=== PATIENT | female | born 1945 | race Caucasian/White ===

== ENCOUNTER → 2017-07-17 14:38 | Outpatient (CLI) | payer MEDICARE, OTHER, SELFPAY ==
[2017-07-17 17:08] LABS: Blood Urea Nitrogen 15 mg/dL (7-18); Estimated Glomerular Filt Rate 70 ml/min (>60); GFR (African American) 85 ML/MIN (>60)
== END ==
PROVIDERS: Family Provider Nurse Practitioner; PCP Family Medicine; Visit Provider Nurse Practitioner
DX: R06.02 Shortness of breath (principal)
CPT/HCPCS: 36415; 82565; 84520

== ENCOUNTER → 2017-07-19 12:45 | Outpatient (CLI) | payer MEDICARE, OTHER, SELFPAY ==
--- NOTE | 2017-07-19 12:54 | CT_ITS ---
CT chest wo/w con HISTORY: Increased shortness of air, emphysema/COPD, right middle lobe collapse, follow-up abnormal chest CT ITS.REASON: SHORTNESS OF BREATH ORDERING PHYSICIAN: Bernadette Paige PATIENT AGE: 72 years Technique: Axial images obtained without and with contrast. Sagittal and coronal reformatted images are also generated and reviewed. All CT scans at the facility use one or more dose reduction, viz: automated exposure control; ma/kV adjustment per patient size (including targeted exams where dose is matched to indication; i.e. head); or iterative reconstruction technique. CONTRAST: 75ml Isovue 370 I.V. COMPARISON: 03/28/2016 FINDINGS: No mediastinal or hilar mass. There are small nodes in the right hilum and subcarinal region. Subcarinal nodes are slightly more apparent at 1.5 x 1.2 cm previously 1.3 x 0.7 cm. Right hilar lymph node also slightly more prominent at 1.4 x 0.8 cm previously 1.3 x 0.7 cm. This is of questionable clinical significance. Unenhanced images show diffuse coronary artery calcifications. Normal heart size. No evidence of pericardial effusion. No evidence of aortic aneurysm or dissection with atheromatous changes noted involving the aorta. No central pulmonary embolus. There are centrilobular emphysematous changes with scattered areas of fibrosis. There are several new parenchymal opacities noted. These are mainly subpleural in the right upper lobe laterally and superiorly, right upper lobe posterior laterally, right upper lobe laterally and inferiorly, right lower lobe posteriorly. These areas measure 1 to 2 cm. There is a more prominent area of new consolidation in the right lung base posteriorly and laterally with an associated small loculated effusion. There are new atelectatic or fibrotic changes in the left lung base anteriorly. Subpleural parenchymal opacity is present in the left lower lobe posteriorly. A stable partially calcified 10 mm nodules present in the left upper lobe medially. A parenchymal opacity is present in the superior segment of the left lower lobe measuring 5 x 6 mm slightly more prominent on today's exam previously measuring approximately 4 mm. Continued follow-up recommended. Upper abdominal images are unremarkable. No acute bony anomalies. There is 50% stenosis of the ostium of the celiac artery. Severe atheromatous changes are also present at the ostium of the left subclavian and carotid artery with high-grade stenosis. IMPRESSION: 1. Centrilobular emphysema with scattered areas of fibrosis. 2. Scattered new parenchymal opacities most extensive in the right lung base posterolaterally with loculated effusion at this region. The multiplicity in subpleural location suggest inflammatory/infectious process such as cryptogenic organizing pneumonia/BOOP. 3. 6 x 4 mm left lower lobe nodule superior segment slightly more prominent. Consider continued follow-up in 6 months. 4. Coronary artery disease. 5. 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
--- NOTE | 2017-07-19 13:35 | HMH.ITSHM ---
BABY ASPIRIN, MUSINEX, LYPITOR, BLOOD PRESSURE MEDICINE, 2 INHALERS
== END ==
PROVIDERS: Family Provider Nurse Practitioner; PCP Family Medicine; Visit Provider Nurse Practitioner
DX: R06.02 Shortness of breath (principal)
CPT/HCPCS: 71270; Q9967

== ENCOUNTER → 2018-01-15 14:48 | Outpatient (CLI) | payer MEDICARE, OTHER, SELFPAY ==
[2018-01-15 18:04] LABS: Blood Urea Nitrogen 18 mg/dL (7-18); Creatinine,Serum 0.68 mg/dL (0.55-1.02); Estimated Glomerular Filt Rate 85 ml/min (>60); GFR (African American) 102 ML/MIN (>60)
== END ==
PROVIDERS: PCP Family Medicine; Visit Provider Nurse Practitioner
DX: R10.9 Unspecified abdominal pain (principal)
CPT/HCPCS: 36415; 82565; 84520

== ENCOUNTER → 2018-01-17 09:13 | Outpatient (CLI) | payer MEDICARE, OTHER, SELFPAY ==
--- NOTE | 2018-01-17 09:18 | CT_ITS ---
CT abdomen pelvis w con CLINICAL INDICATION: Left-sided abdominal pain, left lower quadrant pain ITS.REASON: ABD PAIN, LLQ ORDERING PHYSICIAN: Bernadette Paige PATIENT AGE: 72 years COMPARISON: 07/01/2017 TECHNIQUE: Axial images obtained with sagittal and coronal reformats. All CT scans at the facility use one or more dose reduction, viz: automated exposure control, ma/kV adjustment per patient size (including targeted exams where dose is matched to indication, i.e. head), or iterative reconstruction technique. PROCEDURE: Oral Contrast: Redicat IV Contrast: 75 mL's of Isovue-370. FINDINGS: There are emphysematous changes in the lung bases with bullous change in the right lung base anteriorly with scattered atelectatic or fibrotic change. Small hiatal hernia. Subtle decreased attenuation is present involving the left hepatic lobe adjacent to the falciform ligament and may represent focal fatty liver infiltration. Liver has an otherwise unremarkable appearance. The gallbladder, spleen, and pancreas have an unremarkable appearance. There is mild enlargement of both adrenal glands unchanged and may be adenomatous in nature. Duodenal diverticula noted. Bilateral renal calcifications are present which are felt to be vascular. No obstructing renal or ureteral calculi. There is an isodense lesion involving the left kidney posteriorly at 1.6 cm and may represent complex cyst with a small hyperdensity along the anterior aspect of this lesion. This is not significantly changed. There is a moderate amount retained colonic feces in the right colon. There are multiple colonic diverticula in the sigmoid region. No evidence of diverticulitis. No evidence of appendicitis. No intestinal obstruction or free air. No pelvic mass evident. No abnormal fluid collection or focal inflammatory change evident within the pelvis. No acute bony anomalies. IMPRESSION: 1. No acute abdominal or pelvic findings with overall no significant change. 2. Moderate amount retained colonic feces in the right colon. 3. Colonic diverticulosis. No evidence of diverticulitis.
--- NOTE | 2018-01-17 09:45 | HMH.ITSHM ---
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 []LOTRIL,ASPIRIN,ALLERA MUSCINEX CHOLESTEROL
== END ==
PROVIDERS: PCP Nurse Practitioner; Visit Provider Nurse Practitioner
DX: R10.32 Left lower quadrant pain (principal)
CPT/HCPCS: 74177; Q9967

== ENCOUNTER → 2018-01-29 14:22 | Outpatient (CLI) | payer MEDICARE, OTHER, SELFPAY ==
--- NOTE | 2018-01-29 14:33 | XR_ITS ---
XR elbow RT min 3V HISTORY: Right elbow pain and swelling ITS.REASON: OLECRANON BURSITIS ORDERING PHYSICIAN: Bernadette Paige PATIENT AGE: 72 years COMPARISON: None FINDINGS: No bony or joint abnormalities are evident. There are soft tissue swelling along the proximal and dorsal aspect of the ulna. There is some faint soft tissue calcification in this region versus artifact. IMPRESSION: Olecranon bursitis
== END ==
PROVIDERS: PCP Nurse Practitioner; Visit Provider Nurse Practitioner
DX: M70.21 Olecranon bursitis, right elbow (principal)
CPT/HCPCS: 73080

== ENCOUNTER 2018-03-02 10:36 | Inpatient (IN) ==
[2018-03-02 11:34] LABS: Basophils % 0.2 % (0.1-2.0); Eosinophils % 0.1 % (0.1-12.0); Hematocrit 38.8 % (37.0-47.0); Hemoglobin 11.9 g/dL (12.2-16.2); Lymphocytes # 1.6 K/mm3 (0.7-4.5); Lymphocytes % 11.1 % (10-50); Mean Corpuscular HGB Conc 30.6 g/dL (31.8-35.4); Mean Corpuscular Hemoglobin 29.8 pg (27.0-31.2); Mean Corpuscular Volume 97.2 fl (81-99); Monocytes # 0.5 K/mm3 (0.1-1.0); Monocytes % 3.4 % (1.7-9.3); Neutrophils # 12.5 K/mm3 (1.8-7.8); Neutrophils % 85.2 % (37.0-80.0); Platelet Count 570 K/mm3 (142-424); Red Blood Count 3.99 M/mm3 (4.20-5.40); Red Cell Distribution Width 13.1 % (11.5-17.5); White Blood Count 14.7 K/mm3 (4.8-10.8)
[2018-03-02 11:35] LABS: Anion Gap 7.5 mEq/L (5-15); Calcium 9.6 mg/dL (8.5-10.1); Potassium 3.5 mmoL/L (3.5-5.1)
--- NOTE | 2018-03-02 11:58 | History & Physical Report ---
*Admission Date: 03/02/18 *Chief complaint: Chills and shortness of breath *History of present illness: 72-year-old female presented to the office today as an outpatient with complaint of 1 week of episodes of chills that left her so weak she would sleep for 12-24 hours. She does not know if she had fevers. She has underlying COPD and is O2 dependent. During onset of illness she also noticed slight increase in her shortness of breath and more frequent cough that was productive of darker than usual yellow sputum. She monitors her O2 sats at home while wearing oxygen and while she usually runs at 97% her home O2 sats were dropping down to the low 90s. In the office today her O2 sat was 84-88% on pulse dose oxygen at 2 L/min. On her exam she had rales in the right lung base. Decision was made to admit for treatment of community-acquired pneumonia on top of severe COPD [facility] History Medical History: Denies:: Cancer, Diabetes Mellitus Type 1, Diabetes Mellitus Type 2, Internal Pacemaker, MRSA Comment: Severe COPD Other Surgeries: Yes: Coronary Stent. No: Pacemaker Amputation: No - *Social History Educational Level: Completed High School Smoking Status: Current every day smoker Alcohol Intake: never Occupational Status: disabled Housing: house - Psychiatric History Expresses thoughts of harming self/others: None Suicide Plan Description: No Plan Review of Systems - Review of Systems Review of systems:: pertinent systems reviewed and negative unless documented below - Constitutional Reports body ache(s), Reports chills, Reports fever(s) - *Cardiovascular Reports shortness of breath, Denies chest pain at rest, Denies chest pain with activity - *Respiratory Reports change in phlegm color, Reports chest congestion, Reports cough, Reports shortness of breath - *Gastrointestinal Denies abdominal pain, Denies belching Meds Home Medications Medication Instructions Recorded Confirmed Type Amlodipine Besylate/Benazepril 1 cap PO DAILY 07/01/17 07/01/17 History [Amlodipine-Benazepril 5-10 mg] Atorvastatin Calcium [Atorvastatin 10 mg PO HS 07/01/17 07/01/17 History 10mg Tab] Fluticasone Propionate [Flovent 120 puffs IH DAILY 07/01/17 07/01/17 History Hfa 110mcg Inhaler] Ipratropium/Albuterol Sulfate 3 ml IH DAILY 07/01/17 07/01/17 History [Albut-Ipratropium 2.5mg-0.5mg/3 ml] Ipratropium/Albuterol Sulfate 3 ml IH Q6H PRN 07/01/17 07/01/17 History [Combivent Respimat Inh] Allergies Allergy/AdvReac Type Severity Reaction Status Date / Time codeine [CODEINE] Allergy Unknown NAUSEA AND Verified 07/01/17 16:15 VOMITING ibuprofen [IBUPROFEN] Allergy Unknown I-HIVES Verified 07/01/17 16:15 meperidine [MEPERIDINE] Allergy Unknown INCREASED Verified 07/01/17 16:15 BLOOD PRESSURE Sulfa (Sulfonamide Allergy Unknown SKIN CRAWS Verified 07/01/17 16:15 Antibiotics) [SULFA (SULFONAMIDE ANTIBIOTICS)] adhesive tape AdvReac Intermediate I-RASH Verified 07/01/17 16:15 Exam Vital signs and Labs for Last 24 Hours: Temp Pulse Resp BP Pulse Ox 97.5 F L 95 H 16 180/90 H 98 03/02/18 10:55 03/02/18 11:42 03/02/18 10:55 03/02/18 10:55 03/02/18 11:42 Laboratory Results - last 24 hr 03/02/18 11:15: WBC 14.7 H, RBC 3.99 L, Hgb 11.9 L, Hct 38.8, MCV 97.2, MCH 29.8, MCHC 30.6 L, RDW 13.1, Plt Count 570 H, MPV 7.0 L, Neut % (Auto) 85.2 H, Lymph % (Auto) 11.1, [place] % (Auto) 3.4, Eos % (Auto) 0.1, Baso % (Auto) 0.2, Neut # (Auto) 12.5 H, Lymph # (Auto) 1.6, [place] # (Auto) 0.5, Eos # (Auto) 0.0, Baso # (Auto) 0.0 03/02/18 11:15: Sodium 132 L, Potassium 3.5, Chloride 92 L, Carbon Dioxide 36 H, Anion Gap 7.5, BUN 15, Creatinine 0.86, Estimated Creat Clear 33, Estimated GFR 65, Est GFR ( Amer) 78, Glucose 107 H, Calcium 9.6 I & O for Last 24 hours: Intake & Output 02/27/18 02/28/18 03/01/18 03/02/18 11:59 11:59 11:59 11:59 Weight 93 lb 1 oz Radiology Reports for the Last 24 Hours: I have reviewed the x-ray and believe it is consistent with her right lower lobe pneumonia with infiltrate in the right base Narrative: Patient is alert and in no respiratory distress. ENT exam reveals normal- appearing tympanic membranes, moist oropharynx. Neck is without lymphadenopathy or carotid bruits. Lungs are clear anteriorly but audible rales at the right lung base. Overall breath sounds are distant. Heart has a rapid rate and rhythm. Abdomen is thin and soft. Extremities are warm to the touch with active range of motion intact in all extremities. There are no neurologic deficits. Assessment and Plan (1) Community acquired pneumonia Current visit: Yes Status: Acute Category: Medical Code(s): J18.9 - Pneumonia, unspecified organism (2) Underweight Current visit: Yes Status: Acute Category: Medical Code(s): R63.6 - Underweight (3) CAD (coronary artery disease) Current visit: No Status: Acute Category: Medical Code(s): I25.10 - Atherosclerotic heart disease of [place] coronary artery without angina pectoris (4) COPD (chronic obstructive pulmonary disease) Current visit: No Status: Acute Category: Medical Code(s): J44.9 - Chronic obstructive pulmonary disease, unspecified - Assessment and plan all Dx Assessment and Plan for all problems:: Patient has been admitted for treatment of community-acquired pneumonia with Rocephin and azithromycin. Blood cultures and sputum cultures have been collected. Patient will be started on a probiotic as in the past with treatment of respiratory infection she developed C. difficile. Should she develop diarrhea there will be a low threshold for testing. Home medications will be given.
[2018-03-02 12:08] LABS: Lymphocytes % 9 % (10-50); Monocytes % 1 % (2-9); Neutrophils % 85 % (42-76); Total Cells Counted 100
[2018-03-02 12:09] LABS: RBC Morphology Normal
[2018-03-02 13:15] LABS: Coronavirus 229E Not Detected (NotDetected); Coronavirus NL63 Not Detected (NotDetected); Coronavirus OC43 Not Detected (NotDetected); Coronovirus HKU1,PCR Not Detected (NotDetected)
--- NOTE | 2018-03-03 07:36 | Progress Note ---
Internal Medicine - PN: Subj *Date: 03/03/18 *Time: 07:35 Interval history: Patient is feeling better this morning. While she did have an episode of chills overnight they did not seem to be as intense as they had been prior to admission. She denies fevers. She is ambulating well. Exam Vital signs and Labs for Last 24 Hours: Temp Pulse Resp BP Pulse Ox 97.9 F 82 19 133/63 99 03/03/18 04:00 03/03/18 06:12 03/03/18 04:00 03/03/18 04:00 03/03/18 06:12 Laboratory Results - last 24 hr 03/02/18 11:15: Mycoplasma pneumon IgM Non-reactive 03/02/18 11:15: WBC 14.7 H, RBC 3.99 L, Hgb 11.9 L, Hct 38.8, MCV 97.2, MCH 29.8, MCHC 30.6 L, RDW 13.1, Plt Count 570 H, MPV 7.0 L, Neut % (Auto) 85.2 H, Lymph % (Auto) 11.1, [place] % (Auto) 3.4, Eos % (Auto) 0.1, Baso % (Auto) 0.2, Neut # (Auto) 12.5 H, Lymph # (Auto) 1.6, [place] # (Auto) 0.5, Eos # (Auto) 0.0, Baso # (Auto) 0.0, Total Counted 100, Neutrophils % (Manual) 85 H, Lymphocytes % (Manual) 9 L, Atypical Lymphs % 5.0, Monocytes % (Manual) 1 L, Platelet Estimate Slight increase, RBC Morphology Normal 03/02/18 11:15: Sodium 132 L, Potassium 3.5, Chloride 92 L, Carbon Dioxide 36 H, Anion Gap 7.5, BUN 15, Creatinine 0.86, Estimated Creat Clear 33, Estimated GFR 65, Est GFR ( Amer) 78, Glucose 107 H, Calcium 9.6 03/02/18 13:10: Chlamy pneumoniae PCR Not detected, Adenovirus (PCR) Not detected, B. pertussis DNA (PCR) Not detected, Coronavirus OC43 (PCR) Not detected, Coronavirus HKU1 (PCR) Not detected, Coronavirus 229E (PCR) Not detected, Coronavirus NL63 (PCR) Not detected, Human Metapneumovir PCR Not detected, Influenza A (H1) PCR Not detected, Influ A (H1N1/09) PCR Not detected, Influenza A (H3) PCR Not detected, Influenza Type A (PCR) Not detected, Influenza Type B (PCR) Not detected, M. pneumoniae (PCR) Not detected, Parainfluenza 1 (PCR) Not detected, Parainfluenza 2 (PCR) Not detected, Parainfluenza 3 (PCR) Not detected, Parainfluenza 4 (PCR) Not detected, RSV (PCR) Not detected, Entero/Rhino (PCR) Not detected I & O for Last 24 hours: Intake & Output 02/28/18 03/01/18 03/02/18 03/03/18 11:59 11:59 11:59 11:59 Intake Total 480 / 480 Balance 480 / 480 Weight 93 lb 1 oz Narrative: She looks well. Patient still has faint rales in the right lung base with diminished breath sounds. Left lung is clear. Heart has a regular rate and rhythm. Chest x-ray report has been reviewed Assessment and Plan (1) Community acquired pneumonia Current visit: Yes Status: Acute Category: Medical Code(s): J18.9 - Pneumonia, unspecified organism (2) Underweight Current visit: Yes Status: Acute Category: Medical Code(s): R63.6 - Underweight (3) CAD (coronary artery disease) Current visit: No Status: Acute Category: Medical Code(s): I25.10 - Athe rosclerotic heart disease of [place] coronary artery without angina pectoris (4) COPD (chronic obstructive pulmonary disease) Current visit: No Status: Acute Category: Medical Code(s): J44.9 - Chronic obstructive pulmonary disease, unspecified - Assessment and plan all Dx Assessment and Plan for all problems:: Continue current antibiotics. Await cultures.
[2018-03-03 08:00] LABS: Basophils % 0.2 % (0.1-2.0); Lymphocytes # 1.9 K/mm3 (0.7-4.5); Monocytes # 0.4 K/mm3 (0.1-1.0); Red Blood Count 3.62 M/mm3 (4.20-5.40); White Blood Count 9.5 K/mm3 (4.8-10.8)
[2018-03-03 08:07] LABS: Eosinophils % 0.4 % (0.1-12.0); Hematocrit 35.5 % (37.0-47.0); Lymphocytes % 20.5 % (10-50); Mean Corpuscular HGB Conc 30.9 g/dL (31.8-35.4); Mean Corpuscular Hemoglobin 30.2 pg (27.0-31.2); Mean Platelet Volume 6.7 fl (7.4-10.4); Monocytes % 4.5 % (1.7-9.3); Neutrophils % 74.4 % (37.0-80.0); Platelet Count 519 K/mm3 (142-424); Red Cell Distribution Width 13.1 % (11.5-17.5)
--- NOTE | 2018-03-03 15:54 | Pharmacy Consult Notes ---
[facility] Pharmacy VTE Monitoring - Patient Demographics Admission date: 03/02/18 Report Date: 03/03/18 Time: 15:54 Allergies/Adverse Reactions: Patient Allergies codeine [CODEINE] Allergy (Unknown, Verified 07/01/17 16:15) NAUSEA AND VOMITING ibuprofen [IBUPROFEN] Allergy (Unknown, Verified 07/01/17 16:15) I-HIVES meperidine [MEPERIDINE] Allergy (Unknown, Verified 07/01/17 16:15) INCREASED BLOOD PRESSURE Sulfa (Sulfonamide Antibiotics) [SULFA (SULFONAMIDE ANTIBIOTICS)] Allergy (Unknown, Verified 07/01/17 16:15) SKIN CRAWS adhesive tape Adverse Reaction (Intermediate, Verified 07/01/17 16:15) I-RASH Height: 1.65 m Weight: 42.212 kg Patient Problems: Current Active Problems Community acquired pneumonia (Acute) Underweight (Acute) - VTE Risk Labs: VTE Related Lab Results Hgb 11.0 g/dL (12.2-16.2) L 03/03/18 07:54 Hct 35.5 % (37.0-47.0) L 03/03/18 07:54 Plt Count 519 K/mm3 (142-424) H 03/03/18 07:54 BUN 15 mg/dL (7-18) 03/02/18 11:15 Creatinine 0.86 mg/dL (0.55-1.02) 03/02/18 11:15 Estimated Creat Clear 33 mL/min (50-200) 03/02/18 11:15 Was VTE Risk Assessment Performed: Yes VTE Score: 2 VTE Risk Level: Very Low Risk - Prophylaxis VTE Prophylaxis Ordered?: Yes Types of VTE Prophylaxis: TEDS Knee High Location of Applied Device: Bilateral Lower Extremeties
--- NOTE | 2018-03-04 07:20 | Discharge Summary ---
General - General Admission date:: 03/02/18 Discharge date: 03/04/18 HPI HPI: 72-year-old female presented to the office today as an outpatient with complaint of 1 week of episodes of chills that left her so weak she would sleep for 12-24 hours. She does not know if she had fevers. She has underlying COPD and is O2 dependent. During onset of illness she also noticed slight increase in her shortness of breath and more frequent cough that was productive of darker than usual yellow sputum. She monitors her O2 sats at home while wearing oxygen and while she usually runs at 97% her home O2 sats were dropping down to the low 90s. In the office today her O2 sat was 84-88% on pulse dose oxygen at 2 L/min. On her exam she had rales in the right lung base. Decision was made to admit for treatment of community-acquired pneumonia on top of severe COPD Hospital Course Hospital Course: She was admitted to the hospital and placed on Rocephin and azithromycin. Chest x-ray performed on admission showed mostly chronic changes with a new lesion in the left midlung that was ill-defined. Therefore CT scan was ordered. Patient improved each day while hospitalized. O2 sats remained in the mid to high 90s on her 2 L/min of oxygen via nasal cannula. Cough became less productive of dark yellow sputum. Patient did admit some chest discomfort from coughing so frequently. She was given duo nebs while hospitalized. She did not have any wheezing. Chills decreased in intensity over her 48 hours of hospitalization. Patient was discharged home on the after her chest CT. She was discharged with azithromycin and Ceftin ear. Patient will follow-up in the office in 3 days. Objective Vital signs: Temp Pulse Resp BP Pulse Ox 98.4 F 78 19 122/65 99 03/04/18 04:00 03/04/18 05:57 03/04/18 04:00 03/04/18 04:00 03/04/18 04:00 Results Labs on day of discharge: Labs from last 24 hours 03/03/18 07:54 WBC 9.5 D RBC 3.62 L Hgb 11.0 L Hct 35.5 L MCV 98.0 MCH 30.2 MCHC 30.9 L RDW 13.1 Plt Count 519 H MPV 6.7 L Neut % (Auto) 74.4 Lymph % (Auto) 20.5 [place] % (Auto) 4.5 Eos % (Auto) 0.4 Baso % (Auto) 0.2 Neut # (Auto) 7.0 Lymph # (Auto) 1.9 [place] # (Auto) 0.4 Eos # (Auto) 0.0 Baso # (Auto) 0.0 DS: Diagnosis - Discharge Diagnosis (1) Community acquired pneumonia Status: Acute (2) Underweight Status: Acute (3) CAD (coronary artery disease) Status: Acute (4) COPD (chronic obstructive pulmonary disease) Status: Acute Discharge Plan - Patient Discharge Instructions ACTIVITY: Continue current activity DIET: continue same diet Patient Instructions: Chronic Obstructive Pulmonary Disease - Follow up Plan Follow up with: Celestino Adams MD [Primary Care Provider] - 03/07/18 1:30 pm Disposition: Home, Self-Detention Medications: Home Medications Medication Instructions Recorded Confirmed Type Amlodipine Besylate/Benazepril 1 cap PO DAILY 07/01/17 03/03/18 History [Amlodipine-Benazepril 5-10 mg] Atorvastatin Calcium [Atorvastatin 10 mg PO HS 07/01/17 03/03/18 History 10mg Tab] Fluticasone Propionate [Flovent 120 puffs IH DAILY 07/01/17 03/03/18 History Hfa 110mcg Inhaler] Ipratropium/Albuterol Sulfate 3 ml IH DAILY 07/01/17 03/03/18 History [Albut-Ipratropium 2.5mg-0.5mg/3 ml] Ipratropium/Albuterol Sulfate 3 ml IH Q6H PRN 07/01/17 03/03/18 History [Combivent Respimat Inh] Prescriptions/Medication Reconciliation: New Cefdinir [Omnicef 300mg Capsule] 300 mg PO BID #14 cap Azithromycin [Zithromax 250mg tab] 250 mg PO DAILY #5 tablet Continue Ipratropium/Albuterol Sulfate [Combivent Respimat Inh] 3 ml IH Q6H PRN PRN Reason: breathing Ipratropium/Albuterol Sulfate [Albut-Ipratropium 2.5mg-0.5mg/3 ml] 3 ml IH DAILY Fluticasone Propionate [Flovent Hfa 110mcg Inhaler] 120 puffs IH DAILY Atorvastatin Calcium [Atorvastatin 10mg Tab] 10 mg PO HS Amlodipine Besylate/Benazepril [Amlodipine-Benazepril 5-10 mg] 1 cap PO DAILY Ondansetron [Zofran 4mg ODT] 4 mg PO Q8HP PRN #6 tab.rapdis PRN Reason: Nausea Discontinued Nitrofurantoin Monohyd/M-Cryst [Macrobid 100 mg Capsule] 100 mg PO DAILY
== END 2018-03-04 13:00 | disposition home or self-care (01) ==
LOC: 2ND 10:36
PROVIDERS: ADMIT Family Medicine; ATTEND Family Medicine
CPT/HCPCS: 36415; 71020; 71046; 71260; 80048; 85007; 85025; 86738; 87040; 87070; 87205; 87486; 87581; 87633; 87798; 94640; 94761; J0456; Q9967

== ENCOUNTER → 2018-05-21 13:25 | Outpatient (CLI) | payer MEDICARE, OTHER, SELFPAY ==
--- NOTE | 2018-05-21 13:31 | AS_ITS ---
Renal Arterial Duplex Indications: 405.91 Unspecified renovascular hypertension. IMPRESSIONS 1. Greater than 60% stenosis involving the right renal artery 2. The left renal artery appears normal. History: Risk factors: Smoker-50 yrs Hypertension. Complete renal arterial duplex. Duplex scan and Doppler flow study including spectral analysis, color and varner scale imaging. Height: Height: 165.1cm. Height: 65in. Weight: Weight: 44.9kg. Weight: 98.8lb. Body mass index: BMI: 16.5kg/m^2. Body surface area: BSA: 1.42m^2. Location: Vascular laboratory. Patient status: Outpatient. Tables: Arterial flow: + +--------+--------+ Location V sys V ed + +--------+--------+ Right renal - proximal 175cm/s 30.7cm/s + +--------+--------+ Right renal - mid 133cm/s 24.5cm/s + +--------+--------+ Right renal - distal 126cm/s 26.8cm/s + +--------+--------+ Left renal - proximal 53.6cm/s 11.3cm/s + +--------+--------+ Left renal - mid 83.5cm/s 20.1cm/s + +--------+--------+ Left renal - distal 160cm/s 38.6cm/s + +--------+--------+ Right renal-origin 187cm/s 34.9cm/s + +--------+--------+ Aorta-Prox 59.9cm/s -------- + +--------+--------+ Renal anatomy: + +-----+------+ Left Right + +-----+------+ Long axis 6.2cm 12.3cm + +-----+------+ Short axis 4.3cm 5.9cm + +-----+------+ Cortical thickness 0.9cm 1.2cm + +-----+------+ Velocity ratios: + +-----+ V sys + +-----+ Right renal/aortic 3.1 + +-----+ Left renal/aortic 2.7 + +-----+ (Report amended ) Electronically signed by: Melvin Roach [id number]
--- NOTE | 2018-05-21 14:11 | US_ITS ---
US abd. aorta screening HISTORY: ITS.REASON: abdominal bruit ORDERING PHYSICIAN: Parveen Long MD PATIENT AGE: 73 years Comparison: 01/17/2018 FINDINGS: There is a moderate amount of atherosclerotic calcific plaque involving the abdominal aorta. This somewhat precludes fine detail of the posterior wall of the abdominal aorta. No convincing evidence of abdominal aortic aneurysm with maximum transverse dimension of the upper abdominal aorta at 1.8 cm in the mid abdominal aorta at 1.8 cm. Proximal common iliacs are unremarkable post less than 1 cm. IMPRESSION: 1. No evidence of abdominal aortic aneurysm. 2. Atherosclerotic vascular disease of the aorta
== END ==
PROVIDERS: Visit Provider Internal Medicine
DX: G45.9 Transient cerebral ischemic attack, unspecified (principal); I73.9 Peripheral vascular disease, unspecified; J44.9 Chronic obstructive pulmonary disease, unspecified; Z99.81 Dependence on supplemental oxygen; I10 Essential (primary) hypertension; R09.89 Other specified symptoms and signs involving the circulatory and respiratory systems; Z87.891 Personal history of nicotine dependence
CPT/HCPCS: 76705; 93976

== ENCOUNTER 2018-08-04 19:10 | Observation (INO) | payer MEDICARE, OTHER, SELFPAY ==
[2018-08-04] VITALS (9 sets, daily range): BP systolic 104–147; BP diastolic 51–86; PULSE 75–109; RESP 14–20; TEMP 36.6–37.9; O2SAT 90–96; BMI 16.5; BMI 15.6
--- NOTE | 2018-08-04 19:17 | XR_ITS ---
XR chest 2V HISTORY: Shortness of air, COPD, ITS.REASON: SOA ORDERING PHYSICIAN: Timo Chavez MD PATIENT AGE: 73 years COMPARISON: 05/18/2018 FINDINGS: The cardiomediastinal silhouette and pulmonary vascularity are within normal limits. COPD. Nodular density in the left midlung has increased in size measuring 2.4 cm previously 1.6 cm.. There is blunting of the right CP angle with patchy density in the right lung base suggesting an area of infiltrate. There is thickening along the minor fissure as seen on the lateral view. No acute bony findings. IMPRESSION: 1. Enlarging nodule within the superior segment the left lower lobe suspicious for neoplasm. 2. Small right effusion with infiltrate in the right lung base with COPD
[2018-08-04 19:40] LABS: Basophils % 0.1 % (0.1-2.0); Eosinophils % 0.1 % (0.1-12.0); Hematocrit 35.9 % (37.0-47.0); Hemoglobin 11.7 g/dL (12.2-16.2); Lymphocytes # 1.1 K/mm3 (0.7-4.5); Lymphocytes % 9.2 % (10-50); Mean Corpuscular HGB Conc 32.7 g/dL (31.8-35.4); Mean Corpuscular Volume 91.7 fl (81-99); Mean Platelet Volume 7.1 fl (7.4-10.4); Monocytes # 0.5 K/mm3 (0.1-1.0); Neutrophils # 10.4 K/mm3 (1.8-7.8); Neutrophils % 86.6 % (37.0-80.0); Platelet Count 259 K/mm3 (142-424); Red Blood Count 3.91 M/mm3 (4.20-5.40); Red Cell Distribution Width 13.4 % (11.5-17.5)
[2018-08-04 19:43] LABS: MANUAL DIFFERENTIAL MANUAL DIFFERENTIAL (MANUAL DIFF)
[2018-08-04 19:54] LABS: Alanine Aminotransferase 27 U/L (12-78); Albumin Level 3.7 gm/dL (3.4-5.0); Albumin/Globulin Ratio 0.8 (1.1-1.8); Alkaline Phosphatase 71 U/L (46-116); Anion Gap 11.1 mEq/L (5-15); Aspartate Amino Transferase 24 U/L (15-37); Bilirubin,Total 0.4 mg/dL (0.2-1.0); Blood Urea Nitrogen 21 mg/dL (7-18); Calcium 8.6 mg/dL (8.5-10.1); Carbon Dioxide 33 mmol/L (21.0-32.0); Chloride 90 mmol/L (98-107); Creatinine Clearance Estimated 31 mL/min (50-200); Creatinine,Serum 1.11 mg/dL (0.55-1.02); Estimated Glomerular Filt Rate 48 ml/min (>60); GFR (African American) 58 ML/MIN (>60); Globulin 4.9 gm/dl (1.3-3.2); Glucose 115 mg/dL (74-106); Potassium 4.1 mmoL/L (3.5-5.1); Sodium 130 mmol/L (136-145); Total Protein,Serum 8.6 gm/dL (6.4-8.2); Troponin I < 0.02 ng/ml (0.00-0.06)
[2018-08-04 19:55] LABS: Lactic Acid 1.8 mmol/L (0.4-2.0)
[2018-08-04 19:57] LABS: Lymphocytes % 6 % (10-50); Neutrophils % 78 % (42-76); Total Cells Counted 100
[2018-08-04 19:58] LABS: Platelet Estimate Normal; RBC Morphology Normal
--- NOTE | 2018-08-04 20:28 | HMH.EDSOB ---
ED Disposition Clinical Impression: Acute exacerbation of chronic obstructive airways disease, Low body mass index (BMI), Bronchitis, Hyponatremia, Lung nodule seen on imaging study, Renal insufficiency Disposition: Admitted as Observation Condition on Discharge: Good Referrals: Celestino Adams MD [Primary Care Provider] - - Critical Care Critical Care Time: No Attestation: On 08/04/18, the high probability of a clinically significant, sudden or life threatening deterioration of the following system(s) required my full and direct attention, intervention and personal management. The time I documented below is in addition to time spent performing reported procedures but includes the following listed in this critical care notation. Medical Decision Making - Medical Records Medical records reviewed: Yes: I reviewed the patient's medical records. - Koko Inquiry Pt receiving controlled substance: No Vital Signs: 08/04/18 19:11 08/04/18 19:32 08/04/18 19:40 Temperature 100.2 F H Temperature Source Oral Pulse Rate 77 79 Pulse Rate [Right Brachial] 109 H Respiratory Rate 20 Blood Pressure [Right Arm] 147/67 H Blood Pressure Mean [Right Arm] 93 Blood Pressure Source [Right Arm] Blood Pressure Position [Right Arm] 02 Sat by Pulse Oximetry 90 L Oxygen Delivery Method Oxygen Flow Rate (LPM) 08/04/18 20:46 Temperature 100.0 F H Temperature Source Oral Pulse Rate Pulse Rate [Right Brachial] 89 Respiratory Rate 14 Blood Pressure [Right Arm] 130/60 Blood Pressure Mean [Right Arm] 83 Blood Pressure Source [Right Arm] Automatic Cuff Blood Pressure Position [Right Arm] Supine 02 Sat by Pulse Oximetry 95 Oxygen Delivery Method Nasal Cannula Oxygen Flow Rate (LPM) 2 - Lab Data Lab results reviewed: Yes: I reviewed the patient's lab results. Lab Results 08/04/18 19:20: WBC 12.0 H, RBC 3.91 L, Hgb 11.7 L, Hct 35.9 L, MCV 91.7, MCH 30.0, MCHC 32.7, RDW 13.4, Plt Count 259, MPV 7.1 L, Neut % (Auto) 86.6 H, Lymph % (Auto) 9.2 L, [place] % (Auto) 4.0, Eos % (Auto) 0.1, Baso % (Auto) 0.1, Neut # (Auto) 10.4 H, Lymph # (Auto) 1.1, [place] # (Auto) 0.5, Eos # (Auto) 0.0, Baso # (Auto) 0.0, Total Counted 100, Neutrophils % (Manual) 78 H, Band Neutrophils % 16.0 H, Lymphocytes % (Manual) 6 L, Platelet Estimate Normal, RBC Morphology Normal 08/04/18 19:20: Sodium 130 L, Potassium 4.1, Chloride 90 L, Carbon Dioxide 33 H, Anion Gap 11.1, BUN 21 H, Creatinine 1.11 H, Estimated Creat Clear 31, Estimated GFR 48 L, Est GFR ( Amer) 58 L, Glucose 115 H, Calcium 8.6, Total Bilirubin 0.4, AST 24, ALT 27, Alkaline Phosphatase 71, Troponin I < 0.02, Total Protein 8.6 H, Albumin 3.7, Globulin 4.9 H, Albumin/Globulin Ratio 0.8 L 08/04/18 19:20: Lactate 1.8 08/04/18 21:00: Urine Color Yellow, Urine Appearance Clear, Urine pH 6.0, Ur Specific [place] 1.025, Urine Protein 2+, Urine Glucose (UA) Negative, Urine Ketones Negative, Urine Blood 2+, Urine Nitrate Negative, Urine Bilirubin Negative, Urine Urobilinogen 0.2, Ur Leukocyte Esterase Negative, Urine RBC 3-5, Urine WBC Occasional, Ur Squamous Epith Cells 3-5, Hyaline Casts Occasional 08/04/18 21:53: Troponin I < 0.02 Result diagrams: 08/04/18 19:20 08/04/18 19:20 Orders (Tests/Meds): ED MEDICATIONS Generic Name Dose Route Start Last Admin Trade Name Freq PRN Reason Stop Dose Admin Sodium Chloride 1,000 mls @ 999 mls/hr 08/04/18 19:30 08/04/18 19:29 Sod Chlor 0.9% 1000ml Bag IV 08/04/18 20:30 999 mls/hr .[id number] LAURA Administration Discontinued Medications Generic Name Dose Route Start Last Admin Trade Name Freq PRN Reason Stop Dose Admin Acetaminophen 650 mg 08/04/18 20:48 08/04/18 20:50 Acetaminophen 325mg Tab PO 08/04/18 20:49 650 mg ONCE ONE Administration Albuterol/Ipratropium 3 ml 08/04/18 19:18 08/04/18 19:30 Duoneb 3ml Neb IH 08/04/18 19:19 3 ml ONCE ONE Administration Famotidine 20 mg 08/04/18 22:24 08/04/18
--- NOTE | 2018-08-04 20:39 | ED_ITS ---
ED Disposition Clinical Impression: Acute exacerbation of chronic obstructive airways disease, Low body mass index (BMI), Bronchitis, Hyponatremia, Lung nodule seen on imaging study, Renal insufficiency Disposition: Admitted as Observation Condition on Discharge: Good Referrals: Celestino Adams MD [Primary Care Provider] - - Critical Care Critical Care Time: No Attestation: On 08/04/18, the high probability of a clinically significant, sudden or life threatening deterioration of the following system(s) required my full and direct attention, intervention and personal management. The time I documented below is in addition to time spent performing reported procedures but includes the following listed in this critical care notation. Medical Decision Making - Medical Records Medical records reviewed: Yes: I reviewed the patient's medical records. - Koko Inquiry Pt receiving controlled substance: No Vital Signs: 08/04/18 19:11 08/04/18 19:32 08/04/18 19:40 Temperature 100.2 F H Temperature Source Oral Pulse Rate 77 79 Pulse Rate [Right Brachial] 109 H Respiratory Rate 20 Blood Pressure [Right Arm] 147/67 H Blood Pressure Mean [Right Arm] 93 Blood Pressure Source [Right Arm] Blood Pressure Position [Right Arm] 02 Sat by Pulse Oximetry 90 L Oxygen Delivery Method Oxygen Flow Rate (LPM) 08/04/18 20:46 Temperature 100.0 F H Temperature Source Oral Pulse Rate Pulse Rate [Right Brachial] 89 Respiratory Rate 14 Blood Pressure [Right Arm] 130/60 Blood Pressure Mean [Right Arm] 83 Blood Pressure Source [Right Arm] Automatic Cuff Blood Pressure Position [Right Arm] Supine 02 Sat by Pulse Oximetry 95 Oxygen Delivery Method Nasal Cannula Oxygen Flow Rate (LPM) 2 - Lab Data Lab results reviewed: Yes: I reviewed the patient's lab results. Lab Results 08/04/18 19:20: WBC 12.0 H, RBC 3.91 L, Hgb 11.7 L, Hct 35.9 L, MCV 91.7, MCH 30.0, MCHC 32.7, RDW 13.4, Plt Count 259, MPV 7.1 L, Neut % (Auto) 86.6 H, Lymph % (Auto) 9.2 L, [place] % (Auto) 4.0, Eos % (Auto) 0.1, Baso % (Auto) 0.1, Neut # (Auto) 10.4 H, Lymph # (Auto) 1.1, [place] # (Auto) 0.5, Eos # (Auto) 0.0, Baso # (Auto) 0.0, Total Counted 100, Neutrophils % (Manual) 78 H, Band Neutrophils % 16.0 H, Lymphocytes % (Manual) 6 L, Platelet Estimate Normal, RBC Morphology Normal 08/04/18 19:20: Sodium 130 L, Potassium 4.1, Chloride 90 L, Carbon Dioxide 33 H, Anion Gap 11.1, BUN 21 H, Creatinine 1.11 H, Estimated Creat Clear 31, Estimated GFR 48 L, Est GFR ( Amer) 58 L, Glucose 115 H, Calcium 8.6, Total Bilirubin 0.4, AST 24, ALT 27, Alkaline Phosphatase 71, Troponin I < 0.02, Total Protein 8.6 H, Albumin 3.7, Globulin 4.9 H, Albumin/Globulin Ratio 0.8 L 08/04/18 19:20: Lactate 1.8 08/04/18 21:00: Urine Color Yellow, Urine Appearance Clear, Urine pH 6.0, Ur Specific [place] 1.025, Urine Protein 2+, Urine Glucose (UA) Negative, Urine Ketones Negative, Urine Blood 2+, Urine Nitrate Negative, Urine Bilirubin Negative, Urine Urobilinogen 0.2, Ur Leukocyte Esterase Negative, Urine RBC 3-5, Urine WBC Occasional, Ur Squamous Epith Cells 3-5, Hyaline Casts Occasional 08/04/18 21:53: Troponin I < 0.02 Result diagrams: 08/04/18 19:20 08/04/18 19:20 Orders (
--- NOTE | 2018-08-04 21:00 | PC.NURSE ---
urine output of 200cc
[2018-08-04 21:11] LABS: Microscopic, Urine URINE MICROSCOPIC (MICROSCOPIC)
[2018-08-04 21:16] LABS: Appearance,Urine CLEAR (Clear); Bilirubin,Urine Negative (Negative); Blood, Urine 2+ (Negative); Color,Urine YELLOW (Yellow); Glucose,Urine (UA) Negative (Negative); Ketones,Urine Negative (Negative); Leukocyte Esterase,Urine Negative (Negative); Nitrate,Urine Negative (Negative); Protein,Urine 2+ (Negative); Specific Gravity, Urine 1.025 (1.005-1.030); Urobilinogen,Urine 0.2 EU/dl (0.2)
[2018-08-04 21:18] LABS: Hyaline Casts,Urine Occasional #/lpf (0); WBC,Urine Occasional #/hpf (0-3)
--- NOTE | 2018-08-04 21:54 | XR_ITS ---
XR pelvis 1-2V HISTORY: Pain ITS.REASON: pain ORDERING PHYSICIAN: Celestino Adams MD PATIENT AGE: 73 years Comparison: None FINDINGS: No fracture or dislocation is evident. No significant degenerative change. No lytic or blastic change. The SI joints have an unremarkable appearance. There is a mild amount of retained colonic feces. Right iliac artery stent is present. IMPRESSION: No acute finding
--- NOTE | 2018-08-04 21:55 | XR_ITS ---
XR knee RT 3V HISTORY: ITS.REASON: pain ORDERING PHYSICIAN: Celestino Adams MD PATIENT AGE: 73 years COMPARISON: None FINDINGS: No fracture or dislocation. No lytic or blastic change. Normal mineralization. No significant arthritic changes evident.. Lucencies are present in the distal aspect of the femur nonspecific possibly related to osteopenia/osteoporosis. Follow-up may confirm. IMPRESSION: 1. No acute finding. 2. Nonspecific faint lucencies of the distal femur
[2018-08-04 22:15] LABS: Troponin I < 0.02 ng/ml (0.00-0.06)
--- NOTE | 2018-08-04 23:56 | PC.NURSE ---
PT ARRIVED TO FLOOR VIA @ [id number]
[2018-08-05] VITALS (12 sets, daily range): BP systolic 92–146; BP diastolic 47–63; PULSE 70–100; RESP 18–20; TEMP 36.6–37.1; O2SAT 93–99; BMI 15.7
[2018-08-05 01:39] LABS: Troponin I < 0.02 ng/ml (0.00-0.06)
--- NOTE | 2018-08-05 04:26 | PC.NURSE ---
Pt A&O x3. Resting in bed. Denies any chest pain at this time. VSS. Medications administered per may. Call light within reach. Will continue to monitor.
[2018-08-05 04:27] LABS: Basophils % 0.1 % (0.1-2.0); Eosinophils % 0.1 % (0.1-12.0); Hematocrit 32.1 % (37.0-47.0); Hemoglobin 10.3 g/dL (12.2-16.2); Lymphocytes # 0.8 K/mm3 (0.7-4.5); Mean Corpuscular HGB Conc 32.2 g/dL (31.8-35.4); Mean Corpuscular Hemoglobin 30.1 pg (27.0-31.2); Mean Corpuscular Volume 93.4 fl (81-99); Mean Platelet Volume 7.4 fl (7.4-10.4); Monocytes # 0.2 K/mm3 (0.1-1.0); Monocytes % 1.3 % (1.7-9.3); Neutrophils # 12.2 K/mm3 (1.8-7.8); Neutrophils % 92.5 % (37.0-80.0); Platelet Count 230 K/mm3 (142-424); Red Blood Count 3.44 M/mm3 (4.20-5.40); Red Cell Distribution Width 13.5 % (11.5-17.5); White Blood Count 13.1 K/mm3 (4.8-10.8)
[2018-08-05 04:29] LABS: MANUAL DIFFERENTIAL MANUAL DIFFERENTIAL (MANUAL DIFF)
--- NOTE | 2018-08-05 04:35 | PC.NURSE ---
Pt A&O x3. Resting in bed. She denies any discomfort at this time. She is currently on 2L O2 NC. VSS. Pt ambulated to BR with assist x1. Tolerated well. Education given on medicare obs. Home meds in locked drawer. Call light within reach. No other concerns at this time. Will continue to monitor.
[2018-08-05 04:46] LABS: Anion Gap 11.8 mEq/L (5-15); Blood Urea Nitrogen 20 mg/dL (7-18); Carbon Dioxide 29 mmol/L (21.0-32.0); Chloride 97 mmol/L (98-107); Creatinine Clearance Estimated 31 mL/min (50-200); Creatinine,Serum 1.05 mg/dL (0.55-1.02); Estimated Glomerular Filt Rate 51 ml/min (>60); GFR (African American) 62 ML/MIN (>60); Magnesium 1.7 mg/dL (1.4-2.2); Potassium 3.8 mmoL/L (3.5-5.1); Sodium 134 mmol/L (136-145); Troponin I < 0.02 ng/ml (0.00-0.06)
[2018-08-05 04:47] LABS: Glucose 183 mg/dL (74-106)
[2018-08-05 04:49] LABS: Lymphocytes % 6 % (10-50); Neutrophils % 81 % (42-76); Platelet Estimate Normal; RBC Morphology Normal; Total Cells Counted 100
[2018-08-05 04:50] LABS: Rouleaux 1+
--- NOTE | 2018-08-05 07:11 | P.CONPHA_ITS ---
[facility] Pharmacy VTE Monitoring - Patient Demographics Admission date: 08/04/18 Report Date: 08/05/18 Time: 07:11 Allergies/Adverse Reactions: Patient Allergies codeine [CODEINE] Allergy (Unknown, Verified 05/21/18 11:15) NAUSEA AND VOMITING ibuprofen [IBUPROFEN] Allergy (Unknown, Verified 05/21/18 11:15) I-HIVES meperidine [MEPERIDINE] Allergy (Unknown, Verified 05/21/18 11:15) INCREASED BLOOD PRESSURE Sulfa (Sulfonamide Antibiotics) [SULFA (SULFONAMIDE ANTIBIOTICS)] Allergy (Unknown, Verified 05/21/18 11:15) SKIN CRAWS adhesive tape Adverse Reaction (Intermediate, Verified 05/21/18 11:15) I-RASH Height: 1.65 m Weight: 42.864 kg Patient Problems: Current Active Problems (Updated 08/04/18 @ 22:43 by Mateus Lemus MD) Lung nodule seen on imaging study (Acute) Acute exacerbation of chronic obstructive airways disease (Acute) Low body mass index (BMI) (Acute) Bronchitis (Acute) Hyponatremia (Acute) Renal insufficiency (Acute) - VTE Risk Labs: VTE Related Lab Results Hgb 10.3 g/dL (12.2-16.2) L D 08/05/18 04:10 Hct 32.1 % (37.0-47.0) L 08/05/18 04:10 Plt Count 230 K/mm3 (142-424) 08/05/18 04:10 BUN 20 mg/dL (7-18) H 08/05/18 04:10 Creatinine 1.05 mg/dL (0.55-1.02) H 08/05/18 04:10 Estimated Creat Clear 31 mL/min (50-200) 08/05/18 04:10 VTE Score: 9 VTE Risk Level: Moderate Risk - Prophylaxis VTE Prophylaxis Ordered?: Yes Types of VTE Prophylaxis: TEDS Knee High Location of Applied Device: Bilateral Lower Extremeties - VTE Diagnosis Confirmed Treatment or plan recommended: Continue Current Treatment
--- NOTE | 2018-08-05 07:22 | HMH.HP ---
*Admission Date: 08/04/18 *Chief complaint: Nausea *History of present illness: 73-year-old female with COPD who is undergoing work-up for left lung mass highly suspicious for malignancy, as well as history of carotid disease with anticipated right carotid endarterectomy scheduled for August 14 presented to the emergency department with 2 weeks of weakness and intermittent episodes of severe nausea limiting her ability to eat. Nausea became quite severe on the day of admission and had associated dizziness and patient even reports feeling confused. Patient admits that she feels like her COPD is worsening. She is having increased symptoms of shortness of breath but cough is primarily nonproductive. She denies fevers or chills. She has felt increasingly weak with nausea and has had poor appetite. She denies vomiting. 1 of the medication she was given in the emergency department for her nausea resolved her nausea and this morning she states she feels quite good compared to how she is felt the previous 2 weeks. [facility] History I have reviewed the patient's past medical history: Yes Medical History: Reports:: Chronic Obstructive Pulmonary Disease (COPD), Hyperlipidemia, Hypertension, Internal Pacemaker Denies:: Cancer (Possible Lung), Diabetes Mellitus Type 1, Diabetes Mellitus Type 2, MRSA *Have you ever received a pneumonia vaccine?: Yes *Have you received a flu vaccine this season?: Yes Other Medical History: Reports: Cataracts Comment:: Left lung mass Other Surgeries: Yes: Appendectomy, Coronary Stent, , Dilation and Curettage, Pacemaker, Other (Cleaning of carotid artery) Amputation: No Fractures: No Comment: Left carotid endarterectomy - *Social History Educational Level: Attended College Smoking Status: Former smoker # Packs/Day (cigarettes): 2 #Yrs smoked (if former smoker): 50 Alcohol Intake: current Alcohol Intake Frequency:: holidays/special occasions only Substance Use Type: denies use *Occupational Status:: disabled Housing: house Household Members: spouse *Travel in the last 8 weeks: None - Psychiatric History Expresses thoughts of harming self/others: None Suicide Plan Description: No Plan Family Hx:: Heart Attack, Diabetes, Cancer, Stroke Review of Systems - Review of Systems Review of systems:: pertinent systems reviewed and negative unless documented below - Constitutional Reports anorexia, Reports fatigue, Reports weakness, Denies body ache(s), Denies chills, Denies fever(s) - *Cardiovascular Denies chest pain, Denies chest pain at rest, Denies chest pain with activity - *Respiratory Reports cough, Reports shortness of breath, Reports shortness of breath with activity, Reports wheezing, Denies excessive phlegm production, Denies coughing up blood - *Gastrointestinal Denies abdominal pain, Denies belching - *Neurologic Reports weakness, Denies seizure-like activity Meds Home Medications Medication Instructions Recorded Confirmed Type Amlodipine Besylate/Benazepril 1 cap PO BID 07/01/17 08/05/18 History [Amlodipine-Benazepril 5-10 mg] albuterol sulfate 90 mcg/actuation 1 inh INHALATION Q4-6H PRN 05/21/18 08/04/18 History breath activated powder inhaler aspirin 81 mg tablet,delayed 81 mg PO DAILY 05/21/18 08/04/18 History release atorvastatin 10 mg tablet 20 mg PO HS tab 05/21/18 08/04/18 History clopidogrel 75 mg tablet 75 mg PO DAILY 05/21/18 08/04/18 History fexofenadine 60 mg tablet 60 mg PO DAILY tab 05/21/18 08/04/18 History fluticasone propionate 250 1 inh INHALATION BID 05/21/18 08/04/18 History mcg/actuation blister powder for inhalation tiotropium 2.5 mcg-olodaterol 2.5 2 puff INHALATION DAILY 05/21/18 08/04/18 History mcg/actuation mist for inhalation Atorvastatin Calcium [Atorvastatin 80 mg PO HS 08/05/18 08/05/18 History 40mg Tab] Lisinopril [Lisinopril 10mg Tab] 10 mg PO BID 08/05/18 08/05/18 History guaiFENesin [Guaifenesin] 400 mg PO BID 08/05/18 08/05/18 Hi
--- NOTE | 2018-08-05 07:26 | P.HP_ITS ---
*Admission Date: 08/04/18 *Chief complaint: Nausea *History of present illness: 73-year-old female with COPD who is undergoing work-up for left lung mass highly suspicious for malignancy, as well as history of carotid disease with anticipated right carotid endarterectomy scheduled for August 14 presented to the emergency department with 2 weeks of weakness and intermittent episodes of severe nausea limiting her ability to eat. Nausea became quite severe on the day of admission and had associated dizziness and patient even reports feeling confused. Patient admits that she feels like her COPD is worsening. She is having increased symptoms of shortness of breath but cough is primarily nonproductive. She denies fevers or chills. She has felt increasingly weak with nausea and has had poor appetite. She denies vomiting. 1 of the medication she was given in the emergency department for her nausea resolved her nausea and this morning she states she feels quite good compared to how she is felt the previous 2 weeks. [facility] History I have reviewed the patient's past medical history: Yes Medical History: Reports:: Chronic Obstructive Pulmonary Disease (COPD), Hyperlipidemia, Hypertension, Internal Pacemaker Denies:: Cancer (Possible Lung), Diabetes Mellitus Type 1, Diabetes Mellitus Type 2, MRSA *Have you ever received a pneumonia vaccine?: Yes *Have you received a flu vaccine this season?: Yes Other Medical History: Reports: Cataracts Comment:: Left lung mass Other Surgeries: Yes: Appendectomy, Coronary Stent, , Dilation and Curettage, Pacemaker, Other (Cleaning of carotid artery) Amputation: No Fractures: No Comment: Left carotid endarterectomy - *Social History Educational Level: Attended College Smoking Status: Former smoker # Packs/Day (cigarettes): 2 #Yrs smoked (if former smoker): 50 Alcohol Intake: current Alcohol Intake Frequency:: holidays/special occasions only Substance Use Type: denies use *Occupational Status:: disabled Housing: house Household Members: spouse *Travel in the last 8 weeks: None - Psychiatric History Expresses thoughts of harming self/others: None Suicide Plan Description: No Plan Family Hx:: Heart Attack, Diabetes, Cancer, Stroke Review of Systems - Review of Systems Review of systems:: pertinent systems reviewed and negative unless documented below - Constitutional Reports anorexia, Reports fatigue, Reports weakness, Denies body ache(s), Denies chills, Denies fever(s) - *Cardiovascular Denies chest pain, Denies chest pain at rest, Denies chest pain with activity - *Respiratory Reports cough, Reports shortness of breath, Reports shortness of breath with activity, Reports wheezing, Denies excessive phlegm production, Denies coughing up blood - *Gastrointestinal Denies abdominal pain, Denies belching - *Neurologic Reports weakness, Denies seizure-like activity Meds Home Medications Medication Instructions Recorded Confirmed Type Amlodipine Besylate/Benazepril 1 cap PO BID 07/01/17 08/05/18 History [Amlodipine-Benazepril 5-10 mg] albuterol sulfate 90 mcg/actuation 1 inh INHALATION Q4-6H PRN 05/21/18 08/04/18 History breath activated powder inhaler aspirin 81 mg tablet,delayed 81 mg PO DAILY 05/21/18 08/04/18 History release atorvastatin 10 mg tablet 20 mg PO HS tab 05/21/18 08/04/18 History clopidogrel 75 mg tablet 75 mg PO DAILY 05/21/18 08/04/18 History fexofenadine 60 mg tablet 60 mg PO DAILY tab 05/21/18 08/04/18 History flutica
--- NOTE | 2018-08-05 07:29 | XR_ITS ---
EXAM: XR lumbar spine 2-3V HISTORY: Low back pain ITS.REASON: right leg pain,r/o veterbral mets ORDERING PHYSICIAN: Celestino Adams MD PATIENT AGE: 73 years COMPARISON: None FINDINGS: Normal alignment. No fracture or dislocation. No lytic or blastic change. There is mild generalized osteopenia. There is no acute compression fracture seen. The SI joints appear grossly normal. There is prominent arteriosclerotic calcification of the abdominal aorta. There is a right-sided common iliac artery stent. There is contrast in both kidneys from the CT scan the brain performed earlier. Right kidney is normal in size and shows normal appearing collecting system. The left kidney is atrophic and somewhat poorly functioning with only small amount of contrast seen in somewhat distorted collecting system. No significant degenerative change. The disc spaces are preserved. IMPRESSION: No acute compression fracture seen and there is no findings to suggest osseous metastatic disease in the visualized portion of the bony pelvis and in the lumbar spine.
--- NOTE | 2018-08-05 07:30 | CT_ITS ---
CT head/brain w con HISTORY: Mental status change, altered level of consciousness, confusion, disorientation of ITS.REASON: mental status change, r/o brain mets ORDERING PHYSICIAN: Celestino Adams MD PATIENT AGE: 73 years COMPARISON: None TECHNIQUE: Axial images obtained without and with 100 mL's Optiray 320. Brain and bone windows reviewed. All CT scans at the facility use one or more dose reduction, viz: automated exposure control, ma/kV adjustment per patient size (including targeted exams where dose is matched to indication, i.e. head), or iterative reconstruction technique. FINDINGS: No midline shift, mass effect, intracranial hemorrhage, hydrocephalus, or extra-axial fluid collection is evident. No enhancing lesions. Low-density changes are present in the periventricular region consistent with ischemic gliotic change from microvascular disease. No evidence of metastatic disease. The calvarium has an unremarkable appearance. No mastoid effusion. No sinus air-fluid levels.. IMPRESSION: No acute finding. No enhancing lesions evident that would indicate metastatic
--- NOTE | 2018-08-05 09:12 | HMH.PHAINT ---
MEDICATION RECONCILIATION COMPLETED ON PATIENT USING EXTERNAL FILL HISTORY FROM PHARMACY, PATIENT INTERVIEW, AND LIST FROM PHYSICIAN'S OFFICE. -BYRON RODRIGUEZD
--- NOTE | 2018-08-05 15:40 | DIET.NUTRFU ---
Nutritional assessment completed by student refugio under my supervision. Recommendation for liberalized diet from 2 gram sodum to regular due to poor po intakes 25% and bmi 15.7. Diet will be supplemented with Chocolate Ensure between meals.
--- NOTE | 2018-08-05 18:22 | PC.NURSE ---
NO ACUTE CHANGES THIS SHIFT. CALL LIGHT IN PLACE. VSS. WILL CONTINUE TO MONITOR.
--- NOTE | 2018-08-05 19:18 | PC.NURSE ---
report given to lacho
--- NOTE | 2018-08-05 21:21 | PC.NURSE ---
CODE STATUS CHANGE: Pt was listed as DNI on cardex, and on outside of chart. When I looked at code status on chart, pt had checked and initialed and signed paper, but she only checked and initialed no ventilator. I wanted to clarify with pt if she wanted to be intubated or not and explained that when pt's are intubated, it is usually to place on ventilator, that in code situation, if pt requires a tube to help breath, it is usually hooked up to a ventilator. She stated, she just wants to think about it at a later date. So she is full code as of this time. DNI removed from chart.
--- NOTE | 2018-08-05 22:36 | PC.NURSE ---
Pt requested for IV fluids to be temporarily turned off.
[2018-08-06 03:54] VITALS: BP 133/65; PULSE 86; RESP 18; TEMP 36.6; O2SAT 97; BMI 17.2
--- NOTE | 2018-08-06 05:08 | PC.NURSE ---
PT ALERT AND ORIENTED. SLEPT VERY SHORT INTERVALS. PT STATED SHE WOULD LIKE TO HAVE MD GO ON AND GET HER BP MEDS REFILLED BEFORE SHE IS DISCHARGED. ALSO, PATIENT'S HOME MEDS ARE LOCKED IN DRAWER, BUT NOT ALL OF THEM HAVE BEEN ORDERED TO BE GIVEN WHILE HERE. SHE STATES SHE TAKES 80MG ATORVASTATIN QHS, BUT ONLY 20MG QHS IS CURRENTLY ORDERED. ALSO, HER FLOVENT DISKUS AND SPIRIVA ARE NOT ORDERED, ALTHOUGH THEY ARE LOCKED IN MED DRAWER WELL. IV SECURE AND PATENT, HOWEVER, LAST NIGHT BEFORE BED, PT REQUESTED HER FLUIDS BE UNHOOKED AND STOPPED FOR THE NIGHT. SHE STATED THAT SHE IS FEELING LIKE SHE'S HAD ENOUGH FLUID FOR NOW AND WANTS A BREAK. PT HAS OCCASIONAL, NON-PRODUCTIVE COUGH. SPUTUM CULTURE ORDERED PER PROTOCOL, SPECIMEN CUP ON BEDSIDE TABLE. PT INSTRUCTED WE NEED A SPECIMEN IF SHE IS ABLE TO PRODUCE ONE. RESPIRATIONS EVEN AND UNLABORED ON 2L/NC. PT IS ON O2 AT HOME WELL. BREATH SOUNDS FINE WHEEZES. RR 18, SAT 97% 2L. NO CURRENT COMPLAINTS OF PAIN OR DISCOMFORT REPORTED. PT STABLE. WILL CONTINUE TO MONITOR. REPORT TO BE GIVEN TO ONCOMING NURSE.
--- NOTE | 2018-08-06 05:55 | PC.NURSE ---
0600 courtesy check, pt on left side sleeping
--- NOTE | 2018-08-06 07:17 | HMH.DCSUM ---
General - General Admission date:: 08/04/18 Discharge date: 08/06/18 HPI HPI: 73-year-old female with COPD who is undergoing work-up for left lung mass highly suspicious for malignancy, as well as history of carotid disease with anticipated right carotid endarterectomy scheduled for August 14 presented to the emergency department with 2 weeks of weakness and intermittent episodes of severe nausea limiting her ability to eat. Nausea became quite severe on the day of admission and had associated dizziness and patient even reports feeling confused. Patient admits that she feels like her COPD is worsening. She is having increased symptoms of shortness of breath but cough is primarily nonproductive. She denies fevers or chills. She has felt increasingly weak with nausea and has had poor appetite. She denies vomiting. 1 of the medication she was given in the emergency department for her nausea resolved her nausea and this morning she states she feels quite good compared to how she is felt the previous 2 weeks. Hospital Course Hospital Course: Patient was admitted after receiving antiemetics in the emergency department with which improved her nausea. She was admitted and placed on antibiotics due to bronchitis. By the following morning (August 05) patient's nausea and dizziness had improved. She was observed for an additional 24 hours. She tolerated a liquid diet without recurrence of nausea. She received Zofran regularly to prevent nausea. On the morning of August 06 patient was discharged home. Symptoms of dizziness never recurred while hospitalized. Patient is scheduled for right carotid endarterectomy in 1 week. She has a left upper lobe lung mass that is awaiting further work-up once her carotid disease is addressed. Patient admits she feels weak and tired most days and can just sleep all the time. She did question whether there would be enough time left to address all of her medical issues prior to the end of life. Had a long discussion with patient about her current condition as well as the potential role of hospice. Patient tells me that she is going to continue to pursue treatment primarily to not disappoint her family. She has been made aware that hospice can be available at any time as I do believe her prognosis overall is very poor. Objective Vital signs: Temp Pulse Resp BP Pulse Ox 97.8 F 86 18 133/65 97 08/06/18 03:54 08/06/18 03:54 08/06/18 03:54 08/06/18 03:54 08/06/18 03:54 DS: Diagnosis - Discharge Diagnosis (1) Acute exacerbation of chronic obstructive airways disease Status: Acute (2) Hyponatremia Status: Acute (3) Low body mass index (BMI) Status: Acute (4) Carotid artery stenosis Status: Acute (5) Nausea Status: Acute (6) Right leg pain Status: Acute (7) Mental status change resolved Status: Acute Discharge Plan - Patient Discharge Instructions ACTIVITY: Continue current activity DIET: continue same diet Patient Instructions: DI for Chronic Obstructive Pulmonary Disease, DI for Acute Bronchitis - Follow up Plan Follow up with: Celestino Adams MD [Primary Care Provider] - 2 weeks Disposition: Home, Self-Shelter Medications: Home Medications Medication Instructions Recorded Confirmed Type Amlodipine Besylate/Benazepril 1 cap PO DAILY 07/01/17 08/05/18 History [Amlodipine-Benazepril 5-10 mg] albuterol sulfate 90 mcg/actuation 1 inh INHALATION Q4-6H PRN 05/21/18 08/04/18 History breath activated powder inhaler aspirin 81 mg tablet,delayed 81 mg PO DAILY 05/21/18 08/04/18 History release clopidogrel 75 mg tablet 75 mg PO DAILY 05/21/18 08/04/18 History fexofenadine 60 mg tablet 60 mg PO DAILY tab 05/21/18 08/04/18 History fluticasone propionate 250 1 inh INHALATION BID 05/21/18 08/04/18 History mcg/actuation blister powder for inhalation tiotropium 2.5 mcg-olodaterol 2.5 1 puff INHALATION BID 05/21/18 08/06/18 Histor
--- NOTE | 2018-08-06 07:20 | P.DS_ITS ---
General - General Admission date:: 08/04/18 Discharge date: 08/06/18 HPI HPI: 73-year-old female with COPD who is undergoing work-up for left lung mass highly suspicious for malignancy, as well as history of carotid disease with anticipated right carotid endarterectomy scheduled for August 14 presented to the emergency department with 2 weeks of weakness and intermittent episodes of severe nausea limiting her ability to eat. Nausea became quite severe on the day of admission and had associated dizziness and patient even reports feeling confused. Patient admits that she feels like her COPD is worsening. She is having increased symptoms of shortness of breath but cough is primarily nonproductive. She denies fevers or chills. She has felt increasingly weak with nausea and has had poor appetite. She denies vomiting. 1 of the medication she was given in the emergency department for her nausea resolved her nausea and this morning she states she feels quite good compared to how she is felt the previous 2 weeks. Hospital Course Hospital Course: Patient was admitted after receiving antiemetics in the emergency department with which improved her nausea. She was admitted and placed on antibiotics due to bronchitis. By the following morning (August 05) patient's nausea and dizziness had improved. She was observed for an additional 24 hours. She tolerated a liquid diet without recurrence of nausea. She received Zofran regularly to prevent nausea. On the morning of August 06 patient was discharged home. Symptoms of dizziness never recurred while hospitalized. Patient is scheduled for right carotid endarterectomy in 1 week. She has a left upper lobe lung mass that is awaiting further work-up once her carotid disease is addressed. Patient admits she feels weak and tired most days and can just sleep all the time. She did question whether there would be enough time left to address all of her medical issues prior to the end of life. Had a long discussion with patient about her current condition as well as the potential role of hospice. Patient tells me that she is going to continue to pursue treatment primarily to not disappoint her family. She has been made aware that hospice can be available at any time as I do believe her prognosis overall is very poor. Objective Vital signs: Temp Pulse Resp BP Pulse Ox 97.8 F 86 18 133/65 97 08/06/18 03:54 08/06/18 03:54 08/06/18 03:54 08/06/18 03:54 08/06/18 03:54 DS: Diagnosis - Discharge Diagnosis (1) Acute exacerbation of chronic obstructive airways disease Status: Acute (2) Hyponatremia Status: Acute (3) Low body mass index (BMI) Status: Acute (4) Carotid artery stenosis Status: Acute (5) Nausea Status: Acute (6) Right leg pain Status: Acute (7) Mental status change resolved Status: Acute Discharge Plan - Patient Discharge Instructions ACTIVITY: Continue current activity DIET: continue same diet Patient Instructions: DI for Chronic Obstructive Pulmonary Disease, DI for Acute Bronchitis - Follow up Plan Follow up with: Celestino Adams MD [Primary Care Provider] - 2 weeks Disposition: Home, Self-Jail Medications: Home Medications Medication Instructions Recorded Confirmed Type Amlodipine Besylate/Benazepril 1 cap PO DAILY 07/01/17 08/05/18 History [Amlodipine-Benazepril 5-10 mg] albuterol sulfate 90 mcg/actuation 1 inh
[2018-08-06 08:00] VITALS: BP 133/60; PULSE 83; RESP 18; TEMP 36.7; O2SAT 98
--- NOTE | 2018-08-06 08:04 | SW/DCPLANNER ---
PATIENT IS DISCHARGING HOME TODAY PER DR BLUM: SHE AT THIS TIME DOES NOT NEED ANYTHING....
--- NOTE | 2018-08-06 08:58 | HMH.PHAINT ---
DISCHARGE COUNSELING-PATIENT'S MEDICATIONS WERE ADDRESSED WITH MD. CONTACTED MD ABOUT AMLODIPINE/BENAZEPRIL, AMLODIPINE, AND LISINOPRIL ALL BEING CONTINUED OR ORDERED NEW. PATIENT IS NOT TO TAKE AMLODIPINE/BENAZEPRIL, JUST AMLODIPINE AND LISINOPRIL.
--- NOTE | 2018-08-06 09:08 | PC.NURSE ---
CALLED DR. BLUM ABOUT PTS REQUEST FOR NAUSEA MEDICATION AND LESLIE D 12HR. DR BLUM CONFIRMED HE CALLED IN THE NAUSEA MEDICATION AND INSTRUCTED THIS NURSE TO CALL IN LESLIE D 12HR TO PHARMACY.
--- NOTE | 2018-08-06 09:10 | PC.NURSE ---
PT REFUSED MEDICATION THIS MORNING. PT STATED SHE WILL TAKE THEM AT HOME.
[2018-08-07 07:01] LABS: ABG Base Excess 7.8 mmol/L (-2.4-2.3); ABG HCO3 31.4 mmhg (22.0-26.0); ABG PCO2 43.8 mmhg (35.0-45.0); ABG PH 7.47 mmol/L (7.35-7.45); ABG PO2 61.2 mmhg (80-100); ABG TCO2 32.7 mmhg (23-27)
[2018-08-07 07:02] LABS: ABG Oxygen Saturation 92 % (90-100); Allen's Test ACCEPTABLE; Oxygen 3 LPM %; Source R RADIAL
== END 2018-08-06 10:02 | disposition home or self-care (01) ==
LOC: ER 19:27 → 2ND 22:43
PROVIDERS: Admitting Provider Emergency Medicine; Emergency Provider Emergency Medicine; PCP Family Medicine; Visit Provider Family Medicine
DX: J44.1 Chronic obstructive pulmonary disease with (acute) exacerbation (principal); E87.1 Hypo-osmolality and hyponatremia; R91.1 Solitary pulmonary nodule; R11.0 Nausea; I65.23 Occlusion and stenosis of bilateral carotid arteries; M79.604 Pain in right leg; R41.82 Altered mental status, unspecified; R42 Dizziness and giddiness; N28.9 Disorder of kidney and ureter, unspecified; R91.8 Other nonspecific abnormal finding of lung field; E78.5 Hyperlipidemia, unspecified; Z79.02 Long term (current) use of antithrombotics/antiplatelets; Z79.82 Long term (current) use of aspirin; Z79.899 Other long term (current) drug therapy; Z88.6 Allergy status to analgesic agent; Z88.5 Allergy status to narcotic agent; Z88.2 Allergy status to sulfonamides; Z91.048 Other nonmedicinal substance allergy status; Z88.8 Allergy status to other drugs, medicaments and biological substances; Z95.5 Presence of coronary angioplasty implant and graft; Z87.891 Personal history of nicotine dependence; Z87.442 Personal history of urinary calculi; Z82.49 Family history of ischemic heart disease and other diseases of the circulatory system; Z83.3 Family history of diabetes mellitus; Z80.9 Family history of malignant neoplasm, unspecified; Z82.3 Family history of stroke
CPT/HCPCS: 36415; 70460; 71046; 72100; 72170; 73562; 80048; 80053; 81001; 82803; 83605; 83735; 84484; 85007; 85025; 87040; 93005; 94640; 94760; 94761; 96365; 96366; 96375; 96376; 99285; G0378; J0456; J2405

== ENCOUNTER 2018-08-07 20:28 | Inpatient (IN) | payer MEDICARE, OTHER, SELFPAY ==
[2018-08-07] VITALS (8 sets, daily range): BP systolic 150–174; BP diastolic 68–80; PULSE 80–95; RESP 17–24; TEMP 36.7–37; O2SAT 95–97; BMI 15.6; BMI 16.2
--- NOTE | 2018-08-07 20:42 | XR_ITS ---
XR chest portable HISTORY: Severe shortness of air, former smoker ITS.REASON: SOA ORDERING PHYSICIAN: Mateus Lemus MD PATIENT AGE: 73 years COMPARISON: 08/04/2018 FINDINGS: Unremarkable heart size. There is COPD changes with a suspicious nodule within the superior segment of left lower lobe at 2.5 cm which is not significant change. Chronic changes are present in the right lung base. There are surgical clips in the neck. IMPRESSION: COPD with chronic changes with no change in the suspicious left perihilar nodule
--- NOTE | 2018-08-07 20:47 | HMH.EDSOB ---
ED Disposition Clinical Impression: COPD (chronic obstructive pulmonary disease) with acute bronchitis, Low body mass index (BMI), Tobacco use disorder, Lung nodule seen on imaging study Disposition: Admitted as Observation Condition on Discharge: Good Instructions: DI for Chronic Obstructive Pulmonary Disease Referrals: Celestino Adams MD [Primary Care Provider] - - Critical Care Critical Care Time: No Attestation: On 08/07/18, the high probability of a clinically significant, sudden or life threatening deterioration of the following system(s) required my full and direct attention, intervention and personal management. The time I documented below is in addition to time spent performing reported procedures but includes the following listed in this critical care notation. Medical Decision Making - Medical Records Medical records reviewed: Yes: I reviewed the patient's medical records. - Koko Inquiry Pt receiving controlled substance: No Vital Signs: 08/07/18 20:36 08/07/18 21:11 Temperature 98.1 F Temperature Source Oral Pulse Rate 91 H Pulse Rate [Right] 95 H Respiratory Rate 24 Blood Pressure [Right Arm] 166/78 H Blood Pressure Mean [Right Arm] 107 02 Sat by Pulse Oximetry 97 - Lab Data Lab results reviewed: Yes: I reviewed the patient's lab results. Lab Results 08/07/18 20:45: WBC 10.8, RBC 3.75 L, Hgb 11.1 L, Hct 35.7 L, MCV 95.1, MCH 29.7, MCHC 31.2 L, RDW 13.5, Plt Count 321 D, MPV 7.4, Neut % (Auto) 88.6 H, Lymph % (Auto) 7.0 L, [place] % (Auto) 4.2, Eos % (Auto) 0.2, Baso % (Auto) 0.1, Neut # (Auto) 9.5 H, Lymph # (Auto) 0.8, [place] # (Auto) 0.5, Eos # (Auto) 0.0, Baso # (Auto) 0.0, Total Counted 100, Neutrophils % (Manual) 94 H, Lymphocytes % (Manual) 5 L, Monocytes % (Manual) 1 L, Platelet Estimate Normal, Anisocytosis 1+, ESR 56 H 08/07/18 20:45: Sodium 137, Potassium 4.3, Chloride 98, Carbon Dioxide 37 H D, Anion Gap 6.3, BUN 22 H, Creatinine 0.72 D, Estimated Creat Clear 33, Estimated GFR 79, Est GFR ( Amer) 96 D, Glucose 126 H, Calcium 8.6, Total Bilirubin 0.3, AST 47 H, ALT 62, Alkaline Phosphatase 68, Troponin I < 0.02, C-Reactive Protein 3.7 H, Total Protein 7.4, Albumin 3.3 L, Globulin 4.1 H, Albumin/Globulin Ratio 0.8 L 08/07/18 20:45: Lactate 1.0 08/07/18 21:01: ABG pH 7.31 L, ABG pCO2 71.6 H, ABG pO2 123.4 H, ABG HCO3 35.5 H, ABG Total CO2 37.7 H, ABG O2 Saturation 98, ABG Base Excess 9.3 H Result diagrams: 08/07/18 20:45 08/07/18 20:45 Orders (Tests/Meds): ED MEDICATIONS Generic Name Dose Route Start Last Admin Trade Name Freq PRN Reason Stop Dose Admin Sodium Chloride 1,000 mls @ 999 mls/hr 08/07/18 20:45 08/07/18 20:57 Sod Chlor 0.9% 1000ml Bag IV 08/07/18 21:45 999 mls/hr .Q1H1M LAURA Administration Sodium Chloride 3 ml 08/07/18 21:56 Sodium Chloride 3% 15ml Neb IH 09/06/18 21:55 ONCE PRN INDUCE SPUTUM COLLECTION Discontinued Medications Generic Name Dose Route Start Last Admin Trade Name Freq PRN Reason Stop Dose Admin Albuterol/Ipratropium 3 ml 08/07/18 20:45 08/07/18 20:57 Duoneb 3ml Neb IH 08/07/18 20:46 3 ml ONCE ONE Administration Methylprednisolone Sodium Succinate 125 mg 08/07/18 20:45 08/07/18 20:57 Solu-Medrol 125mg/2ml Vial IV 08/07/18 20:46 125 mg ONCE ONE Administration ORDERS Category Date Time Status Blood Culture Stat Micro 08/07/18 20:46 Received Sputum Culture & Gram Stain Stat Micro 08/07/18 21:56 Ordered ABG [Arterial Blood Gas] Stat RT 08/07/18 20:46 Ordered ECG Request by /Olesya Stat Y 08/07/18 20:42 Ordered - Radiology Data #1 Image(s): Chest Image Reviewed: Yes I reviewed the patient's radiology image Preliminary Findings: Abnormal (see report ) - ECG Data Tracing #1 Normal Sinus Rhythm: Yes Ischemic changes: non-specific ST-T wave changes Resp/SOB HPI - General Chief Complaint: Shortness of Breath/Dyspnea Stated Complaint: SOB Time Seen by
--- NOTE | 2018-08-07 20:50 | ED_ITS ---
ED Disposition Clinical Impression: COPD (chronic obstructive pulmonary disease) with acute bronchitis, Low body mass index (BMI), Tobacco use disorder, Lung nodule seen on imaging study Disposition: Admitted as Observation Condition on Discharge: Good Instructions: DI for Chronic Obstructive Pulmonary Disease Referrals: Celestino Adams MD [Primary Care Provider] - - Critical Care Critical Care Time: No Attestation: On 08/07/18, the high probability of a clinically significant, sudden or life threatening deterioration of the following system(s) required my full and direct attention, intervention and personal management. The time I documented below is in addition to time spent performing reported procedures but includes the following listed in this critical care notation. Medical Decision Making - Medical Records Medical records reviewed: Yes: I reviewed the patient's medical records. - Koko Inquiry Pt receiving controlled substance: No Vital Signs: 08/07/18 20:36 08/07/18 21:11 Temperature 98.1 F Temperature Source Oral Pulse Rate 91 H Pulse Rate [Right] 95 H Respiratory Rate 24 Blood Pressure [Right Arm] 166/78 H Blood Pressure Mean [Right Arm] 107 02 Sat by Pulse Oximetry 97 - Lab Data Lab results reviewed: Yes: I reviewed the patient's lab results. Lab Results 08/07/18 20:45: WBC 10.8, RBC 3.75 L, Hgb 11.1 L, Hct 35.7 L, MCV 95.1, MCH 29.7, MCHC 31.2 L, RDW 13.5, Plt Count 321 D, MPV 7.4, Neut % (Auto) 88.6 H, Lymph % (Auto) 7.0 L, [place] % (Auto) 4.2, Eos % (Auto) 0.2, Baso % (Auto) 0.1, Neut # (Auto) 9.5 H, Lymph # (Auto) 0.8, [place] # (Auto) 0.5, Eos # (Auto) 0.0, Baso # (Auto) 0.0, Total Counted 100, Neutrophils % (Manual) 94 H, Lymphocytes % (Manual) 5 L, Monocytes % (Manual) 1 L, Platelet Estimate Normal, Anisocytosis 1+, ESR 56 H 08/07/18 20:45: Sodium 137, Potassium 4.3, Chloride 98, Carbon Dioxide 37 H D, Anion Gap 6.3, BUN 22 H, Creatinine 0.72 D, Estimated Creat Clear 33, Estimated GFR 79, Est GFR ( Amer) 96 D, Glucose 126 H, Calcium 8.6, Total Bilirubin 0.3, AST 47 H, ALT 62, Alkaline Phosphatase 68, Troponin I < 0.02, C-R eactive Protein 3.7 H, Total Protein 7.4, Albumin 3.3 L, Globulin 4.1 H, Albumin/Globulin Ratio 0.8 L 08/07/18 20:45: Lactate 1.0 08/07/18 21:01: ABG pH 7.31 L, ABG pCO2 71.6 H, ABG pO2 123.4 H, ABG HCO3 35.5 H , ABG Total CO2 37.7 H, ABG O2 Saturation 98, ABG Base Excess 9.3 H Result diagrams: 08/07/18 20:45 08/07/18 20:45 Orders (Tests/Meds): ED MEDICATIONS Generic Name Dose Route Start Last Admin Trade Name Freq PRN Reason Stop Dose Admin Sodium Chloride 1,000 mls @ 999 mls/hr 08/07/18 20:45 08/07/18 20:57 Sod Chlor 0.9% 1000ml Bag IV 08/07/18 21:45 999 mls/hr .Q1H1M LAURA Administration Sodium Chloride 3 ml 08/07/18 21:56 Sodium Chloride 3% 15ml Neb 09/06/18 21:55 ONCE PRN INDUCE SPUTUM COLLECTION Discontinued Medications Generic Name Dose Route Start Last Admin Trade Name Freq PRN Reason Stop Dose Admin Albuterol/Ipratropium 3 ml 08/07/18 20:45 08/07/18 20:57 Duoneb 3ml Neb 08/07/18 20:46 3 ml ONCE ONE Administration Methylprednisolone Sodium Succinate 125 mg 08/07/18 20:45
[2018-08-07 20:56] LABS: Basophils % 0.1 % (0.1-2.0); Eosinophils % 0.2 % (0.1-12.0); Hematocrit 35.7 % (37.0-47.0); Hemoglobin 11.1 g/dL (12.2-16.2); Lymphocytes # 0.8 K/mm3 (0.7-4.5); Mean Corpuscular HGB Conc 31.2 g/dL (31.8-35.4); Mean Corpuscular Hemoglobin 29.7 pg (27.0-31.2); Mean Corpuscular Volume 95.1 fl (81-99); Mean Platelet Volume 7.4 fl (7.4-10.4); Monocytes # 0.5 K/mm3 (0.1-1.0); Monocytes % 4.2 % (1.7-9.3); Neutrophils # 9.5 K/mm3 (1.8-7.8); Neutrophils % 88.6 % (37.0-80.0); Platelet Count 321 K/mm3 (142-424); Red Blood Count 3.75 M/mm3 (4.20-5.40); Red Cell Distribution Width 13.5 % (11.5-17.5); White Blood Count 10.8 K/mm3 (4.8-10.8)
[2018-08-07 20:59] LABS: MANUAL DIFFERENTIAL MANUAL DIFFERENTIAL (MANUAL DIFF)
[2018-08-07 21:04] LABS: ABG Base Excess 9.3 mmol/L (-2.4-2.3); ABG HCO3 35.5 mmhg (22.0-26.0); ABG Oxygen Saturation 98 % (90-100); ABG PH 7.31 mmol/L (7.35-7.45); ABG PO2 123.4 mmhg (80-100); ABG TCO2 37.7 mmhg (23-27)
[2018-08-07 21:06] LABS: ABG PCO2 71.6 mmhg (35.0-45.0)
[2018-08-07 21:09] LABS: Alanine Aminotransferase 62 U/L (12-78); Albumin Level 3.3 gm/dL (3.4-5.0); Albumin/Globulin Ratio 0.8 (1.1-1.8); Alkaline Phosphatase 68 U/L (46-116); Anion Gap 6.3 mEq/L (5-15); Aspartate Amino Transferase 47 U/L (15-37); Bilirubin,Total 0.3 mg/dL (0.2-1.0); Blood Urea Nitrogen 22 mg/dL (7-18); C-Reactive Protein 3.7 mg/L (0.0-0.9); Calcium 8.6 mg/dL (8.5-10.1); Carbon Dioxide 37 mmol/L (21.0-32.0); Chloride 98 mmol/L (98-107); Creatinine Clearance Estimated 33 mL/min (50-200); Creatinine,Serum 0.72 mg/dL (0.55-1.02); Estimated Glomerular Filt Rate 79 ml/min (>60); GFR (African American) 96 ML/MIN (>60); Globulin 4.1 gm/dl (1.3-3.2); Glucose 126 mg/dL (74-106); Potassium 4.3 mmoL/L (3.5-5.1); Sodium 137 mmol/L (136-145); Total Protein,Serum 7.4 gm/dL (6.4-8.2); Troponin I < 0.02 ng/ml (0.00-0.06)
[2018-08-07 21:35] LABS: Lymphocytes % 5 % (10-50); Monocytes % 1 % (2-9); Neutrophils % 94 % (42-76); Platelet Estimate Normal; Total Cells Counted 100
[2018-08-07 21:36] LABS: Anisocytosis 1+
[2018-08-07 21:39] LABS: Erythrocyte Sedimentation Rate 56 mm/hr (0-30)
--- NOTE | 2018-08-07 21:56 | PC.NURSE ---
RT at the bedside starting patient on Vapotherm at this time
--- NOTE | 2018-08-07 22:54 | PC.NURSE ---
Pt arrived to floor @ [id number]
[2018-08-08] VITALS (13 sets, daily range): BP systolic 141–186; BP diastolic 61–83; PULSE 80–100; RESP 17–24; TEMP 36.7–36.8; O2SAT 91–100; BMI 16.2
[2018-08-08 01:52] LABS: Troponin I < 0.02 ng/ml (0.00-0.06)
--- NOTE | 2018-08-08 03:25 | PC.NURSE ---
PT IS A&OX 3. BILATERAL LABORED BREATH SOUNDS WITH THE USE OF ACCESSORY MUSCLES AND EXPIRATORY WHEEZING PER AUSCULTATION. PT IS ON A VAPOTHERM. TOLERATED WELL. PT HAS AN INTERMITTED PRODUCTIVE COUGH. SPUTUM COLLECTED AND SENT TO LAB. ABDOMEN IS FLAT SOFT AND NON TENDER PER PALPATION. PT COMPLAINS OF INTERMITTED NAUSEA. PT IS ABLE TO AMBULATE AND VOID WITH ONE ASSIST. CALL LIGHT REMAINS IN REACH. VSS. WILL CONTINUE TO MONITOR.
[2018-08-08 05:02] LABS: Eosinophils % 0.1 % (0.1-12.0); Hematocrit 32.7 % (37.0-47.0); Hemoglobin 10.3 g/dL (12.2-16.2); Lymphocytes # 0.4 K/mm3 (0.7-4.5); Mean Corpuscular HGB Conc 31.3 g/dL (31.8-35.4); Mean Corpuscular Hemoglobin 29.7 pg (27.0-31.2); Mean Corpuscular Volume 94.9 fl (81-99); Mean Platelet Volume 7.2 fl (7.4-10.4); Monocytes # 0.1 K/mm3 (0.1-1.0); Neutrophils # 5.4 K/mm3 (1.8-7.8); Neutrophils % 92.8 % (37.0-80.0); Platelet Count 285 K/mm3 (142-424); Red Blood Count 3.45 M/mm3 (4.20-5.40); Red Cell Distribution Width 13.5 % (11.5-17.5); White Blood Count 5.9 K/mm3 (4.8-10.8)
[2018-08-08 05:06] LABS: Anion Gap 10.7 mEq/L (5-15); Blood Urea Nitrogen 18 mg/dL (7-18); Calcium 8.7 mg/dL (8.5-10.1); Carbon Dioxide 35 mmol/L (21.0-32.0); Chloride 98 mmol/L (98-107); Creatinine Clearance Estimated 34 mL/min (50-200); Creatinine,Serum 0.61 mg/dL (0.55-1.02); Estimated Glomerular Filt Rate 96 ml/min (>60); GFR (African American) 116 ML/MIN (>60); Glucose 131 mg/dL (74-106); Magnesium 1.6 mg/dL (1.4-2.2); Potassium 4.7 mmoL/L (3.5-5.1); Sodium 139 mmol/L (136-145)
[2018-08-08 05:14] LABS: Troponin I < 0.02 ng/ml (0.00-0.06)
--- NOTE | 2018-08-08 07:26 | P.CONPHA_ITS ---
[facility] VTE Monitoring - Patient Demographics Admission date: 08/07/18 Report Date: 08/08/18 Time: 07:26 Allergies/Adverse Reactions: Patient Allergies codeine [CODEINE] Allergy (Unknown, Verified 05/21/18 11:15) NAUSEA AND VOMITING ibuprofen [IBUPROFEN] Allergy (Unknown, Verified 05/21/18 11:15) I-HIVES meperidine [MEPERIDINE] Allergy (Unknown, Verified 05/21/18 11:15) INCREASED BLOOD PRESSURE Sulfa (Sulfonamide Antibiotics) [SULFA (SULFONAMIDE ANTIBIOTICS)] Allergy (Unknown, Verified 05/21/18 11:15) SKIN CRAWS adhesive tape Adverse Reaction (Intermediate, Verified 05/21/18 11:15) I-RASH Height: 1.65 m Weight: 44.169 kg Patient Problems: Current Active Problems (Updated 08/07/18 @ 22:26 by Mateus Lemus MD) Lung nodule seen on imaging study (Acute) Tobacco use disorder (Acute) Low body mass index (BMI) (Acute) COPD (chronic obstructive pulmonary disease) with acute bronchitis (Acute) - VTE Risk Labs: VTE Related Lab Results Hgb 10.3 g/dL (12.2-16.2) L 08/08/18 04:35 Hct 32.7 % (37.0-47.0) L 08/08/18 04:35 Plt Count 285 K/mm3 (142-424) 08/08/18 04:35 BUN 18 mg/dL (7-18) 08/08/18 04:35 Creatinine 0.61 mg/dL (0.55-1.02) 08/08/18 04:35 Estimated Creat Clear 34 mL/min (50-200) 08/08/18 04:35 - Prophylaxis VTE Prophylaxis Ordered?: Yes Types of VTE Prophylaxis: TEDS Knee High Location of Applied Device: Bilateral Lower Extremeties - VTE Diagnosis Confirmed Treatment or plan recommended: Continue Current Treatment
--- NOTE | 2018-08-08 07:30 | HMH.HP ---
*Admission Date: 08/07/18 *Chief complaint: Shortness of breath *History of present illness: 73-year-old female recently admitted to the hospital for dizziness and nausea with history of severe COPD and a left lung mass highly suspicious for malignancy presented to the emergency department yesterday evening after acute onset of shortness of breath. Patient states she had been out shopping when she began to feel short of breath. She became frightened because of inability to breathe and came to the emergency department. In the emergency department she was in respiratory distress and work-up revealed acute hypercapnic respiratory failure. Patient was placed on Vapotherm to raise her O2 sats. She has been admitted and placed on IV steroids as well as antibiotics. Chest x-ray shows left upper lobe nodule as well as chronic changes from her COPD but no acute infiltrates. This morning patient complains of continued sensation of dyspnea. [facility] History I have reviewed the patient's past medical history: Yes Medical History: Reports:: Cancer (Possible Lung), Chronic Obstructive Pulmonary Disease (COPD), Hyperlipidemia, Hypertension, Internal Pacemaker Denies:: Diabetes Mellitus Type 1, Diabetes Mellitus Type 2, MRSA *Have you ever received a pneumonia vaccine?: Yes *Have you received a flu vaccine this season?: Yes Other Medical History: Reports: Cataracts Other Surgeries: Yes: Appendectomy, Coronary Stent, , Dilation and Curettage, Pacemaker, Other (Cleaning of carotid artery) Amputation: No Fractures: No - *Social History Educational Level: Attended College Smoking Status: Former smoker Tobacco Type: cigarettes # Packs/Day (cigarettes): 1 #Yrs smoked (if former smoker): 50 Alcohol Intake: never Alcohol Intake Frequency:: holidays/special occasions only Substance Use Type: denies use *Occupational Status:: disabled Housing: house Household Members: spouse *Travel in the last 8 weeks: None - Psychiatric History Expresses thoughts of harming self/others: None Suicide Plan Description: No Plan Family Hx:: Heart Attack, Diabetes, Cancer, Stroke Review of Systems - Review of Systems Review of systems:: pertinent systems reviewed and negative unless documented below - Constitutional Reports anorexia, Reports fatigue, Denies body ache(s), Denies chills, Denies daytime sleepiness, Denies excessive sweating, Denies fever(s) - *Cardiovascular Reports shortness of breath, Reports shortness of breath with activity, Denies chest pain, Denies chest pain at rest, Denies chest pain with activity - *Respiratory Reports shortness of breath, Reports shortness of breath with activity, Denies change in phlegm color, Denies chest congestion, Denies cough - *Gastrointestinal Denies abdominal pain - *Neurologic Denies seizure-like activity Meds Home Medications Medication Instructions Recorded Confirmed Type aspirin 81 mg tablet,delayed 81 mg PO DAILY 05/21/18 08/07/18 History release fluticasone propionate 250 1 inh INHALATION BID 05/21/18 08/07/18 History mcg/actuation blister powder for inhalation tiotropium 2.5 mcg-olodaterol 2.5 1 puff INHALATION BID 05/21/18 08/07/18 History mcg/actuation mist for inhalation guaiFENesin [Guaifenesin] 400 mg PO BID 08/05/18 08/07/18 History Amlodipine Besylate/Benazepril 1 tab PO DAILY 08/06/18 08/07/18 History [Amlodipine-Benazepril 5-10 mg] Atorvastatin Calcium [Atorvastatin 80 mg PO HS #60 tab 08/06/18 08/07/18 Rx 40mg Tab] Lisinopril [Lisinopril 10mg Tab] 10 mg PO BID #60 tab 08/06/18 08/07/18 Rx Azithromycin [Zithromax 250mg 250 mg PO DAILY 08/07/18 08/07/18 History tab] Allergies Allergy/AdvReac Type Severity Reaction Status Date / Time codeine [CODEINE] Allergy Unknown NAUSEA AND Verified 05/21/18 11:15 VOMITING ibuprofen [IBUPROFEN] Allergy Unknown I-HIVES Verified 05/21/18 11:15 meperidine [MEPERIDINE] Allergy Unknown INCREASED Verified 05/21/18 11
--- NOTE | 2018-08-08 07:33 | P.HP_ITS ---
*Admission Date: 08/07/18 *Chief complaint: Shortness of breath *History of present illness: 73-year-old female recently admitted to the hospital for dizziness and nausea with history of severe COPD and a left lung mass highly suspicious for malignancy presented to the emergency department yesterday evening after acute onset of shortness of breath. Patient states she had been out shopping when she began to feel short of breath. She became frightened because of inability to breathe and came to the emergency department. In the emergency department she was in respiratory distress and work-up revealed acute hypercapnic respiratory failure. Patient was placed on Vapotherm to raise her O2 sats. She has been admitted and placed on IV steroids as well as antibiotics. Chest x-ray shows left upper lobe nodule as well as chronic changes from her COPD but no acute infiltrates. This morning patient complains of continued sensation of dyspnea. [facility] History I have reviewed the patient's past medical history: Yes Medical History: Reports:: Cancer (Possible Lung), Chronic Obstructive Pulmonary Disease (COPD), Hyperlipidemia, Hypertension, Internal Pacemaker Denies:: Diabetes Mellitus Type 1, Diabetes Mellitus Type 2, MRSA *Have you ever received a pneumonia vaccine?: Yes *Have you received a flu vaccine this season?: Yes Other Medical History: Reports: Cataracts Other Surgeries: Yes: Appendectomy, Coronary Stent, , Dilation and Curettage, Pacemaker, Other (Cleaning of carotid artery) Amputation: No Fractures: No - *Social History Educational Level: Attended College Smoking Status: Former smoker Tobacco Type: cigarettes # Packs/Day (cigarettes): 1 #Yrs smoked (if former smoker): 50 Alcohol Intake: never Alcohol Intake Frequency:: holidays/special occasions only Substance Use Type: denies use *Occupational Status:: disabled Housing: house Household Members: spouse *Travel in the last 8 weeks: None - Psychiatric History Expresses thoughts of harming self/others: None Suicide Plan Description: No Plan Family Hx:: Heart Attack, Diabetes, Cancer, Stroke Review of Systems - Review of Systems Review of systems:: pertinent systems reviewed and negative unless documented below - Constitutional Reports anorexia, Reports fatigue, Denies body ache(s), Denies chills, Denies daytime sleepiness, Denies excessive sweating, Denies fever(s) - *Cardiovascular Reports shortness of breath, Reports shortness of breath with activity, Denies chest pain, Denies chest pain at rest, Denies chest pain with activity - *Respiratory Reports shortness of breath, Reports shortness of breath with activity, Denies change in phlegm color, Denies chest congestion, Denies cough - *Gastrointestinal Denies abdominal pain - *Neurologic Denies seizure-like activity Meds Home Medications Medication Instructions Recorded Confirmed Type aspirin 81 mg tablet,delayed 81 mg PO DAILY 05/21/18 08/07/18 History release fluticasone propionate 250 1 inh INHALATION BID 05/21/18 08/07/18 History mcg/actuation blister powder for inhalation tiotropium 2.5 mcg-olodaterol 2.5 1 puff INHALATION BID 05/21/18 08/07/18 History mcg/actuation mist for inhalation guaiFENesin [Guaifenesin] 400 mg PO BID 08/05/18 08/07/18 History Amlodipine Besylate/Benazepril 1 tab PO DAILY 08/06/18 08/07/18 History [Amlodipine-Benazepril 5-10 mg] Atorvastatin Calcium [Atorvastatin 80 mg PO HS #60 tab 08/06/18 08/07/18 Rx 40mg Tab]
--- NOTE | 2018-08-08 07:35 | NVE_ITS ---
Venous Exam Indications: 786.05 Shortness of breath. IMPRESSIONS 1. No evidence of deep or superficial vein thrombosis involving the right lower extremity 2. No evidence of deep or superficial vein thrombosis involving the left lower extremity Complete lower extremity venous duplex evaluation. Doppler flow study including spectral analysis, color and varner scale imaging. Location: Bedside. Patient status: Inpatient. Tables: Venous flow and imaging: + +-------+ + Location Overall Flow properties + +-------+ + Right common femoral Patent Normal phasicity; spontaneous; normal augmentation; compressible + +-------+ + Right saphenofemoral junction Patent Compressible + +-------+ + Right profunda femoral Patent Compressible + +-------+ + Right femoral Patent Normal phasicity; spontaneous; normal augmentation; compressible; no reflux + +-------+ + Right greater saphenous Patent Normal phasicity; spontaneous; normal augmentation; compressible + +-------+ + Right popliteal Patent Normal phasicity; spontaneous; normal augmentation; compressible + +-------+ + Right posterior tibial Patent Compressible + +-------+ + Right peroneal Patent Compressible + +-------+ + Right gastrocnemius Patent Compressible + +-------+ + Right soleal Patent Compressible + +-------+ + Left common femoral Patent Normal phasicity; spontaneous; normal augmentation; compressible + +-------+ + Left saphenofemoral junction Patent Compressible + +-------+ + Left profunda femoral Patent Compressible + +-------+ + Left femoral Patent Normal phasicity; spontaneous; normal augmentation; compressible + +-------+ + Left greater saphenous Patent Normal phasicity; spontaneous; normal augmentation; compressible + +-------+ + Left popliteal Patent Normal phasicity; spontaneous; normal augmentation; compressible +
--- NOTE | 2018-08-08 07:40 | HMH.PHAINT ---
MEDICATION RECONCILIATION COMPLETED ON PATIENT USING EXTERNAL FILL HISTORY FROM PHARMACY AND RECORDS FROM PREVIOUS ADMISSION. -BYRON RODRIGUEZD
--- NOTE | 2018-08-08 17:58 | PC.NURSE ---
1520:RT called and asked to decrease vapotherm more- pt still 95-97%. brett turns vapotherm down to 25L and 30% at 1525
[2018-08-09] VITALS (15 sets, daily range): BP systolic 150–161; BP diastolic 63–79; PULSE 79–98; RESP 18–22; TEMP 36.7–36.9; O2SAT 91–100; BMI 16.0
--- NOTE | 2018-08-09 03:14 | PC.NURSE ---
A&OX4. VAPOTHERM WEANED FROM 25L TO 20L; PT. HAS VARIABLE O2 SAT; WHILE AWAKE O2 SAT 91-94%; WHILE ASLEEP O2 SAT 87-90%; PT. AT TIMES WOULD REMOVE VAPOTHERM, O2 SAT NOTED TO BE 76%. WHEEZES NOTED T/O BILAT. LUNGS; INTERMITTENT PRODUCTIVE COUGH NOTED. SOB NOTED WHEN PT. IS TALKING, MOVING OR HAVING A COUGHING EPISODE. PT. REQUESTED XANAX WITH HS MEDS; EFFECTIVENESS NOTED. PT. EDUCATED ON HS MEDS. PT. HAS NOT C/O PAIN, N/V/D OR DIZZINESS. IV PATENT WHEN FLUSHED SHOWING NO S/S OF INFILTRATION. VSS. WILL CONTINUE TO MONITOR.
--- NOTE | 2018-08-09 07:14 | P.PN_ITS ---
Internal Medicine - PN: Subj *Date: 08/09/18 *Time: 07:12 Interval history: Patient reports very little if any improvement in dyspnea over the last 24 hours. She remains on oxygen via Vapotherm. She admits even light activity such as trying to get out of bed and use the bathroom leaves her quite winded and fatigued. Cough remains nonproductive. Exam Vital signs and Labs for Last 24 Hours: Temp Pulse Resp BP Pulse Ox 98.1 F 85 20 159/78 H 93 L 08/09/18 04:00 08/09/18 06:31 08/09/18 04:00 08/09/18 04:00 08/09/18 06:31 I & O for Last 24 hours: Intake & Output 08/06/18 08/07/18 08/08/18 08/09/18 11:59 11:59 11:59 11:59 Intake Total 742 / 742 1210 / 1210 Output Total 800 / 800 Balance 742 / 742 410 / 410 Weight 97 lb 6 oz 96 lb 6 oz Narrative: Patient does not appear to be in any distress. Lung exam reveals poor aeration with increased wheezing in the right anterior lung crow. Heart has a regular rate and rhythm. Abdomen is thin and soft. Venous Doppler from yesterday showed no DVTs of the lower extremities Assessment and Plan (1) Acute hypercapnic respiratory failure Current visit: Yes Status: Acute Category: Medical Code(s): J96.02 - Acute respiratory failure with hypercapnia (2) COPD (chronic obstructive pulmonary disease) with acute bronchitis Current visit: Yes Status: Acute Category: Medical Code(s): J44.0 - Chronic obstructive pulmonary disease with acute lower respiratory infection; J20.9 - Acute bronchitis, unspecified (3) Low body mass index (BMI) Current visit: Yes Status: Acute Category: Medical (4) Lung nodule seen on imaging study Current visit: Yes Status: Acute Category: Medical Code(s): R91.1 - Mary itary pulmonary nodule (5) Carotid artery stenosis Current visit: No Status: Acute Qualifiers: Laterality: bilateral Qualified Code(s): I65.23 - Occlusion and stenosis of bilateral carotid arteries Category: Medical Code(s): I65.29 - Occlusion and stenosis of unspecified carotid artery - Assessment and plan all Dx Assessment and Plan for all problems:: 1. Patient will be given intravenous magnesium sulfate to attempt to improve bronchodilation. She will also be restarted on Flovent 220 mcg twice daily. I will increase her intravenous steroids for the next 24 hours. 2. Patient was scheduled for carotid endarterectomy next Sunday and this will need to be postponed. I will attempt to contact her surgeon
--- NOTE | 2018-08-09 12:16 | DIET.NUTRFU ---
Nutritional assessment completed by student refugio under my supervision. Patient states she does not like our food. Will offer cafeteria menus in addition to patient menus. diet is regular. Will supplement diet with Ensure due to bmi 16.
[2018-08-10] VITALS (14 sets, daily range): BP systolic 130–160; BP diastolic 54–72; PULSE 77–100; RESP 20–22; TEMP 36.6–36.8; O2SAT 90–97; BMI 16.2
--- NOTE | 2018-08-10 05:35 | PC.NURSE ---
PATIENT HAS SLEPT ON AND OFF THIS SHIFT. SHE REMAINS ON VAPOTHERM AT 15 LPM AND 30% FIO2 WITH OXYGEN SATURATION MAINTAINING ~90-91%. SHE DOES BECOME SOA AND HER O2 SAT DROPS TO LOW 80S/ UPPER 70S WITH MINIMAL EXERTION (SUCH GOING FROM BED TO BSC); IT TAKES HER APPROX 1-2 MINUTES TO RECOVER AND FOR HER OXYGEN SAT TO INCREASE TO BASELINE AFTER THESE EPISODES. SHE HAS DENIED ANY PAIN THIS SHIFT. NO ACUTE CHANGES NOTED SINCE PREVIOUS ASSESSMENT. SHE IS CURRENTLY IN BED SLEEPING WITH NO OTHER PROBLEMS NOTED AT THIS TIME. VSS. WILL CONTINUE TO MONITOR.
--- NOTE | 2018-08-10 07:24 | HMH.ACPN2 ---
Internal Medicine - PN: Subj *Date: 08/10/18 *Time: 07:24 Interval history: Patient feels like she might be moving air a little bit better otherwise she notes very little improvement. She is discouraged by this. She gets very little improvement with breathing treatments and with even light activity such as going from bed to bedside commode patient's O2 sats dropped and she becomes breathless Exam Vital signs and Labs for Last 24 Hours: Temp Pulse Resp BP Pulse Ox 98.3 F 96 H 20 151/69 H 93 L 08/10/18 04:00 08/10/18 06:53 08/10/18 04:00 08/10/18 04:00 08/10/18 06:53 I & O for Last 24 hours: Intake & Output 08/07/18 08/08/18 08/09/18 08/10/18 11:59 11:59 11:59 11:59 Intake Total 742 / 742 1450 / 1450 600 / 600 Output Total 800 / 800 551 / 551 Balance 742 / 742 650 / 650 49 / 49 Weight 97 lb 6 oz 96 lb 6 oz 97 lb 5 oz Microbiology Reports for the Last 24 Hours: Microbiology 08/07/18 20:46 Blood Blood Culture - Preliminary NO GROWTH AFTER 48 HOURS 08/07/18 20:46 Blood Blood Culture - Preliminary NO GROWTH AFTER 48 HOURS Narrative: Patient appears comfortable. Lung examination reveals anterior expiratory wheezing and posterior expiratory rhonchi with mixed wheezing. Heart has a regular rate and rhythm. Extremities are warm to the touch without edema. Assessment and Plan (1) Acute exacerbation of chronic obstructive airways disease Current visit: No Status: Acute Category: Medical Code(s): J44.1 - Chronic obstructive pulmonary disease with (acute) exacerbation (2) Acute hypercapnic respiratory failure Current visit: Yes Status: Acute Category: Medical Code(s): J96.02 - Acute respiratory failure with hypercapnia (3) COPD (chronic obstructive pulmonary disease) with acute bronchitis Current visit: Yes Status: Acute Category: Medical Code(s): J44.0 - Chronic obstructive pulmonary disease with acute lower respiratory infection; J20.9 - Acute bronchitis, unspecified (4) Low body mass index (BMI) Current visit: Yes Status: Acute Category: Medical (5) Lung nodule seen on imaging study Current visit: Yes Status: Acute Category: Medical Code(s): R91.1 - Solitary pulmonary nodule (6) Carotid artery stenosis Current visit: No Status: Acute Qualifiers: Laterality: bilateral Qualified Code(s): I65.23 - Occlusion and stenosis of bilateral carotid arteries Category: Medical Code(s): I65.29 - Occlusion and stenosis of unspecified carotid artery - Assessment and plan all Dx Assessment and Plan for all problems:: Continue current plan of care. Discussed CODE STATUS with patient and while she does not want to be intubated she wants to discuss other measures with her family. Hospice has been discussed with patient in the event that she does not improve
--- NOTE | 2018-08-10 07:24 | PC.NURSE ---
REPORTED TO Ximena PEREZ
--- NOTE | 2018-08-10 16:49 | PC.NURSE ---
Addendum entered by Marlena Cook RN 08/10/18 19:11: unable to obtain sputum this shift pt has nonproductive cough Original Note: pt has been diminished with scattered wheezes. pt reports some anxiety and prn given. iv patent. v/s/s. pt has been weaned to 2LNC and o2 remains in the mid 90's. pt able to ambulate in room to window and sat up in chair. pt still reports soa with excretion but o2 sat remain above 90 while ambulating. nonskids on. pt uses bsc. call light in reach. will continue to monitor pt condition.
[2018-08-11] VITALS (12 sets, daily range): BP systolic 118–150; BP diastolic 60–69; PULSE 77–95; RESP 18–20; TEMP 36.6–36.7; O2SAT 91–99; BMI 16.9
--- NOTE | 2018-08-11 04:37 | PC.NURSE ---
TOOK OVER CARE OF PATIENT APPROX 2300. PATIENT HAS RESTED WELL SINCE THAT TIME. SHE HAS AMBULATED TO BATHROOM INDEPENDENTLY X1. DURING AMBULATION, PATIENT DID BECOME SLIGHTLY SOA WITH A COUGH, HOWEVER OXYGEN SATURATION REMAINED >90%. SHE IS CURRENTLY ON 1 LPM NC WITH OXYGEN SATURATION AT 91%. PATIENT IS RESTING IN BED WITH EYES CLOSED AT THIS TIME WITH NO OTHER PROBLEMS NOTED. VSS. WILL CONTINUE TO MONITOR.
--- NOTE | 2018-08-11 07:11 | HMH.ACPN2 ---
Internal Medicine - PN: Subj *Date: 08/11/18 *Time: 07:11 Interval history: Patient feels like over the last 24 hours she is finally seeing some improvement. She feels less short of breath both at rest and with exertion and has been able to ambulate to the bathroom while maintaining her O2 sats in the 90s. She was weaned from the Vapotherm to nasal cannula and is currently on 1 L/min. She feels less tightness in the chest with deep breathing Exam Vital signs and Labs for Last 24 Hours: Temp Pulse Resp BP Pulse Ox 98.1 F 88 20 133/69 98 08/11/18 04:00 08/11/18 07:08 08/11/18 04:00 08/11/18 04:00 08/11/18 07:08 I & O for Last 24 hours: Intake & Output 08/08/18 08/09/18 08/10/18 08/11/18 11:59 11:59 11:59 11:59 Intake Total 742 / 742 1450 / 1450 960 / 960 1090 / 1090 Output Total 800 / 800 551 / 551 Balance 742 / 742 650 / 650 409 / 409 1090 / 1090 Weight 97 lb 6 oz 96 lb 6 oz 97 lb 5 oz 102 lb Narrative: She awakens easily this morning. No signs of respiratory distress either asleep or awake. Lungs have expiratory wheezes anteriorly right greater than left but posteriorly breath sounds are only diminished. Heart has a regular rate and rhythm. Assessment and Plan (1) Acute exacerbation of chronic obstructive airways disease Current visit: No Status: Acute Category: Medical Code(s): J44.1 - Chronic obstructive pulmonary disease with (acute) exacerbation (2) Acute hypercapnic respiratory failure Current visit: Yes Status: Acute Category: Medical Code(s): J96.02 - Acute respiratory failure with hypercapnia (3) COPD (chronic obstructive pulmonary disease) with acute bronchitis Current visit: Yes Status: Acute Category: Medical Code(s): J44.0 - Chronic obstructive pulmonary disease with acute lower respiratory infection; J20.9 - Acute bronchitis, unspecified (4) Low body mass index (BMI) Current visit: Yes Status: Acute Category: Medical (5) Lung nodule seen on imaging study Current visit: Yes Status: Acute Category: Medical Code(s): R91.1 - Solitary pulmonary nodule (6) Carotid artery stenosis Current visit: No Status: Acute Qualifiers: Laterality: bilateral Qualified Code(s): I65.23 - Occlusion and stenosis of bilateral carotid arteries Category: Medical Code(s): I65.29 - Occlusion and stenosis of unspecified carotid artery - Assessment and plan all Dx Assessment and Plan for all problems:: Patient is seemingly responded to the high-dose IV steroids. I will continue this for another 24 hours and anticipate decreasing her Solu-Medrol from 125 mg every 8 hours to 80 mg every 8 hours tomorrow.
--- NOTE | 2018-08-11 07:17 | PC.NURSE ---
Patient has a nonproductive cough, and even after nebulizer treatment, she is unable to produce a sputum sample.
--- NOTE | 2018-08-11 07:22 | PC.NURSE ---
REPORTED TO Ximena PEREZ
--- NOTE | 2018-08-11 15:15 | PC.NURSE ---
pt has had no acute changes from previous assessment. iv patent. pt remains on 2LNC and o2 sat remains above 90. pt has had several visitors today. reported anxiety x1 and prn given. no pain reported. v/s/s. call light in reach. will continue to monitor pt condition
--- NOTE | 2018-08-11 15:18 | PC.NURSE ---
COURTESY ROUND: PATIENT REQUESTED ONLY ICE IN PITCHER & TRASH WAS TAKEN OUT. NO OTHER NEEDS AT THIS TIME
[2018-08-12] VITALS (12 sets, daily range): BP systolic 124–159; BP diastolic 63–68; PULSE 75–100; RESP 16–20; TEMP 36.5–36.8; O2SAT 91–98; BMI 17.0
--- NOTE | 2018-08-12 04:34 | PC.NURSE ---
NO ACUTE CHANGES THIS SHIFT. PT SLEPT T/O MOST OF THE SHIFT. PT WAS A&O X 3. INSPIRATORY AND EXPIRATORY WHEEZING HEARD PER AUSCULTATION. PT WAS ON 2L NC. TOLERATED WELL. PT WAS ABLE TO AMBULATE AND VOID WITH ASSISTANCE. TOLERATED WELL. PT DENIED ANY PAIN T/O THE SHIFT. CALL BRINK LIGHT KEPT IN REACH. VSS. WILL CONTINUE TO MONITOR.
--- NOTE | 2018-08-12 07:19 | PC.NURSE ---
REPORT GIVEN TO Genevieve ABRAMS
--- NOTE | 2018-08-12 07:49 | HMH.ACPN2 ---
Internal Medicine - PN: Subj *Date: 08/12/18 *Time: 10:31 Interval history: Patient states this morning she does not feel any better from yesterday. Is concerned with her slow progress. Feels significant shortness of breath but stable from yesterday. Has been able to ambulate to the bathroom while maintaining her O2 sats in the 90s. She continues to tolerate nasal cannula oxygen with goal saturations. Does not feel nebulizers are providing significant benefit. Denies chest pain, nausea, vomiting, confusion. Exam Vital signs and Labs for Last 24 Hours: Temp Pulse Resp BP Pulse Ox 97.7 F 96 H 18 130/63 98 08/12/18 04:00 08/12/18 04:00 08/12/18 04:00 08/12/18 04:00 08/12/18 04:00 I & O for Last 24 hours: Intake & Output 08/09/18 08/10/18 08/11/18 08/12/18 23:59 23:59 23:59 23:59 Intake Total 1090 / 1090 1450 / 1450 1200 / 1200 Output Total 1051 / 1051 300 / 300 Balance 39 / 39 1150 / 1150 1200 / 1200 Weight 43.715 kg 44.14 kg 46.266 kg 46.493 kg Narrative: Frail cachectic 73-year-old individual Labored breathing at baseline, inspiratory and expiratory wheeze bilaterally with poor air movement. Bitemporal wasting, mucous membranes moist. Heart rate regular, systolic murmur Thin extremities, pulses 2+ bilaterally Abdomen soft, nontender, bowel sounds active Assessment and Plan (1) Acute exacerbation of chronic obstructive airways disease Current visit: No Status: Acute Category: Medical Code(s): J44.1 - Chronic obstructive pulmonary disease with (acute) exacerbation (2) Acute hypercapnic respiratory failure Current visit: Yes Status: Acute Category: Medical Code(s): J96.02 - Acute respiratory failure with hypercapnia (3) COPD (chronic obstructive pulmonary disease) with acute bronchitis Current visit: Yes Status: Acute Category: Medical Code(s): J44.0 - Chronic obstructive pulmonary disease with acute lower respiratory infection; J20.9 - Acute bronchitis, unspecified (4) Low body mass index (BMI) Current visit: Yes Status: Acute Category: Medical (5) Lung nodule seen on imaging study Current visit: Yes Status: Acute Category: Medical Code(s): R91.1 - Solitary pulmonary nodule (6) Carotid artery stenosis Current visit: No Status: Acute Qualifiers: Laterality: bilateral Qualified Code(s): I65.23 - Occlusion and stenosis of bilateral carotid arteries Category: Medical Code(s): I65.29 - Occlusion and stenosis of unspecified carotid artery (7) 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ry disease Current visit: Yes Status: Chronic Category: Medical Code(s): J44.9 - Chronic obstructive pulmonary disease, unspecified; R64 - Cachexia - Assessment and plan all Dx Assessment and Plan for all problems:: Cachectic 73-year-old female with end-stage COPD. No significant improvement from yesterday however remains stable. Condition remains guarded. Shirley wean steroids to 80 mg every 8 hours of Solu-Medrol. Continue other treatment regimens. Increase nebulizer to every 4 hours. Continues to require inpatient management
--- NOTE | 2018-08-12 12:51 | DIET.NUTRFU ---
po intakes avg 50%. Patient is tiring of ensue tid with meals. Patietn will request between meal ensure supplements prn. weight is up 5 lbs to current 102 lbs. Patient remain short of air.
--- NOTE | 2018-08-12 18:41 | PC.NURSE ---
PATIENT RESTING IN BED, AT BEDSIDE. PATIENT IS STILL SOA, LUNG SOUNDS ARE WHEEZES INSPIRATION AND EXPIRATION AND DIMINISHED THROUGHOUT. PATIENT IS ON 2L N/C AND ALSO USES 2L AT HOME. VVS, DENIES ANY NEEDS, CALL BRINK IN REACH, BED IN LOWEST POSITION, WILL CONTINUE TO MONITOR.
--- NOTE | 2018-08-12 19:13 | PC.NURSE ---
report given to narciso
[2018-08-13] VITALS (14 sets, daily range): BP systolic 113–140; BP diastolic 53–68; PULSE 73–96; RESP 17–22; TEMP 36.6–37.3; O2SAT 91–98; BMI 17.0
--- NOTE | 2018-08-13 03:56 | PC.NURSE ---
PATIENT SEEMS TO HAVE SLEPT WELL THIS SHIFT. SHE HAS REMAINED ON 2 LPM NC AND HAS MAINTAINED OXYGEN SATURATION >90%. SHE HAS AMBULATED INDEPENDENTLY IN ROOM WITHOUT O2 SAT DROPPING. NO ACUTE CHANGES NOTED SINCE PREVIOUS ASSESSMENT. PATIENT CURRENTLY IN BED SLEEPING WITH NO OTHER PROBLEMS NOTED AT THIS TIME. VSS. WILL CONTINUE TO MONITOR.
--- NOTE | 2018-08-13 07:17 | HMH.ACPN2 ---
Internal Medicine - PN: Subj *Date: 08/13/18 *Time: 07:17 Interval history: Patient is gradually trying to increase her activity level. Sometimes she will be short of breath after walk to the bathroom sometimes she does okay. Distance that she has to travel at home is much farther than here in the hospital in regards from bedroom to bathroom. Her cough remains nonproductive. Exam Vital signs and Labs for Last 24 Hours: Temp Pulse Resp BP Pulse Ox 97.9 F 93 H 20 139/65 95 08/13/18 04:00 08/13/18 04:00 08/13/18 04:00 08/13/18 04:00 08/13/18 04:00 I & O for Last 24 hours: Intake & Output 08/10/18 08/11/18 08/12/18 08/13/18 11:59 11:59 11:59 11:59 Intake Total 960 / 960 1570 / 1570 720 / 720 960 / 960 Output Total 551 / 551 Balance 409 / 409 1570 / 1570 720 / 720 960 / 960 Weight 97 lb 5 oz 102 lb 102 lb 8 oz 102 lb 7 oz Microbiology Reports for the Last 24 Hours: Microbiology 08/07/18 20:46 Blood Blood Culture - Final NO GROWTH AFTER 5 DAYS 08/07/18 20:46 Blood Blood Culture - Final NO GROWTH AFTER 5 DAYS Narrative: She awakens easily this morning and shows no signs of any respiratory distress. Lung exam has poor aeration posteriorly with slightly improved aeration anteriorly. Expiratory wheezes are heard throughout. Heart has a regular rate and rhythm. Extremities are without edema Assessment and Plan (1) Acute exacerbation of chronic obstructive airways disease Current visit: No Status: Acute Category: Medical Code(s): J44.1 - Chronic obstructive pulmonary disease with (acute) exacerbation (2) Acute hypercapnic respiratory failure Current visit: Yes Status: Acute Category: Medical Code(s): J96.02 - Acute respiratory failure with hypercapnia (3) COPD (chronic obstructive pulmonary disease) with acute bronchitis Current visit: Yes Status: Acute Category: Medical Code(s): J44.0 - Chronic obstructive pulmonary disease with acute lower respiratory infection; J20.9 - Acute bronchitis, unspecified (4) Low body mass index (BMI) Current visit: Yes Status: Acute Category: Medical (5) Lung nodule seen on imaging study Current visit: Yes Status: Acute Category: Medical Code(s): R91.1 - Solitary pulmonary nodule (6) Carotid artery stenosis Current visit: No Status: Acute Qualifiers: Laterality: bilateral Qualified Code(s): I65.23 - Occlusion and stenosis of bilateral carotid arteries Category: Medical Code(s): I65.29 - Occlusion and stenosis of unspecified carotid artery (7) 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 She is struggling with the decision of whether or not to pursue medical care for her left lung mass and known carotid stenoses versus palliative approach to her COPD. Continue IV steroids. Continue PT.
--- NOTE | 2018-08-13 07:57 | HMH.OTEV ---
OT Inpatient Evaluation Rehab OT IP Evaluation Start: 08/12/18 10:08 Freq: ONCE Status: Complete Protocol: Document 08/13/18 07:52 SHAMEKA (Rec: 08/13/18 07:57 [id number] Rehab OT IP Assessment Subjective History This is a 73 year old female admitted to the hospital with shortness of breath. Patient reports living at home with her and son. She reports being independent with ADL's prior to admisssion. She does report she does receive assistance with cleaning of home. Objective Upper Extremity Gross ROM WNL Bed Mobility bed mobility - supine/sit Assist Level Independent Transfer Training Sit/Stand/Step Transfer Assist Level Independent Chair Transfer Ability Independent Chair Transfer Technique Sit to/from Ambulatory Feeding Ability Independent Lower Body Dressing Ability Independent Upper Body Dressing Ability Independent Performing Toilet Hygiene Ability Independent Overall Commode/Toilet Transfer Ability Independent Commode/Toilet Transfer Technique Sit to/from Ambulatory decrease in endurance No Rehab OT IP prob,goals,plan Problems Date of Evaluation: 08/13/18 Rehab Potential Rehab Potential Innapropriate for Skilled Therapy Discharge Plan OT Discharge Plan Home with family Eval Complexity Eval Charge Codes 13128 - Low Complexity G Codes G -code Required Yes OT Current Status Self Care OT Current Status Modifier CI-At least 1% but less than 20% impaired, limited or restricted PHYSICIAN CERTIFICATION: I certify the specified therapy services for Lluvia Woods are required, authorized, and reviewed every 30 days.
--- NOTE | 2018-08-13 09:46 | HMH.ACPN ---
Internal Medicine - PN: Subj *Date: 08/13/18 *Time: 09:46 Exam Vital signs and Labs for Last 24 Hours: Temp Pulse Resp BP Pulse Ox 98.8 F 93 H 22 113/68 96 08/13/18 08:00 08/13/18 08:00 08/13/18 08:00 08/13/18 08:00 08/13/18 08:00 I & O for Last 24 hours: Intake & Output 08/10/18 08/11/18 08/12/18 08/13/18 23:59 23:59 23:59 23:59 Intake Total 1450 / 1450 1200 / 1200 960 / 960 360 / 360 Output Total 300 / 300 Balance 1150 / 1150 1200 / 1200 960 / 960 360 / 360 Weight 44.14 kg 46.266 kg 46.493 kg 46.465 kg Microbiology Reports for the Last 24 Hours: Microbiology 08/07/18 20:46 Blood Blood Culture - Final NO GROWTH AFTER 5 DAYS 08/07/18 20:46 Blood Blood Culture - Final NO GROWTH AFTER 5 DAYS Assessment and Plan (1) Acute exacerbation of chronic obstructive airways disease Current visit: No Status: Acute Category: Medical Code(s): J44.1 - Chronic obstructive pulmonary disease with (acute) exacerbation (2) Acute hypercapnic respiratory failure Current visit: Yes Status: Acute Category: Medical Code(s): J96.02 - Acute respiratory failure with hypercapnia (3) COPD (chronic obstructive pulmonary disease) with acute bronchitis Current visit: Yes Status: Acute Category: Medical Code(s): J44.0 - Chronic obstructive pulmonary disease with acute lower respiratory infection; J20.9 - Acute bronchitis, unspecified (4) Low body mass index (BMI) Current visit: Yes Status: Acute Category: Medical (5) Lung nodule seen on imaging study Current visit: Yes Status: Acute Category: Medical Code(s): R91.1 - Solitary pulmonary nodule (6) Carotid artery stenosis Current visit: No Status: Acute Qualifiers: Laterality: bilateral Qualified Code(s): I65.23 - Occlusion and stenosis of bilateral carotid arteries Category: Medical Code(s): I65.29 - Occlusion and stenosis of unspecified carotid artery (7) 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ry disease Current visit: Yes Status: Chronic Category: Medical Code(s): J44.9 - Chronic obstructive pulmonary disease, unspecified; R64 - Cachexia The patient's infection will respond to the chosen ABx?: Yes Is the patient receiving the right drug, dose, and route?: Yes Could a more targeted ABx be ordered?: No (BLOOD CULTURES NEGATIVE. WBC WNL NOW. AFEBRILE.)
--- NOTE | 2018-08-13 11:28 | SW/DCPLANNER ---
WENT IN TO SPEAK WITH PATIENT ABOUT HOSPICE, PATIENT STATED SHE WANTED HER TO BE PRESENT WHEN THEY COME AND REQUESTED [facility] ([facility])...SHE HOWEVER THOUGHT SHE MIGHT WANT TO SEEK AGGR[facility] TX THROUGH [facility]... I TOLD HER WE COULD GET HOSPICE TO EXPLAIN THEIR SERVICES AND IF SHE CHOOSES TO NOT GO WITH THEM IT IS OK... SHE CAN MAKE THAT CHOICE AFTER SHE HEARS WHAT THEY HAVE TO SAY... DISPOSITION IS PLANNED FOR THURS, PENDING NO SETBACKS..
--- NOTE | 2018-08-13 18:43 | PC.NURSE ---
PATIENT HAS BEEN SITTING UP ON THE SIDE OF THE BED TODAY. CONTINUES TO BE SHORT OF AIR. PATIENT SEEMS TO BE GETTING MORE DEPRESSED ABOUT HER DIAGNOSIS. WE HAD A LONG CONSERVATION ABOUT NOT GIVING UP AND TRYING TO KEEP HER STRENGTH UP. WILL CONTINUE TO MONITOR.
[2018-08-14] VITALS (8 sets, daily range): BP systolic 118–140; BP diastolic 58–69; PULSE 74–101; RESP 17–20; TEMP 36.8–37.2; O2SAT 93–97; BMI 17.3
--- NOTE | 2018-08-14 04:17 | PC.NURSE ---
PATIENT SEEMS TO HAVE SLEPT WELL THIS SHIFT. SHE REMAINS ON OXYGEN AT 2 LPM NC AND HAS MAINTAINED SATS >90%. AMBULATES INDEPENDENTLY IN ROOM, HOWEVER DOES HAVE DYSPNEA ON EXERTION. SHE HAS DENIED ANY PAIN. NO ACUTE CHANGES NOTED SINCE PREVIOUS ASSESSMENT. PATIENT CURRENTLY IN BED SLEEPING. NO OTHER PROBLEMS NOTED AT THIS TIME. VSS. WILL CONTINUE TO MONITOR.
--- NOTE | 2018-08-14 07:08 | P.PN_ITS ---
Internal Medicine - PN: Subj *Date: 08/14/18 *Time: 07:06 Interval history: Patient has no complaints today admits she feels about the same. Yesterday she did request a visit from hospice for information gathering purposes. Exam Vital signs and Labs for Last 24 Hours: Temp Pulse Resp BP Pulse Ox 98.5 F 77 17 118/62 97 08/14/18 04:00 08/14/18 05:47 08/14/18 04:00 08/14/18 04:00 08/14/18 05:47 I & O for Last 24 hours: Intake & Output 08/11/18 08/12/18 08/13/18 08/14/18 11:59 11:59 11:59 11:59 Intake Total 1570 / 1570 720 / 720 1320 / 1320 610 / 610 Output Total 301 / 301 Balance 1570 / 1570 720 / 720 1320 / 1320 309 / 309 Weight 102 lb 102 lb 8 oz 102 lb 7 oz 104 lb 1 oz Narrative: Patient does not have any sign of respiratory distress. She appears comfortable sleeping when I enter the room. Upon awakening there is no significant increase in her respiratory rate. She does have some conversational dyspnea lung exam has fair aeration with faint end expiratory wheezes at this time. Heart has a regular rate and rhythm. Assessment and Plan (1) Acute exacerbation of chronic obstructive airways disease Current visit: No Status: Acute Category: Medical Code(s): J44.1 - Chronic obstructive pulmonary disease with (acute) exacerbation (2) Acute hypercapnic respiratory failure Current visit: Yes Status: Acute Category: Medical Code(s): J96.02 - Acute respiratory failure with hypercapnia (3) COPD (chronic obstructive pulmonary disease) with acute bronchitis Current visit: Yes Status: Acute Category: Medical Code(s): J44.0 - Chroni c obstructive pulmonary disease with acute lower respiratory infection; J20.9 - Acute bronchitis, unspecified (4) Low body mass index (BMI) Current visit: Yes Status: Acute Category: Medical (5) Lung nodule seen on imaging study Current visit: Yes Status: Acute Category: Medical Code(s): R91.1 - Solitary pulmonary nodule (6) Carotid artery stenosis Current visit: No Status: Acute Qualifiers: Laterality: bilateral Qualified Code(s): I65.23 - Occlusion and stenosis of bilateral carotid arteries Category: Medical Code(s): I65.29 - Occlusion and stenosis of unspecified carotid artery (7) 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ry disease Current visit: Yes Status: Chronic Category: Medical Code(s): J44.9 - Chronic obstructive pulmonary disease, unspecified; R64 - Cachexia - Assessment and plan all Dx Assessment and Plan for all problems:: Wean steroids to 60 mg of Solu-Medrol every 8 hours beginning today. Hospice evaluation will occur at some point today.
--- NOTE | 2018-08-14 11:18 | PC.NURSE ---
hospice in to speak with pt and pt family at this time
--- NOTE | 2018-08-14 12:16 | DIET.NUTRFU ---
Pt has increased intakes since alst visit. Verbal education given about increased calorie and protein needs. She asked for ensure with meals diet modification to be removed because she felt she was wasting the majority of them. Pt reminded that she can request ensure from floor at any time and encouraged to do so.
--- NOTE | 2018-08-14 15:42 | SW/DCPLANNER ---
THE HOSPICE NURSE CAME TODAY TO SPEAK WITH PATIENT AND FAMILY AND PATIENT HAS ELECTED TO GO HOME WITH THEIR SERVICES... I HAVE NOTIFIED DR BLUM AND HE SAID PATIENT WILL DISCHARGE IN THE AM ()...
--- NOTE | 2018-08-14 16:30 | PC.NURSE ---
pt has had no acute changes. sputum still unobtainable do to nonproductive cough. iv patent and pt refuses for site to be changed. call light in reach. pt was agreeable to have hospice upon discharge. pt has been short at times with staff. no pain voiced. pt still reports dypnea but o2 has remained above 90% on 2LNC. call light in reach. will continue to monitor pt conditon.
--- NOTE | 2018-08-14 16:47 | PC.NURSE ---
Pt was asked if she wanted to take a bath or shower and a bed change. Pt refused all 3 with nurse at bedside. Pt was told if she changed her mind to let us know. Nurse aware.
--- NOTE | 2018-08-14 17:32 | PC.NURSE ---
courtesy round done, trash removed and ice filled.
--- NOTE | 2018-08-14 17:45 | PC.NURSE ---
pt was offered linen change and bath pt refused both stated she had one yesterday and is supposed to go home tomorrow.
--- NOTE | 2018-08-14 19:16 | PC.NURSE ---
report given to lacho
[2018-08-15 04:00] VITALS: BP 151/66; PULSE 87; RESP 20; TEMP 36.7; O2SAT 96; BMI 17.9
--- NOTE | 2018-08-15 05:20 | PC.NURSE ---
PT HAS SLEPT. REQUESTED NERVE PILL EARLY IN EVENING. CONTINUES ON 2L PER NC. NO COMPLAINTS.
[2018-08-15 06:09] VITALS: PULSE 84; PULSE 85; O2SAT 98
--- NOTE | 2018-08-15 07:08 | HMH.DCSUM ---
General - General Admission date:: 08/08/18 Discharge date: 08/15/18 HPI HPI: 73-year-old female recently admitted to the hospital for dizziness and nausea with history of severe COPD and a left lung mass highly suspicious for malignancy presented to the emergency department yesterday evening after acute onset of shortness of breath. Patient states she had been out shopping when she began to feel short of breath. She became frightened because of inability to breathe and came to the emergency department. In the emergency department she was in respiratory distress and work-up revealed acute hypercapnic respiratory failure. Patient was placed on Vapotherm to raise her O2 sats. She has been admitted and placed on IV steroids as well as antibiotics. Chest x-ray shows left upper lobe nodule as well as chronic changes from her COPD but no acute infiltrates. This morning patient complains of continued sensation of dyspnea. Hospital Course Hospital Course: Patient was admitted and placed on common therapy for COPD exacerbation of DuoNeb's, Solu-Medrol, IV azithromycin. Blood gas revealed hypercapnia. Over the first 4 days of hospitalization patient also required high flow oxygen via Vapotherm. There is very little improvement in patient's level of dyspnea over these first 4 days of hospitalization. At that point steroids were increased to a high dose of Solu-Medrol 125 mg every 8 hours. Patient seemed to respond to the high-dose steroids better with reduction in wheezing and improvement in air movement with subsequent improvement in ability to ambulate and dyspnea on exertion. Patient felt like she got very little benefit from nebs but these were continued. Patient had intermittent episodes of wheezing throughout hospitalization. After 48 hours of high-dose steroids patient was weaned to 80 mg of Solu-Medrol intravenously. She continued to slowly improve from a physical standpoint. However due to ongoing medical issues including known carotid stenosis which is going to require carotid endarterectomy, highly suspicious malignancy in the left lung, and the fact that on a PET scan because of uptake in the rectosigmoid colon patient is going to require colonoscopy on top of her COPD patient was felt to be a hospice candidate. A long discussion was had throughout hospitalization on multiple occasions regarding patient's ability to proceed with any surgery, chemotherapy, radiation therapy versus taking a palliative approach. Hospice was consulted on August 14 met with the patient and her family. At that time patient agreed to accept hospice care. On the morning of the (day of discharge) patient complained of sore throat and was found to have significant thrush of the posterior oropharynx and was started on nystatin. On August 15 patient was discharged home. New medications will include alprazolam, prednisone taper, nystatin suspension. Patient will follow-up in my office in 2 weeks. Patient will be under the care of hospice. Objective Vital signs: Temp Pulse Resp BP Pulse Ox 98.1 F 85 20 151/66 H 98 08/15/18 04:00 08/15/18 06:09 08/15/18 04:00 08/15/18 04:00 08/15/18 06:09 DS: Diagnosis - Discharge Diagnosis (1) Acute exacerbation of chronic obstructive airways disease Status: Acute (2) Acute hypercapnic respiratory failure Status: Acute (3) COPD (chronic obstructive pulmonary disease) with acute bronchitis Status: Acute (4) Low body mass index (BMI) Status: Acute (5) Lung nodule seen on imaging study Status: Acute (6) Carotid artery stenosis Status: Acute (7) 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ry disease Status: Chronic Discharge Plan - Patient Discharge Instructions ACTIVITY: Continue current activity DIET: continue same diet Patient Instructions: Cigarette Addiction (Alternative Therapy), Chronic Obstructive Pulmonary Disease, DI for Chronic Obstructive
--- NOTE | 2018-08-15 07:12 | P.DS_ITS ---
General - General Admission date:: 08/08/18 Discharge date: 08/15/18 HPI HPI: 73-year-old female recently admitted to the hospital for dizziness and nausea with history of severe COPD and a left lung mass highly suspicious for malignancy presented to the emergency department yesterday evening after acute onset of shortness of breath. Patient states she had been out shopping when she began to feel short of breath. She became frightened because of inability to breathe and came to the emergency department. In the emergency department she was in respiratory distress and work-up revealed acute hypercapnic respiratory failure. Patient was placed on Vapotherm to raise her O2 sats. She has been admitted and placed on IV steroids as well as antibiotics. Chest x-ray shows left upper lobe nodule as well as chronic changes from her COPD but no acute infiltrates. This morning patient complains of continued sensation of dyspnea. Hospital Course Hospital Course: Patient was admitted and placed on common therapy for COPD exacerbation of DuoNeb's, Solu-Medrol, IV azithromycin. Blood gas revealed hypercapnia. Over the first 4 days of hospitalization patient also required high flow oxygen via Vapotherm. There is very little improvement in patient's level of dyspnea over these first 4 days of hospitalization. At that point steroids were increased to a high dose of Solu-Medrol 125 mg every 8 hours. Patient seemed to respond to the high-dose steroids better with reduction in wheezing and improvement in air movement with subsequent improvement in ability to ambulate and dyspnea on exertion. Patient felt like she got very little benefit from nebs but these were continued. Patient had intermittent episodes of wheezing throughout hospitalization. After 48 hours of high-dose steroids patient was weaned to 80 mg of Solu-Medrol intravenously. She continued to slowly improve from a physical standpoint. However due to ongoing medical issues including known carotid stenosis which is going to require carotid endarterectomy, highly suspicious malignancy in the left lung, and the fact that on a PET scan because of uptake in the rectosigmoid colon patient is going to require colonoscopy on top of her COPD patient was felt to be a hospice candidate. A long discussion was had throughout hospitalization on multiple occasions regarding patient's ability to proceed with any surgery, chemotherapy, radiation therapy versus taking a palliative approach. Hospice was consulted on August 14 met with the patient and her family. At that time patient agreed to accept hospice care. On the morning of the (day of discharge) patient complained of sore throat and was found to have significant thrush of the posterior oropharynx and was started on nystatin. On August 15 patient was discharged home. New medications will include alprazolam, prednisone taper, nystatin suspension. Patient will follow- up in my office in 2 weeks. Patient will be under the care of hospice. Objective Vital signs: Temp Pulse Resp BP Pulse Ox 98.1 F 85 20 151/66 H 98 08/15/18 04:00 08/15/18 06:09 08/15/18 04:00 08/15/18 04:00 08/15/18 06:09 DS: Diagnosis - Discharge Diagnosis (1) Acute exacerbation of chronic obstructive airways disease Status: Acute (2) Acute hypercapnic respiratory failure Status: Acute (3) COPD (chronic obstructive pulmonary disease) with acute bronchitis Status: Acute (4) Low body mass index (BMI) Status: Acute (5) Lung nodule seen on imaging study Status: Acute (6) C
--- NOTE | 2018-08-15 07:22 | PC.NURSE ---
REPORT GIVEN TO Ximena PEREZ
[2018-08-15 08:00] VITALS: BP 135/69; PULSE 93; RESP 18; TEMP 36.4; O2SAT 97
== END 2018-08-15 10:18 | disposition hospice, home (50) | DRG 189 ==
LOC: ER 20:43 → 2ND 22:23
PROVIDERS: Admitting Provider Emergency Medicine; Emergency Provider Emergency Medicine; PCP Family Medicine; Visit Provider Family Medicine
DX: J44.0 Chronic obstructive pulmonary disease with (acute) lower respiratory infection (principal); J96.02 Acute respiratory failure with hypercapnia; B37.0 Candidal stomatitis; R64 Cachexia; Z68.1 Body mass index [BMI] 19.9 or less, adult; J44.1 Chronic obstructive pulmonary disease with (acute) exacerbation; J20.9 Acute bronchitis, unspecified; I65.23 Occlusion and stenosis of bilateral carotid arteries; Z95.5 Presence of coronary angioplasty implant and graft; I10 Essential (primary) hypertension; E78.5 Hyperlipidemia, unspecified; Z95.0 Presence of cardiac pacemaker; Z88.2 Allergy status to sulfonamides; Z88.5 Allergy status to narcotic agent; Z88.8 Allergy status to other drugs, medicaments and biological substances; Z79.899 Other long term (current) drug therapy
CPT/HCPCS: 36415; 70460; 71045; 72100; 80048; 80053; 82803; 83605; 83735; 84484; 85007; 85025; 85651; 86140; 87040; 93005; 93970; 94640; 94760; 94761; 96365; 96367; 96375; 97161; 97165; 99285; G0378; J0456; J2405

== ENCOUNTER → 2019-02-08 11:15 | Outpatient (CLI) | payer MEDICARE, OTHER, SELFPAY ==
--- NOTE | 2019-02-08 11:26 | XR_ITS ---
PROCEDURE: XR CHEST 2V CLINICAL HISTORY: COUGH, RIB PAIN ON LEFT SIDE, MALIGNANT NEOPLASM L LOBE COMPARISON: CXR2V XR chest 2V from 03/02/[address] chest w con from 03/04/2018 CXR1VP XR chest portable from 05/18/2018 CXR2V XR chest 2V from 08/04/2018 FINDINGS: The cardiomediastinal silhouette and pulmonary vascularity are within normal limits. There is a 4.5 cm mass within the posterior aspect and mid aspect of the left lower lobe. This has increased in size previously measuring 2.5 cm. There is COPD with emphysematous changes. There is blunting of the posterior costophrenic sulci. No acute bony anomaly evident. No acute bony abnormalities. IMPRESSION: Enlarging left lower lobe mass with COPD/emphysema Dictated by: Melvin Roach MD 02/08/2019 12:57 Electronically signed by Melvin Roach MD in [place] 02/08/2019 12:57
== END ==
PROVIDERS: PCP Family Medicine; Visit Provider Family Medicine
DX: R07.81 Pleurodynia (principal); R05 Cough; C34.12 Malignant neoplasm of upper lobe, left bronchus or lung
CPT/HCPCS: 71046

== ENCOUNTER 2019-02-16 11:47 | Inpatient (IN) ==
--- NOTE | 2019-02-16 12:43 | Emergency Department Note ---
ED Disposition Clinical Impression: COPD exacerbation, Elevated troponin Lung cancer Qualifiers: Laterality: left Lung location: lower lobe of lung Qualified Code(s): C34.32 - Malignant neoplasm of lower lobe, left bronchus or lung Respiratory failure with hypoxia Qualifiers: Chronicity: acute on chronic Qualified Code(s): J96.21 - Acute and chronic respiratory failure with hypoxia Disposition: Admitted As Inpatient Condition on Discharge: Serious Referrals: Celestino Adams MD [Primary Care Provider] - - Critical Care Critical Care Time: Yes Attestation: On 02/16/19, the high probability of a clinically significant, sudden or life threatening deterioration of the following system(s) required my full and direct attention, intervention and personal management. The time I documented below is in addition to time spent performing reported procedures but includes the following listed in this critical care notation. Total Critical Care Time: 50 Vital system(s) involved:: Respiratory Failure My critical care processes included: Assessment & monitoring of V/S, Initial and Re-exams, Data Review/Interpretation, Coordinating Care, Medication Orders and management, Documentation Medical Decision Making - Koko Inquiry Pt receiving controlled substance: No Vital Signs: 02/16/19 11:48 02/16/19 12:18 02/16/19 12:34 Temperature 98.0 F Temperature Source Oral Pulse Rate [Right Radial] 111 H 112 H 111 H Respiratory Rate 16 24 Blood Pressure [Right Arm] 139/75 151/70 H 151/71 H Blood Pressure Mean [Right Arm] 96 97 97 Blood Pressure Source [Right Arm] Automatic Cuff Automatic Cuff Blood Pressure Position [Right Arm] Supine Sitting 02 Sat by Pulse Oximetry 89 L 87 L 87 L Oxygen Delivery Method Nasal Cannula Venturi Mask Oxygen Flow Rate (LPM) 4 50 02/16/19 13:00 02/16/19 13:30 02/16/19 14:30 Temperature Temperature Source Pulse Rate [Right Radial] 112 H 110 H 101 H Respiratory Rate Blood Pressure [Right Arm] 145/72 H 146/76 H 121/65 Blood Pressure Mean [Right Arm] 96 99 83 Blood Pressure Source [Right Arm] Blood Pressure Position [Right Arm] 02 Sat by Pulse Oximetry 89 L 89 L 93 L Oxygen Delivery Method Oxygen Flow Rate (LPM) - Lab Data Lab Results 02/16/19 12:08: WBC 5.6, RBC 4.16 L, Hgb 12.2, Hct 38.2, MCV 91.9, MCH 29.3, MCHC 31.9, RDW 13.9, Plt Count 220, MPV 8.4, Neut % (Auto) 95.1 H, Lymph % (Auto) 2.7 L, [place] % (Auto) 1.5 L, Eos % (Auto) 0.5, Baso % (Auto) 0.2, Neut # (Auto) 5.3, Lymph # (Auto) 0.2 L, [place] # (Auto) 0.1, Eos # (Auto) 0.0, Baso # (Auto) 0.0, Total Counted 100, Neutrophils % (Manual) 95 H, Lymphocytes % (Manual) 2 L, Monocytes % (Manual) 2, Eosinophils % (Manual) 1, Platelet Estimate Normal, Hypochromasia 1+, Anisocytosis 1+ 02/16/19 12:08: Lactate 1.9 02/16/19 12:34: Specimen Source Right brachial, O2 % 36, ABG pH 7.46 H, ABG pCO2 49.1 H, ABG pO2 46.5 L, ABG HCO3 34.1 H, ABG Total CO2 35.6 H, ABG O2 Saturation 83 L*, ABG Base Excess 10.3 H, Melvin Test acceptable 02/16/19 13:25: Sodium 125 L, Potassium 4.9, Chloride 86 L, Carbon Dioxide 34 H, Anion Gap 9.9, BUN 24 H, Creatinine 1.08 H, Estimated Creat Clear 31, Estimated GFR 49 L, Est GFR ( Amer) 60, Glucose 114 H, Calcium 8.7, Total Bilirubin 0.5, AST 33, ALT 29, Alkaline Phosphatase 70, Troponin I < 0.02, Total Protein 6.8, Albumin 2.4 L, Globulin 4.4 H, Albumin/Globulin Ratio 0.5 L 02/16/19 13:48: Urine Color Yellow, Urine Appearance Clear, Urine pH 6.0, Ur Specific [place] 1.025, Urine Protein 2+, Urine Glucose (UA) Negative, Urine Ketones Negative, Urine Blood 2+, Urine Nitrate Negative, Urine Bilirubin Negative, Urine Urobilinogen 0.2, Ur Leukocyte Esterase Negative, Urine RBC 10- 20, Urine WBC 3-5, Ur Squamous Epith Cells 3-5, Urine Bacteria 2+, Hyaline Casts Occasional, Fine Granular Casts 5- 0 02/16/19 15:48: Troponin I 0.30 H Result diagrams: 02/16/19 12:08 02/16/19 13:25 Orders (Tests/Meds): ED MEDICATIONS Generic Name Dose Route Start Last Admin Trade Name Freq PRN Reason Stop Dose Admin Albuterol/Ipratropium 3 ml 02/16/19 20:00 Duoneb 3ml Neb IH 03/18/19 19:59 QIDRT LAURA Discontinued Medications Generic Name Dose Route Start Last Admin Trade Name Freq PRN Reason Stop Dose Admin Sodium Chloride 250 mls @ 999 mls/hr 02/16/19 14:30 02/16/19 14:20 Sod Chlor 0.9% 1000ml Bag IV 02/16/19 14:45 999 mls/hr .Q16M LAURA Administration Ioversol 60 ml 02/16/19 15:50 02/16/19 15:51 Rad-Optiray 350 100ml Vial IV 02/16/19 15:51 60 ml ONCE ONE Administration Protocol Methylprednisolone Sodium Succinate 125 mg 02/16/19 16:54 Solu-Medrol 125mg/2ml Vial IV 02/16/19 16:55 ONCE ONE Sodium Chloride 10 ml 02/16/19 15:50 02/16/19 15:51 Rad-Saline Flush 10ml Syringe IV 02/16/19 15:51 10 ml ONCE ONE Administration Sodium Chloride 50 ml 02/16/19 15:50 02/16/19 15:51 Rad-Ns 50ml Vial IV 02/16/19 15:51 50 ml ONCE ONE Administration ORDERS Category Date Time Status Troponin I Q3H Lab 02/16/19 18:45 Ordered Blood Culture Stat Micro 02/16/19 12:08 Received Urine Culture Stat Micro 02/16/19 13:48 Received - Radiology Data #1 Image(s): Chest Image Reviewed: Yes I reviewed the patient's radiology image, Yes I have revi ewed radiologist's interpretation FINDINGS: Hyperexpansion lung crow. There is a dominant suspicious mass left midlung field with irregular borders noted to abut the posterior chest wall on the chest film 02/08/2019 and likely the patient's primary bronchogenic carcinoma. There are patchy ill-defined opacities in the right lower lobe which were not seen on the previous chest film and acute ill-defined pneumonic infiltrate likely superimposed upon underlying chronic scarring as the most likely possibility. IMPRESSION: Left midlung mass which has shown definite interval progression and enlargement in size when compared to the previous chest films from July and May of this year now with possible acute ill-defined Mateus trait right lower lobe Dictated by: Dr. Luis Felipe Travis MD 02/16/2019 16:[address] Luis Felipe Travis MD in [place] 02/16/2019 16:36 - CT Data CT Scan: Chest (CTA) Time Received: 16:[address] Reviewed: Yes: I have viewed the radiologist's interpretation Findings Narrative: FINDINGS: PULMONARY ARTERIES: No pulmonary embolus evident. AORTA: No acute finding. No thoracic aortic aneurysm or dissection evident LUNGS: There is hyperexpansion lung crow with depression of the hemidiaphragms. There is a suspicious mass superior segment left lower lobe measuring 3.5 x 3.9 by 4.0 cm abutting and possibly growing into the chest wall with partial erosion of the inner aspect of the left 7th rib. This is consistent with patient's known bronchogenic carcinoma. There is atelectasis and/or post inflammatory scarring in the posterior basal segment right lower lobe. PLEURAL SPACES: No significant effusion. No evidence of pneumothorax. HEART: Unremarkable. Normal heart size. No significant pericardial effusion. MEDIASTINAL AND HILAR STRUCTURES: No mediastinal or hilar mass evident. No dominant adenopathy BONY STRUCTURES: No acute bony abnormalities apparent. LYMPH NODES: No enlarged lymph nodes evident. UPPER ABDOMEN: The visualized portion of the liver and spleen appear grossly normal. IMPRESSION: No CT evidence of pulmonary emboli. Suspicious mass with somewhat irregular borders abutting and possibly in invading the chest wall posteriorly superior segment left lower lobe consistent with bronchogenic carcinoma. Moderate underlying emphysema noted as well Dictated by: Dr. Luis Felipe Travis MD 02/16/2019 16:[address] Luis Felipe Travis MD in [place] 02/16/2019 16:31 - ECG Data Tracing #1 EKG interpreted by Timo Chavez MD: Rhythm: sinus tachycardia Rate: 108 [place]: normal Ectopy: none Conduction: normal ST Segment Changes: none T Wave Changes: none Q Waves: none Poor R wave progression - Physician Consults Physician Consulted: Jeffrey Time: 16:56 Reason -: Admission Comment/Response: Agrees to admit the patient to the hospital. We discussed the patient's clinical information, including history, exam, laboratory and radiology results and ED course. Per hospital procedure, I will write temporary bridge inpatient orders on the patient. Specific orders requested by the admitting physician: Oxygen support, Rocephin and Zithromax, steroids, nebulizer treatments, IV fluids. General Adult HPI - General Chief complaint: Shortness of Breath/Dyspnea Stated complaint: lung cancer soa Time Seen by Provider: 02/16/19 12:40 Mode of Arrival: Wheelchair Limitations: No Limitations Description of Symptoms (Recalled from ER Triage Doc. by RN): PT REPORTS HX OF LUNG CANCER AND BEGAN CHEMO THIS PASSED SUNDAY. PT C/O INCREASED SOA - History of Present Illness HPI narrative: History obtained from patient and . 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 She has gotten radiation therapy and just started chemotherapy on Sunday 6 days ago. Since receiving her first dose of chemotherapy she says she has just been terribly sick since Sunday, 2 days after the treatment. Severe nausea and anorexia without vomiting. Hurts all over including her chest. Denies diarrhea or fever. Has increased shortness of breath. She also has COPD, former smoker. She is on 2 L nasal cannula oxygen at home and states her oxygen saturation was down to 82% this morning with a heart rate in the 130s. Currently she says her pain has resolved or greatly subsided. She is getting her cancer treatment at [facility]. She says she is not going to go back for any more chemotherapy. - Related Data Home Medications Medication Instructions Recorded Confirmed aspirin 81 mg tablet,delayed 81 mg PO DAILY 05/21/18 02/16/19 release fluticasone propionate 250 1 inh INHALATION BID 05/21/18 02/16/19 mcg/actuation blister powder for inhalation tiotropium 2.5 mcg-olodaterol 2.5 1 puff INHALATION BID 05/21/18 02/16/19 mcg/actuation mist for inhalation guaiFENesin [Guaifenesin] 400 mg PO BID 08/05/18 02/16/19 Amlodipine Besylate [Amlodipine 5 mg PO BID 08/08/18 02/16/19 5mg tab] Nystatin [Nystatin Susp 500,000 500,000 unit PO QID 02/16/19 02/16/19 Units/5mL Udc] predniSONE [Prednisone 20mg 20 mg PO DIRECTED 02/16/19 02/16/19 Tab] Previous Rx's Medication Instructions Recorded Atorvastatin Calcium [Atorvastatin 80 mg PO HS #60 tab 08/06/18 40mg Tab] Lisinopril [Lisinopril 10mg Tab] 10 mg PO BID #60 tab 08/06/18 ALPRAZolam [Xanax 0.25mg tab] 0.25 mg PO TIDP PRN #90 tab 08/15/18 Allergies Allergy/AdvReac Type Severity Reaction Status Date / Time codeine [CODEINE] Allergy Unknown NAUSEA AND Verified 05/21/18 11:15 VOMITING ibuprofen [IBUPROFEN] Allergy Unknown I-HIVES Verified 05/21/18 11:15 meperidine [MEPERIDINE] Allergy Unknown INCREASED Verified 05/21/18 11:15 BLOOD PRESSURE Sulfa (Sulfonamide Allergy Unknown SKIN CRAWS Verified 05/21/18 11:15 Antibiotics) [SULFA (SULFONAMIDE ANTIBIOTICS)] adhesive tape AdvReac Intermediate I-RASH Verified 05/21/18 11:15 [facility] History - Hepatitis A Screen Drug use history?: No High risk sexual behaviors?: No History of sexually transmitted infection?: No Currently employed?: No Childcare worker?: No Do you have indoor plumbing?: Yes Do you have electricity?: Yes Attestation statement:: This patient has been screened for Hepatitis A risk factors. I have reviewed the patient's past medical history: Yes Medical History: Reports:: Cancer (Possible Lung), Chronic Obstructive Pulmonary Disease (COPD), Hyperlipidemia, Hypertension, Internal Pacemaker Denies:: Diabetes Mellitus Type 1, Diabetes Mellitus Type 2, MRSA Other Medical History: Reports: Cataracts Comment: Left lung mass Other Surgeries: Yes: Appendectomy, Coronary Stent, , Dilation and Curettage, Pacemaker, Other (Cleaning of carotid artery) Amputation: No Fractures: No Comment: Left carotid endarterectomy - Social History Smoking Status: Former smoker Tobacco Type: cigarettes # Packs/Day (cigarettes): 1 #Yrs smoked (if former smoker): 50 Alcohol Intake: never Alcohol Intake Frequency:: holidays/special occasions only Substance Use Type: denies use Occupational Status: disabled Housing: house Household Members: spouse Family Hx:: Heart Attack, Diabetes, Cancer, Stroke ROS Obtained: Yes All systems reviewed & no additional complaints - Constitutional Constitutional: Denies fever(s), Reports poor appetite, Reports weakness - Respiratory Respiratory: Yes cough (Chronic, not much change recently), Yes dyspnea, No coughing up blood - Gastrointestinal Gastrointestingal: Reports: nausea. Denies: diarrhea, vomiting Physical Exam - General General appearance: alert Comment: Mildly labored respirations. Speaks in short sentences. Pulse ox 82% on 4 L nasal cannula. - Head Head exam: atraumatic, normocephalic - Eye Eye exam: Present: normal appearance, EOMI - ENT ENT exam: Present: mucous membranes dry - Neck Neck exam: Present: normal inspection, trachea midline - Chest Chest inspection: Present: symmetric chest wall rise - Respiratory Respiratory exam: Present: respiratory distress - Cardiovascular Cardiovascular exam: Present: normal rhythm, tachycardia - Abdominal Exam Abdominal exam: Present: soft. Absent: distention, tenderness - Extremities Exam Extremities exam: Present: normal inspection - Neurological Exam Neurological exam: Present: alert, oriented X3 - Psychiatric Psychiatric exam: Present: anxious - Skin Skin exam: Present: warm, dry
[2019-02-16 12:45] LABS: Basophils % 0.2 % (0.1-2.0); Eosinophils % 0.5 % (0.1-12.0); Hematocrit 38.2 % (37.0-47.0); Hemoglobin 12.2 g/dL (12.2-16.2); Lymphocytes # 0.2 K/mm3 (0.7-4.5); Lymphocytes % 2.7 % (10-50); Mean Corpuscular HGB Conc 31.9 g/dL (31.8-35.4); Mean Corpuscular Volume 91.9 fl (81-99); Mean Platelet Volume 8.4 fl (7.4-10.4); Monocytes # 0.1 K/mm3 (0.1-1.0); Monocytes % 1.5 % (1.7-9.3); Neutrophils # 5.3 K/mm3 (1.8-7.8); Neutrophils % 95.1 % (37.0-80.0); Platelet Count 220 K/mm3 (142-424); Red Blood Count 4.16 M/mm3 (4.20-5.40); Red Cell Distribution Width 13.9 % (11.5-17.5); White Blood Count 5.6 K/mm3 (4.8-10.8)
[2019-02-16 12:50] LABS: ABG Base Excess 10.3 mmol/L (-2.4-2.3); ABG HCO3 34.1 mmhg (22.0-26.0); ABG Oxygen Saturation 83 % (90-100); ABG PCO2 49.1 mmhg (35.0-45.0); ABG PH 7.46 mmol/L (7.35-7.45); ABG TCO2 35.6 mmhg (23-27)
[2019-02-16 12:53] LABS: Allen's Test acceptable; Oxygen 36 %
[2019-02-16 12:55] LABS: ABG PO2 46.5 mmhg (80-100)
[2019-02-16 13:35] LABS: Eosinophils % 1 % (0-3); Lymphocytes % 2 % (10-50); Monocytes % 2 % (2-9); Neutrophils % 95 % (42-76); Total Cells Counted 100
[2019-02-16 13:36] LABS: Hypochromasia 1+
[2019-02-16 13:37] LABS: Anisocytosis 1+
[2019-02-16 13:53] LABS: Alanine Aminotransferase 29 U/L (12-78); Albumin Level 2.4 gm/dL (3.4-5.0); Albumin/Globulin Ratio 0.5 (1.1-1.8); Alkaline Phosphatase 70 U/L (46-116); Anion Gap 9.9 mEq/L (5-15); Aspartate Amino Transferase 33 U/L (15-37); Bilirubin,Total 0.5 mg/dL (0.2-1.0); Blood Urea Nitrogen 24 mg/dL (7-18); Calcium 8.7 mg/dL (8.5-10.1); Carbon Dioxide 34 mmol/L (21.0-32.0); Chloride 86 mmol/L (98-107); Globulin 4.4 gm/dl (1.3-3.2); Glucose 114 mg/dL (74-106); Sodium 125 mmol/L (136-145); Total Protein,Serum 6.8 gm/dL (6.4-8.2)
[2019-02-16 13:59] LABS: Microscopic, Urine URINE MICROSCOPIC (MICROSCOPIC)
[2019-02-16 14:00] LABS: Appearance,Urine CLEAR (Clear); Bilirubin,Urine Negative (Negative); Blood, Urine 2+ (Negative); Color,Urine YELLOW (Yellow); Glucose,Urine (UA) Negative (Negative); Ketones,Urine Negative (Negative); Leukocyte Esterase,Urine Negative (Negative); Protein,Urine 2+ (Negative); Specific Gravity, Urine 1.025 (1.005-1.030); Urobilinogen,Urine 0.2 EU/dl (0.2)
[2019-02-16 14:13] LABS: Bacteria,Urine 2+ /lpf
[2019-02-16 14:14] LABS: Hyaline Casts,Urine Occasional #/lpf (0)
--- NOTE | 2019-02-16 20:11 | Electrocardiograph Report ---
APPROVED REPORT Exam: Resting ECG HR:108 bpm ECG Measurements Heart Rate 108 AXES WV 122 P 92 QRSd 62 QRS 82 QT 296 T87 QTc 396 <Conclusion> Sinus tachycardia Right atrial enlargement Septal infarct, age undetermined Abnormal ECG Electronically signed by : Celestino Murphy, 02/16/2019 20:11:13
--- NOTE | 2019-02-17 07:11 | History & Physical Report ---
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 Patient received her first treatment of chemotherapy 1 week ago. Initially the patient had no side effects but within 48 hours the patient developed diffuse pain in the body and extreme loss of appetite. The symptoms continued with patient becoming weaker each day. By the weekend it was noticed that her O2 sats were dropping intermittently including to low of 82% on the morning of admission. She was brought in by her . Patient states "I was out of it". On initial assessment in the emergency department the patient was hypoxic. CT scan of the chest was performed which showed the previously mentioned lung cancer. Patient has no pneumonia. Labs were also significant for an indeterminate troponin. Patient's initial troponin was normal within 2 hours it petty to 2.3 and then within 4 more hours back down to 0.02. Patient did not have any chest pain or c hest tightness suggestive of angina but was significantly hypoxemic on her blood gas. [facility] History I have reviewed the patient's past medical history: Yes Medical History: Reports:: Cancer (Possible Lung), Chronic Obstructive Pulmonary Disease (COPD), Hyperlipidemia, Hypertension, Internal Pacemaker Denies:: Diabetes Mellitus Type 1, Diabetes Mellitus Type 2, MRSA *Have you ever received a pneumonia vaccine?: Yes *Have you received a flu vaccine this season?: Yes Other Medical History: Reports: Anemia, Cataracts Other Surgeries: Yes: Appendectomy, Colonoscopy, Coronary Stent, , Dilation and Curettage, EGD, Pacemaker, Other (Cleaning of carotid artery) Amputation: No Fractures: No - *Social History Educational Level: Completed High School Smoking Status: Former smoker Tobacco Type: cigarettes # Packs/Day (cigarettes): 1 #Yrs smoked (if former smoker): 50 Alcohol Intake: never Alcohol Intake Frequency:: holidays/special occasions only Substance Use Type: denies use *Occupational Status:: disabled Housing: house Household Members: spouse *Travel in the last 8 weeks: None Family Hx:: Anemia, Cancer, Heart Attack, Hyperlipidemia, Hypertension, Kidney Disease, Stroke Review of Systems - Review of Systems Review of systems:: pertinent systems reviewed and negative unless documented below - Constitutional Reports anorexia, Reports body ache(s), Reports fatigue, Reports lack of energy, Denies chills, Denies fever(s), Denies headache(s) - *Cardiovascular Denies chest pain, Denies chest pain at rest, Denies chest pain with activity - *Respiratory Reports shortness of breath, Denies change in phlegm color, Denies chest congestion, Denies cough, Denies coughing up blood, Denies pain with cough, Denies wheezing - *Gastrointestinal Reports abdominal pain (Left side of abdomen), Reports change in bowel habits - *Neurologic Reports weakness Meds Home Medications Medication Instructions Recorded Confirmed Type fluticasone propionate 250 1 inh INHALATION BID 05/21/18 02/16/19 History mcg/actuation blister powder for inhalation tiotropium 2.5 mcg-olodaterol 2.5 1 puff INHALATION BID 05/21/18 02/16/19 History mcg/actuation mist for inhalation guaiFENesin [Guaifenesin] 400 mg PO BID 08/05/18 02/16/19 History Atorvastatin Calcium [Atorvastatin 80 mg PO HS #60 tab 08/06/18 02/16/19 Rx 40mg Tab] Lisinopril [Lisinopril 10mg Tab] 10 mg PO BID #60 tab 08/06/18 02/16/19 Rx Amlodipine Besylate [Amlodipine 5 mg PO BID 08/08/18 02/16/19 History 5mg tab] ALPRAZolam [Xanax 0.25mg tab] 0.25 mg PO TIDP PRN #90 tab 08/15/18 02/16/19 Rx Nystatin [Nystatin Susp 500,000 500,000 unit PO QID 02/16/19 02/16/19 History Units/5mL Udc] predniSONE [Prednisone 20mg 5 mg PO DIRECTED 02/16/19 02/16/19 History Tab] Allergies Allergy/AdvReac Type Severity Reaction Status Date / Time codeine [CODEINE] Allergy Unknown NAUSEA AND Verified 05/21/18 11:15 VOMITING ibuprofen [IBUPROFEN] Allergy Unknown I-HIVES Verified 05/21/18 11:15 meperidine [MEPERIDINE] Allergy Unknown INCREASED Verified 05/21/18 11:15 BLOOD PRESSURE Sulfa (Sulfonamide Allergy Unknown SKIN CRAWS Verified 05/21/18 11:15 Antibiotics) [SULFA (SULFONAMIDE ANTIBIOTICS)] adhesive tape AdvReac Intermediate I-RASH Verified 05/21/18 11:15 Exam Vital signs and Labs for Last 24 Hours: Temp Pulse Resp BP Pulse Ox 97.5 F L 77 18 113/54 L 93 L 02/17/19 04:00 02/17/19 06:13 02/17/19 04:00 02/17/19 04:00 02/17/19 06:13 Laboratory Results - last 24 hr 02/16/19 12:08: WBC 5.6, RBC 4.16 L, Hgb 12.2, Hct 38.2, MCV 91.9, MCH 29.3, MCHC 31.9, RDW 13.9, Plt Count 220, MPV 8.4, Neut % (Auto) 95.1 H, Lymph % (Auto) 2.7 L, [place] % (Auto) 1.5 L, Eos % (Auto) 0.5, Baso % (Auto) 0.2, Neut # (Auto) 5.3, Lymph # (Auto) 0.2 L, [place] # (Auto) 0.1, Eos # (Auto) 0.0, Baso # (Auto) 0.0, Total Counted 100, Neutrophils % (Manual) 95 H, Lymphocytes % (Manual) 2 L, Monocytes % (Manual) 2, Eosinophils % (Manual) 1, Platelet Estimate Normal, Hypochromasia 1+, Anisocytosis 1+ 02/16/19 12:08: Lactate 1.9 02/16/19 12:34: Specimen Source Right brachial, O2 % 36, ABG pH 7.46 H, ABG pCO2 49.1 H, ABG pO2 46.5 L, ABG HCO3 34.1 H, ABG Total CO2 35.6 H, ABG O2 Saturation 83 L*, ABG Base Excess 10.3 H, Melvin Test acceptable 02/16/19 13:25: Sodium 125 L, Potassium 4.9, Chloride 86 L, Carbon Dioxide 34 H, Anion Gap 9.9, BUN 24 H, Creatinine 1.08 H, Estimated Creat Clear 31, Estimated GFR 49 L, Est GFR ( Amer) 60, Glucose 114 H, Calcium 8.7, Total Bilirubin 0.5, AST 33, ALT 29, Alkaline Phosphatase 70, Troponin I < 0.02, Total Protein 6.8, Albumin 2.4 L, Globulin 4.4 H, Albumin/Globulin Ratio 0.5 L 02/16/19 13:48: Urine Color Yellow, Urine Appearance Clear, Urine pH 6.0, Ur Specific [place] 1.025, Urine Protein 2+, Urine Glucose (UA) Negative, Urine Ketones Negative, Urine Blood 2+, Urine Nitrate Negative, Urine Bilirubin Negative, Urine Urobilinogen 0.2, Ur Leukocyte Esterase Negative, Urine RBC 10- 20, Urine WBC 3-5, Ur Squamous Epith Cells 3-5, Urine Bacteria 2+, Hyaline Casts Occasional, Fine Granular Casts 5- 0 02/16/19 15:48: Troponin I 0.30 H 02/16/19 19:15: Troponin I < 0.02 I & O for Last 24 hours: Intake & Output 02/14/19 02/15/19 02/16/19 02/17/19 11:59 11:59 11:59 11:59 Intake Total 1215 / 1215 Output Total 320 / 320 Balance 895 / 895 Weight 95 lb 106 lb 6 oz Narrative: Patient is resting comfortably in bed. Vapotherm is in place. Patient is awake and alert. She is oriented to person, place, time. Oropharynx is moist and clear. Neck has no palpable lymph nodes or masses. Lungs have expiratory wheezes heard both anteriorly and posteriorly with fair aeration. Heart has a regular rate and rhythm. Abdomen is thin and soft with left-sided tenderness and a palpable mass versus colonic fullness. Bowel sounds are present. Patient has active range of motion in all extremities. Skin is without rashes. Assessment and Plan (1) Acute exacerbation of chronic obstructive airways disease Current visit: No Status: Acute Category: Medical Code(s): J44.1 - Chronic obstructive pulmonary disease with (acute) exacerbation Continue IV steroids and IV azithromycin. I do believe this was triggered by the chemotherapy as patient has not really had any infectious symptoms. Goal O2 sats will be 90% or greater. Wean Vapotherm as tolerated. (2) Abdominal pain Current visit: Yes Status: Acute Category: Medical Code(s): R10.9 - Unspecified abdominal pain CT abdomen and pelvis with oral contrast today to rule out metastatic lesion in the GI tract (3) Stage III chronic kidney disease Current visit: Yes Status: Acute Category: Medical Code(s): N18.3 - Chronic kidney disease, stage 3 (moderate) (4) Elevated troponin Current visit: Yes Status: Acute Category: Medical Code(s): R79.89 - Other specified abnormal findings of blood chemistry Cardiology has been consulted. (5) Lung cancer Current visit: Yes Status: Acute Qualifiers: Laterality: left Lung location: lower lobe of lung Qualified Code(s): C34.32 - Malignant neoplasm of lower lobe, left bronchus or lung Category: Medical Code(s): C34.90 - Malignant neoplasm of unspecified part of unspecified bronchus or lung (6) Respiratory failure with hypoxia Current visit: Yes Status: Acute Qualifiers: Chronicity: acute on chronic Qualified Code(s): J96.21 - Acute and chronic respiratory failure with hypoxia Category: Medical Code(s): J96.91 - Respiratory failure, unspecified with hypoxia (7) Hyponatremia Current visit: No Status: Acute Category: Medical Code(s): E87.1 - Hypo- osmolality and hyponatremia (8) Mental status change resolved Current visit: No Status: Acute Category: Medical Code(s): Z86.59 - Personal history of other mental and behavioral disorders (9) Nausea Current visit: No Status: Acute Category: Medical Code(s): R11.0 - Nausea
--- NOTE | 2019-02-17 07:13 | Pharmacy Consult Notes ---
[facility] Pharmacy VTE Monitoring - Patient Demographics Admission date: 02/16/19 Report Date: 02/17/19 Time: 07:13 Allergies/Adverse Reactions: Patient Allergies codeine [CODEINE] Allergy (Unknown, Verified 05/21/18 11:15) NAUSEA AND VOMITING ibuprofen [IBUPROFEN] Allergy (Unknown, Verified 05/21/18 11:15) I-HIVES meperidine [MEPERIDINE] Allergy (Unknown, Verified 05/21/18 11:15) INCREASED BLOOD PRESSURE Sulfa (Sulfonamide Antibiotics) [SULFA (SULFONAMIDE ANTIBIOTICS)] Allergy (Unknown, Verified 05/21/18 11:15) SKIN CRAWS adhesive tape Adverse Reaction (Intermediate, Verified 05/21/18 11:15) I-RASH Height: 1.57 m Weight: 48.251 kg Patient Problems: Current Active Problems COPD exacerbation (Acute) Elevated troponin (Acute) Lung cancer (Acute) Respiratory failure with hypoxia (Acute) - VTE Risk Labs: VTE Related Lab Results Hgb 12.2 g/dL (12.2-16.2) 02/16/19 12:08 Hct 38.2 % (37.0-47.0) 02/16/19 12:08 Plt Count 220 K/mm3 (142-424) 02/16/19 12:08 BUN 24 mg/dL (7-18) H 02/16/19 13:25 Creatinine 1.08 mg/dL (0.55-1.02) H 02/16/19 13:25 Estimated Creat Clear 31 mL/min (50-200) 02/16/19 13:25 VTE Score: 6 VTE Risk Level: Moderate Risk - Prophylaxis VTE Prophylaxis Ordered?: Yes Types of VTE Prophylaxis: TEDS Knee High Location of Applied Device: Bilateral Lower Extremeties - VTE Diagnosis Confirmed Treatment or plan recommended: Continue Current Treatment
--- NOTE | 2019-02-17 11:17 | Consult Report ---
History of Present Illness Consult date: 02/17/19 Requesting physician: Celestino Adams Consult reason: shortness of breath Chief complaint: Shortness of breath History of present illness: This is a 73-year-old white female who was admitted to the hospital with worsening shortness of breath. She does have small cell lung cancer of the left lower lobe and received her first chemotherapy treatment about a week ago. The patient states that initially she had no side effects from the medication but then about 48 hours after having the first dose she did get sick. The patient states that she has not been able to eat and she has had diffuse body pain. The patient states that every day she has gotten more and more weak. She also got progressively more short of breath as well. She states that over the weekend she noticed that her oxygen saturations were dropping and got down as low as 82%. The patient states that she was completely out of it and she does not even remember coming to the hospital. She was brought in by her . In the emergency department the patient was found to be hypoxic. She did have a CT of the chest which showed no pulmonary embolus but did show her previously mentioned lung cancer. Her initial troponin was elevated at 0.30 which was most likely from demand ischemia. Her repeat troponin was negative at 0.02. The patient denies any chest pain or pressure. She denies any edema, fever, chills, vomiting, diarrhea, PND or orthopnea. 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 after my evaluation of her. She does state that she has had abdominal pain in the left lower quadrant since they put in a Granados catheter on admission. The Granados catheter has since been removed and the patient states that the left lower quadrant pain persists. She had a previous renal duplex which showed greater than 60% stenosis of the right renal artery. She also had an abdominal ultrasound which showed no AAA but she does have some atherosclerosis of her aorta. She is now seeing Dr. Goodman for her cardiac care. She did report that she is status post bilateral carotid endarterectomy per Dr. Goodman. [facility] History I have reviewed the patient's past medical history: Yes Medical History: Reports:: Cancer (Possible Lung), Carotid Stenosis, Chronic Ob structive Pulmonary Disease (COPD), Hyperlipidemia, Hypertension, Internal Pacemaker, Peripheral Vascular Disease Denies:: Diabetes Mellitus Type 1, Diabetes Mellitus Type 2, MRSA *Have you ever received a pneumonia vaccine?: Yes *Have you received a flu vaccine this season?: Yes Other Medical History: Reports: Anemia, Cataracts Other Surgeries: Yes: Appendectomy, Colonoscopy, Coronary Stent, , Dilation and Curettage, EGD, Pacemaker, Other (Cleaning of carotid artery) Amputation: No Fractures: No - *Social History Educational Level: Completed High School Smoking Status: Former smoker Tobacco Type: cigarettes # Packs/Day (cigarettes): 1 #Yrs smoked (if former smoker): 50 Alcohol Intake: never Alcohol Intake Frequency:: holidays/special occasions only Substance Use Type: denies use *Occupational Status:: disabled Housing: house Household Members: spouse *Travel in the last 8 weeks: None Family Hx:: Anemia, Cancer, Heart Attack, Hyperlipidemia, Hypertension, Kidney Disease, Stroke Meds Home Medications Medication Instructions Recorded Confirmed Type fluticasone propionate 250 1 inh INHALATION BID 05/21/18 02/16/19 History mcg/actuation blister powder for inhalation tiotropium 2.5 mcg-olodaterol 2.5 1 puff INHALATION BID 05/21/18 02/16/19 History mcg/actuation mist for inhalation Atorvastatin Calcium [Atorvastatin 80 mg PO HS #60 tab 08/06/18 02/16/19 Rx 40mg Tab] Lisinopril [Lisinopril 10mg Tab] 10 mg PO BID #60 tab 08/06/18 02/16/19 Rx Amlodipine Besylate [Amlodipine 5 mg PO BID 08/08/18 02/16/19 History 5mg tab] Nystatin [Nystatin Susp 500,000 500,000 unit PO QID 02/16/19 02/16/19 History Units/5mL Udc] ALPRAZolam [Alprazolam 0.25mg 0.25 mg PO BIDP PRN 02/17/19 02/17/19 History Tab] Albuterol Sulfate [Proair Hfa 1 - 2 puff IH Q4HP PRN 02/17/19 02/17/19 History 90mcg/puff Inh] Fexofenadine/Pseudoephedrine 1 tab PO BIDP PRN 02/17/19 02/17/19 History [Faiza-D 12 Hour Tablet] Ondansetron HCl [Ondansetron 8mg 8 mg PO TIDP PRN 02/17/19 02/17/19 History Tablet] Allergies Allergy/AdvReac Type Severity Reaction Status Date / Time codeine [CODEINE] Allergy Unknown NAUSEA AND Verified 05/21/18 11:15 VOMITING ibuprofen [IBUPROFEN] Allergy Unknown I-HIVES Verified 05/21/18 11:15 meperidine [MEPERIDINE] Allergy Unknown INCREASED Verified 05/21/18 11:15 BLOOD PRESSURE Sulfa (Sulfonamide Allergy Unknown SKIN CRAWS Verified 05/21/18 11:15 Antibiotics) [SULFA (SULFONAMIDE ANTIBIOTICS)] adhesive tape AdvReac Intermediate I-RASH Verified 05/21/18 11:15 Review of Systems - Review of Systems Review of systems:: pertinent systems reviewed and negative unless documented below - Constitutional Reports fatigue, Reports lack of energy, Reports malaise, Reports weakness - *Respiratory Reports shortness of breath, Reports shortness of breath with activity - *Gastrointestinal Reports abdominal pain (Left lower quadrant) - *Neurologic Reports weakness, Denies headache(s) Exam Vital signs and Labs for Last 24 Hours: Temp Pulse Resp BP Pulse Ox 98.6 F 59 L 18 101/56 L 96 02/17/19 08:00 02/17/19 08:00 02/17/19 08:00 02/17/19 08:00 02/17/19 08:00 Laboratory Results - last 24 hr 02/16/19 12:08: WBC 5.6, RBC 4.16 L, Hgb 12.2, Hct 38.2, MCV 91.9, MCH 29.3, MCHC 31.9, RDW 13.9, Plt Count 220, MPV 8.4, Neut % (Auto) 95.1 H, Lymph % (Auto) 2.7 L, [place] % (Auto) 1.5 L, Eos % (Auto) 0.5, Baso % (Auto) 0.2, Neut # (Auto) 5.3, Lymph # (Auto) 0.2 L, [place] # (Auto) 0.1, Eos # (Auto) 0.0, Baso # (Auto) 0.0, Total Counted 100, Neutrophils % (Manual) 95 H, Lymphocytes % (Manual) 2 L, Monocytes % (Manual) 2, Eosinophils % (Manual) 1, Platelet Estimate Normal, Hypochromasia 1+, Anisocytosis 1+ 02/16/19 12:08: Lactate 1.9 02/16/19 12:34: Specimen Source Right brachial, O2 % 36, ABG pH 7.46 H, ABG pCO2 49.1 H, ABG pO2 46.5 L, ABG HCO3 34.1 H, ABG Total CO2 35.6 H, ABG O2 Saturation 83 L*, ABG Base Excess 10.3 H, Melvin Test acceptable 02/16/19 13:25: Sodium 125 L, Potassium 4.9, Chloride 86 L, Carbon Dioxide 34 H, Anion Gap 9.9, BUN 24 H, Creatinine 1.08 H, Estimated Creat Clear 31, Estimated GFR 49 L, Est GFR ( Amer) 60, Glucose 114 H, Calcium 8.7, Total Bilirubin 0.5, AST 33, ALT 29, Alkaline Phosphatase 70, Troponin I < 0.02, Total Protein 6.8, Albumin 2.4 L, Globulin 4.4 H, Albumin/Globulin Ratio 0.5 L 02/16/19 13:48: Urine Color Yellow, Urine Appearance Clear, Urine pH 6.0, Ur Specific [place] 1.025, Urine Protein 2+, Urine Glucose (UA) Negative, Urine Ketones Negative, Urine Blood 2+, Urine Nitrate Negative, Urine Bilirubin Negative, Urine Urobilinogen 0.2, Ur Leukocyte Esterase Negative, Urine RBC 10- 20, Urine WBC 3-5, Ur Squamous Epith Cells 3-5, Urine Bacteria 2+, Hyaline Casts Occasional, Fine Granular Casts 5- 0 02/16/19 15:48: Troponin I 0.30 H 02/16/19 19:15: Troponin I < 0.02 I & O for Last 24 hours: Intake & Output 02/14/19 02/15/19 02/16/19 02/17/19 23:59 23:59 23:59 23:59 Intake Total 1215 / 1215 Output Total 320 / 320 Balance -320 / -200 1215 / 1215 Weight 103 lb 7 oz 106 lb 6 oz Narrative: Her EKG is sinus tachycardia with a rate of 108. There is right atrial enlargement and old septal RI pattern. - Constitutional no acute distress, average body habitus - *Routine HEENT Exam Head: Present: normocephalic, atraumatic Eye: Present: EOMI, PERRL ENT: Present: mucous membranes moist - *Routine Neck Exam Present: supple, full ROM, normal carotid upstroke. Absent: JVD, carotid bruit, lymphadenopathy - *Routine Respiratory Exam Present: decreased breath sounds, wheezes (Expiratory wheezing) - *Routine Cardiovascular Exam Present: RRR, Normal S1, Normal S2. Absent: murmur - *Routine Abdominal Exam Present: soft, normoactive bowel sounds. Absent: tenderness, distended - *Routine Extremities Exam Present: full ROM, pulses intact, normal capillary refill. Absent: cyanosis, clubbing, edema - *Routine Skin Exam Present: intact, warm. Absent: erythema, rash - *Routine Neurological Exam Present: alert, oriented X3, CN II-XII intact. Absent: sensory deficit, motor deficit - Routine Psychiatric Exam Present: normal affect, normal thought process - Detailed Eye Exam Eyelids: Left normal inspection Assessment and Plan (1) Acute exacerbation of chronic obstructive airways disease Current visit: No Status: Acute Category: Medical Code(s): J44.1 - Chronic obstructive pulmonary disease with (acute) exacerbation (2) Abdominal pain Current visit: Yes Status: Acute Category: Medical Code(s): R10.9 - Unspecified abdominal pain (3) Stage III chronic kidney disease Current visit: Yes Status: Acute Category: Medical Code(s): N18.3 - Chronic kidney disease, stage 3 (moderate) (4) Elevated troponin Current visit: Yes Status: Acute Category: Medical Code(s): R79.89 - Other specified abnormal findings of blood chemistry (5) Lung cancer Current visit: Yes Status: Acute Qualifiers: Laterality: left Lung location: lower lobe of lung Qualified Code(s): C34.32 - Malignant neoplasm of lower lobe, left bronchus or lung Category: Medical Code(s): C34.90 - Malignant neoplasm of unspecified part of unspecified bronchus or lung (6) Respiratory failure with hypoxia Current visit: Yes Status: Acute Qualifiers: Chronicity: acute on chronic Qualified Code(s): J96.21 - Acute and chronic respiratory failure with hypoxia Category: Medical Code(s): J96.91 - Respiratory failure, unspecified with hypoxia (7) Hyponatremia Current visit: No Status: Acute Category: Medical Code(s): E87.1 - Hypo- osmolality and hyponatremia (8) Mental status change resolved Current visit: No Status: Acute Category: Medical Code(s): Z86.59 - Personal history of other mental and behavioral disorders (9) Nausea Current visit: No Status: Acute Category: Medical Code(s): R11.0 - Nausea (10) Carotid artery stenosis Current visit: Yes Status: Chronic Category: Medical Code(s): I65.29 - Occlusion and stenosis of unspecified carotid artery (11) Demand ischemia Current visit: Yes Status: Acute Category: Medical Code(s): I24.8 - Other forms of acute ischemic heart disease (12) CAD (coronary artery disease) Current visit: No Status: Chronic Category: Medical Code(s): I25.10 - Atherosclerotic heart disease of [place] coronary artery without angina pectoris - Assessment and plan all Dx Assessment and Plan for all problems:: Plan: 1. The patient was admitted to the hospital with shortness of breath. The patient is being treated for a COPD exacerbation by her primary care provider. Will defer. 2. The patient does have small cell lung cancer and is getting chemotherapy for this. 3. Her initial troponin was elevated at 0.30. However, this was likely secondary to demand ischemia because her repeat troponin a few hours later was down to 0.02 and normal. Upon admission the patient was hypoxic and had oxygen saturations of 82%. She denies any chest pain or pressure. No plans for invasive cardiac testing at this time as her initially elevated troponin is likely secondary to demand ischemia. 4. She does have a history of coronary artery disease. This is likely stable. 5. Her blood pressure is well controlled. 6. Her LDL goal is less than 55. 7. The patient reports that she is status post bilateral carotid endarterectomy. She is seeing Dr. Goodman for this. Will defer. 8. No further recommendations at this time from a cardiac standpoint. The patient states that she prefers to have all of her cardiology care by Dr. Goodman and does not want to be seen by Dr. Long here at [facility]. If any cardiac issues arise throughout the rest of her hospital stay, cardiology will be available by phone if necessary. Thank you for the opportunity to help participate in the care of this patient.
--- NOTE | 2019-02-18 07:16 | Progress Note ---
Internal Medicine - PN: Subj *Date: 02/18/19 *Time: 07:12 Interval history: Patient complains this morning of recurrence of diffuse pain within the body that she attributed to her chemotherapy beginning a week ago. She had actually been feeling better yesterday but symptoms returned by the evening. They are exacerbated by abdominal pain which CT scan revealed a significant stool burden in the descending colon. Patient remains nauseous and unable to ingest significant quantities of food or drink because of her abdominal pain. She did receive MiraLAX as well as Senokot yesterday evening. She is also eating prunes. She admits her frustration over the side effects she is experiencing from her chemotherapy. She has stated she will not do any further chemotherapy. Exam Vital signs and Labs for Last 24 Hours: Temp Pulse Resp BP Pulse Ox 98.6 F 111 H 18 133/66 87 L 02/18/19 04:00 02/18/19 06:18 02/18/19 04:00 02/18/19 04:00 02/18/19 06:18 I & O for Last 24 hours: Intake & Output 02/15/19 02/16/19 02/17/19 02/18/19 11:59 11:59 11:59 11:59 Intake Total 1215 / 1215 2225 / 2225 Output Total 320 / 320 650 / 650 Balance 895 / 895 1575 / 1575 Weight 95 lb 106 lb 6.004 oz 106 lb 6.004 oz Microbiology Reports for the Last 24 Hours: Microbiology 02/16/19 13:48 Urine,Catheterized Urine Culture - Preliminary NO GROWTH AFTER 24 HOURS Narrative: Patient looks tired and weak. Lung exam today reveals expiratory wheezes throughout both lungs both anteriorly and posteriorly. Heart has a rapid rate and rhythm. Abdomen is soft with left mid abdominal tenderness to palpation and palpable mass from her colonic fullness. Assessment and Plan (1) Acute exacerbation of chronic obstructive airways disease Current visit: No Status: Acute Category: Medical Code(s): J44.1 - Chronic obstructive pulmonary disease with (acute) exacerbation (2) Constipation by delayed colonic transit Current visit: Yes Status: Acute Category: Medical Code(s): K59.01 - Slow transit constipation (3) Abdominal pain Current visit: Yes Status: Acute Category: Medical Code(s): R10.9 - Unspecified abdominal pain (4) Stage III chronic kidney disease Current visit: Yes Status: Acute Category: Medical Code(s): N18.3 - Chronic kidney disease, stage 3 (moderate) (5) Elevated troponin Current visit: Yes Status: Acute Category: Medical Code(s): R79.89 - Other specified abnormal findings of blood chemistry (6) Lung cancer Current visit: Yes Status: Acute Qualifiers: Laterality: left Lung location: lower lobe of lung Qualified Code(s): C34.32 - Malignant neoplasm of lower lobe, left bronchus or lung Category: Medical Code(s): C34.90 - Malignant neoplasm of unspecified part of unspecified bronchus or lung (7) Respiratory failure with hypoxia Current visit: Yes Status: Acute Qualifiers: Chronicity: acute on chronic Qualified Code(s): J96.21 - Acute and chronic respiratory failure with hypoxia Category: Medical Code(s): J96.91 - Respiratory failure, unspecified with hypoxia (8) Hyponatremia Current visit: No Status: Acute Category: Medical Code(s): E87.1 - Hypo- osmolality and hyponatremia (9) Mental status change resolved Current visit: No Status: Acute Category: Medical Code(s): Z86.59 - Personal history of other mental and behavioral disorders (10) Nausea Current visit: No Status: Acute Category: Medical Code(s): R11.0 - Nausea (11) Carotid artery stenosis Current visit: Yes Status: Chronic Category: Medical Code(s): I65.29 - Occlusion and stenosis of unspecified carotid artery (12) Demand ischemia Current visit: Yes Status: Acute Category: Medical Code(s): I24.8 - Other forms of acute ischemic heart disease (13) CAD (coronary artery disease) Current visit: No Status: Chronic Category: Medical Code(s): I25.10 - Atherosclerotic heart disease of [place] coronary artery without angina pectoris - Assessment and plan all Dx Assessment and Plan for all problems:: 1. Attempted use of fleets enema today. Stool is a little higher than I believe the enema will reach but patient would like to try as she is very uncomfortable. Continue MiraLAX, Senokot at night and I have encouraged patient to use the milk of magnesia that has been ordered. 2. Add as needed albuterol nebs and I am going to increase the patient's steroid dose due to her worsening wheezing 3. I spoke with nursing staff about ways to arrange the Vapotherm and IV fluids so that patient can get out of bed and into the chair
[2019-02-18 16:44] LABS: ABG Base Excess 2.6 mmol/L (-2.4-2.3); ABG HCO3 27.8 mmhg (22.0-26.0); ABG Oxygen Saturation 89 % (90-100); ABG PH 7.38 mmol/L (7.35-7.45); ABG PO2 58.3 mmhg (80-100); ABG TCO2 29.2 mmhg (23-27); Allen's Test Y; Oxygen 60 %
[2019-02-19 06:30] LABS: Eosinophils % 0.3 % (0.1-12.0); Hematocrit 31.3 % (37.0-47.0); Hemoglobin 9.6 g/dL (12.2-16.2); Lymphocytes # 0.1 K/mm3 (0.7-4.5); Lymphocytes % 9.9 % (10-50); Mean Corpuscular HGB Conc 30.6 g/dL (31.8-35.4); Mean Corpuscular Volume 94.4 fl (81-99); Mean Platelet Volume 7.9 fl (7.4-10.4); Monocytes % 2.7 % (1.7-9.3); Neutrophils % 87.1 % (37.0-80.0); Platelet Count 143 K/mm3 (142-424); Red Blood Count 3.31 M/mm3 (4.20-5.40); Red Cell Distribution Width 14.3 % (11.5-17.5)
[2019-02-19 06:37] LABS: Anion Gap 9.8 mEq/L (5-15); Calcium 8.3 mg/dL (8.5-10.1)
[2019-02-19 06:55] LABS: White Blood Count 1.1 K/mm3 (4.8-10.8)
--- NOTE | 2019-02-19 07:29 | Progress Note ---
Internal Medicine - PN: Subj *Date: 02/19/19 *Time: 07:26 Interval history: Patient had a rough day yesterday. She is still yet to have a quality bowel movement making it now 1 week since her last bowel movement. Enema was unsuccessful yesterday and a single dose of milk of magnesia was attempted as well. She continues on MiraLAX and Senokot daily. While her bowel movement was small and watery it apparently did relieve some of the discomfort in the left abdomen. Regarding her breathing she reports that yesterday was very difficult and so far this morning she feels slightly better. She required an increase in FiO2 provided through the Vapotherm device. I repeat blood gas yesterday was essentially the same as it on admission Exam Vital signs and Labs for Last 24 Hours: Temp Pulse Resp BP Pulse Ox 98.0 F 92 H 20 163/71 H 93 L 02/19/19 04:00 02/19/19 05:59 02/19/19 04:00 02/19/19 04:00 02/19/19 05:59 Laboratory Results - last 24 hr 02/18/19 16:42: Specimen Source L/r, O2 % 60, ABG pH 7.38, ABG pCO2 48.0 H, ABG pO2 58.3 L, ABG HCO3 27.8 H, ABG Total CO2 29.2 H, ABG O2 Saturation 89 L, ABG Base Excess 2.6 H, Melvin Test Y 02/19/19 05:10: WBC 1.1 L* D, RBC 3.31 L, Hgb 9.6 L, Hct 31.3 L, MCV 94.4, MCH 28.8, MCHC 30.6 L, RDW 14.3, Plt Count 143 D, MPV 7.9, Neut % (Auto) 87.1 H, Lymph % (Auto) 9.9 L, [place] % (Auto) 2.7, Eos % (Auto) 0.3, Baso % (Auto) 0.0 L, Neut # (Auto) 1.0 L, Lymph # (Auto) 0.1 L, [place] # (Auto) 0.0 L, Eos # (Auto) 0.0, Baso # (Auto) 0.0 02/19/19 05:10: Sodium 134 L, Potassium 4.8, Chloride 98, Carbon Dioxide 31, Anion Gap 9.8, BUN 27 H, Creatinine 0.71 D, Estimated Creat Clear 38, Estimated GFR 80, Est GFR ( Amer) 97 D, Glucose 118 H, Calcium 8.3 L I & O for Last 24 hours: Intake & Output 02/16/19 02/17/19 02/18/19 02/19/19 11:59 11:59 11:59 11:59 Intake Total 1215 / 1215 2585 / 2585 809 / 809 Output Total 320 / 320 650 / 650 400 / 400 Balance 895 / 895 1935 / 1935 409 / 409 Weight 95 lb 106 lb 6.004 oz 106 lb 6.004 oz 110 lb Microbiology Reports for the Last 24 Hours: Microbiology 02/16/19 13:48 Urine,Catheterized Urine Culture - Final NO GROWTH AFTER 48 HOURS 02/16/19 12:08 Blood Blood Culture - Preliminary NO GROWTH AFTER 48 HOURS 02/16/19 12:08 Blood Blood Culture - Preliminary NO GROWTH AFTER 48 HOURS Narrative: She does not appear to be in any respiratory distress. Vapotherm is in place. Lung exam reveals improvement in wheezing today with rhonchi in the anterior left chest and posterior right base. Heart has a regular rate and rhythm. Abdomen is soft and nontender. Extremities are not edematous Assessment and Plan (1) Acute exacerbation of chronic obstructive airways disease Current visit: No Status: Acute Category: Medical Code(s): J44.1 - Chronic obstructive pulmonary disease with (acute) exacerbation Continue high-dose steroids and duo nebs. Compared to yesterday at this point patient is slightly improved but remains quite weak with significant dyspnea simply getting out of bed or moving to the side of the bed (2) Constipation by delayed colonic transit Current visit: Yes Status: Acute Category: Medical Code(s): K59.01 - Slow transit constipation Add lactulose to patient's bowel regimen (3) Abdominal pain Current visit: Yes Status: Acute Category: Medical Code(s): R10.9 - Unspecified abdominal pain (4) Stage III chronic kidney disease Current visit: Yes Status: Acute Category: Medical Code(s): N18.3 - Chronic kidney disease, stage 3 (moderate) (5) Elevated troponin Current visit: Yes Status: Acute Category: Medical Code(s): R79.89 - Other specified abnormal findings of blood chemistry (6) Lung cancer Current visit: Yes Status: Acute Qualifiers: Laterality: left Lung location: lower lobe of lung Qualified Code(s): C34.32 - Malignant neoplasm of lower lobe, left bronchus or lung Category: Medical Code(s): C34.90 - Malignant neoplasm of unspecified part of unspecified bronchus or lung (7) Respiratory failure with hypoxia Current visit: Yes Status: Acute Qualifiers: Chronicity: acute on chronic Qualified Code(s): J96.21 - Acute and chronic respiratory failure with hypoxia Category: Medical Code(s): J96.91 - Respiratory failure, unspecified with hypoxia (8) Hyponatremia Current visit: No Status: Acute Category: Medical Code(s): E87.1 - Hypo- osmolality and hyponatremia (9) Mental status change resolved Current visit: No Status: Acute Category: Medical Code(s): Z86.59 - Personal history of other mental and behavioral disorders (10) Nausea Current visit: No Status: Acute Category: Medical Code(s): R11.0 - Nausea (11) Carotid artery stenosis Current visit: Yes Status: Chronic Category: Medical Code(s): I65.29 - Occlusion and stenosis of unspecified carotid artery (12) Demand ischemia Current visit: Yes Status: Acute Category: Medical Code(s): I24.8 - Other forms of acute ischemic heart disease (13) CAD (coronary artery disease) Current visit: No Status: Chronic Category: Medical Code(s): I25.10 - Atherosclerotic heart disease of [place] coronary artery without angina pectoris (14) Chemotherapy induced neutropenia Current visit: Yes Status: Acute Category: Medical Code(s): D70.1 - Agranulocytosis secondary to cancer chemotherapy; T45.1X5A - Adverse effect of antineoplastic and immunosuppressive drugs, initial encounter Add cefepime to antibiotic regimen. And place patient in neutropenic precautions
[2019-02-19 07:46] LABS: Lymphocytes % 6 % (10-50); Monocytes % 8 % (2-9); Myelocytes % 2 (0-1); Neutrophils % 74 % (42-76); Total Cells Counted 100
[2019-02-19 07:47] LABS: Anisocytosis 1+; Hypochromasia 1+
[2019-02-20 08:21] LABS: Basophils % 0.2 % (0.1-2.0); Eosinophils % 0.5 % (0.1-12.0); Hematocrit 32.5 % (37.0-47.0); Hemoglobin 9.8 g/dL (12.2-16.2); Lymphocytes # 0.1 K/mm3 (0.7-4.5); Lymphocytes % 6.9 % (10-50); Mean Corpuscular HGB Conc 30.3 g/dL (31.8-35.4); Mean Corpuscular Volume 94.6 fl (81-99); Mean Platelet Volume 8.2 fl (7.4-10.4); Monocytes % 1.5 % (1.7-9.3); Neutrophils # 1.5 K/mm3 (1.8-7.8); Platelet Count 139 K/mm3 (142-424); Red Blood Count 3.44 M/mm3 (4.20-5.40); Red Cell Distribution Width 14.3 % (11.5-17.5); White Blood Count 1.6 K/mm3 (4.8-10.8)
--- NOTE | 2019-02-20 08:35 | Progress Note ---
Internal Medicine - PN: Subj *Date: 02/20/19 *Time: 08:32 Interval history: Patient had a rough afternoon and evening secondary to her bowels finally moving and she developed diarrhea. This continued through the night and patient states she had difficulty sleeping due to crampy abdominal pain associated with the use of laxatives. Regarding her breathing she feels like things are about the same. Her cough remains nonproductive despite sounding rather moist Exam Vital signs and Labs for Last 24 Hours: Temp Pulse Resp BP Pulse Ox 98.2 F 92 H 17 128/71 95 02/20/19 04:00 02/20/19 06:07 02/20/19 04:00 02/20/19 04:00 02/20/19 04:00 Laboratory Results - last 24 hr 02/20/19 07:50: WBC 1.6 L* D, RBC 3.44 L, Hgb 9.8 L, Hct 32.5 L, MCV 94.6, MCH 28.6, MCHC 30.3 L, RDW 14.3, Plt Count 139 L, MPV 8.2, Neut % (Auto) 91.0 H, Lymph % (Auto) 6.9 L, [place] % (Auto) 1.5 L, Eos % (Auto) 0.5, Baso % (Auto) 0.2, Neut # (Auto) 1.5 L, Lymph # (Auto) 0.1 L, [place] # (Auto) 0.0 L, Eos # (Auto) 0.0, Baso # (Auto) 0.0 I & O for Last 24 hours: Intake & Output 02/17/19 02/18/19 02/19/19 02/20/19 11:59 11:59 11:59 11:59 Intake Total 1215 / 1215 2585 / 2585 929 / 929 120 / 120 Output Total 320 / 320 650 / 650 640 / 640 600 / 600 Balance 895 / 895 1935 / 1935 289 / 289 -480 / -480 Weight 106 lb 6.004 oz 106 lb 6.004 oz 110 lb 109 lb 2 oz Narrative: Patient appears comfortable. Lungs have diminished breath sounds posteriorly with rhonchi in the right midlung anteriorly. Heart has a regular rate and rhythm. Abdomen is mildly distended with active bowel sounds Assessment and Plan (1) Acute exacerbation of chronic obstructive airways disease Current visit: No Status: Acute Category: Medical Code(s): J44.1 - Chronic obstructive pulmonary disease with (acute) exacerbation (2) Constipation by delayed colonic transit Current visit: Yes Status: Acute Category: Medical Code(s): K59.01 - Slow transit constipation (3) Abdominal pain Current visit: Yes Status: Acute Category: Medical Code(s): R10.9 - Unspecified abdominal pain (4) Stage III chronic kidney disease Current visit: Yes Status: Acute Category: Medical Code(s): N18.3 - C hronic kidney disease, stage 3 (moderate) (5) Elevated troponin Current visit: Yes Status: Acute Category: Medical Code(s): R79.89 - Other specified abnormal findings of blood chemistry (6) Lung cancer Current visit: Yes Status: Acute Qualifiers: Laterality: left Lung location: lower lobe of lung Qualified Code(s): C34.32 - Malignant neoplasm of lower lobe, left bronchus or lung Category: Medical Code(s): C34.90 - Malignant neoplasm of unspecified part of unspecified bronchus or lung (7) Respiratory failure with hypoxia Current visit: Yes Status: Acute Qualifiers: Chronicity: acute on chronic Qualified Code(s): J96.21 - Acute and chronic respiratory failure with hypoxia Category: Medical Code(s): J96.91 - Respiratory failure, unspecified with hypoxia (8) Hyponatremia Current visit: No Status: Acute Category: Medical Code(s): E87.1 - Hypo- osmolality and hyponatremia (9) Mental status change resolved Current visit: No Status: Acute Category: Medical Code(s): Z86.59 - Personal history of other mental and behavioral disorders (10) Nausea Current visit: No Status: Acute Category: Medical Code(s): R11.0 - Nausea (11) Carotid artery stenosis Current visit: Yes Status: Chronic Category: Medical Code(s): I65.29 - Occlusion and stenosis of unspecified carotid artery (12) Demand ischemia Current visit: Yes Status: Acute Category: Medical Code(s): I24.8 - Other forms of acute ischemic heart disease (13) CAD (coronary artery disease) Current visit: No Status: Chronic Category: Medical Code(s): I25.10 - Atherosclerotic heart disease of [place] coronary artery without angina pectoris (14) Chemotherapy induced neutropenia Current visit: Yes Status: Acute Category: Medical Code(s): D70.1 - Agranulocytosis secondary to cancer chemotherapy; T45.1X5A - Adverse effect of antineoplastic and immunosuppressive drugs, initial encounter (15) Pneumonia Current visit: Yes Status: Acute Category: Medical Code(s): J18.9 - Pneumonia, unspecified organism (16) Antineoplastic chemotherapy induced anemia Current visit: Yes Status: Acute Category: Medical Code(s): D64.81 - Anemia due to antineoplastic chemotherapy; T45.1X5A - Adverse effect of antineoplastic and immunosuppressive drugs, initial encounter - Assessment and plan all Dx Assessment and Plan for all problems:: 1. Continue IV antibiotics I suspect the patient has had an underlying pneumonia during this COPD exacerbation. Her prior chest CT showed areas of scarring that on the CT of the abdomen were called areas of consolidation. With patient being neutropenic she will remain on IV antibiotics. 2. We will attempt to slowly wean the Vapotherm 3. Discontinue lactulose, milk of magnesia, Senokot
[2019-02-20 12:14] LABS: Lymphocytes % 7 % (10-50); Monocytes % 4 % (2-9); Neutrophils % 87 % (42-76); RBC Morphology Normal; Total Cells Counted 100
--- NOTE | 2019-02-21 07:00 | Progress Note ---
Internal Medicine - PN: Subj *Date: 02/21/19 *Time: 06:58 Interval history: Patient complains of abdominal distention and crampy abdominal pain. She had one small hard stool yesterday. Regarding her breathing we have been able to wean her supplemental oxygen being provided via Vapotherm. Exam Vital signs and Labs for Last 24 Hours: Temp Pulse Resp BP Pulse Ox 98.2 F 101 H 16 145/70 H 93 L 02/21/19 04:00 02/21/19 04:00 02/21/19 04:00 02/21/19 04:00 02/21/19 06:43 Laboratory Results - last 24 hr 02/20/19 07:50: WBC 1.6 L* D, RBC 3.44 L, Hgb 9.8 L, Hct 32.5 L, MCV 94.6, MCH 28.6, MCHC 30.3 L, RDW 14.3, Plt Count 139 L, MPV 8.2, Neut % (Auto) 91.0 H, Lymph % (Auto) 6.9 L, [place] % (Auto) 1.5 L, Eos % (Auto) 0.5, Baso % (Auto) 0.2, Neut # (Auto) 1.5 L, Lymph # (Auto) 0.1 L, [place] # (Auto) 0.0 L, Eos # (Auto) 0.0, Baso # (Auto) 0.0, Total Counted 100, Neutrophils % (Manual) 87 H, Band Neutrophils % 2.0, Lymphocytes % (Manual) 7 L, Monocytes % (Manual) 4, Platelet Estimate Normal, RBC Morphology Normal I & O for Last 24 hours: Intake & Output 02/18/19 02/19/19 02/20/19 02/21/19 11:59 11:59 11:59 11:59 Intake Total 2585 / 2585 929 / 929 360 / 360 370 / 370 Output Total 650 / 650 640 / 640 700 / 700 250 / 250 Balance 1935 / 1935 289 / 289 -340 / -340 120 / 120 Weight 106 lb 6.004 oz 110 lb 109 lb 2 oz 111 lb 5 oz Narrative: Patient is in no distress. Lungs have rhonchi there audible anteriorly this morning. Heart has a regular rate and rhythm. Abdomen is soft but distended with hypoactive bowel sounds. Assessment and Plan (1) Acute exacerbation of chronic obstructive airways disease Current visit: No Status: Acute Category: Medical Code(s): J44.1 - Chronic obstructive pulmonary disease with (acute) exacerbation (2) Constipation by delayed colonic transit Current visit: Yes Status: Acute Category: Medical Code(s): K59.01 - Slow transit constipation (3) Abdominal pain Current visit: Yes Status: Acute Category: Medical Code(s): R10.9 - Unspecified abdominal pain (4) Stage III chronic kidney disease Current visit: Yes Status: Acute Category: Medical Code(s): N18.3 - Chronic kidney disease, stage 3 (moderate) (5) Elevated troponin Current visit: Yes Status: Acute Category: Medical Code(s): R79.89 - Other specified abnormal findings of blood chemistry (6) Lung cancer Current visit: Yes Status: Acute Qualifiers: Laterality: left Lung location: lower lobe of lung Qualified Code(s): C34.32 - Malignant neoplasm of lower lobe, left bronchus or lung Category: Medical Code(s): C34.90 - Malignant neoplasm of unspecified part of unspecified bronchus or lung (7) Respiratory failure with hypoxia Current visit: Yes Status: Acute Qualifiers: Chronicity: acute on chronic Qualified Code(s): J96.21 - Acute and chronic respiratory failure with hypoxia Category: Medical Code(s): J96.91 - Respiratory failure, unspecified with hypoxia (8) Hyponatremia Current visit: No Status: Acute Category: Medical Code(s): E87.1 - Hypo- osmolality and hyponatremia (9) Mental status change resolved Current visit: No Status: Acute Category: Medical Code(s): Z86.59 - Personal history of other mental and behavioral disorders (10) Nausea Current visit: No Status: Acute Category: Medical Code(s): R11.0 - Nausea (11) Carotid artery stenosis Current visit: Yes Status: Chronic Category: Medical Code(s): I65.29 - Occlusion and stenosis of unspecified carotid artery (12) Demand ischemia Current visit: Yes Status: Acute Category: Medical Code(s): I24.8 - Other forms of acute ischemic heart disease (13) CAD (coronary artery disease) Current visit: No Status: Chronic Category: Medical Code(s): I25.10 - Atherosclerotic heart disease of [place] coronary artery without angina pectoris (14) Chemotherapy induced neutropenia Current visit: Yes Status: Acute Category: Medical Code(s): D70.1 - Agranulocytosis secondary to cancer chemotherapy; T45.1X5A - Adverse effect of antineoplastic and immunosuppressive drugs, initial encounter (15) Pneumonia Current visit: Yes Status: Acute Category: Medical Code(s): J18.9 - Pneumonia, unspecified organism (16) Antineoplastic chemotherapy induced anemia Current visit: Yes Status: Acute Category: Medical Code(s): D64.81 - Anemia due to antineoplastic chemotherapy; T45.1X5A - Adverse effect of antineoplastic and immunosuppressive drugs, initial encounter - Assessment and plan all Dx Assessment and Plan for all problems:: 1. Abdominal series to rule out small bowel obstruction although I suspect patient may have an ileus 2. Start [facility] or hospital equivalent per patient request 3. Hospice consult
[2019-02-21 07:23] LABS: Basophils % 0.1 % (0.1-2.0); Hematocrit 31.1 % (37.0-47.0); Hemoglobin 9.5 g/dL (12.2-16.2); Lymphocytes # 0.2 K/mm3 (0.7-4.5); Mean Corpuscular HGB Conc 30.6 g/dL (31.8-35.4); Mean Platelet Volume 8.6 fl (7.4-10.4); Monocytes # 0.1 K/mm3 (0.1-1.0); Monocytes % 1.3 % (1.7-9.3); Neutrophils # 3.6 K/mm3 (1.8-7.8); Neutrophils % 94.5 % (37.0-80.0); Platelet Count 130 K/mm3 (142-424); Red Blood Count 3.34 M/mm3 (4.20-5.40); Red Cell Distribution Width 14.3 % (11.5-17.5); White Blood Count 3.8 K/mm3 (4.8-10.8)
[2019-02-21 07:42] LABS: Anion Gap 9.4 mEq/L (5-15); Calcium 8.5 mg/dL (8.5-10.1)
[2019-02-21 09:26] LABS: Lymphocytes % 3 % (10-50); Monocytes % 2 % (2-9); Myelocytes % 1 (0-1); Neutrophils % 94 % (42-76); Total Cells Counted 100
[2019-02-21 09:27] LABS: Anisocytosis 1+; Hypochromasia 1+; Stomatocytes 2+
[2019-02-22 07:32] LABS: Basophils % 0.1 % (0.1-2.0); Hemoglobin 9.1 g/dL (12.2-16.2); Lymphocytes # 0.2 K/mm3 (0.7-4.5); Lymphocytes % 3.8 % (10-50); Mean Corpuscular HGB Conc 30.4 g/dL (31.8-35.4); Mean Corpuscular Volume 91.9 fl (81-99); Mean Platelet Volume 8.7 fl (7.4-10.4); Monocytes # 0.1 K/mm3 (0.1-1.0); Monocytes % 1.6 % (1.7-9.3); Neutrophils # 4.1 K/mm3 (1.8-7.8); Neutrophils % 94.5 % (37.0-80.0); Platelet Count 134 K/mm3 (142-424); Red Blood Count 3.26 M/mm3 (4.20-5.40); Red Cell Distribution Width 14.3 % (11.5-17.5); White Blood Count 4.3 K/mm3 (4.8-10.8)
[2019-02-22 07:51] LABS: Anion Gap 9.5 mEq/L (5-15); Calcium 8.2 mg/dL (8.5-10.1)
--- NOTE | 2019-02-22 08:06 | Progress Note ---
Internal Medicine - PN: Subj *Date: 02/22/19 *Time: 08:04 Interval history: Patient has no new complaints this morning. She has been passing small amounts of gas and reports some improvement in the crampy abdominal pain. She remains short of breath but has responded well to slow weaning from Vapotherm. Exam Vital signs and Labs for Last 24 Hours: Temp Pulse Resp BP Pulse Ox 98.5 F 89 18 131/65 91 L 02/22/19 07:55 02/22/19 07:55 02/22/19 07:55 02/22/19 07:55 02/22/19 07:55 Laboratory Results - last 24 hr 02/21/19 07:08: Total Counted 100, Neutrophils % (Manual) 94 H, Lymphocytes % (Manual) 3 L, Monocytes % (Manual) 2, Myelocytes % 1, Platelet Estimate Normal, Hypochromasia 1+, Poikilocytosis 1+, Anisocytosis 1+, Stomatocytes 2+, Acanthocytes ([place]) 1+ 02/22/19 07:05: WBC 4.3 L, RBC 3.26 L, Hgb 9.1 L, Hct 30.0 L, MCV 91.9, MCH 27.9, MCHC 30.4 L, RDW 14.3, Plt Count 134 L, MPV 8.7, Neut % (Auto) 94.5 H, Lymph % (Auto) 3.8 L, [place] % (Auto) 1.6 L, Eos % (Auto) 0.0 L, Baso % (Auto) 0.1, Neut # (Auto) 4.1, Lymph # (Auto) 0.2 L, [place] # (Auto) 0.1, Eos # (Auto) 0.0, Baso # (Auto) 0.0 02/22/19 07:05: Sodium 133 L, Potassium 5.5 H, Chloride 98, Carbon Dioxide 31, Anion Gap 9.5, BUN 36 H, Creatinine 0.65, Estimated Creat Clear 39, Estimated GFR 89, Est GFR ( Amer) 108, Glucose 136 H, Calcium 8.2 L I & O for Last 24 hours: Intake & Output 02/19/19 02/20/19 02/21/19 02/22/19 11:59 11:59 11:59 11:59 Intake Total 929 / 929 360 / 360 730 / 730 970 / 970 Output Total 640 / 640 700 / 700 250 / 250 600 / 600 Balance 289 / 289 -340 / -340 480 / 480 370 / 370 Weight 110 lb 109 lb 2 oz 111 lb 5 oz 113 lb 4 oz Microbiology Reports for the Last 24 Hours: Microbiology 02/16/19 12:08 Blood Blood Culture - Final NO GROWTH AFTER 5 DAYS 02/16/19 12:08 Blood Blood Culture - Final NO GROWTH AFTER 5 DAYS Narrative: Patient appears comfortable laying in bed. Lung exam has right basilar rales. Heart has a regular rate and rhythm. Abdomen is mildly distended but improved compared to yesterday. Bowel sounds are hypoactive. Extremities have no edema - Additional findings Additional findings: 1. Continue cefepime and azithromycin 2. Patient will attempt get out of bed to chair today as long as her abdominal distention does not become too uncomfortable. 3. Continue to wean from Vapotherm with goal to get patient back on nasal cannula and keep O2 sats above 90% Assessment and Plan (1) Acute exacerbation of chronic obstructive airways disease Current visit: No Status: Acute Category: Medical Code(s): J44.1 - Chronic obstructive pulmonary disease with (acute) exacerbation (2) Constipation by delayed colonic transit Current visit: Yes Status: Acute Category: Medical Code(s): K59.01 - Slow transit constipation (3) Abdominal pain Current visit: Yes Status: Acute Category: Medical Code(s): R10.9 - Unspecified abdominal pain (4) Stage III chronic kidney disease Current visit: Yes Status: Acute Category: Medical Code(s): N18.3 - Chronic kidney disease, stage 3 (moderate) (5) Elevated troponin Current visit: Yes Status: Acute Category: Medical Code(s): R79.89 - Other specified abnormal findings of blood chemistry (6) Lung cancer Current visit: Yes Status: Acute Qualifiers: Laterality: left Lung location: lower lobe of lung Qualified Code(s): C34.32 - Malignant neoplasm of lower lobe, left bronchus or lung Category: Medical Code(s): C34.90 - Malignant neoplasm of unspecified part of unspecified bronchus or lung (7) Respiratory failure with hypoxia Current visit: Yes Status: Acute Qualifiers: Chronicity: acute on chronic Qualified Code(s): J96.21 - Acute and chronic respiratory failure with hypoxia Category: Medical Code(s): J96.91 - Respiratory failure, unspecified with hypoxia (8) Hyponatremia Current visit: No Status: Acute Category: Medical Code(s): E87.1 - Hypo- osmolality and hyponatremia (9) Mental status change resolved Current visit: No Status: Acute Category: Medical Code(s): Z86.59 - Personal history of other mental and behavioral disorders (10) Nausea Current visit: No Status: Acute Category: Medical Code(s): R11.0 - Nausea (11) Carotid artery stenosis Current visit: Yes Status: Chronic Category: Medical Code(s): I65.29 - Occlusion and stenosis of unspecified carotid artery (12) Demand ischemia Current visit: Yes Status: Acute Category: Medical Code(s): I24.8 - Other forms of acute ischemic heart disease (13) CAD (coronary artery disease) Current visit: No Status: Chronic Category: Medical Code(s): I25.10 - Atherosclerotic heart disease of [place] coronary artery without angina pectoris (14) Chemotherapy induced neutropenia Current visit: Yes Status: Acute Category: Medical Code(s): D70.1 - Agranulocytosis secondary to cancer chemotherapy; T45.1X5A - Adverse effect of antineoplastic and immunosuppressive drugs, initial encounter (15) Pneumonia Current visit: Yes Status: Acute Category: Medical Code(s): J18.9 - Pneumonia, unspecified organism (16) Antineoplastic chemotherapy induced anemia Current visit: Yes Status: Acute Category: Medical Code(s): D64.81 - Anemia due to antineoplastic chemotherapy; T45.1X5A - Adverse effect of antineoplastic and immunosuppressive drugs, initial encounter
[2019-02-22 11:02] LABS: Lymphocytes % 4 % (10-50); Monocytes % 2 % (2-9); Neutrophils % 94 % (42-76); Total Cells Counted 100
[2019-02-22 11:03] LABS: RBC Morphology Normal
--- NOTE | 2019-02-22 14:05 | Progress Note ---
Internal Medicine - PN: Subj *Date: 02/22/19 *Time: 14:05 Exam Vital signs and Labs for Last 24 Hours: Temp Pulse Resp BP Pulse Ox 97.5 F L 87 20 129/58 L 91 L 02/22/19 10:50 02/22/19 10:50 02/22/19 10:50 02/22/19 10:50 02/22/19 10:50 Laboratory Results - last 24 hr 02/22/19 07:05: WBC 4.3 L, RBC 3.26 L, Hgb 9.1 L, Hct 30.0 L, MCV 91.9, MCH 27.9, MCHC 30.4 L, RDW 14.3, Plt Count 134 L, MPV 8.7, Neut % (Auto) 94.5 H, Lymph % (Auto) 3.8 L, [place] % (Auto) 1.6 L, Eos % (Auto) 0.0 L, Baso % (Auto) 0.1, Neut # (Auto) 4.1, Lymph # (Auto) 0.2 L, [place] # (Auto) 0.1, Eos # (Auto) 0.0, Baso # (Auto) 0.0, Total Counted 100, Neutrophils % (Manual) 94 H, Lymphocytes % (Manual) 4 L, Monocytes % (Manual) 2, Platelet Estimate Normal, RBC Morphology Normal 02/22/19 07:05: Sodium 133 L, Potassium 5.5 H, Chloride 98, Carbon Dioxide 31, Anion Gap 9.5, BUN 36 H, Creatinine 0.65, Estimated Creat Clear 39, Estimated GFR 89, Est GFR ( Amer) 108, Glucose 136 H, Calcium 8.2 L I & O for Last 24 hours: Intake & Output 02/19/19 02/20/19 02/21/19 02/22/19 23:59 23:59 23:59 23:59 Intake Total 809 / 809 480 / 600 1220 / 1220 360 / 360 Output Total 940 / 940 550 / 550 200 / 200 500 / 500 Balance -131 / -131 -70 / 50 1020 / 1020 -140 / -140 Weight 49.895 kg 49.498 kg 50.491 kg 51.369 kg Microbiology Reports for the Last 24 Hours: Microbiology 02/16/19 12:08 Blood Blood Culture - Final NO GROWTH AFTER 5 DAYS 02/16/19 12:08 Blood Blood Culture - Final NO GROWTH AFTER 5 DAYS Assessment and Plan (1) Acute exacerbation of chronic obstructive airways disease Current visit: No Status: Acute Category: Medical Code(s): J44.1 - Chronic obstructive pulmonary disease with (acute) exacerbation (2) Constipation by delayed colonic transit Current visit: Yes Status: Acute Category: Medical Code(s): K59.01 - Slow transit constipation (3) Abdominal pain Current visit: Yes Status: Acute Category: Medical Code(s): R10.9 - Unspecified abdominal pain (4) Stage III chronic kidney disease Current visit: Yes Status: Acute Category: Medical Code(s): N18.3 - Chronic kidney disease, stage 3 (moderate) (5) Elevated troponin Current visit: Yes Status: Acute Category: Medical Code(s): R79.89 - Other specified abnormal findings of blood chemistry (6) Lung cancer Current visit: Yes Status: Acute Qualifiers: Laterality: left Lung location: lower lobe of lung Qualified Code(s): C34.32 - Malignant neoplasm of lower lobe, left bronchus or lung Category: Medical Code(s): C34.90 - Malignant neoplasm of unspecified part of unspecified bronchus or lung (7) Respiratory failure with hypoxia Current visit: Yes Status: Acute Qualifiers: Chronicity: acute on chronic Qualified Code(s): J96.21 - Acute and chronic respiratory failure with hypoxia Category: Medical Code(s): J96.91 - Respiratory failure, unspecified with hyp oxia (8) Hyponatremia Current visit: No Status: Acute Category: Medical Code(s): E87.1 - Hypo- osmolality and hyponatremia (9) Mental status change resolved Current visit: No Status: Acute Category: Medical Code(s): Z86.59 - Personal history of other mental and behavioral disorders (10) Nausea Current visit: No Status: Acute Category: Medical Code(s): R11.0 - Nausea (11) Carotid artery stenosis Current visit: Yes Status: Chronic Category: Medical Code(s): I65.29 - Occlusion and stenosis of unspecified carotid artery (12) Demand ischemia Current visit: Yes Status: Acute Category: Medical Code(s): I24.8 - Other forms of acute ischemic heart disease (13) CAD (coronary artery disease) Current visit: No Status: Chronic Category: Medical Code(s): I25.10 - Atherosclerotic heart disease of [place] coronary artery without angina pectoris (14) Chemotherapy induced neutropenia Current visit: Yes Status: Acute Category: Medical Code(s): D70.1 - Agranulocytosis secondary to cancer chemotherapy; T45.1X5A - Adverse effect of antineoplastic and immunosuppressive drugs, initial encounter (15) Pneumonia Current visit: Yes Status: Acute Category: Medical Code(s): J18.9 - Pneumonia, unspecified organism (16) Antineoplastic chemotherapy induced anemia Current visit: Yes Status: Acute Category: Medical Code(s): D64.81 - Anemia due to antineoplastic chemotherapy; T45.1X5A - Adverse effect of antineoplastic and immunosuppressive drugs, initial encounter The patient's infection will respond to the chosen ABx?: Yes Is the patient receiving the right drug, dose, and route?: Yes Could a more targeted ABx be ordered?: No
[2019-02-23 07:22] LABS: Eosinophils % 0.1 % (0.1-12.0); Hematocrit 28.9 % (37.0-47.0); Hemoglobin 8.9 g/dL (12.2-16.2); Lymphocytes # 0.2 K/mm3 (0.7-4.5); Lymphocytes % 3.6 % (10-50); Mean Corpuscular HGB Conc 30.8 g/dL (31.8-35.4); Mean Corpuscular Volume 92.2 fl (81-99); Mean Platelet Volume 8.7 fl (7.4-10.4); Monocytes # 0.2 K/mm3 (0.1-1.0); Monocytes % 3.6 % (1.7-9.3); Neutrophils # 5.2 K/mm3 (1.8-7.8); Neutrophils % 92.7 % (37.0-80.0); Platelet Count 128 K/mm3 (142-424); Red Blood Count 3.13 M/mm3 (4.20-5.40); Red Cell Distribution Width 14.1 % (11.5-17.5); White Blood Count 5.6 K/mm3 (4.8-10.8)
[2019-02-23 07:26] LABS: Anion Gap 8.4 mEq/L (5-15); Calcium 8.3 mg/dL (8.5-10.1)
[2019-02-23 07:36] LABS: Lymphocytes % 8 % (10-50); Neutrophils % 86 % (42-76); Total Cells Counted 100
[2019-02-23 07:37] LABS: Hypochromasia 1+
--- NOTE | 2019-02-23 07:50 | Progress Note ---
Internal Medicine - PN: Subj *Date: 02/23/19 *Time: 07:47 Interval history: Patient has a new complaint of heartburn that began yesterday evening.. She reports abdominal cramping has improved and she continues to pass gas. She has not had any further bowel movement which kind of worries her. In regards to her dyspnea she feels like it has not worsened over the last 24 hours. She remains on the Vapotherm with an FiO2 of 45%. Exam Vital signs and Labs for Last 24 Hours: Temp Pulse Resp BP Pulse Ox 97.6 F 97 H 19 135/68 95 02/23/19 04:00 02/23/19 06:44 02/23/19 04:00 02/23/19 04:00 02/23/19 06:44 Laboratory Results - last 24 hr 02/22/19 07:05: Total Counted 100, Neutrophils % (Manual) 94 H, Lymphocytes % (Manual) 4 L, Monocytes % (Manual) 2, Platelet Estimate Normal, RBC Morphology Normal 02/22/19 07:05: Sodium 133 L, Potassium 5.5 H, Chloride 98, Carbon Dioxide 31, Anion Gap 9.5, BUN 36 H, Creatinine 0.65, Estimated Creat Clear 39, Estimated GFR 89, Est GFR ( Amer) 108, Glucose 136 H, Calcium 8.2 L 02/23/19 06:56: WBC 5.6 D, RBC 3.13 L, Hgb 8.9 L, Hct 28.9 L, MCV 92.2, MCH 28.4, MCHC 30.8 L, RDW 14.1, Plt Count 128 L, MPV 8.7, Neut % (Auto) 92.7 H, Lymph % (Auto) 3.6 L, [place] % (Auto) 3.6, Eos % (Auto) 0.1, Baso % (Auto) 0.0 L, Neut # (Auto) 5.2, Lymph # (Auto) 0.2 L, [place] # (Auto) 0.2, Eos # (Auto) 0.0, Baso # (Auto) 0.0, Total Counted 100, Neutrophils % (Manual) 86 H, Band Neutrophils % 6.0, Lymphocytes % (Manual) 8 L, Platelet Estimate Slight decrease, Hypochromasia 1+ 02/23/19 06:56: Sodium 134 L, Potassium 5.4 H, Chloride 99, Carbon Dioxide 32, Anion Gap 8.4, BUN 32 H, Creatinine 0.64, Estimated Creat Clear 41, Estimated GFR 90, Est GFR ( Amer) 109, Glucose 102 D, Calcium 8.3 L I & O for Last 24 hours: Intake & Output 02/20/19 02/21/19 02/22/19 02/23/19 11:59 11:59 11:59 11:59 Intake Total 360 / 360 730 / 730 970 / 970 162 / 162 Output Total 700 / 700 250 / 250 600 / 600 700 / 700 Balance -340 / -340 480 / 480 370 / 370 -538 / -538 Weight 109 lb 2 oz 111 lb 5 oz 113 lb 4 oz 117 lb 2 oz Narrative: Patient is in no distress and is sitting up on the side of the bed eating breakfast. Lungs have crackles in the right base although less audible than yesterday. Heart has a regular rate and rhythm. Abdomen is soft with minimal distention. Bowel sounds are present Assessment and Plan (1) Acute exacerbation of chronic obstructive airways disease Current visit: No Status: Acute Category: Medical Code(s): J44.1 - Chronic obstructive pulmonary disease with (acute) exacerbation (2) Constipation by delayed colonic transit Current visit: Yes Status: Acute Category: Medical Code(s): K59.01 - Slow transit constipation (3) Abdominal pain Current visit: Yes Status: Acute Category: Medical Code(s): R10.9 - Unspecified abdominal pain (4) Stage III chronic kidney disease Current visit: Yes Status: Acute Category: Medical Code(s): N18.3 - Chronic kidney disease, stage 3 (moderate) (5) Elevated troponin Current visit: Yes Status: Acute Category: Medical Code(s): R79.89 - Other specified abnormal findings of blood chemistry (6) Lung cancer Current visit: Yes Status: Acute Qualifiers: Laterality: left Lung location: lower lobe of lung Qualified Code(s): C34.32 - Malignant neoplasm of lower lobe, left bronchus or lung Category: Medical Code(s): C34.90 - Malignant neoplasm of unspecified part of unspecified bronchus or lung (7) Respiratory failure with hypoxia Current visit: Yes Status: Acute Qualifiers: Chronicity: acute on chronic Qualified Code(s): J96.21 - Acute and chronic respiratory failure with hypoxia Category: Medical Code(s): J96.91 - Respiratory failure, unspecified with hypoxia (8) Hyponatremia Current visit: No Status: Acute Category: Medical Code(s): E87.1 - Hypo- osmolality and hyponatremia (9) Mental status change resolved Current visit: No Status: Acute Category: Medical Code(s): Z86.59 - Personal history of other mental and behavioral disorders (10) Nausea Current visit: No Status: Acute Category: Medical Code(s): R11.0 - Nausea (11) Carotid artery stenosis Current visit: Yes Status: Chronic Category: Medical Code(s): I65.29 - Occlusion and stenosis of unspecified carotid artery (12) Demand ischemia Current visit: Yes Status: Acute Category: Medical Code(s): I24.8 - Other forms of acute ischemic heart disease (13) CAD (coronary artery disease) Current visit: No Status: Chronic Category: Medical Code(s): I25.10 - Atherosclerotic heart disease of [place] coronary artery without angina pectoris (14) Chemotherapy induced neutropenia Current visit: Yes Status: Acute Category: Medical Code(s): D70.1 - Agranulocytosis secondary to cancer chemotherapy; T45.1X5A - Adverse effect of antineoplastic and immunosuppressive drugs, initial encounter (15) Pneumonia Current visit: Yes Status: Acute Category: Medical Code(s): J18.9 - Pneumonia, unspecified organism (16) Antineoplastic chemotherapy induced anemia Current visit: Yes Status: Acute Category: Medical Code(s): D64.81 - Anemia due to antineoplastic chemotherapy; T45.1X5A - Adverse effect of antineoplastic and immunosuppressive drugs, initial encounter - Assessment and plan all Dx Assessment and Plan for all problems:: Patient continues to slowly improve. Continue to wean the Vapotherm. Add a PPI and simethicone for her GERD and excessive gas
[2019-02-24 06:39] LABS: Hematocrit 29.3 % (37.0-47.0); Hemoglobin 8.9 g/dL (12.2-16.2); Lymphocytes # 0.1 K/mm3 (0.7-4.5); Lymphocytes % 1.5 % (10-50); Mean Corpuscular HGB Conc 30.4 g/dL (31.8-35.4); Mean Corpuscular Volume 92.5 fl (81-99); Mean Platelet Volume 8.3 fl (7.4-10.4); Monocytes # 0.1 K/mm3 (0.1-1.0); Monocytes % 1.2 % (1.7-9.3); Neutrophils % 97.2 % (37.0-80.0); Platelet Count 148 K/mm3 (142-424); Red Blood Count 3.17 M/mm3 (4.20-5.40); Red Cell Distribution Width 14.2 % (11.5-17.5); White Blood Count 9.3 K/mm3 (4.8-10.8)
--- NOTE | 2019-02-24 07:30 | Progress Note ---
Internal Medicine - PN: Subj *Date: 02/24/19 *Time: 07:29 Interval history: Patient complains this morning of back pain and stiffness from the decrease in activity she is experienced while hospitalized. She remains on Vapotherm which she describes as being quite heavy Exam Vital signs and Labs for Last 24 Hours: Temp Pulse Resp BP Pulse Ox 98.2 F 88 17 131/63 91 L 02/24/19 04:00 02/24/19 06:08 02/24/19 04:00 02/24/19 04:00 02/24/19 06:08 Laboratory Results - last 24 hr 02/23/19 06:56: Total Counted 100, Neutrophils % (Manual) 86 H, Band Neutrophils % 6.0, Lymphocytes % (Manual) 8 L, Platelet Estimate Slight decrease, Hypochromasia 1+ 02/24/19 06:08: WBC 9.3 D, RBC 3.17 L, Hgb 8.9 L, Hct 29.3 L, MCV 92.5, MCH 28.1, MCHC 30.4 L, RDW 14.2, Plt Count 148, MPV 8.3, Neut % (Auto) 97.2 H, Lymph % (Auto) 1.5 L, [place] % (Auto) 1.2 L, Eos % (Auto) 0.0 L, Baso % (Auto) 0.0 L, Neut # (Auto) 9.0 H, Lymph # (Auto) 0.1 L, [place] # (Auto) 0.1, Eos # (Auto) 0.0, Baso # (Auto) 0.0 I & O for Last 24 hours: Intake & Output 02/21/19 02/22/19 02/23/19 02/24/19 11:59 11:59 11:59 11:59 Intake Total 730 / 730 970 / 970 402 / 402 830 / 830 Output Total 250 / 250 600 / 600 700 / 700 1000 / 1000 Balance 480 / 480 370 / 370 -298 / -298 -170 / -170 Weight 111 lb 5 oz 113 lb 4 oz 117 lb 2 oz 116 lb 2 oz Narrative: Patient is sitting up in chair eating breakfast. Lungs are clear with diminished breath sounds at the left base. Heart has a regular rate and rhythm. Abdomen is soft with mild distention and active bowel sounds Assessment and Plan (1) Acute exacerbation of chronic obstructive airways disease Current visit: No Status: Acute Category: Medical Code(s): J44.1 - Chronic obstructive pulmonary disease with (acute) exacerbation (2) Constipation by delayed colonic transit Current visit: Yes Status: Acute Category: Medical Code(s): K59.01 - Slow transit constipation (3) Abdominal pain Current visit: Yes Status: Acute Category: Medical Code(s): R10.9 - Unspecified abdominal pain (4) Stage III chronic kidney disease Current visit: Yes Status: Acute Category: Medical Code(s): N18.3 - Chronic kidney disease, stage 3 (moderate) (5) Elevated troponin Current visit: Yes Status: Acute Category: Medical Code(s): R79.89 - Other specified abnormal findings of blood chemistry (6) Lung cancer Current visit: Yes Status: Acute Qualifiers: Laterality: left Lung location: lower lobe of lung Qualified Code(s): C34.32 - Malignant neoplasm of lower lobe, left bronchus or lung Category: Medical Code(s): C34.90 - Malignant neoplasm of unspecified part of unspecified bronchus or lung (7) Respiratory failure with hypoxia Current visit: Yes Status: Acute Qualifiers: Chronicity: acute on chronic Qualified Code(s): J96.21 - Acute and chronic respiratory failure with hypoxia Category: Medical Code(s): J96.91 - Respiratory failure, unspecified with hypoxia (8) Hyponatremia Current visit: No Status: Acute Category: Medical Code(s): E87.1 - Hypo- osmolality and hyponatremia (9) Mental status change resolved Current visit: No Status: Acute Category: Medical Code(s): Z86.59 - Personal history of other mental and behavioral disorders (10) Nausea Current visit: No Status: Acute Category: Medical Code(s): R11.0 - Nausea (11) Carotid artery stenosis Current visit: Yes Status: Chronic Category: Medical Code(s): I65.29 - Occlusion and stenosis of unspecified carotid artery (12) Demand ischemia Current visit: Yes Status: Acute Category: Medical Code(s): I24.8 - Other forms of acute ischemic heart disease (13) CAD (coronary artery disease) Current visit: No Status: Chronic Category: Medical Code(s): I25.10 - Atherosclerotic heart disease of [place] coronary artery without angina pectoris (14) Chemotherapy induced neutropenia Current visit: Yes Status: Acute Category: Medical Code(s): D70.1 - Agranulocytosis secondary to cancer chemotherapy; T45.1X5A - Adverse effect of antineoplastic and immunosuppressive drugs, initial encounter (15) Pneumonia Current visit: Yes Status: Acute Category: Medical Code(s): J18.9 - Pneumonia, unspecified organism (16) Antineoplastic chemotherapy induced anemia Current visit: Yes Status: Acute Category: Medical Code(s): D64.81 - Anemia due to antineoplastic chemotherapy; T45.1X5A - Adverse effect of antineoplastic and immunosuppressive drugs, initial encounter - Assessment and plan all Dx Assessment and Plan for all problems:: 1. Focus on weaning Vapotherm to nasal cannula today 2. Restart stool softeners
[2019-02-24 08:11] LABS: Lymphocytes % 2 % (10-50); Neutrophils % 98 % (42-76); Total Cells Counted 100
[2019-02-24 08:13] LABS: Hypochromasia 1+
--- NOTE | 2019-02-25 07:17 | Progress Note ---
Internal Medicine - PN: Subj *Date: 02/25/19 *Time: 07:15 Interval history: Patient was weaned from Vapotherm to nasal cannula at 6 L/min yesterday evening and has maintained her O2 sats in the 90s. Attempt to wean below 6 L resulted in a drop in O2 sats to the mid 80s. Patient does admit that there is a mild sensation of dyspnea with change in supplemental oxygen. Exam Vital signs and Labs for Last 24 Hours: Temp Pulse Resp BP Pulse Ox 97.7 F 86 18 148/71 H 94 L 02/25/19 04:00 02/25/19 05:58 02/25/19 04:00 02/25/19 04:00 02/25/19 05:58 Laboratory Results - last 24 hr 02/24/19 06:08: Total Counted 100, Neutrophils % (Manual) 98 H, Lymphocytes % (Manual) 2 L, Platelet Estimate Normal, Hypochromasia 1+ I & O for Last 24 hours: Intake & Output 02/22/19 02/23/19 02/24/19 02/25/19 11:59 11:59 11:59 11:59 Intake Total 970 / 970 402 / 402 1190 / 1190 1060 / 1060 Output Total 600 / 600 700 / 700 1000 / 1000 500 / 500 Balance 370 / 370 -298 / -298 190 / 190 560 / 560 Weight 113 lb 4 oz 117 lb 2 oz 116 lb 2 oz Narrative: Patient appears comfortable and shows no signs of respiratory distress. Lung exam reveals fair aeration with some expiratory wheezes this morning. Heart has a rapid rate and rhythm. Abdomen is soft Assessment and Plan (1) Acute exacerbation of chronic obstructive airways disease Current visit: No Status: Acute Category: Medical Code(s): J44.1 - Chronic obstructive pulmonary disease with (acute) exacerbation (2) Constipation by delayed colonic transit Current visit: Yes Status: Acute Category: Medical Code(s): K59.01 - Slow transit constipation (3) Abdominal pain Current visit: Yes Status: Acute Category: Medical Code(s): R10.9 - Uns pecified abdominal pain (4) Stage III chronic kidney disease Current visit: Yes Status: Acute Category: Medical Code(s): N18.3 - Chronic kidney disease, stage 3 (moderate) (5) Elevated troponin Current visit: Yes Status: Acute Category: Medical Code(s): R79.89 - Other specified abnormal findings of blood chemistry (6) Lung cancer Current visit: Yes Status: Acute Qualifiers: Laterality: left Lung location: lower lobe of lung Qualified Code(s): C34.32 - Malignant neoplasm of lower lobe, left bronchus or lung Category: Medical Code(s): C34.90 - Malignant neoplasm of unspecified part of unspecified bronchus or lung (7) Respiratory failure with hypoxia Current visit: Yes Status: Acute Qualifiers: Chronicity: acute on chronic Qualified Code(s): J96.21 - Acute and chronic respiratory failure with hypoxia Category: Medical Code(s): J96.91 - Respiratory failure, unspecified with hypoxia (8) Hyponatremia Current visit: No Status: Acute Category: Medical Code(s): E87.1 - Hypo- osmolality and hyponatremia (9) Mental status change resolved Current visit: No Status: Acute Category: Medical Code(s): Z86.59 - Perso nal history of other mental and behavioral disorders (10) Nausea Current visit: No Status: Acute Category: Medical Code(s): R11.0 - Nausea (11) Carotid artery stenosis Current visit: Yes Status: Chronic Category: Medical Code(s): I65.29 - Occlusion and stenosis of unspecified carotid artery (12) Demand ischemia Current visit: Yes Status: Acute Category: Medical Code(s): I24.8 - Other forms of acute ischemic heart disease (13) CAD (coronary artery disease) Current visit: No Status: Chronic Category: Medical Code(s): I25.10 - Atherosclerotic heart disease of [place] coronary artery without angina pectoris (14) Chemotherapy induced neutropenia Current visit: Yes Status: Acute Category: Medical Code(s): D70.1 - Agranulocytosis secondary to cancer chemotherapy; T45.1X5A - Adverse effect of antineoplastic and immunosuppressive drugs, initial encounter (15) Pneumonia Current visit: Yes Status: Acute Category: Medical Code(s): J18.9 - Pneumonia, unspecified organism (16) Antineoplastic chemotherapy induced anemia Current visit: Yes Status: Acute Category: Medical Code(s): D64.81 - Anemia due to antineoplastic chemotherapy; T45.1X5A - Adverse effect of antineoplastic and immunosuppressive drugs, initial encounter - Assessment and plan all Dx Assessment and Plan for all problems:: 1. We will send patient's information to [facility] to see if she is a candidate for inpatient pulmonary rehab and physical rehab 2. Continue supplemental oxygen at 6 L/min to maintain O2 sats above 88%
--- NOTE | 2019-02-26 07:43 | Progress Note ---
Internal Medicine - PN: Subj *Date: 02/26/19 *Time: 07:42 Interval history: Patient is feeling better this morning. She admits now she was not feeling well yesterday. Cough remains nonproductive. She gets dyspneic with exertion but tolerated her PT eval yesterday. At present we are waiting word from [facility] about acceptance for pulmonary and physical rehabilitation. Exam Vital signs and Labs for Last 24 Hours: Temp Pulse Resp BP Pulse Ox 98.1 F 78 18 148/86 H 94 L 02/26/19 04:00 02/26/19 05:55 02/26/19 04:00 02/26/19 04:00 02/26/19 05:55 I & O for Last 24 hours: Intake & Output 02/23/19 02/24/19 02/25/19 02/26/19 11:59 11:59 11:59 11:59 Intake Total 402 / 402 1190 / 1190 1300 / 1300 240 / 240 Output Total 700 / 700 1000 / 1000 500 / 500 400 / 400 Balance -298 / -298 190 / 190 800 / 800 -160 / -160 Weight 117 lb 2 oz 116 lb 2 oz 116 lb 6 oz 116 lb 6 oz Narrative: Patient appears comfortable sitting up in the chair eating breakfast. Lung exam this morning reveals distant breath sounds but wheezing from yesterday has resolved Assessment and Plan (1) Acute exacerbation of chronic obstructive airways disease Current visit: No Status: Acute Category: Medical Code(s): J44.1 - Chronic obstructive pulmonary disease with (acute) exacerbation (2) Constipation by delayed colonic transit Current visit: Yes Status: Acute Category: Medical Code(s): K59.01 - Slow transit constipation (3) Abdominal pain Current visit: Yes Status: Acute Category: Medical Code(s): R10.9 - Unspecified abdominal pain (4) Stage III chronic kidney disease Current visit: Yes Status: Acute Category: Medical Code(s): N18.3 - Chronic kidney disease, stage 3 (moderate) (5) Elevated troponin Current visit: Yes Status: Acute Category: Medical Code(s): R79.89 - Other specified abnormal findings of blood chemistry (6) Lung cancer Current visit: Yes Status: Acute Qualifiers: Laterality: left Lung location: lower lobe of lung Qualified Code(s): C34.32 - Malignant neoplasm of lower lobe, left bronchus or lung Category: Medical Code(s): C34.90 - Malignant neoplasm of unspecified part of unspecified bronchus or lung (7) Respiratory failure with hypoxia Current visit: Yes Status: Acute Qualifiers: Chronicity: acute on chronic Qualified Code(s): J96.21 - Acute and chronic respiratory failure with hypoxia Category: Medical Code(s): J96.91 - Respiratory failure, unspecified with hypoxia (8) Hyponatremia Current visit: No Status: Acute Category: Medical Code(s): E87.1 - Hypo- osmolality and hyponatremia (9) Mental status change resolved Current visit: No Status: Acute Category: Medical Code(s): Z86.59 - Personal history of other mental and behavioral disorders (10) Nausea Current visit: No Status: Acute Category: Medical Code(s): R11.0 - Nausea (11) Carotid artery stenosis Current visit: Yes Status: Chronic Category: Medical Code(s): I65.29 - Occlusion and stenosis of unspecified carotid artery (12) Demand ischemia Current visit: Yes Status: Acute Category: Medical Code(s): I24.8 - Other forms of acute ischemic heart disease (13) CAD (coronary artery disease) Current visit: No Status: Chronic Category: Medical Code(s): I25.10 - Atherosclerotic heart disease of [place] coronary artery without angina pectoris (14) Chemotherapy induced neutropenia Current visit: Yes Status: Acute Category: Medical Code(s): D70.1 - Agranulocytosis secondary to cancer chemotherapy; T45.1X5A - Adverse effect of antineoplastic and immunosuppressive drugs, initial encounter (15) Pneumonia Current visit: Yes Status: Acute Category: Medical Code(s): J18.9 - Pneumonia, unspecified organism (16) Antineoplastic chemotherapy induced anemia Current visit: Yes Status: Acute Category: Medical Code(s): D64.81 - Anemia due to antineoplastic chemotherapy; T45.1X5A - Adverse effect of antineoplastic and immunosuppressive drugs, initial encounter - Assessment and plan all Dx Assessment and Plan for all problems:: 1. Anticipate discharge to [facility] today
--- NOTE | 2019-02-26 07:51 | Discharge Summary ---
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 Patient received her first treatment of chemotherapy 1 week ago. Initially the patient had no side effects but within 48 hours the patient developed diffuse pain in the body and extreme loss of appetite. The symptoms continued with patient becoming weaker each day. By the weekend it was noticed that her O2 sats were dropping intermittently including to low of 82% on the morning of admission. She was brought in by her . Patient states "I was out of it". On initial assessment in the emergency department the patient was hypoxic. CT scan of the chest was performed which showed the previously mentioned lung cancer. Patient has no pneumonia. Labs were also significant for an indeterminate troponin. Patient's initial troponin was normal within 2 hours it petty to 2.3 and then within 4 more hours back down to 0.02. Patient did not have any chest pain or chest tightness suggestive of angina but was significantly hypoxemic on her blood gas. Hospital Course Hospital Course: Patient was admitted with a diagnosis of acute respiratory failure and COPD exacerbation. She was admitted and placed on duo nebs every 4 hours along with IV Solu-Medrol. She was very slow to respond to interventions for her COPD exacerbation. She required high flow oxygen via Vapotherm device and remained on supplemental oxygen via Vapotherm for the first week of admission. She did not require mechanical ventilation. Vapotherm kept her O2 sats in the mid 90s. As patient became hydrated with use of IV fluids her lung exam changed and became more rhonchus. She had been started on azithromycin for COPD exacerbation on admission and I later added cefepime due to concerns over pneumonia. She finished a course of azithromycin and cefepime during hospitalization and will not require further antibiotics at discharge. Patient's COPD exacerbation is complicated by lung cancer which the patient is completed a course of radiation therapy and on the Sunday prior to admission had undergone her first treatment with chemotherapy. Within 48 hours of her chemotherapy patient developed malaise with widespread pain throughout the body, nausea and loss of appetite. This persisted for almost 2 weeks from the day she received her initial chemotherapy treatment. During hospitalization patient became neutropenic and this was considered due to the chemotherapy. She was placed under neutropenic precautions. As hospitalization progressed white blood cell count returned to a normal range and neutropenic precautions were lifted. Patient has had a poor appetite for the week prior to admission and on admission had been without a bowel movement for 5 days. Patient was given MiraLAX, milk of magnesia, Senokot, lactulose to try to aid with bowel movements. Her abdominal exam did reveal a palpable left-sided mass but this turned out to be stool on a CT scan. Ultimately patient had a bowel movement and this was followed by loose watery stools and then she developed an ileus from use of medications. Ileus was treated conservatively with a liquid diet which patient tolerated and resolved spontaneously. Patient has underlying vascular disease having undergone carotid endarterectomy earlier in the year. On presentation to the hospital because of her hypoxemia she had developed some demand ischemia which resulted in a mild elevation of the troponin. Due to patient's other comorbidities no further cardiac investigation was performed as her troponin remained in the indeterminate range and no higher and was felt to be due to the severe hypoxemia. Patient never complained of chest discomfort or anginal equivalents. Patient has chronic kidney disease that was stable. As patient's hospitalization progressed she became very pessimistic about her chances for recovery and initially discussions were had with the patient about hospice. However as she finally began to recover she requested investigation into rehabilitation. She was felt to be a candidate for both pulmonary and physical rehabilitation. Contact was made with [facility] and ultimately patient was accepted where she will undergo intense rehab before plan is to return home. Objective Vital signs: Temp Pulse Resp BP Pulse Ox 98.1 F 78 18 148/86 H 94 L 02/26/19 04:00 02/26/19 05:55 02/26/19 04:00 02/26/19 04:00 02/26/19 05:55 DS: Diagnosis - Discharge Diagnosis (1) Acute exacerbation of chronic obstructive airways disease Status: Acute (2) Pneumonia Status: Acute (3) Antineoplastic chemotherapy induced anemia Status: Acute (4) Chemotherapy induced neutropenia Status: Acute (5) Constipation by delayed colonic transit Status: Resolved (6) Abdominal pain Status: Resolved (7) Stage III chronic kidney disease Status: Chronic (8) Elevated troponin Status: Resolved (9) Lung cancer Status: Chronic (10) Respiratory failure with hypoxia Status: Acute (11) Hyponatremia Status: Resolved (12) Mental status change resolved Status: Resolved (13) Nausea Status: Resolved (14) Carotid artery stenosis Status: Chronic (15) Demand ischemia Status: Resolved (16) CAD (coronary artery disease) Status: Chronic (17) Ileus Status: Resolved Discharge Plan - Patient Discharge Instructions ACTIVITY: Continue current activity DIET: continue same diet Patient Instructions: Lung Cancer, Chronic Obstructive Pulmonary Disease, DI for Constipation, DI for Hypoxia - Follow up Plan Disposition: [facility] Home Medications: Home Medications Medication Instructions Recorded Confirmed Type fluticasone propionate 250 1 inh INHALATION BID 05/21/18 02/16/19 History mcg/actuation blister powder for inhalation tiotropium 2.5 mcg-olodaterol 2.5 1 puff INHALATION BID 05/21/18 02/16/19 History mcg/actuation mist for inhalation Atorvastatin Calcium [Atorvastatin 80 mg PO HS #60 tab 08/06/18 02/16/19 Rx 40mg Tab] lisinopriL [Lisinopril 10mg Tab] 10 mg PO BID #60 tab 08/06/18 02/16/19 Rx Amlodipine Besylate [Amlodipine 5 mg PO BID 08/08/18 02/16/19 History 5mg tab] Nystatin [Nystatin Susp 500,000 500,000 unit PO QID 02/16/19 02/16/19 History Units/5mL Udc] ALPRAZolam [Alprazolam 0.25mg 0.25 mg PO BIDP PRN 02/17/19 02/17/19 History Tab] Albuterol Sulfate [Proair Hfa 1 - 2 puff IH Q4HP PRN 02/17/19 02/17/19 History 90mcg/puff Inh] Fexofenadine/Pseudoephedrine 1 tab PO HSP PRN 02/17/19 02/23/19 History [Faiza-D 12 Hour Tablet] Ondansetron HCl [Ondansetron 8mg 8 mg PO TIDP PRN 02/17/19 02/17/19 History Tablet] predniSONE [Deltasone 20mg 20 mg PO DAILY 10 Days #30 tab 02/26/19 Rx tablet] Prescriptions/Medication Reconciliation: New Ipratropium/Albuterol Sulfate [Duoneb 3mL neb] 3 ml IH QIDRT ampul.neb Sennosides/Docusate Sodium [Senokot-S Tablet] 2 tab PO HS tablet predniSONE [Deltasone 20mg tablet] 20 mg PO DAILY 10 Days #30 tab Aspirin [Aspirin 81mg EC Tab] 81 mg PO DAILY tablet.dr Continued fluticasone propionate 250 mcg/actuation blister powder for inhalation 1 inh INHALATION BID tiotropium 2.5 mcg-olodaterol 2.5 mcg/actuation mist for inhalation 1 puff INHALATION BID Atorvastatin Calcium [Atorvastatin 40mg Tab] 80 mg PO HS #60 tab lisinopriL [Lisinopril 10mg Tab] 10 mg PO BID #60 tab Amlodipine Besylate [Amlodipine 5mg tab] 5 mg PO BID Nystatin [Nystatin Susp 500,000 Units/5mL Udc] 500,000 unit PO QID ALPRAZolam [Alprazolam 0.25mg Tab] 0.25 mg PO BIDP PRN PRN Reason: Anxiety Ondansetron HCl [Ondansetron 8mg Tablet] 8 mg PO TIDP PRN PRN Reason: Nausea And Vomiting Albuterol Sulfate [Proair Hfa 90mcg/puff Inh] 1 - 2 puff IH Q4HP PRN PRN Reason: Wheezing Fexofenadine/Pseudoephedrine [Faiza-D 12 Hour Tablet] 1 tab PO HSP PRN PRN Reason: ALLERGIES/CONGESTION - Problem Reconciliation Problems Reviewed?: Yes
== END 2019-02-26 14:13 | DRG 189 ==
LOC: ER 11:47 → 2ND 17:02
PROVIDERS: ADMIT Internal Medicine Adolescent Medicine; ATTEND Family Medicine
DX: Z87.891 Personal history of nicotine dependence; D70.1 Agranulocytosis secondary to cancer chemotherapy; D64.81 Anemia due to antineoplastic chemotherapy; K59.01 Slow transit constipation; Z79.51 Long term (current) use of inhaled steroids; Z79.899 Other long term (current) drug therapy; Z88.2 Allergy status to sulfonamides; C34.32 Malignant neoplasm of lower lobe, left bronchus or lung; Z95.0 Presence of cardiac pacemaker; J96.21 Acute and chronic respiratory failure with hypoxia; Z95.5 Presence of coronary angioplasty implant and graft; I65.29 Occlusion and stenosis of unspecified carotid artery; E78.5 Hyperlipidemia, unspecified; Z88.9 Allergy status to unspecified drugs, medicaments and biological substances; E87.1 Hypo-osmolality and hyponatremia; N18.3 Chronic kidney disease, stage 3 (moderate); J44.1 Chronic obstructive pulmonary disease with (acute) exacerbation; I25.10 Atherosclerotic heart disease of native coronary artery without angina pectoris; T45.1X5A Adverse effect of antineoplastic and immunosuppressive drugs, initial encounter; I12.9 Hypertensive chronic kidney disease with stage 1 through stage 4 chronic kidney disease, or unspecified chronic kidney disease
CPT/HCPCS: 36415; 71010; 71045; 71275; 74021; 74022; 74177; 80048; 80053; 81001; 82803; 83605; 84484; 85007; 85025; 87040; 87086; 93005; 94640; 94760; 94761; 96365; 96375; 97110; 97116; 97162; 97166; 97530; 99285; J0456; J2405; Q9967

== ENCOUNTER 2019-03-22 10:20 | Inpatient (IN) | payer MEDICARE, OTHER, SELFPAY ==
[2019-03-22] VITALS (11 sets, daily range): BP systolic 89–119; BP diastolic 46–68; PULSE 76–127; RESP 17–21; TEMP 36.7–37.4; O2SAT 78–94; BMI 12.0; BMI 17.3
--- NOTE | 2019-03-22 10:34 | XR_ITS ---
PROCEDURE: XR CHEST PORTABLE Patient Age:73Y CLINICAL HISTORY: cough underlying COPD COMPARISON: CXR2V XR chest 2V from 08/04/2018 XR CHEST 2V from 02/08/2019 CT ANGIO CHEST from 02/16/2019 XR CHEST PORTABLE from 02/16/2019 CT CHEST W CON from 03/22/2019 FINDINGS: Diffuse infiltrate Right Lung. Most notable infiltrate is seen. The right midlung and involving the right upper lobe-this is compatible with the dense posterior right upper lobe pneumonia pattern on CT today.. Consolidation and infiltrate become most dense peripherally. The infiltrate extends to the right apex Is also focal infiltrate seen at the right lung base just above right hemidiaphragm at RLL. Small right pleural effusion associated. These focal areas of pneumonia and consolidation are superimposed upon a background of diffuse interstitial infiltrate throughout the right lung,.. The prominent right hilar reflects overlying infiltrate at adding to density here but Left lung. The -mass lesion at the left midlung is actually smaller than it was on 02/16/[address] Suggestion of small wispy area infiltrate just lateral to this mass on today's AP chest but Associated with these focal areas IMPRESSION: . Prominent diffuse pneumonia right chest. . Focal dense infiltrate/consolidation most evident the RUL but with also focal area focal right lung base. These focal areas pneumonia superimposed upon diffuse interstitial infiltrate and chronic changes at the right lung. Small right pleural effusion Neoplastic mass lesion at the left chest is smaller than on February 16 Only very subtle minimal wispy infiltrates suggested left midlung left base otherwise Dictated by: Desmond Avelar MD 03/22/2019 14:42 Electronically signed by Desmond Avelar MD in [place] 03/22/2019 14:42
--- NOTE | 2019-03-22 10:40 | ECG_ITS ---
APPROVED REPORT Exam: Resting ECG HR:124 bpm ECG Measurements Heart Rate 124 AXES FL 112 P 90 QRSd 66 QRS 47 QT 288 T 89 QTc 413 <Conclusion> Sinus tachycardia Possible Left atrial enlargement Left ventricular hypertrophy Abnormal ECG Electronically signed by : Jaun Garduno, 03/24/2019 13:09:34
--- NOTE | 2019-03-22 10:43 | HMH.EDGENADL ---
ED Disposition Clinical Impression: Dehydration, Pneumonia, Hypoxia, Tachycardia, Acute respiratory distress, Generalized weakness Sepsis Qualifiers: Sepsis type: sepsis due to unspecified organism Sepsis acute organ dysfunction status: without acute organ dysfunction Qualified Code(s): A41.9 - Sepsis, unspecified organism Hypotension Qualifiers: Hypotension type: unspecified hypotension type Qualified Code(s): I95.9 - Hypotension, unspecified Leukocytosis Qualifiers: Leukocytosis type: unspecified Qualified Code(s): D72.829 - Elevated white blood cell count, unspecified Lung cancer Qualifiers: Laterality: right Lung location: unspecified part of lung Qualified Code(s): C34.91 - Malignant neoplasm of unspecified part of right bronchus or lung Disposition: Admitted As Inpatient Condition on Discharge: Serious (Stable) Referrals: Celestino Adams MD [Primary Care Provider] - Time of Disposition: 12:06 - Critical Care Critical Care Time: No Attestation: On 03/22/19, the high probability of a clinically significant, sudden or life threatening deterioration of the following system(s) required my full and direct attention, intervention and personal management. The time I documented below is in addition to time spent performing reported procedures but includes the following listed in this critical care notation. Medical Decision Making - Medical Records Medical records reviewed: Yes: I reviewed the patient's medical records. - Koko Inquiry Pt receiving controlled substance: No Koko was queried for this patient: No Vital Signs: 03/22/19 10:30 03/22/19 11:15 Temperature 99.3 F Temperature Source Oral Pulse Rate 114 H Pulse Rate [Right Radial] 127 H Respiratory Rate 20 Blood Pressure [Right Arm] 89/46 L Blood Pressure Mean [Right Arm] 60 02 Sat by Pulse Oximetry 78 L Oxygen Delivery Method Nasal Cannula Nasal Cannula Oxygen Flow Rate (LPM) 3 3 - Lab Data Lab results reviewed: Yes: I reviewed the patient's lab results. Lab Results 03/22/19 10:35: WBC 25.7 H*, RBC 3.00 L, Hgb 8.9 L, Hct 28.8 L, MCV 96.0, MCH 29.6, MCHC 30.8 L, RDW 16.1, Plt Count 514 H, MPV 8.4, Neut % (Auto) 93.4 H, Lymph % (Auto) 3.8 L, [place] % (Auto) 2.4, Eos % (Auto) 0.1, Baso % (Auto) 0.3, Neut # (Auto) 24.4 H, Lymph # (Auto) 1.0, [place] # (Auto) 0.6, Eos # (Auto) 0.0, Baso # (Auto) 0.1, Total Counted 100, Neutrophils % (Manual) 84 H, Band Neutrophils % 2.0, Lymphocytes % (Manual) 9 L, Monocytes % (Manual) 5, Platelet Estimate Slight increase, RBC Morphology Normal 03/22/19 10:35: Sodium 133 L, Potassium 4.7, Chloride 94 L, Carbon Dioxide 30, Anion Gap 13.7, BUN 18, Creatinine 0.87, Estimated Creat Clear 24, Estimated GFR 63, Est GFR ( Amer) 77, Glucose 114 H, Calcium 8.7, Total Bilirubin 0.4, AST 12 L, ALT 13, Alkaline Phosphatase 95, Troponin I < 0.02, Total Protein 6.6, Albumin 2.1 L, Globulin 4.5 H, Albumin/Globulin Ratio 0.5 L 03/22/19 10:35: Lactate 3.4 H 03/22/19 10:35: Influenza Type A Ag Negative, Influenza Type B Ag Negative 03/22/19 11:30: Urine Color Yellow, Urine Appearance Clear, Urine pH 7.0, Ur Specific [place] 1.015, Urine Protein 1+, Urine Glucose (UA) Negative, Urine Ketones Negative, Urine Blood Trace-i, Urine Nitrate Negative, Urine Bilirubin Negative, Urine Urobilinogen 0.2, Ur Leukocyte Esterase Negative, Urine RBC None, Urine WBC Occasional, Ur Squamous Epith Cells Occasional, Urine Bacteria None Result diagrams: 03/22/19 10:35 03/22/19 10:35 Orders (Tests/Meds): ED MEDICATIONS Generic Name Dose Route Start Last Admin Trade Name Freq PRN Reason Stop Dose Admin Sodium Chloride 1,000 mls @ 999 mls/hr 03/22/19 10:45 03/22/19 10:48 Sod Chlor 0.9% 1000ml Bag IV 03/22/19 11:45 999 mls/hr .Q1H1M LAURA Administration Sodium Chloride 950 mls @ 475 mls/hr 03/22/19 11:35 Sod Chlor 0.9% 1000ml Bag 30 ml/kg infuse over 2 hr (950 ml) 03/22/19 13:34 IV .Q2H ONE Protocol Piper
[2019-03-22 10:54] LABS: Basophils # 0.1 K/mm3 (0-0.2); Basophils % 0.3 % (0.1-2.0); Eosinophils % 0.1 % (0.1-12.0); Hemoglobin 8.9 g/dL (12.2-16.2); Lymphocytes % 3.8 % (10-50); Mean Corpuscular HGB Conc 30.8 g/dL (31.8-35.4); Mean Corpuscular Hemoglobin 29.6 pg (27.0-31.2); Mean Platelet Volume 8.4 fl (7.4-10.4); Monocytes # 0.6 K/mm3 (0.1-1.0); Monocytes % 2.4 % (1.7-9.3); Neutrophils # 24.4 K/mm3 (1.8-7.8); Neutrophils % 93.4 % (37.0-80.0); Platelet Count 514 K/mm3 (142-424); Red Cell Distribution Width 16.1 % (11.5-17.5)
[2019-03-22 11:01] LABS: Hematocrit 28.8 % (37.0-47.0); White Blood Count 25.7 K/mm3 (4.8-10.8)
[2019-03-22 11:02] LABS: MANUAL DIFFERENTIAL MANUAL DIFFERENTIAL (MANUAL DIFF)
[2019-03-22 11:07] LABS: Lymphocytes % 9 % (10-50); Monocytes % 5 % (2-9); Neutrophils % 84 % (42-76); Platelet Estimate Slight Increase; RBC Morphology Normal; Total Cells Counted 100
[2019-03-22 11:15] LABS: Lactic Acid 3.4 mmol/L (0.4-2.0)
[2019-03-22 11:31] LABS: Alanine Aminotransferase 13 U/L (12-78); Albumin Level 2.1 gm/dL (3.4-5.0); Albumin/Globulin Ratio 0.5 (1.1-1.8); Alkaline Phosphatase 95 U/L (46-116); Anion Gap 13.7 mEq/L (5-15); Aspartate Amino Transferase 12 U/L (15-37); Bilirubin,Total 0.4 mg/dL (0.2-1.0); Blood Urea Nitrogen 18 mg/dL (7-18); Calcium 8.7 mg/dL (8.5-10.1); Carbon Dioxide 30 mmol/L (21.0-32.0); Chloride 94 mmol/L (98-107); Creatinine Clearance Estimated 24 mL/min (50-200); Creatinine,Serum 0.87 mg/dL (0.55-1.02); Estimated Glomerular Filt Rate 63 ml/min (>60); GFR (African American) 77 ML/MIN (>60); Globulin 4.5 gm/dl (1.3-3.2); Glucose 114 mg/dL (74-106); Potassium 4.7 mmoL/L (3.5-5.1); Sodium 133 mmol/L (136-145); Total Protein,Serum 6.6 gm/dL (6.4-8.2); Troponin I < 0.02 ng/ml (0.00-0.06)
[2019-03-22 11:33] LABS: Appearance,Urine CLEAR (Clear); Bilirubin,Urine Negative (Negative); Blood, Urine TRACE-I (Negative); Color,Urine YELLOW (Yellow); Glucose,Urine (UA) Negative (Negative); Ketones,Urine Negative (Negative); Leukocyte Esterase,Urine Negative (Negative); Nitrate,Urine Negative (Negative); Protein,Urine 1+ (Negative); Specific Gravity, Urine 1.015 (1.005-1.030); Urobilinogen,Urine 0.2 EU/dl (0.2)
[2019-03-22 11:34] LABS: Microscopic, Urine URINE MICROSCOPIC (MICROSCOPIC)
--- NOTE | 2019-03-22 11:35 | CT_ITS ---
PROCEDURE: CT CHEST W CON Patient Age:73Y CLINICAL HISTORY: Pneumonia, lung cancer, sepsis history of cancer COMPARISON: CHESTW CT chest w con from 03/04/2018 CXR2V XR chest 2V from 08/04/2018 CT ANGIO CHEST from 02/16/2019 XR CHEST PORTABLE from 02/16/2019 CT ABDOMEN PELVIS W CON from 02/17/2019 TECHNIQUE: 70 cc Optiray 350 IV contrast. Axial images obtained with sagittal and coronal reformats. All CT scans at the facility use one or more dose reduction, viz: automated exposure control, ma/kV adjustment per patient size (including targeted exams where dose is matched to indication, i.e. head), or iterative reconstruction technique. FINDINGS: Underlying COPD and emphysematous changes again noted. RIGHT CHEST: Pneumonic infiltrate posterior right upper lobe-new since February CT chest. This generous area infiltrate and consolidation involves posterior segments RUL., It follows Abuts the major fissure posteriorly t Also progressive peripheral infiltrate/pneumonia throughout the periphery right lower lobe posteriorly. Consolidation most dense towards the posterior sulcus. Small right pleural effusion associated. Findings at right lung base have progressed even since 02/17/2019 CT abdomen LEFT CHEST: Pleural base mass posteriorly left chest within the superior segment LLL is again noted the mild measuring up to 3.6 cm transverse x 3.7 cm height x 2.5 cm AP it appears smaller in size than on the 02/16/2019 chest study. This mass measures up to 4 cm transverse x 3.5 cm AP on that prior exam the Series of additional additional pleural/parenchymal density indeterminate character are seen and posterior aspect superior segment LLL, just just medial to the larger mass-suspect reflect some reflect some current patchy inflammatory changes (sagittal image 52 axial image 47) which have developed since February 16. one the of larger pleural-based density measuring up to 15 mm. . Wispy density at lingula appears is slightly denser and could reflect minor patchy area no pleural effusion on the left chest Mediastinum: Heart is normal in size.. Coronary artery calcification no pericardial effusion small hiatal hernia noted.. No new or significant mediastinal adenopathy stable moderate subcarinal lymph node a similar to than Feb 16 2019, but is larger 02/2018 CT Beneath the diaphragm small shrunken left kidney with hypertrophied right kidney. Plump left adrenal noted.-. On close inspection there may be a subtle developing nodule left adrenal measuring 12 x 10 mm but nonspecific density.. Axial image 80 Mild compression changes superior T4 unchanged since the February 2019 but new since 2018 IMPRESSION: 1. Pneumonia right lung a superimposed upon COPD/emphysematous changes . Right Upper Lobe Pneumonia Most Pronounced. Prominent dense infiltrate involving posterior RUL . Posterior Right Lower Lobe Pneumonia also evident and has progressed since 02/17/2019 CT abdomen images 2. Pleural based mass/neoplasm left chest again seen. Stellate margins support carcinoma . 3.Just medial to this mass note additional some scattered patchy pleural parenchymal densities along posterior LLL. Suspect most likely reflecting minor current inflammatory changes posteriorly LLL 4. Very slightly more plump left adrenal suspected for subtle developing 12 x 10 mm nodule 5. Mild compression changes superior aspect T4 unchanged since the Feb 2019, but new since Dictated by: Desmond Avelar MD 03/22/2019 13:04 Electronically signed by Desmond Avelar MD in [place] 03/22/2019 13:04
[2019-03-22 11:38] LABS: Squamous Epithelial Cell,Urine Occasional #/hpf (0-5); WBC,Urine Occasional #/hpf (0-3)
--- NOTE | 2019-03-22 12:08 | PC.NURSE ---
dr tatum consulting with dr reynaga concerning admit
--- NOTE | 2019-03-22 12:08 | PC.NURSE ---
pt going to ct
--- NOTE | 2019-03-22 13:00 | HMH.PHACONS ---
- Pharmacy Consult Date: 03/22/19 Time: 13:00 Referring provider: DR. HAYS Reason for Consult:: VANCOMYCIN DOSING Allergies and ADEs:: Allergies Allergy/AdvReac Type Severity Reaction Status Date / Time codeine [CODEINE] Allergy Unknown NAUSEA AND Verified 03/22/19 10:34 VOMITING ibuprofen [IBUPROFEN] Allergy Unknown I-HIVES Verified 03/22/19 10:34 meperidine [MEPERIDINE] Allergy Unknown INCREASED Verified 03/22/19 10:34 BLOOD PRESSURE Sulfa (Sulfonamide Allergy Unknown SKIN CRAWS Verified 03/22/19 10:34 Antibiotics) [SULFA (SULFONAMIDE ANTIBIOTICS)] adhesive tape AdvReac Intermediate I-RASH Verified 03/22/19 10:34 Home Medications:: Home Medications Medication Instructions Recorded Confirmed Type fluticasone propionate 250 1 inh INHALATION BID 05/21/18 02/16/19 History mcg/actuation blister powder for inhalation tiotropium 2.5 mcg-olodaterol 2.5 1 puff INHALATION BID 05/21/18 02/16/19 History mcg/actuation mist for inhalation Atorvastatin Calcium [Atorvastatin 80 mg PO HS #60 tab 08/06/18 02/16/19 Rx 40mg Tab] lisinopriL [Lisinopril 10mg Tab] 10 mg PO BID #60 tab 08/06/18 02/16/19 Rx Amlodipine Besylate [Amlodipine 5 mg PO BID 08/08/18 02/16/19 History 5mg tab] Nystatin [Nystatin Susp 500,000 500,000 unit PO QID 02/16/19 02/16/19 History Units/5mL Udc] ALPRAZolam [Alprazolam 0.25mg 0.25 mg PO BIDP PRN 02/17/19 02/17/19 History Tab] Albuterol Sulfate [Proair Hfa 1 - 2 puff IH Q4HP PRN 02/17/19 02/17/19 History 90mcg/puff Inh] Fexofenadine/Pseudoephedrine 1 tab PO HSP PRN 02/17/19 02/23/19 History [Faiza-D 12 Hour Tablet] Ondansetron HCl [Ondansetron 8mg 8 mg PO TIDP PRN 02/17/19 02/17/19 History Tablet] Aspirin [Aspirin 81mg EC Tab] 81 mg PO DAILY tablet. 02/26/19 Rx Ipratropium/Albuterol Sulfate 3 ml IH QIDRT ampul.kaushik 02/26/19 Rx [Duoneb 3mL [facility]] Sennosides/Docusate Sodium 2 tab PO HS tab 02/26/19 Rx [Senokot-S Tablet] predniSONE [Deltasone 20mg 20 mg PO DAILY 10 Days #30 tab 02/26/19 Rx tablet] Height: 1.63 m Weight: 31.751 kg Laboratory Results:: Laboratory Results - last 24 hr 03/22/19 10:35: WBC 25.7 H*, RBC 3.00 L, Hgb 8.9 L, Hct 28.8 L, MCV 96.0, MCH 29.6, MCHC 30.8 L, RDW 16.1, Plt Count 514 H, MPV 8.4, Neut % (Auto) 93.4 H, Lymph % (Auto) 3.8 L, [place] % (Auto) 2.4, Eos % (Auto) 0.1, Baso % (Auto) 0.3, Neut # (Auto) 24.4 H, Lymph # (Auto) 1.0, [place] # (Auto) 0.6, Eos # (Auto) 0.0, Baso # (Auto) 0.1, Total Counted 100, Neutrophils % (Manual) 84 H, Band Neutrophils % 2.0, Lymphocytes % (Manual) 9 L, Monocytes % (Manual) 5, Platelet Estimate Slight increase, RBC Morphology Normal 03/22/19 10:35: Sodium 133 L, Potassium 4.7, Chloride 94 L, Carbon Dioxide 30, Anion Gap 13.7, BUN 18, Creatinine 0.87, Estimated Creat Clear 24, Estimated GFR 63, Est GFR ( Amer) 77, Glucose 114 H, Calcium 8.7, Total Bilirubin 0.4, AST 12 L, ALT 13, Alkaline Phosphatase 95, Troponin I < 0.02, Total Protein 6.6, Albumin 2.1 L, Globulin 4.5 H, Albumin/Globulin Ratio 0.5 L 03/22/19 10:35: Lactate 3.4 H 03/22/19 10:35: Influenza Type A Ag Negative, Influenza Type B Ag Negative 03/22/19 11:30: Urine Color Yellow, Urine Appearance Clear, Urine pH 7.0, Ur Specific [place] 1.015, Urine Protein 1+, Urine Glucose (UA) Negative, Urine Ketones Negative, Urine Blood Trace-i, Urine Nitrate Negative, Urine Bilirubin Negative, Urine Urobilinogen 0.2, Ur Leukocyte Esterase Negative, Urine RBC None, Urine WBC Occasional, Ur Squamous Epith Cells Occasional, Urine Bacteria None Medical History: Reports:: Cancer (Possible Lung), Carotid Stenosis, Chronic Obstructive Pulmonary Disease (COPD), Hyperlipidemia, Hypertension, Internal Pacemaker, Peripheral Vascular Disease Denies:: Diabetes Mellitus Type 1, Diabetes Mellitus Type 2, MRSA Assessment and Plan - Assessment and plan all Dx Assessment and Plan for all problems:: BASED ON RISA
--- NOTE | 2019-03-22 13:55 | P.CONPHA_ITS ---
[facility] Pharmacy VTE Monitoring - Patient Demographics Admission date: 03/22/19 Report Date: 03/22/19 Time: 13:55 Allergies/Adverse Reactions: Patient Allergies codeine [CODEINE] Allergy (Unknown, Verified 03/22/19 10:34) NAUSEA AND VOMITING ibuprofen [IBUPROFEN] Allergy (Unknown, Verified 03/22/19 10:34) I-HIVES meperidine [MEPERIDINE] Allergy (Unknown, Verified 03/22/19 10:34) INCREASED BLOOD PRESSURE Sulfa (Sulfonamide Antibiotics) [SULFA (SULFONAMIDE ANTIBIOTICS)] Allergy (Unknown, Verified 03/22/19 10:34) SKIN CRAWS adhesive tape Adverse Reaction (Intermediate, Verified 03/22/19 10:34) I-RASH Height: 1.63 m Weight: 45.813 kg Patient Problems: Current Active Problems Lung cancer (Chronic) Pneumonia (Acute) Sepsis (Acute) Dehydration (Acute) Hypoxia (Acute) Tachycardia (Acute) Hypotension (Acute) Leukocytosis (Acute) Acute respiratory distress (Acute) Generalized weakness (Acute) - VTE Risk Labs: VTE Related Lab Results Hgb 8.9 g/dL (12.2-16.2) L 03/22/19 10:35 Hct 28.8 % (37.0-47.0) L 03/22/19 10:35 Plt Count 514 K/mm3 (142-424) H 03/22/19 10:35 BUN 18 mg/dL (7-18) 03/22/19 10:35 Creatinine 0.87 mg/dL (0.55-1.02) 03/22/19 10:35 Estimated Creat Clear 24 mL/min (50-200) 03/22/19 10:35 - Prophylaxis VTE Prophylaxis Ordered?: Yes Types of VTE Prophylaxis: TEDS Knee High Location of Applied Device: Bilateral Lower Extremeties - VTE Diagnosis Confirmed Treatment or plan recommended: Continue Current Treatment
[2019-03-22 14:39] LABS: Troponin I < 0.02 ng/ml (0.00-0.06)
[2019-03-22 14:42] LABS: Lactic Acid 1.2 mmol/L (0.4-2.0)
[2019-03-22 14:50] LABS: Reflex Lactic Add Lactic Reflex
[2019-03-22 15:22] LABS: Lactic Acid Follow Up (RFLX 1) 1.3 (0.4-2.0)
--- NOTE | 2019-03-22 16:25 | HMH.HP ---
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 Patient reports that yesterday evening she began to feel rather tired and weak. By this morning she was so weak she could not sit up in bed without assistance. That was when she was brought to the emergency department. Patient however denies any increase in shortness of breath or cough above baseline. On presentation to the emergency department patient was hypoxic with O2 sat in the 70s and work-up was revealed a right upper lobe pneumonia. Patient has been admitted and placed on broad-spectrum antibiotics. Patient was admitted at this facility 1 month ago for COPD exacerbation with suspicious right lower lobe infiltrate. Patient completed antibiotics and once she was weaned from the Vapotherm device to nasal cannula she was transferred to [facility] where she underwent both physical and pulmonary rehabilitation. Patient was discharged from that facility on March 09. Patient was seen in my office on March 20 and at that time reported no complaints. Even at the time of this interview the patient denies fevers and reports that she was cold the night prior to admission but responded well to an electric blanket. [facility] History I have reviewed the patient's past medical history: Yes Medical History: Reports:: Cancer (Stage IV non-small cell carcinoma of the left lung), Carotid Stenosis, Chronic Obstructive Pulmonary Disease (COPD), Hyperlipidemia, Hypertension, Internal Pacemaker, Peripheral Vascular Disease Denies:: Diabetes Mellitus Type 1, Diabetes Mellitus Type 2, MRSA *Have you ever received a pneumonia vaccine?: Yes *Have you received a flu vaccine this season?: Yes Other Medical History: Reports: Anemia, Cataracts Other Surgeries: Yes: Appendectomy, Colonoscopy, Coronary Stent, , Dilation and Curettage, EGD, Pacemaker, Other (Cleaning of carotid artery) Amputation: No Fractures: No - *Social History Educational Level: Completed High School Smoking Status: Former smoker Tobacco Type: cigarettes # Packs/Day (cigarettes): 1 #Yrs smoked (if former smoker): 50 Alcohol Intake: never Alcohol Intake Frequency:: holidays/special occasions only Substance Use Type: denies use *Occupational Status:: disabled Housing: house Household Members: spouse *Travel in the last 8 weeks: None Family Hx:: Anemia, Cancer, Heart Attack, Hyperlipidemia, Hypertension, Kidney Disease, Stroke Review of Systems - Constitutional Reports anorexia, Reports chills, Reports fatigue, Reports lack of energy, Reports malaise, Reports weakness, Denies body ache(s), Denies fever(s) - *Cardiovascular Denies chest pain, Denies chest pain at rest - *Respiratory Reports cough, Reports shortness of breath, Denies change in phlegm color, Denies chest congestion, Denies excessive phlegm production, Denies coughing up blood, Denies pain on inspiration, Denies pain with cough - *Gastrointestinal Denies abdominal pain - *Musculoskeletal Denies abnormal walking - Integumentary/Breasts Reports hair loss - *Neurologic Reports weakness (generalized weakness that has increased over the past 4 days.) Meds Home Medications Medication Instructions Recorded Confirmed Type fluticasone propionate 250 1 inh INHALATION BID 05/21/18 03/22/19 History mcg/actuation blister powder for inhalation tiotropium 2.5 mcg-olodaterol 2.5 1 puff INHALATION BID 05/21/18 03/22/19 History mcg/actuation mist for inhalation Atorvastatin Calcium [Atorvastatin 80 mg PO HS #60 tab 08/06/18 03/22/19 Rx 40mg Tab] lisinopriL [Lisinopril 10mg Tab] 10 mg PO BID #60 tab 08/06/18 03/22/19 Rx Amlodipine Besylate [Amlodipine 5 mg PO BID 08/08/18 03/22/19 History 5mg tab] Nystatin [Nystatin Susp 500,000 500,000 unit PO QID 02/16/19 03/22/19 Histo
[2019-03-22 16:27] LABS: Troponin I < 0.02 ng/ml (0.00-0.06)
--- NOTE | 2019-03-22 18:55 | PC.NURSE ---
Pt alert and oriented and able to make needs known. 02 88-94 % on 3 L NC. NAD at this. Pt is resting with eyes closed at this time. Lungs CTA. Has been sinus tach on tele. CB in reach. BS x 4. VSS at this time.
[2019-03-23] VITALS (30 sets, daily range): BP systolic 102–151; BP diastolic 45–75; PULSE 71–116; RESP 16–22; TEMP 36.6–37.3; O2SAT 87–98; BMI 17.7
--- NOTE | 2019-03-23 06:13 | PC.NURSE ---
A&O X4. PERRLA. 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 S1, S2 HEART SOUNDS NOTED UPON AUSCULTATION. +2 BILATERAL RADIAL PULSES NOTED, +1 BILATERAL PEDAL PULSES NOTED UPON PALPATION. NSR NOTED ON MERCHANT MARINER THIS SHIFT. MD GAVE OKAY TO D/C MONITOR THROUGHOUT SHIFT. CAP REFILL < 3 SECONDS. NO EDEMA NOTED THIS SHIFT THUS FAR. BILATERAL WHEEZING AND DIMINISHED BREATH SOUNDS NOTED THROUGHOUT. NON-PRODUCTIVE DRY COUGH NOTED THIS SHIFT. SPUTUM SPECIMEN STILL NEEDS TO BE OBTAINED. EDUCATED PT ON IMPORTANCE OF OBTAINING SPUTUM IF SHE IS ABLE TO EXPECTORATE ANY THIS SHIFT. ENCOURAGED USE OF INCENTIVE SPIROMETER THIS SHIFT Q1H WHILE AWAKE. PT DEMONSTRATED APPROPRIATE USE AT BEGINNING OF SHIFT. TOLERATED 3 LNC WELL THIS SHIFT WITH NO COMPLAINTS. HYPERACTIVE BOWEL SOUNDS NOTED IN ALL 4 QUADS UPON AUSCULTATION. ABDOMEN NOTED FLAT, SOFT, AND NON-TENDER UPON PALPATION. VSS. REMAINS SAFE. CALL LIGHT WITHIN REACH. WILL CONTINUE TO MONITOR.
[2019-03-23 06:22] LABS: Basophils # 0.1 K/mm3 (0-0.2); Basophils % 0.2 % (0.1-2.0); Hematocrit 24.2 % (37.0-47.0); Lymphocytes # 0.8 K/mm3 (0.7-4.5); Lymphocytes % 3.8 % (10-50); Mean Corpuscular HGB Conc 29.8 g/dL (31.8-35.4); Mean Corpuscular Hemoglobin 29.1 pg (27.0-31.2); Mean Corpuscular Volume 97.6 fl (81-99); Mean Platelet Volume 7.5 fl (7.4-10.4); Monocytes # 0.6 K/mm3 (0.1-1.0); Monocytes % 2.9 % (1.7-9.3); Neutrophils # 19.3 K/mm3 (1.8-7.8); Platelet Count 401 K/mm3 (142-424); Red Blood Count 2.48 M/mm3 (4.20-5.40); Red Cell Distribution Width 15.9 % (11.5-17.5); White Blood Count 20.8 K/mm3 (4.8-10.8)
[2019-03-23 06:27] LABS: Anion Gap 12.2 mEq/L (5-15); Blood Urea Nitrogen 16 mg/dL (7-18); Calcium 8.2 mg/dL (8.5-10.1); Carbon Dioxide 27 mmol/L (21.0-32.0); Chloride 103 mmol/L (98-107); Creatinine Clearance Estimated 36 mL/min (50-200); Creatinine,Serum 0.63 mg/dL (0.55-1.02); Estimated Glomerular Filt Rate 92 ml/min (>60); GFR (African American) 111 ML/MIN (>60); Glucose 112 mg/dL (74-106); Potassium 4.2 mmoL/L (3.5-5.1); Sodium 138 mmol/L (136-145)
[2019-03-23 06:42] LABS: Hemoglobin 7.2 g/dL (12.2-16.2)
[2019-03-23 06:43] LABS: MANUAL DIFFERENTIAL MANUAL DIFFERENTIAL (MANUAL DIFF)
[2019-03-23 07:47] LABS: Lymphocytes % 6 % (10-50); Monocytes % 5 % (2-9); Neutrophils % 83 % (42-76); Platelet Estimate Slight Increase; RBC Morphology Normal; Total Cells Counted 100
--- NOTE | 2019-03-23 08:34 | HMH.ACPN2 ---
Internal Medicine - PN: Subj *Date: 03/23/19 *Time: 08:34 Interval history: Patient has no complaints this morning and has actually been able to ambulate to the bathroom and back with very little dyspnea Exam Vital signs and Labs for Last 24 Hours: Temp Pulse Resp BP Pulse Ox 97.9 F 104 H 18 108/53 L 87 L 03/23/19 07:52 03/23/19 07:52 03/23/19 07:52 03/23/19 07:52 03/23/19 07:52 Laboratory Results - last 24 hr 03/22/19 10:35: WBC 25.7 H*, RBC 3.00 L, Hgb 8.9 L, Hct 28.8 L, MCV 96.0, MCH 29.6, MCHC 30.8 L, RDW 16.1, Plt Count 514 H, MPV 8.4, Neut % (Auto) 93.4 H, Lymph % (Auto) 3.8 L, Conway % (Auto) 2.4, Eos % (Auto) 0.1, Baso % (Auto) 0.3, Neut # (Auto) 24.4 H, Lymph # (Auto) 1.0, Conway # (Auto) 0.6, Eos # (Auto) 0.0, Baso # (Auto) 0.1, Total Counted 100, Neutrophils % (Manual) 84 H, Band Neutrophils % 2.0, Lymphocytes % (Manual) 9 L, Monocytes % (Manual) 5, Platelet Estimate Slight increase, RBC Morphology Normal 03/22/19 10:35: Sodium 133 L, Potassium 4.7, Chloride 94 L, Carbon Dioxide 30, Anion Gap 13.7, BUN 18, Creatinine 0.87, Estimated Creat Clear 24, Estimated GFR 63, Est GFR ( Amer) 77, Glucose 114 H, Calcium 8.7, Total Bilirubin 0.4, AST 12 L, ALT 13, Alkaline Phosphatase 95, Troponin I < 0.02, Total Protein 6.6, Albumin 2.1 L, Globulin 4.5 H, Albumin/Globulin Ratio 0.5 L 03/22/19 10:35: Lactate 3.4 H 03/22/19 10:35: Influenza Type A Ag Negative, Influenza Type B Ag Negative 03/22/19 11:30: Urine Color Yellow, Urine Appearance Clear, Urine pH 7.0, Ur Specific Sutter 1.015, Urine Protein 1+, Urine Glucose (UA) Negative, Urine Ketones Negative, Urine Blood Trace-i, Urine Nitrate Negative, Urine Bilirubin Negative, Urine Urobilinogen 0.2, Ur Leukocyte Esterase Negative, Urine RBC None, Urine WBC Occasional, Ur Squamous Epith Cells Occasional, Urine Bacteria None 03/22/19 13:55: Troponin I < 0.02 03/22/19 13:55: Lactate 1.2 03/22/19 15:00: Lactate 1.3 03/22/19 16:02: Troponin I < 0.02 03/23/19 05:25: WBC 20.8 H*, RBC 2.48 L, Hgb 7.2 L*, Hct 24.2 L, MCV 97.6, MCH 29.1, MCHC 29.8 L, RDW 15.9, Plt Count 401, MPV 7.5, Neut % (Auto) 93.0 H, Lymph % (Auto) 3.8 L, Conway % (Auto) 2.9, Eos % (Auto) 0.0 L, Baso % (Auto) 0.2, Neut # (Auto) 19.3 H, Lymph # (Auto) 0.8, Conway # (Auto) 0.6, Eos # (Auto) 0.0, Baso # (Auto) 0.1, Total Counted 100, Neutrophils % (Manual) 83 H, Band Neutrophils % 6.0, Lymphocytes % (Manual) 6 L, Monocytes % (Manual) 5, Platelet Estimate Slight increase, RBC Morphology Normal 03/23/19 05:25: Sodium 138, Potassium 4.2, Chloride 103, Carbon Dioxide 27, Anion Gap 12.2, BUN 16, Creatinine 0.63 D, Estimated Creat Clear 36, Estimated GFR 92, Est GFR ( Amer) 111 D, Glucose 112 H, Calcium 8.2 L 03/23/19 07:45: Blood Type A Positive, Crossmatch (AHG) See Detail I & O for Last 24 hours: Intake & Output 03/20/19 03/21/19 03/22/19 03/23/19 11:59 11:59 11:59 11:59 Intake Total 2185 / 218 Balance 2185 / 218 Weight 70 lb 103 lb 4 oz Narrative: Patient is awake sitting up in bed and eating breakfast. Lung exam reveals distant breath sounds throughout with rhonchi at the right upper lobe this morning best heard anteriorly. There is no wheezing. Heart has a regular rate and rhythm. Extremities are without edema Assessment and Plan (1) Right upper lobe pneumonia Current visit: Yes Status: Acute Category: Medical Code(s): J18.9 - Pneumonia, unspecified organism Continue broad-spectrum antibiotic coverage. If patient is unable to produce sputum by tomorrow we will make attempts to induce a sputum (2) Dehydration Current visit: Yes Status: Resolved Category: Medical Code(s): E86.0 - Dehydration (3) Non-small cell carcinoma of left lung, stage 4 Current visit: Yes Status: Chronic Category: Medical Code(s): C34.92 - Malignant neoplasm of unspecified part of left bronchus or lung (4) Chronic respiratory failure Current visit: Yes Status: Chronic Category: Medic
--- NOTE | 2019-03-23 14:00 | HMH.PHAINT ---
MEDICATION RECONCILIATION COMPLETED ON PATIENT USING EXTERNAL FILL HISTORY FROM PHARMACY, DISCHARGE SUMMARY FROM PREVIOUS ADMISSION, AND PATIENT'S OWN MEDICATIONS. -BYRON RODRIGUEZD
[2019-03-23 20:30] LABS: Hematocrit 28.8 % (37.0-47.0); Hemoglobin 9.1 g/dL (12.2-16.2)
--- NOTE | 2019-03-23 21:02 | PC.NURSE ---
Pt alert and oriented and able to make needs known. RR even and unlabored. 02 @ 3 L NC. Blood given today as ordered and pt tolerated well. at bedside. VSS at this time. Report given to Criss Cronin RN.
[2019-03-24] VITALS (9 sets, daily range): BP systolic 137–166; BP diastolic 59–81; PULSE 101–114; RESP 16–22; TEMP 36.4–36.9; O2SAT 86–100; BMI 18.3
--- NOTE | 2019-03-24 02:40 | PC.NURSE ---
PHARMACY CALLED AND ACKNOWLEDGED OKAY TO ADMINISTER VANC THIS AM.
[2019-03-24 03:00] LABS: Vancomycin,Trough 1.4 mcg/ml (10.0-20.0)
[2019-03-24 05:59] LABS: Basophils % 0.1 % (0.1-2.0); Eosinophils % 0.1 % (0.1-12.0); Hematocrit 33.2 % (37.0-47.0); Lymphocytes # 0.7 K/mm3 (0.7-4.5); Lymphocytes % 2.8 % (10-50); Mean Corpuscular HGB Conc 31.1 g/dL (31.8-35.4); Mean Corpuscular Hemoglobin 29.4 pg (27.0-31.2); Mean Corpuscular Volume 94.5 fl (81-99); Mean Platelet Volume 8.1 fl (7.4-10.4); Monocytes # 0.8 K/mm3 (0.1-1.0); Monocytes % 3.2 % (1.7-9.3); Neutrophils # 23.8 K/mm3 (1.8-7.8); Neutrophils % 93.9 % (37.0-80.0); Platelet Count 398 K/mm3 (142-424); Red Blood Count 3.51 M/mm3 (4.20-5.40); Red Cell Distribution Width 16.2 % (11.5-17.5)
[2019-03-24 06:01] LABS: White Blood Count 25.4 K/mm3 (4.8-10.8)
[2019-03-24 06:02] LABS: MANUAL DIFFERENTIAL MANUAL DIFFERENTIAL (MANUAL DIFF)
[2019-03-24 06:13] LABS: Lymphocytes % 4 % (10-50); Neutrophils % 83 % (42-76); Platelet Estimate Normal; Rouleaux 2+; Total Cells Counted 100
[2019-03-24 06:17] LABS: Anion Gap 8.3 mEq/L (5-15); Blood Urea Nitrogen 17 mg/dL (7-18); Calcium 8.3 mg/dL (8.5-10.1); Carbon Dioxide 29 mmol/L (21.0-32.0); Chloride 102 mmol/L (98-107); Creatinine Clearance Estimated 37 mL/min (50-200); Creatinine,Serum 0.54 mg/dL (0.55-1.02); Estimated Glomerular Filt Rate 110 ml/min (>60); GFR (African American) 133 ML/MIN (>60); Glucose 115 mg/dL (74-106); Potassium 4.3 mmoL/L (3.5-5.1); Sodium 135 mmol/L (136-145)
--- NOTE | 2019-03-24 07:50 | HMH.ACPN2 ---
Internal Medicine - PN: Subj *Date: 03/24/19 *Time: 07:50 Interval history: Patient reports loosening of cough. She did ambulate some yesterday. She received 2 units of packed red blood cells yesterday morning due to worsening chronic anemia Exam Vital signs and Labs for Last 24 Hours: Temp Pulse Resp BP Pulse Ox 98.1 F 104 H 16 149/74 H 86 L 03/24/19 04:00 03/24/19 06:02 03/24/19 04:00 03/24/19 04:00 03/24/19 06:02 Laboratory Results - last 24 hr 03/23/19 07:45: Blood Type A Positive, Antibody Screen Negative, Crossmatch (AHG) See Detail 03/23/19 08:40: Blood Type Confirm A Positive 03/23/19 20:22: Hgb 9.1 L D, Hct 28.8 L 03/24/19 01:00: Vancomycin Trough 1.4 L 03/24/19 05:50: WBC 25.4 H*, RBC 3.51 L D, Hct 33.2 L, MCV 94.5, MCH 29.4, MCHC 31.1 L, RDW 16.2, Plt Count 398, MPV 8.1, Neut % (Auto) 93.9 H, Lymph % (Auto) 2.8 L, Hart % (Auto) 3.2, Eos % (Auto) 0.1, Baso % (Auto) 0.1, Neut # (Auto) 23.8 H, Lymph # (Auto) 0.7, Hart # (Auto) 0.8, Eos # (Auto) 0.0, Baso # (Auto) 0.0, Total Counted 100, Neutrophils % (Manual) 83 H, Band Neutrophils % 13.0 H, Lymphocytes % (Manual) 4 L, Platelet Estimate Normal, Rouleaux 2+ 03/24/19 05:50: Sodium 135 L, Potassium 4.3, Chloride 102, Carbon Dioxide 29, Anion Gap 8.3, BUN 17, Creatinine 0.54 L, Estimated Creat Clear 37, Estimated GFR 110, Est GFR ( Amer) 133, Glucose 115 H, Calcium 8.3 L I & O for Last 24 hours: Intake & Output 03/21/19 03/22/19 03/23/19 03/24/19 11:59 11:59 11:59 11:59 Intake Total 218 / 218 2369 / 236 Balance 218 / 218 236 / 236 Weight 70 lb 103 lb 4 oz 107 lb 3 oz Microbiology Reports for the Last 24 Hours: Microbiology 03/22/19 12:16 Sputum - Expectorated Sputum Gram Stain - Final Narrative: Patient appears comfortable. Lung exam reveals distant breath sounds with mixed faint expiratory wheeze and rhonchi in the right upper lobe best heard anteriorly Assessment and Plan (1) Right upper lobe pneumonia Current visit: Yes Status: Acute Category: Medical Code(s): J18.9 - Pneumonia, unspecified organism (2) Dehydration Current visit: Yes Status: Resolved Category: Medical Code(s): E86.0 - Dehydration (3) Non-small cell carcinoma of left lung, stage 4 Current visit: Yes Status: Chronic Category: Medical Code(s): C34.92 - Malignant neoplasm of unspecified part of left bronchus or lung (4) Chronic respiratory failure Current visit: Yes Status: Chronic Category: Medical Code(s): J96.10 - Chronic respiratory failure, unspecified whether with hypoxia or hypercapnia (5) Hypotension Current visit: Yes Status: Acute Qualifiers: Hypotension type: unspecified hypotension type Qualified Code(s): I95.9 - Hypotension, unspecified Category: Medical Code(s): I95.9 - Hypotension, unspecified (6) Hypoxia Current visit: Yes Status: Chronic Category: Medical Code(s): R09.02 - Hypoxemia (7) Dependence on continuous supplemental oxygen Current visit: No Status: Chronic Category: Medical Code(s): Z99.81 - Dependence on supplemental oxygen (8) PAD (peripheral artery disease) Current visit: No Status: Chronic Category: Medical Code(s): I73.9 - Peripheral vascular disease, unspecified (9) Chronic anemia Current visit: Yes Status: Chronic Category: Medical Code(s): D64.9 - Anemia, unspecified - Assessment and plan all Dx Assessment and Plan for all problems:: Continue broad-spectrum antibiotic coverage. Encourage use his incentive spirometer to increase pulmonary toilet. Patient wants to ambulate today. Continue to monitor for recurring or worsening anemia
--- NOTE | 2019-03-24 08:15 | PC.NURSE ---
A&O X4. PERRLA. 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 S1, S2 HEART SOUNDS NOTED UPON AUSCULTATION. +1 BILATERAL RADIAL AND PEDAL PULSES NOTED UPON PALPATION. CAP REFILL < 3 SECONDS. NO EDEMA NOTED THIS SHIFT. BILATERAL EXPIRATORY RHONCHI NOTED BILATERALLY THROUGHOUT. PERSISTENT PRODUCTIVE CROUPY COUGH NOTED THIS SHIFT. SPUTUM RESULTS PENDING AT THIS TIME. PT TOLERATE 3 LNC WELL THIS SHIFT WITH NO COMPLAINTS. ENCOURAGED USE OF INCENTIVE SPIROMETER THIS SHIFT Q1H WHILE AWAKE. PT DEMONSTRATED APPROPRIATE USE OF IS AT BEGINNING OF THIS SHIFT. ACTIVE BOWEL SOUNDS NOTED IN ALL 4 QUADS THIS SHIFT. ABD NOTED SOFT, FLAT, AND NON-TENDER UPON PALPATION. PT AMB WELL TO AND FROM BATHROOM WITH ASSIST X1 AND WALKER. VSS. REMAINS SAFE. RESTED WELL WITH EYES CLOSED THIS SHIFT. CALL LIGHT WITHIN REACH. WILL CONTINUE TO MONITOR.
[2019-03-24 08:18] LABS: Hemoglobin 10.3 g/dL (12.2-16.2)
--- NOTE | 2019-03-24 14:05 | HMH.PHACONS ---
- Pharmacy Consult Date: 03/24/19 Time: 14:05 Referring provider: DR. BLUM Reason for Consult:: VANCOMYCIN TROUGH LEVEL Allergies and ADEs:: Allergies Allergy/AdvReac Type Severity Reaction Status Date / Time codeine [CODEINE] Allergy Unknown NAUSEA AND Verified 03/22/19 10:34 VOMITING ibuprofen [IBUPROFEN] Allergy Unknown I-HIVES Verified 03/22/19 10:34 meperidine [MEPERIDINE] Allergy Unknown INCREASED Verified 03/22/19 10:34 BLOOD PRESSURE Sulfa (Sulfonamide Allergy Unknown SKIN CRAWS Verified 03/22/19 10:34 Antibiotics) [SULFA (SULFONAMIDE ANTIBIOTICS)] adhesive tape AdvReac Intermediate I-RASH Verified 03/22/19 10:34 Home Medications:: Home Medications Medication Instructions Recorded Confirmed Type fluticasone propionate 250 1 inh INHALATION BID 05/21/18 03/22/19 History mcg/actuation blister powder for inhalation tiotropium 2.5 mcg-olodaterol 2.5 2 puff IH DAILY 05/21/18 03/23/19 History mcg/actuation mist for inhalation Atorvastatin Calcium [Atorvastatin 80 mg PO HS #60 tab 08/06/18 03/22/19 Rx 40mg Tab] lisinopriL [Lisinopril 10mg Tab] 10 mg PO BID #60 tab 08/06/18 03/22/19 Rx Amlodipine Besylate [Amlodipine 5 mg PO BID 08/08/18 03/22/19 History 5mg tab] Nystatin [Nystatin Susp 500,000 500,000 unit PO QID 02/16/19 03/22/19 History Units/5mL Udc] ALPRAZolam [Alprazolam 0.25mg 0.25 mg PO BIDP PRN 02/17/19 03/22/19 History Tab] Albuterol Sulfate [Proair Hfa 1 - 2 puff IH Q4HP PRN 02/17/19 03/22/19 History 90mcg/puff Inh] Fexofenadine/Pseudoephedrine 1 tab PO DAILY 02/17/19 03/22/19 History [Faiza-D 12 Hour Tablet] Ondansetron HCl [Ondansetron 8mg 8 mg PO TIDP PRN 02/17/19 03/22/19 History Tablet] Clopidogrel Bisulfate [Plavix 75mg 75 mg PO DAILY 03/22/19 03/22/19 History Tab] Ipratropium/Albuterol Sulfate 3 ml IH QIDRT 03/22/19 03/22/19 History [Duoneb 3mL neb] Magnesium Oxide 400 mg PO DAILY 03/22/19 03/22/19 History Pantoprazole Sodium [Protonix 20mg 20 mg PO BID 03/22/19 03/22/19 History Tab] Sennosides/Docusate Sodium 1 tab PO HS 03/22/19 03/22/19 History [Senokot-S Tablet] Sertraline HCl [Zoloft] 50 mg PO DAILY 03/22/19 03/22/19 History guaiFENesin [Mucinex 600mg tablet] 600 mg PO BID 03/22/19 03/22/19 History Height: 1.63 m Weight: 48.619 kg Laboratory Results:: Laboratory Results - last 24 hr 03/23/19 07:45: Blood Type A Positive, Antibody Screen Negative, Crossmatch (AHG) See Detail 03/23/19 20:22: Hgb 9.1 L D, Hct 28.8 L 03/24/19 01:00: Vancomycin Trough 1.4 L 03/24/19 05:50: WBC 25.4 H*, RBC 3.51 L D, Hgb 10.3 L D, Hct 33.2 L, MCV 94.5, MCH 29.4, MCHC 31.1 L, RDW 16.2, Plt Count 398, MPV 8.1, Neut % (Auto) 93.9 H, Lymph % (Auto) 2.8 L, Dukes % (Auto) 3.2, Eos % (Auto) 0.1, Baso % (Auto) 0.1, Neut # (Auto) 23.8 H, Lymph # (Auto) 0.7, Dukes # (Auto) 0.8, Eos # (Auto) 0.0, Baso # (Auto) 0.0, Total Counted 100, Neutrophils % (Manual) 83 H, Band Neutrophils % 13.0 H, Lymphocytes % (Manual) 4 L, Platelet Estimate Normal, Rouleaux 2+ 03/24/19 05:50: Sodium 135 L, Potassium 4.3, Chloride 102, Carbon Dioxide 29, Anion Gap 8.3, BUN 17, Creatinine 0.54 L, Estimated Creat Clear 37, Estimated GFR 110, Est GFR ( Amer) 133, Glucose 115 H, Calcium 8.3 L Medical History: Reports:: Cancer (Stage IV non-small cell carcinoma of the left lung), Carotid Stenosis, Chronic Obstructive Pulmonary Disease (COPD), Hyperlipidemia, Hypertension, Internal Pacemaker, Peripheral Vascular Disease Denies:: Diabetes Mellitus Type 1, Diabetes Mellitus Type 2, MRSA Assessment and Plan (1) Right upper lobe pneumonia Current visit: Yes Status: Acute Category: Medical Code(s): J18.9 - Pneumonia, unspecified organism (2) Dehydration Current visit: Yes Status: Resolved Category: Medical Code(s): E86.0 - Dehydration (3) Non-small cell carcinoma of left lung, stage 4 Current visit: Yes Status: Chronic Catego
--- NOTE | 2019-03-24 14:07 | PC.NURSE ---
pt has had no acute changes. physical therapy has seen pt today. pt ambulated with walker to bathroom with standby assist. no complaints voiced at this time. v/s/s. call light in reach. will continue to monitor pt condition.
--- NOTE | 2019-03-24 14:45 | HMH.PTEV ---
Physical Therapy Evaluation Rehab PT IP Evaluation Start: 03/24/19 07:53 Freq: ONCE Status: Active Protocol: Document 03/24/19 14:40 PHORNE (Rec: 03/24/19 14:44 PHORNE [id number]) Subjective/History History History 73 yowf adm to [facility] with general weakness abd CAP. She has hx on lung cancer and recently finished chemo. She lives with her and is generally independent with mobility using her RW. Uses oxygen via NC at all times. Subjective Subjective She c/o feeling tired due to lack of sleep this pm, but otherwise feels ok. Rehab PT IP Eval Objective Appearance Patient Behavior Appropriate Patient Orientation Person,Place,Time Difficulty following instructions none Speech Pattern Clear Ambulation Patient Able to Ambulate Yes Ambulation Observation IP General Gait Pattern Observation Wide Based Gait Ambulation Distance (feet) 30 Ambulation Assistive Device Rolling Walker Balance Ability to Arise Able, uses arms to help Sitting Balance Steady, safe Standing Balance Steady, wide stance Dynamic Sitting Balance Ability Good Dynamic Standing Balance Ability Good Transfers Bed Transfer Ability Contact Guard/Hand Hold Chair Transfer Ability Contact Guard/Hand Hold Sit to Stand Bed Transfer Ability Contact Guard/Hand Hold Sit to Stand Chair Transfer Ability Contact Guard/Hand Hold ROM All Extremities PT ROM Status WFL MMT All Extremities PT MMT WFL Rehab PT IP prob,goals,plan Problems Date of Evaluation: 03/24/19 PT IP Problems Bed Mobility,Transfers,Gait Rehab Potential Rehab Potential Good Plan PT Intervention Plan Bed Mobility,Transfers,Gait, Therapeutic Exercise PT Plan Frequency BID Duration LOS Discharge Goals Bed Transfer Ability Supervision/Stand by Sit to Stand Chair Transfer Ability Supervision/Stand by Ambulation Assistive Device Rolling Walker Ambulation Distance (feet) 50 Discharge Plan PT Discharge Plan Pt is appropriate to return home once medically stable. G -code Required Yes Eval Complexity Eval Charge Codes 92290 - Moderate Complexity G Codes PT Current Status Mobility PT Current Status Modifier CJ-At least 20% but less than 40% im
--- NOTE | 2019-03-24 18:49 | PC.NURSE ---
pt resting this afternoon. denies pain/soa.
--- NOTE | 2019-03-24 19:15 | PC.NURSE ---
report given to narciso
[2019-03-25] VITALS (13 sets, daily range): BP systolic 157–193; BP diastolic 77–84; PULSE 83–121; RESP 16–22; TEMP 36.5–36.8; O2SAT 88–92; BMI 18.4
--- NOTE | 2019-03-25 04:47 | PC.NURSE ---
PT HAS SLEPT WELL SINCE AROUND 1AM. REQUESTED HER XANAX AND TYELNOL. PT UP TO BATHROOM WITH WALKER AND ASSIST OF ONE. 02 SATS DROPPED TO MID 70'S WHEN UP EVEN WITH 3.5L OF O2 ON. PT FELT THAT SHE WAS NOT GETTING ENOUGH OXYGEN AND SATS MID 80'S ONCE SHE WAS BACK IN BED. RESPIRATORY CALLED, INCREASED O2 FROM 3.5L TO 4L PER NC. PT HAS HAD NO OTHER COMPLAINTS OF SOA.
[2019-03-25 05:59] LABS: Basophils # 0.1 K/mm3 (0-0.2); Basophils % 0.4 % (0.1-2.0); Eosinophils # 0.2 K/mm3 (0.0-0.4); Eosinophils % 0.6 % (0.1-12.0); Hematocrit 32.3 % (37.0-47.0); Hemoglobin 10.1 g/dL (12.2-16.2); Lymphocytes # 0.6 K/mm3 (0.7-4.5); Lymphocytes % 2.4 % (10-50); Mean Corpuscular HGB Conc 31.3 g/dL (31.8-35.4); Mean Corpuscular Hemoglobin 29.2 pg (27.0-31.2); Mean Corpuscular Volume 93.4 fl (81-99); Mean Platelet Volume 7.7 fl (7.4-10.4); Monocytes # 0.9 K/mm3 (0.1-1.0); Monocytes % 3.8 % (1.7-9.3); Neutrophils % 92.8 % (37.0-80.0); Platelet Count 402 K/mm3 (142-424); Red Blood Count 3.46 M/mm3 (4.20-5.40); White Blood Count 23.7 K/mm3 (4.8-10.8)
[2019-03-25 06:05] LABS: MANUAL DIFFERENTIAL MANUAL DIFFERENTIAL (MANUAL DIFF)
[2019-03-25 07:11] LABS: Lymphocytes % 5 % (10-50); Monocytes % 2 % (2-9); Neutrophils % 93 % (42-76); Platelet Estimate Normal; Total Cells Counted 100
[2019-03-25 07:17] LABS: Hypochromasia 1+
--- NOTE | 2019-03-25 07:54 | XR_ITS ---
PROCEDURE: XR CHEST 2V CLINICAL HISTORY: pneumonia progress study Follow-up pneumonia COMPARISON: 03/22/2019 FINDINGS: The cardiomediastinal silhouette and pulmonary vascularity are within normal limits. There is diffuse pulmonary fibrosis with superimposed pneumonia in the right lower lobe which is somewhat worse. Right upper lobe pneumonia also noted probably unchanged. There is left perihilar infiltrate which is worse. There are small bilateral pleural effusions which have slightly increased in size. IMPRESSION: Slight worsening right lower lobe and left perihilar pneumonia with no change in the right upper lobe pneumonia with slight increase in bilateral effusions with superimposed pulmonary fibrosis Dictated by: Melvin Roach MD 03/25/2019 09:13 Electronically signed by Melvin Roach MD in [place] 03/25/2019 09:13
--- NOTE | 2019-03-25 07:54 | HMH.ACPN2 ---
Internal Medicine - PN: Subj *Date: 03/25/19 *Time: 07:55 Interval history: Patient reports a difficult last 24 hours. Patient initially felt well yesterday but after spending a prolonged amount of time (3+ hours) in the chair she developed nausea and weakness. From that point on patient did not feel like getting out of bed. She is concerned because of increasing oxygen requirement with supplemental oxygen increasing to 4 L via nasal cannula. She is also concerned because of a drop in her inspiratory effort on the incentive spirometer. Exam Vital signs and Labs for Last 24 Hours: Temp Pulse Resp BP Pulse Ox 98.1 F 103 H 19 157/77 H 88 L 03/25/19 04:00 03/25/19 05:51 03/25/19 04:00 03/25/19 04:00 03/25/19 05:51 Laboratory Results - last 24 hr 03/24/19 05:50: Hgb 10.3 L D 03/25/19 05:48: WBC 23.7 H*, RBC 3.46 L, Hgb 10.1 L, Hct 32.3 L, MCV 93.4, MCH 29.2, MCHC 31.3 L, RDW 16.0, Plt Count 402, MPV 7.7, Neut % (Auto) 92.8 H, Lymph % (Auto) 2.4 L, [place] % (Auto) 3.8, Eos % (Auto) 0.6, Baso % (Auto) 0.4, Neut # (Auto) 22.0 H, Lymph # (Auto) 0.6 L, [place] # (Auto) 0.9, Eos # (Auto) 0.2, Baso # (Auto) 0.1, Total Counted 100, Neutrophils % (Manual) 93 H, Lymphocytes % (Manual) 5 L, Monocytes % (Manual) 2, Platelet Estimate Normal, Hypochromasia 1+ I & O for Last 24 hours: Intake & Output 03/22/19 03/23/19 03/24/19 03/25/19 11:59 11:59 11:59 11:59 Intake Total 2186 / 2186 2489 / 2489 340 / 340 Balance 2186 / 2186 2489 / 2489 340 / 340 Weight 70 lb 103 lb 4 oz 107 lb 3 oz 107 lb 6 oz Microbiology Reports for the Last 24 Hours: Microbiology 03/22/19 12:16 Sputum - Expectorated Sputum Gram Stain - Final 03/22/19 12:16 Sputum - Expectorated Sputum Sputum Culture - Preliminary 03/22/19 10:43 Blood Blood Culture - Preliminary NO GROWTH AFTER 48 HOURS 03/22/19 10:35 Blood Blood Culture - Preliminary NO GROWTH AFTER 48 HOURS Narrative: Patient looks comfortable. Nasal cannula is in place. Lung exam has diffuse right upper lobe rhonchi. She has right basilar rales as well. Heart has a regular rate and rhythm. Assessment and Plan (1) Right upper lobe pneumonia Current visit: Yes Status: Acute Category: Medical Code(s): J18.9 - Pneumonia, unspecified organism Continue broad-spectrum antibiotics. Repeat chest x-ray and continue IV steroids (2) Dehydration Current visit: Yes Status: Resolved Category: Medical Code(s): E86.0 - Dehydration (3) Non-small cell carcinoma of left lung, stage 4 Current visit: Yes Status: Chronic Category: Medical Code(s): C34.92 - Malignant neoplasm of unspecified part of left bronchus or lung (4) Chronic respiratory failure Current visit: Yes Status: Chronic Category: Medical Code(s): J96.10 - Chronic respiratory failure, unspecified whether with hypoxia or hypercapnia (5) Hypotension Current visit: Yes Status: Acute Qualifiers: Hypotension type: unspecified hypotension type Qualified Code(s): I95.9 - Hypotension, unspecified Category: Medical Code(s): I95.9 - Hypotension, unspecified (6) Hypoxia Current visit: Yes Status: Chronic Category: Medical Code(s): R09.02 - Hypoxemia (7) Dependence on continuous supplemental oxygen Current visit: No Status: Chronic Category: Medical Code(s): Z99.81 - Dependence on supplemental oxygen (8) PAD (peripheral artery disease) Current visit: No Status: Chronic Category: Medical Code(s): I73.9 - Peripheral vascular disease, unspecified (9) Chronic anemia Current visit: Yes Status: Chronic Category: Medical Code(s): D64.9 - Anemia, unspecified (10) Hypertension Current visit: Yes Status: Acute Category: Medical Code(s): I10 - Essential (primary) hypertension Restart amlodipine today
--- NOTE | 2019-03-25 10:08 | HMH.ACPN ---
Internal Medicine - PN: Subj *Date: 03/25/19 *Time: 10:08 Exam Vital signs and Labs for Last 24 Hours: Temp Pulse Resp BP Pulse Ox 97.7 F 108 H 18 159/84 H 89 L 03/25/19 08:00 03/25/19 09:36 03/25/19 08:00 03/25/19 08:00 03/25/19 08:00 Laboratory Results - last 24 hr 03/25/19 05:48: WBC 23.7 H*, RBC 3.46 L, Hgb 10.1 L, Hct 32.3 L, MCV 93.4, MCH 29.2, MCHC 31.3 L, RDW 16.0, Plt Count 402, MPV 7.7, Neut % (Auto) 92.8 H, Lymph % (Auto) 2.4 L, [place] % (Auto) 3.8, Eos % (Auto) 0.6, Baso % (Auto) 0.4, Neut # (Auto) 22.0 H, Lymph # (Auto) 0.6 L, [place] # (Auto) 0.9, Eos # (Auto) 0.2, Baso # (Auto) 0.1, Total Counted 100, Neutrophils % (Manual) 93 H, Lymphocytes % (Manual) 5 L, Monocytes % (Manual) 2, Platelet Estimate Normal, Hypochromasia 1+ I & O for Last 24 hours: Intake & Output 03/22/19 03/23/19 03/24/19 03/25/19 23:59 23:59 23:59 23:59 Intake Total 1130 / 1130 2536 / 2536 1349 / 1349 240 / 240 Balance 1130 / 1130 2536 / 2536 1349 / 1349 240 / 240 Weight 45.813 kg 46.833 kg 48.619 kg 48.704 kg Microbiology Reports for the Last 24 Hours: Microbiology 03/22/19 12:16 Sputum - Expectorated Sputum Gram Stain - Final 03/22/19 12:16 Sputum - Expectorated Sputum Sputum Culture - Preliminary 03/22/19 10:43 Blood Blood Culture - Preliminary NO GROWTH AFTER 48 HOURS 03/22/19 10:35 Blood Blood Culture - Preliminary NO GROWTH AFTER 48 HOURS Assessment and Plan (1) Right upper lobe pneumonia Current visit: Yes Status: Acute Category: Medical Code(s): J18.9 - Pneumonia, unspecified organism (2) Dehydration Current visit: Yes Status: Resolved Category: Medical Code(s): E86.0 - Dehydration (3) Non-small cell carcinoma of left lung, stage 4 Current visit: Yes Status: Chronic Category: Medical Code(s): C34.92 - Malignant neoplasm of unspecified part of left bronchus or lung (4) Chronic respiratory failure Current visit: Yes Status: Chronic Category: Medical Code(s): J96.10 - Chronic respiratory failure, unspecified whether with hypoxia or hypercapnia (5) Hypotension Current visit: Yes Status: Acute Qualifiers: Hypotension type: unspecified hypotension type Qualified Code(s): I95.9 - Hypotension, unspecified Category: Medical Code(s): I95.9 - Hypotension, unspecified (6) Hypoxia Current visit: Yes Status: Chronic Category: Medical Code(s): R09.02 - Hypoxemia (7) Dependence on continuous supplemental oxygen Current visit: No Status: Chronic Category: Medical Code(s): Z99.81 - Dependence on supplemental oxygen (8) PAD (peripheral artery disease) Current visit: No Status: Chronic Category: Medical Code(s): I73.9 - Peripheral vascular disease, unspecified (9) Chronic anemia Current visit: Yes Status: Chronic Category: Medical Code(s): D64.9 - Anemia, unspecified (10) Hypertension Current visit: Yes Status: Acute Category: Medical Code(s): I10 - Essential (primary) hypertension The patient's infection will respond to the chosen ABx?: Yes Is the patient receiving the right drug, dose, and route?: Yes Could a more targeted ABx be ordered?: No
--- NOTE | 2019-03-25 18:45 | PC.NURSE ---
PT IS RESTING IN BED. NO COMPLAINTS OF DISCOMFORT. ALERT AND ORIENTED X4. PT HAS HAD ELEVATED BP THIS AFTERNOON. PCP WAS NOTIFIED AND ADDED ADDITIONAL BP MEDICATION FOR THIS EVENING. LUNG SOUNDS HAVE SCATTERED RHONCHI (ANTERIOR) . BOWEL SOUNDS HYPOACTIVE. PT HAS BEEN AMBULATING TO THE BATHROOM WITH WALKER AND 1 ASSIST. APPETITE IS STILL POOR BUT PT HAS BEEN DRINKING WELL. WILL CONTINUE TO MONITOR.
--- NOTE | 2019-03-25 21:06 | PC.NURSE ---
Rechecked O2 for Nurse.
[2019-03-26] VITALS (10 sets, daily range): BP systolic 138–151; BP diastolic 69–81; PULSE 80–110; RESP 18–24; TEMP 36.6–36.9; O2SAT 90–93; BMI 17.9; BMI 17.8
--- NOTE | 2019-03-26 04:30 | PC.NURSE ---
PT HAS SLEPT. REMAINS ON 4L PER NC. AMBULATES WITH WALKER AND STANDBY ASSIST TO BATHROOM. PT RECEIVED TYLENOL, XANAX, AND SENNA. SEE MAR.
[2019-03-26 06:28] LABS: Basophils # 0.1 K/mm3 (0-0.2); Basophils % 0.5 % (0.1-2.0); Eosinophils % 0.2 % (0.1-12.0); Hematocrit 32.9 % (37.0-47.0); Hemoglobin 10.6 g/dL (12.2-16.2); Lymphocytes # 0.6 K/mm3 (0.7-4.5); Lymphocytes % 3.2 % (10-50); Mean Corpuscular HGB Conc 32.3 g/dL (31.8-35.4); Mean Corpuscular Hemoglobin 29.2 pg (27.0-31.2); Mean Corpuscular Volume 90.6 fl (81-99); Monocytes # 0.8 K/mm3 (0.1-1.0); Monocytes % 4.4 % (1.7-9.3); Neutrophils # 17.2 K/mm3 (1.8-7.8); Neutrophils % 91.7 % (37.0-80.0); Platelet Count 425 K/mm3 (142-424); Red Blood Count 3.63 M/mm3 (4.20-5.40); Red Cell Distribution Width 15.8 % (11.5-17.5); White Blood Count 18.8 K/mm3 (4.8-10.8)
[2019-03-26 06:30] LABS: MANUAL DIFFERENTIAL MANUAL DIFFERENTIAL (MANUAL DIFF)
--- NOTE | 2019-03-26 08:02 | P.PN_ITS ---
Internal Medicine - PN: Subj *Date: 03/26/19 *Time: 08:02 Interval history: Patient has no complaints this morning. Her day went a little bit better yesterday with less nausea. Her cough seems to be drying out. She has remained on 3 or 4 L of oxygen via nasal cannula Exam Vital signs and Labs for Last 24 Hours: Temp Pulse Resp BP Pulse Ox 98.2 F 106 H 19 151/81 H 91 L 03/26/19 04:00 03/26/19 05:55 03/26/19 04:00 03/26/19 04:00 03/26/19 05:56 Laboratory Results - last 24 hr 03/26/19 06:04: WBC 18.8 H, RBC 3.63 L, Hgb 10.6 L, Hct 32.9 L, MCV 90.6, MCH 29.2, MCHC 32.3, RDW 15.8, Plt Count 425 H, MPV 8.0, Neut % (Auto) 91.7 H, Lymph % (Auto) 3.2 L, [place] % (Auto) 4.4, Eos % (Auto) 0.2, Baso % (Auto) 0.5, Neut # (Auto) 17.2 H, Lymph # (Auto) 0.6 L, [place] # (Auto) 0.8, Eos # (Auto) 0.0, Baso # (Auto) 0.1 I & O for Last 24 hours: Intake & Output 03/23/19 03/24/19 03/25/19 03/26/19 11:59 11:59 11:59 11:59 Intake Total 2186 / 2186 2489 / 2489 580 / 580 290 / 290 Balance 2186 / 2186 2489 / 2489 580 / 580 290 / 290 Weight 103 lb 4 oz 107 lb 3 oz 107 lb 6 oz 104 lb 3 oz Microbiology Reports for the Last 24 Hours: Microbiology 03/22/19 12:16 Sputum - Expectorated Sputum Gram Stain - Final 03/22/19 12:16 Sputum - Expectorated Sputum Sputum Culture - Preliminary Narrative: Patient looks more comfortable. She has rales in the right lung base as well as dry rhonchi in the right upper lobe. Heart has a regular rate and rhythm Assessment and Plan (1) Right upper lobe pneumonia Current visit: Yes Status: Acute Category: Medical Code(s): J18.9 - Pneumonia, unspecified organism Continue broad-spectrum antibiotics until culture are available (2) Dehydration Current visit: Yes Status: Resolved Category: Medical Code(s): E86.0 - Dehydration (3) Non-small cell carcinoma of left lung, stage 4 Current visit: Yes Status: Chronic Category: Medical Code(s): C34.92 - Malignant neoplasm of unspecified part of left bronchus or lung (4) Chronic respiratory failure Current visit: Yes Status: Chronic Category: Medical Code(s): J96.10 - Chronic respiratory failure, unspecified whether with hypoxia or hypercapnia (5) Hypotension Current visit: Yes Status: Resolved Qualifiers: Hypotension type: unspecified hypotension type Qualified Code(s): I95.9 - Hypotension, unspecified Category: Medical Code(s): I95.9 - Hypotension, unspecified (6) Hypoxia Current visit: Yes Status: Chronic Category: Medical Code(s): R09.02 - Hypoxemia (7) Dependence on continuous supplemental oxygen Current visit: No Status: Chronic Category: Medical Code(s): Z99.81 - Dependence on supplemental oxygen (8) PAD (peripheral artery disease) Current visit: No Status: Chronic Category: Medical Code(s): I73.9 - Peripheral vascular disease, unspecified (9) Chronic anemia Current visit: Yes Status: Chronic Category: Medical Code(s): D64.9 - Anemia, unspecified (10) Hypertension Current visit: Yes Status: Acute Category: Medical Code(s): I10 - Essential (primary) hypertension Restart home antihypertensives
[2019-03-26 08:49] LABS: Lymphocytes % 5 % (10-50); Monocytes % 7 % (2-9); Neutrophils % 85 % (42-76); Total Cells Counted 100
[2019-03-26 08:50] LABS: Platelet Estimate Slight Increase; Poikilocytosis 1+; Stomatocytes 1+
--- NOTE | 2019-03-26 17:03 | PC.NURSE ---
patient has done well this shift. has had no complaints. did get up to chair some this shift. encouraged to use incentive spirometer. vitals have been stable. some crackles noted in bases. will continue to monitor.
--- NOTE | 2019-03-26 17:27 | SW/DCPLANNER ---
HAVE NOT HAD ANY DISCHARGE PLANNING ORDERS FOR THIS PATIENT WHO IS A FREQUENT PATIENT HERE.. LAST ADMISSION SHE WAS SENT TO [facility] FOR AGGRESSIVE PULMONARY THERAPY R/T SMALL CELL LUNG CA... SHE WISHES TO GO HOME AGAIN AND HOSPICE HAS BEEN MENTIONED BUT NOT THIS ADMISSION.. WILL WAIT AND SEE WHAT DR BLUM SAYS TO WHETHER ADDRESS ANY HOME CARE FOR HER...
--- NOTE | 2019-03-26 17:30 | PC.NURSE ---
educated patient on time to change iv, iv still works and is not bothering patient so she asked to not change it at this time unless needed
[2019-03-27] VITALS (9 sets, daily range): BP systolic 130–165; BP diastolic 69–81; PULSE 79–118; RESP 19–22; TEMP 36.6–37.2; O2SAT 88–97; BMI 18.1
--- NOTE | 2019-03-27 04:04 | PC.NURSE ---
PT A&O X4. 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 +2 BILATERAL RADIAL AND PEDAL PULSES NOTED. ACTIVE BOWEL SOUNDS NOTED IN ALL 4 QUADS. PT STAES SHE FEELS CONSTIPATED, UNABLE TO HAVE A BM SINCE 03/24/19. ABD NOTED FLAT, SOFT AND NON-TENDER UPON PALPATION. ADMINISTERED CONSTIPATION MED PER PT REQUEST ON MAY AND ADMIN GRUNE JUICE TO PT. TOLERATED BOTH WELL WITH NO REPORTS OF A BM THIS SHIFT THUS FAR. CLEAR BREATH SOUNDS NOTED BILATERALLY THROUGHOUT. PT STATES HAVING A NON-PRODUCTIVE PROUPY COUGH INTERMITTENTLY THIS SHIFT. PT HAS RESTED ON AND OFF THROUGHOUT THIS SHIFT, WITH NO COMPLAINTS. VSS. REMAINS SAFE. CALL LIGHT WITHIN REACH. WILL CONTINUE TO MONITOR.
[2019-03-27 06:28] LABS: Basophils # 0.1 K/mm3 (0-0.2); Basophils % 0.4 % (0.1-2.0); Eosinophils % 0.1 % (0.1-12.0); Hematocrit 31.9 % (37.0-47.0); Lymphocytes # 0.7 K/mm3 (0.7-4.5); Lymphocytes % 4.3 % (10-50); Mean Corpuscular HGB Conc 31.2 g/dL (31.8-35.4); Mean Corpuscular Hemoglobin 28.4 pg (27.0-31.2); Mean Corpuscular Volume 91.1 fl (81-99); Mean Platelet Volume 8.6 fl (7.4-10.4); Monocytes # 0.7 K/mm3 (0.1-1.0); Neutrophils # 15.3 K/mm3 (1.8-7.8); Neutrophils % 91.3 % (37.0-80.0); Platelet Count 427 K/mm3 (142-424); Red Cell Distribution Width 15.7 % (11.5-17.5); White Blood Count 16.8 K/mm3 (4.8-10.8)
[2019-03-27 06:32] LABS: MANUAL DIFFERENTIAL MANUAL DIFFERENTIAL (MANUAL DIFF)
--- NOTE | 2019-03-27 07:36 | HMH.ACPN2 ---
Internal Medicine - PN: Subj *Date: 03/27/19 *Time: 07:36 Interval history: Patient has no complaints this morning and states she feels well. Her cough remains mostly nonproductive although she admits to some hemoptysis overnight. She continues to use incentive spirometry. She is participating with physical therapy. Exam Vital signs and Labs for Last 24 Hours: Temp Pulse Resp BP Pulse Ox 98.2 F 100 H 19 159/79 H 94 L 03/27/19 04:00 03/27/19 06:14 03/27/19 04:00 03/27/19 04:00 03/27/19 06:14 Laboratory Results - last 24 hr 03/26/19 06:04: Total Counted 100, Neutrophils % (Manual) 85 H, Band Neutrophils % 2.0, Lymphocytes % (Manual) 5 L, Atypical Lymphs % 1.0, Monocytes % (Manual) 7, Platelet Estimate Slight increase, Poikilocytosis 1+, Stomatocytes 1+ 03/27/19 06:05: WBC 16.8 H, RBC 3.50 L, Hgb 10.0 L, Hct 31.9 L, MCV 91.1, MCH 28.4, MCHC 31.2 L, RDW 15.7, Plt Count 427 H, MPV 8.6, Neut % (Auto) 91.3 H, Lymph % (Auto) 4.3 L, [place] % (Auto) 4.0, Eos % (Auto) 0.1, Baso % (Auto) 0.4, Neut # (Auto) 15.3 H, Lymph # (Auto) 0.7, [place] # (Auto) 0.7, Eos # (Auto) 0.0, Baso # (Auto) 0.1 I & O for Last 24 hours: Intake & Output 03/24/19 03/25/19 03/26/19 03/27/19 11:59 11:59 11:59 11:59 Intake Total 2489 / 2489 580 / 580 615 / 615 390 / 390 Balance 2489 / 2489 580 / 580 615 / 615 390 / 390 Weight 107 lb 3 oz 107 lb 6 oz 104 lb 3 oz 106 lb 5 oz Microbiology Reports for the Last 24 Hours: Microbiology 03/22/19 12:16 Sputum - Expectorated Sputum Gram Stain - Final 03/22/19 12:16 Sputum - Expectorated Sputum Sputum Culture - Final Normal Respiratory Raisa Narrative: Patient looks comfortable. Oropharynx reveals thrush. Neck has no lymphadenopathy. Lungs reveal dry rhonchi in the right upper lobe with rales in the right base Assessment and Plan (1) Right upper lobe pneumonia Current visit: Yes Status: Acute Category: Medical Code(s): J18.9 - Pneumonia, unspecified organism (2) Dehydration Current visit: Yes Status: Resolved Category: Medical Code(s): E86.0 - Dehydration (3) Non-small cell carcinoma of left lung, stage 4 Current visit: Yes Status: Chronic Category: Medical Code(s): C34.92 - Malignant neoplasm of unspecified part of left bronchus or lung (4) Chronic respiratory failure Current visit: Yes Status: Chronic Category: Medical Code(s): J96.10 - Chronic respiratory failure, unspecified whether with hypoxia or hypercapnia (5) Hypotension Current visit: Yes Status: Resolved Qualifiers: Hypotension type: unspecified hypotension type Qualified Code(s): I95.9 - Hypotension, unspecified Category: Medical Code(s): I95.9 - Hypotension, unspecified (6) Hypoxia Current visit: Yes Status: Chronic Category: Medical Code(s): R09.02 - Hypoxemia (7) Dependence on continuous supplemental oxygen Current visit: No Status: Chronic Category: Medical Code(s): Z99.81 - Dependence on supplemental oxygen (8) PAD (peripheral artery disease) Current visit: No Status: Chronic Category: Medical Code(s): I73.9 - Peripheral vascular disease, unspecified (9) Chronic anemia Current visit: Yes Status: Chronic Category: Medical Code(s): D64.9 - Anemia, unspecified (10) Hypertension Current visit: Yes Status: Acute Category: Medical Code(s): I10 - Essential (primary) hypertension (11) Thrush Current visit: Yes Status: Acute Category: Medical Code(s): B37.0 - Candidal stomatitis (12) Bilateral pleural effusion Current visit: Yes Status: Acute Category: Medical Code(s): J90 - Pleural effusion, not elsewhere classified - Assessment and plan all Dx Assessment and Plan for all problems:: 1. Continue broad-spectrum antibiotics 2. Attempt to wean oxygen back to 2 L/min 3. Treat thrush with nystatin 4. Start MiraLAX for constipation 5. Encourage continued use incentive
[2019-03-27 08:11] LABS: Lymphocytes % 6 % (10-50); Monocytes % 6 % (2-9); Neutrophils % 88 % (42-76); Platelet Estimate Normal; RBC Morphology Normal; Total Cells Counted 100
--- NOTE | 2019-03-27 09:25 | PC.NURSE ---
RN aware of low o2 sats and elevated bp and heart rate.
--- NOTE | 2019-03-27 12:09 | PC.NURSE ---
RN aware of elevated heart rate.
--- NOTE | 2019-03-27 16:19 | PC.NURSE ---
THIS AM DR. BLUM AT BEDSIDE, TURNED PATIENT'S O2 DOWN TO 3.5L NC. SRNA REPORTED O2 READING AT 88, THIS RN INCREASED PATIENT'S O2 NC TO 4L. PATIENT'S 1600 VITAL SIGN ASSESSMENT, PATIENT'S O2 IS 91% NC WHILE ON 4L NC. NO OTHER CONCERNS AT THIS TIME, THIS RN WILL CONTINUE TO MONITOR PATIENT.
[2019-03-28] VITALS (7 sets, daily range): BP systolic 135–162; BP diastolic 70–88; PULSE 92–112; RESP 18–109; TEMP 36.6–37.1; O2SAT 90–98; BMI 17.6
--- NOTE | 2019-03-28 05:03 | PC.NURSE ---
PT. SOA WITH MOVEMENT. HAS C/O GERD; TX WITH ZOFRAN, WILL ASSESS FOR EFFECTIVENESS. PT. HAS NOT HAD ANY EPISODES OF N/V, HAS HAD TWO SOFT, SMALL STOOLS. PT DENIES COUGH.
[2019-03-28 06:10] LABS: Basophils # 0.1 K/mm3 (0-0.2); Basophils % 0.7 % (0.1-2.0); Eosinophils % 0.3 % (0.1-12.0); Hematocrit 32.3 % (37.0-47.0); Lymphocytes # 0.7 K/mm3 (0.7-4.5); Lymphocytes % 4.2 % (10-50); Mean Corpuscular HGB Conc 30.9 g/dL (31.8-35.4); Mean Corpuscular Hemoglobin 28.5 pg (27.0-31.2); Mean Corpuscular Volume 92.1 fl (81-99); Mean Platelet Volume 7.8 fl (7.4-10.4); Monocytes # 0.4 K/mm3 (0.1-1.0); Monocytes % 2.7 % (1.7-9.3); Neutrophils # 14.8 K/mm3 (1.8-7.8); Neutrophils % 92.2 % (37.0-80.0); Platelet Count 464 K/mm3 (142-424); Red Blood Count 3.51 M/mm3 (4.20-5.40); Red Cell Distribution Width 15.7 % (11.5-17.5)
[2019-03-28 06:14] LABS: MANUAL DIFFERENTIAL MANUAL DIFFERENTIAL (MANUAL DIFF)
[2019-03-28 06:39] LABS: Vancomycin,Trough 2.5 mcg/ml (10.0-20.0)
--- NOTE | 2019-03-28 07:33 | HMH.ACPN2 ---
Internal Medicine - PN: Subj *Date: 03/28/19 *Time: 07:33 Interval history: Patient has no complaints. She has continued cough but it is now dry. She is ambulating without dyspnea Exam Vital signs and Labs for Last 24 Hours: Temp Pulse Resp BP Pulse Ox 97.9 F 92 H 19 153/88 H 98 03/28/19 04:00 03/28/19 06:39 03/28/19 04:00 03/28/19 04:00 03/28/19 06:39 Laboratory Results - last 24 hr 03/27/19 06:05: Total Counted 100, Neutrophils % (Manual) 88 H, Lymphocytes % (Manual) 6 L, Monocytes % (Manual) 6, Platelet Estimate Normal, RBC Morphology Normal 03/28/19 05:50: WBC 16.0 H, RBC 3.51 L, Hgb 10.0 L, Hct 32.3 L, MCV 92.1, MCH 28.5, MCHC 30.9 L, RDW 15.7, Plt Count 464 H, MPV 7.8, Neut % (Auto) 92.2 H, Lymph % (Auto) 4.2 L, [place] % (Auto) 2.7, Eos % (Auto) 0.3, Baso % (Auto) 0.7, Neut # (Auto) 14.8 H, Lymph # (Auto) 0.7, [place] # (Auto) 0.4, Eos # (Auto) 0.0, Baso # (Auto) 0.1 03/28/19 05:50: Vancomycin Trough 2.5 L I & O for Last 24 hours: Intake & Output 03/25/19 03/26/19 03/27/19 03/28/19 11:59 11:59 11:59 11:59 Intake Total 580 / 580 615 / 615 930 / 930 480 / 480 Balance 580 / 580 615 / 615 930 / 930 480 / 480 Weight 107 lb 6 oz 104 lb 3 oz 106 lb 5 oz 103 lb 6 oz Microbiology Reports for the Last 24 Hours: Microbiology 03/22/19 10:43 Blood Blood Culture - Final NO GROWTH AFTER 5 DAYS 03/22/19 10:35 Blood Blood Culture - Final NO GROWTH AFTER 5 DAYS Narrative: She is in no distress. Lung exam reveals absence of rhonchi in the right upper lobe and improvement in rales in the right lower lobe. Assessment and Plan (1) Right upper lobe pneumonia Current visit: Yes Status: Acute Category: Medical Code(s): J18.9 - Pneumonia, unspecified organism (2) Dehydration Current visit: Yes Status: Resolved Category: Medical Code(s): E86.0 - Dehydration (3) Non-small cell carcinoma of left lung, stage 4 Current visit: Yes Status: Chronic Category: Medical Code(s): C34.92 - Malignant neoplasm of unspecified part of left bronchus or lung (4) Chronic respiratory failure Current visit: Yes Status: Chronic Category: Medical Code(s): J96.10 - Chronic respiratory failure, unspecified whether with hypoxia or hypercapnia (5) Hypotension Current visit: Yes Status: Resolved Qualifiers: Hypotension type: unspecified hypotension type Qualified Code(s): I95.9 - Hypotension, unspecified Category: Medical Code(s): I95.9 - Hypotension, unspecified (6) Hypoxia Current visit: Yes Status: Chronic Category: Medical Code(s): R09.02 - Hypoxemia (7) Dependence on continuous supplemental oxygen Current visit: No Status: Chronic Category: Medical Code(s): Z99.81 - Dependence on supplemental oxygen (8) PAD (peripheral artery disease) Current visit: No Status: Chronic Category: Medical Code(s): I73.9 - Peripheral vascular disease, unspecified (9) Chronic anemia Current visit: Yes Status: Chronic Category: Medical Code(s): D64.9 - Anemia, unspecified (10) Hypertension Current visit: Yes Status: Acute Category: Medical Code(s): I10 - Essential (primary) hypertension (11) Thrush Current visit: Yes Status: Acute Category: Medical Code(s): B37.0 - Candidal stomatitis (12) Bilateral pleural effusion Current visit: Yes Status: Acute Category: Medical Code(s): J90 - Pleural effusion, not elsewhere classified - Assessment and plan all Dx Assessment and Plan for all problems:: Patient is improving. She will complete 1 more day of broad-spectrum antibiotic coverage to give 7 days of antibiotics. She will be discharged home tomorrow
[2019-03-28 08:13] LABS: Lymphocytes % 4 % (10-50); Monocytes % 6 % (2-9); Myelocytes % 1 (0-1); Neutrophils % 89 % (42-76); Platelet Estimate Slight Increase; RBC Morphology Normal; Total Cells Counted 100
--- NOTE | 2019-03-28 11:42 | HMH.PHACONS ---
- Pharmacy Consult Date: 03/28/19 Time: 11:42 Referring provider: DR. BLUM Reason for Consult:: VANCOMYCIN TROUGH LEVEL AND DOSE CHANGE Allergies and ADEs:: Allergies Allergy/AdvReac Type Severity Reaction Status Date / Time codeine [CODEINE] Allergy Unknown NAUSEA AND Verified 03/22/19 10:34 VOMITING ibuprofen [IBUPROFEN] Allergy Unknown I-HIVES Verified 03/22/19 10:34 meperidine [MEPERIDINE] Allergy Unknown INCREASED Verified 03/22/19 10:34 BLOOD PRESSURE Sulfa (Sulfonamide Allergy Unknown SKIN CRAWS Verified 03/22/19 10:34 Antibiotics) [SULFA (SULFONAMIDE ANTIBIOTICS)] adhesive tape AdvReac Intermediate I-RASH Verified 03/22/19 10:34 Home Medications:: Home Medications Medication Instructions Recorded Confirmed Type fluticasone propionate 250 1 inh INHALATION BID 05/21/18 03/22/19 History mcg/actuation blister powder for inhalation tiotropium 2.5 mcg-olodaterol 2.5 2 puff IH DAILY 05/21/18 03/23/19 History mcg/actuation mist for inhalation Atorvastatin Calcium [Atorvastatin 80 mg PO HS #60 tab 08/06/18 03/22/19 Rx 40mg Tab] lisinopriL [Lisinopril 10mg Tab] 10 mg PO BID #60 tab 08/06/18 03/22/19 Rx Amlodipine Besylate [Amlodipine 5 mg PO BID 08/08/18 03/22/19 History 5mg tab] Nystatin [Nystatin Susp 500,000 500,000 unit PO QID 02/16/19 03/22/19 History Units/5mL Udc] ALPRAZolam [Alprazolam 0.25mg 0.25 mg PO BIDP PRN 02/17/19 03/22/19 History Tab] Albuterol Sulfate [Proair Hfa 1 - 2 puff IH Q4HP PRN 02/17/19 03/22/19 History 90mcg/puff Inh] Fexofenadine/Pseudoephedrine 1 tab PO DAILY 02/17/19 03/22/19 History [Faiza-D 12 Hour Tablet] ondansetron HCL [Ondansetron 8mg 8 mg PO TIDP PRN 02/17/19 03/22/19 History Tablet] Clopidogrel Bisulfate [Plavix 75mg 75 mg PO DAILY 03/22/19 03/22/19 History Tab] Ipratropium/Albuterol Sulfate 3 ml IH QIDRT 03/22/19 03/22/19 History [Duoneb 3mL neb] Magnesium Oxide 400 mg PO DAILY 03/22/19 03/22/19 History Pantoprazole Sodium [Protonix 20mg 20 mg PO BID 03/22/19 03/22/19 History Tab] Sennosides/Docusate Sodium 1 tab PO HS 03/22/19 03/22/19 History [Senokot-S Tablet] Sertraline HCl [Zoloft] 50 mg PO DAILY 03/22/19 03/22/19 History guaiFENesin [Mucinex 600mg tablet] 600 mg PO BID 03/22/19 03/22/19 History Height: 1.63 m Weight: 46.89 kg Laboratory Results:: Laboratory Results - last 24 hr 03/28/19 05:50: WBC 16.0 H, RBC 3.51 L, Hgb 10.0 L, Hct 32.3 L, MCV 92.1, MCH 28.5, MCHC 30.9 L, RDW 15.7, Plt Count 464 H, MPV 7.8, Neut % (Auto) 92.2 H, Lymph % (Auto) 4.2 L, [place] % (Auto) 2.7, Eos % (Auto) 0.3, Baso % (Auto) 0.7, Neut # (Auto) 14.8 H, Lymph # (Auto) 0.7, [place] # (Auto) 0.4, Eos # (Auto) 0.0, Baso # (Auto) 0.1, Total Counted 100, Neutrophils % (Manual) 89 H, Lymphocytes % (Manual) 4 L, Monocytes % (Manual) 6, Myelocytes % 1, Platelet Estimate Slight increase, RBC Morphology Normal 03/28/19 05:50: Vancomycin Trough 2.5 L Medical History: Reports:: Cancer (Stage IV non-small cell carcinoma of the left lung), Carotid Stenosis, Chronic Obstructive Pulmonary Disease (COPD), Hyperlipidemia, Hypertension, Internal Pacemaker, Peripheral Vascular Disease Denies:: Diabetes Mellitus Type 1, Diabetes Mellitus Type 2, MRSA Assessment and Plan (1) Right upper lobe pneumonia Current visit: Yes Status: Acute Category: Medical Code(s): J18.9 - Pneumonia, unspecified organism (2) Dehydration Current visit: Yes Status: Resolved Category: Medical Code(s): E86.0 - Dehydration (3) Non-small cell carcinoma of left lung, stage 4 Current visit: Yes Status: Chronic Category: Medical Code(s): C34.92 - Malignant neoplasm of unspecified part of left bronchus or lung (4) Chronic respiratory failure Current visit: Yes Status: Chronic Category: Medical Code(s): J96.10 - Chronic respiratory failure, unspecified whether with hypoxia or hypercapnia (5) Hypotension Cu
--- NOTE | 2019-03-28 17:21 | DIET.NUTRFU ---
Poor improvement to appetite, intakes 50%, has developed adversity to meat. Other protein sources suggested. She will continue with protein shakes 2X/d. No weight changes. She has had 1 elevated BG-115. Will continue to monitor. Her poor appetite is rt cancer, encouraged pt to speak to MD about appetite stimulant if she continues to struggle at home and have given her diet education on high protein/calorie diet as well as my information to follow up with any concerns.
--- NOTE | 2019-03-28 19:49 | PC.NURSE ---
Remains on 4 L O2 per nasal cannula. Pt is very enthusiastic about possible DC tomorrow. Has required assistance w/ getting up from bed and commode, but ambulates very well w/ use of walker. Pt has spent much of the day up to chair. Denies SOA and states she has had a good day. VSS. Will continues to monitor.
[2019-03-29] VITALS: BP 166/78; PULSE 103; RESP 22; TEMP 36.9; O2SAT 96
[2019-03-29 04:00] VITALS: BP 153/75; PULSE 92; RESP 22; TEMP 36.5; O2SAT 92
--- NOTE | 2019-03-29 04:21 | PC.NURSE ---
PT. C/O H/A; TX WITH TYLENOL PER MAR; EFFECTIVENESS NOTED. PT. DID NOT TOLERATE AMBULATING WITH 3.5L NC (O2 SAT 87%), INCREASED BACK TO 4L NC (O2 SAT 90%).PT. AMBULATES WELL WITH 4L NC, AND DENIES SOA PRIOR, DURING, OR AFTER AMBULATION. PT. REPORTS INTERMITTENT NONPORDUCTIVE COUGH. NO C/O N/V/D, OR DIZZINESS.
[2019-03-29 05:00] VITALS: BMI 17.6
[2019-03-29 07:01] VITALS: PULSE 88; O2SAT 98
[2019-03-29 07:38] LABS: Basophils # 0.1 K/mm3 (0-0.2); Basophils % 0.6 % (0.1-2.0); Eosinophils % 0.2 % (0.1-12.0); Hematocrit 33.9 % (37.0-47.0); Hemoglobin 10.4 g/dL (12.2-16.2); Lymphocytes # 0.8 K/mm3 (0.7-4.5); Lymphocytes % 6.1 % (10-50); Mean Corpuscular HGB Conc 30.8 g/dL (31.8-35.4); Mean Corpuscular Hemoglobin 28.7 pg (27.0-31.2); Mean Corpuscular Volume 93.1 fl (81-99); Monocytes # 0.4 K/mm3 (0.1-1.0); Neutrophils # 11.3 K/mm3 (1.8-7.8); Neutrophils % 90.1 % (37.0-80.0); Platelet Count 530 K/mm3 (142-424); Red Blood Count 3.64 M/mm3 (4.20-5.40); Red Cell Distribution Width 15.7 % (11.5-17.5); White Blood Count 12.5 K/mm3 (4.8-10.8)
[2019-03-29 07:42] LABS: MANUAL DIFFERENTIAL MANUAL DIFFERENTIAL (MANUAL DIFF)
[2019-03-29 08:00] VITALS: BP 162/87; PULSE 94; RESP 16; TEMP 36.7; O2SAT 95
--- NOTE | 2019-03-29 08:13 | HMH.DCSUM ---
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 Patient reports that yesterday evening she began to feel rather tired and weak. By this morning she was so weak she could not sit up in bed without assistance. That was when she was brought to the emergency department. Patient however denies any increase in shortness of breath or cough above baseline. On presentation to the emergency department patient was hypoxic with O2 sat in the 70s and work-up was revealed a right upper lobe pneumonia. Patient has been admitted and placed on broad-spectrum antibiotics. Patient was admitted at this facility 1 month ago for COPD exacerbation with suspicious right lower lobe infiltrate. Patient completed antibiotics and once she was weaned from the Vapotherm device to nasal cannula she was transferred to [facility] where she underwent both physical and pulmonary rehabilitation. Patient was discharged from that facility on March 09. Patient was seen in my office on March 20 and at that time reported no complaints. Even at the time of this interview the patient denies fevers and reports that she was cold the night prior to admission but responded well to an electric blanket. Hospital Course Hospital Course: Patient was admitted and placed on broad-spectrum antibiotics due to recent hospitalizations increasing potential for Pseudomonas. Unfortunately patient was never able to produce sputum that grew any bacteria. She remained on broad-spectrum antibiotics for the entire hospitalization. Patient showed gradual improvement in her dyspnea while hospitalized. After completing a 7-day course of intravenous antibiotics patient was discharged home. During the early parts of patient's hospitalization the pneumonia also aggravated the patient's underlying COPD and she was started on intravenous Solu-Medrol along with aerosols. Mucomyst was used to try to help with sputum clearance. As wheezing improved steroids were weaned. Patient has underlying lung cancer and a CT scan on admission showed slight decrease in size of the mass compared to previous scans. Patient will have follow-up with oncology. On March 29 patient had completed 7 days of IV antibiotics. She was discharged home with continued steroid taper. Patient will follow-up in the office in approximately 1 week Objective Vital signs: Temp Pulse Resp BP Pulse Ox 97.7 F 88 22 153/75 H 98 03/29/19 04:00 03/29/19 07:01 03/29/19 04:00 03/29/19 04:00 03/29/19 07:01 no acute distress - *Routine Respiratory Exam Comments: Distant breath sounds but clear in all lung crow except the right base which has faint rales - *Routine Cardiovascular Exam Present: RRR, Normal S1, Normal S2 - *Routine Extremities Exam Absent: edema Results Labs on day of discharge: Labs from last 24 hours 03/29/19 03/28/19 06:15 05:50 WBC 12.5 H RBC 3.64 L Hgb 10.4 L Hct 33.9 L MCV 93.1 MCH 28.7 MCHC 30.8 L RDW 15.7 Plt Count 530 H MPV 8.0 Neut % (Auto) 90.1 H Lymph % (Auto) 6.1 L [place] % (Auto) 3.0 Eos % (Auto) 0.2 Baso % (Auto) 0.6 Neut # (Auto) 11.3 H Lymph # (Auto) 0.8 [place] # (Auto) 0.4 Eos # (Auto) 0.0 Baso # (Auto) 0.1 Total Counted 100 Neutrophils % (Manual) 89 H Lymphocytes % (Manual) 4 L Monocytes % (Manual) 6 Myelocytes % 1 Platelet Estimate Slight increase RBC Morphology Normal DS: Diagnosis - Discharge Diagnosis (1) Right upper lobe pneumonia Status: Acute (2) Dehydration Status: Resolved (3) Non-small cell carcinoma of left lung, stage 4 Status: Chronic (4) Chronic respiratory failure Status: Chronic (5) Hypotension Status: Resolved (6) Hypoxia Status: Chronic (7) Dependen
--- NOTE | 2019-03-29 08:19 | PC.NURSE ---
Nurse notified about elevated BP
[2019-03-29 09:00] LABS: Eosinophils % 1 % (0-3); Lymphocytes % 8 % (10-50); Monocytes % 3 % (2-9); Neutrophils % 88 % (42-76); Nucleated Red Blood Cells 2; Total Cells Counted 100
[2019-03-29 09:17] LABS: Platelet Estimate Slight Increase
[2019-03-29 09:18] LABS: Hypochromasia 1+
== END 2019-03-29 10:09 | disposition home or self-care (01) | DRG 194 ==
LOC: ER 12:06 → 2ND 12:21
PROVIDERS: Admitting Provider Family Medicine; Emergency Provider Emergency Medicine; PCP Family Medicine; Visit Provider Family Medicine
DX: J18.9 Pneumonia, unspecified organism (principal); C34.2 Malignant neoplasm of middle lobe, bronchus or lung; J96.11 Chronic respiratory failure with hypoxia; J90 Pleural effusion, not elsewhere classified; B37.0 Candidal stomatitis; Z99.81 Dependence on supplemental oxygen; E86.0 Dehydration; D63.0 Anemia in neoplastic disease; D64.81 Anemia due to antineoplastic chemotherapy; I10 Essential (primary) hypertension; E78.5 Hyperlipidemia, unspecified; Z95.5 Presence of coronary angioplasty implant and graft; Z87.891 Personal history of nicotine dependence; Z82.49 Family history of ischemic heart disease and other diseases of the circulatory system; I95.9 Hypotension, unspecified; Z88.8 Allergy status to other drugs, medicaments and biological substances; Z88.2 Allergy status to sulfonamides; Z88.5 Allergy status to narcotic agent; Z79.51 Long term (current) use of inhaled steroids; Z79.52 Long term (current) use of systemic steroids; Z79.899 Other long term (current) drug therapy
CPT/HCPCS: 36415; 71045; 71046; 71260; 80048; 80053; 80202; 81001; 83605; 84484; 85007; 85014; 85018; 85025; 86850; 87040; 87070; 87205; 87275; 87276; 93005; 94640; 94761; 96365; 96367; 96375; 97116; 97162; 99285; J1956; J2543; J3370; P9016; Q9967

== ENCOUNTER → 2019-04-11 14:29 | Outpatient (CLI) | payer MEDICARE, OTHER, SELFPAY ==
--- NOTE | 2019-04-11 14:36 | XR_ITS ---
PROCEDURE: XR CHEST 2V CLINICAL HISTORY: SOB,COPD COMPARISON: XR CHEST PORTABLE from 02/16/2019 XR CHEST PORTABLE from 03/22/2019 CT CHEST W CON from 03/22/2019 XR CHEST 2V from 03/25/2019 FINDINGS: The cardiomediastinal silhouette and pulmonary vascularity are within normal limits. There is continued severe COPD with bilateral airspace opacities consistent with active pneumonia and/or pulmonary edema. There is a focal increased consolidation of opacities in the right upper lung field with some relative decrease in the consolidation of the right lung base. There is decreasing opacity in the immediate left perihilar region but focal opacity in the lateral left mid lung field appears increased. There is continued blunting of both costophrenic angles likely due to pleural effusions. No acute bony abnormalities. IMPRESSION: Continued pulmonary opacities suspicious for pneumonia slightly increased in right upper lung field and lateral left mid lung field with decrease in the immediate left perihilar region and right lung base. Continued follow-up is recommended to document complete resolution in attempt to confirm benign etiology. Dictated by: Jeremias Ly 04/12/2019 10:12 Electronically signed by Jeremias Ly in [place] 04/12/2019 10:12
== END ==
PROVIDERS: PCP Family Medicine; Visit Provider Family Medicine
DX: C34.12 Malignant neoplasm of upper lobe, left bronchus or lung (principal); R06.02 Shortness of breath; J44.9 Chronic obstructive pulmonary disease, unspecified
CPT/HCPCS: 71046

== ENCOUNTER → 2019-06-02 11:36 | Outpatient (CLI) | payer MEDICARE, OTHER, SELFPAY ==
[2019-06-02 13:30] LABS: Chloride 86 mmol/L (98-107); Potassium 4.5 mmoL/L (3.5-5.1); Sodium 134 mmol/L (136-145)
[2019-06-02 13:32] LABS: Alanine Aminotransferase 36 U/L (12-78); Aspartate Amino Transferase 29 U/L (14-36); Blood Urea Nitrogen 17 mg/dl (7-17); Estimated Glomerular Filt Rate 155 ml/min (>60); GFR (African American) 188 ML/MIN (>60)
[2019-06-02 13:33] LABS: Albumin Level 2.9 g/dl (3.5-5.0); Albumin/Globulin Ratio 1.2 (1.1-1.8); Alkaline Phosphatase 72 U/L (38-126); Bilirubin,Total 0.4 mg/dl (0.2-1.3); Calcium 8.9 mg/dl (8.4-10.2); Globulin 2.5 g/dL (1.3-3.2); Glucose 101 mg/dl (74-100); Total Protein,Serum 5.4 g/dl (6.3-8.2)
[2019-06-02 14:02] LABS: Anion Gap 9.5 mEq/L (5-15); Carbon Dioxide 43 mmol/L (22.0-30.0)
== END ==
PROVIDERS: Visit Provider Physical Medicine & Rehabilitation
DX: I25.10 Atherosclerotic heart disease of native coronary artery without angina pectoris (principal)
CPT/HCPCS: 80053

== ENCOUNTER → 2019-06-09 12:56 | Outpatient (CLI) | payer MEDICARE, OTHER, SELFPAY ==
[2019-06-09 13:21] LABS: Basophils % 0.3 % (0.1-2.0); Eosinophils # 0.1 K/mm3 (0.0-0.4); Eosinophils % 0.9 % (0.1-12.0); Hematocrit 28.8 % (37.0-47.0); Hemoglobin 8.7 g/dL (12.2-16.2); Mean Corpuscular HGB Conc 30.3 g/dL (31.8-35.4); Mean Corpuscular Hemoglobin 28.5 pg (27.0-31.2); Mean Corpuscular Volume 94.2 fl (81-99); Mean Platelet Volume 7.8 fl (7.4-10.4); Monocytes # 0.5 K/mm3 (0.1-1.0); Monocytes % 3.2 % (1.7-9.3); Neutrophils # 12.5 K/mm3 (1.8-7.8); Neutrophils % 88.8 % (37.0-80.0); Platelet Count 455 K/mm3 (142-424); Red Blood Count 3.05 M/mm3 (4.20-5.40); Red Cell Distribution Width 16.9 % (11.5-17.5); White Blood Count 14.1 K/mm3 (4.8-10.8)
[2019-06-09 13:25] LABS: MANUAL DIFFERENTIAL MANUAL DIFFERENTIAL (MANUAL DIFF)
[2019-06-09 14:34] LABS: Chloride 88 mmol/L (98-107); Potassium 4.4 mmoL/L (3.5-5.1); Sodium 133 mmol/L (136-145)
[2019-06-09 14:37] LABS: Alanine Aminotransferase 21 U/L (12-78); Albumin Level 2.8 g/dl (3.5-5.0); Albumin/Globulin Ratio 1.1 (1.1-1.8); Alkaline Phosphatase 74 U/L (38-126); Aspartate Amino Transferase 25 U/L (14-36); Bilirubin,Total 0.3 mg/dl (0.2-1.3); Blood Urea Nitrogen 16 mg/dl (7-17); Estimated Glomerular Filt Rate 155 ml/min (>60); GFR (African American) 188 ML/MIN (>60); Globulin 2.5 g/dL (1.3-3.2); Glucose 135 mg/dl (74-100); Total Protein,Serum 5.3 g/dl (6.3-8.2)
[2019-06-09 14:38] LABS: Anion Gap 9.4 mEq/L (5-15); Calcium 9.3 mg/dl (8.4-10.2)
[2019-06-09 14:42] LABS: Erythrocyte Sedimentation Rate 87 mm/hr (0-30)
[2019-06-09 14:43] LABS: C-Reactive Protein 43.3 mg/L (0-4)
[2019-06-09 15:59] LABS: Eosinophils % 1 % (0-3); Hypochromasia 1+; Lymphocytes % 8 % (10-50); Monocytes % 3 % (2-9); Neutrophils % 88 % (42-76); Total Cells Counted 100
[2019-06-09 16:03] LABS: Platelet Estimate Marked Increase
[2019-10-27 14:34] LABS: Carbon Dioxide 40 mmol/L (22.0-30.0)
== END ==
PROVIDERS: Visit Provider Internal Medicine Infectious Disease
DX: C34.90 Malignant neoplasm of unspecified part of unspecified bronchus or lung (principal)
CPT/HCPCS: 80053; 85007; 85025; 85651; 86140

== ENCOUNTER → 2019-06-17 13:44 | Outpatient (CLI) | payer MEDICARE, OTHER, SELFPAY ==
[2019-06-17 14:35] LABS: Basophils # 0.1 K/mm3 (0-0.2); Basophils % 0.6 % (0.1-2.0); Eosinophils # 0.1 K/mm3 (0.0-0.4); Hematocrit 30.2 % (37.0-47.0); Lymphocytes # 1.1 K/mm3 (0.7-4.5); Lymphocytes % 12.7 % (10-50); Mean Corpuscular HGB Conc 29.7 g/dL (31.8-35.4); Mean Corpuscular Hemoglobin 28.3 pg (27.0-31.2); Mean Corpuscular Volume 95.4 fl (81-99); Monocytes # 0.4 K/mm3 (0.1-1.0); Monocytes % 4.2 % (1.7-9.3); Neutrophils # 7.3 K/mm3 (1.8-7.8); Neutrophils % 81.5 % (37.0-80.0); Platelet Count 470 K/mm3 (142-424); Red Blood Count 3.17 M/mm3 (4.20-5.40); Red Cell Distribution Width 16.9 % (11.5-17.5); White Blood Count 8.9 K/mm3 (4.8-10.8)
[2019-06-17 14:50] LABS: Chloride 92 mmol/L (98-107); Potassium 4.1 mmoL/L (3.5-5.1); Sodium 136 mmol/L (136-145)
[2019-06-17 14:53] LABS: Alanine Aminotransferase 28 U/L (12-78); Albumin Level 2.9 g/dl (3.5-5.0); Albumin/Globulin Ratio 0.9 (1.1-1.8); Alkaline Phosphatase 101 U/L (38-126); Aspartate Amino Transferase 37 U/L (14-36); Bilirubin,Total 0.4 mg/dl (0.2-1.3); Blood Urea Nitrogen 11 mg/dl (7-17); Calcium 10.5 mg/dl (8.4-10.2); Estimated Glomerular Filt Rate 120 ml/min (>60); GFR (African American) 145 ML/MIN (>60); Globulin 3.1 g/dL (1.3-3.2); Glucose 200 mg/dl (74-100)
[2019-06-17 15:00] LABS: Anion Gap 11.1 mEq/L (5-15); Carbon Dioxide 37 mmol/L (22.0-30.0)
[2019-06-17 15:09] LABS: Erythrocyte Sedimentation Rate 124 mm/hr (0-30)
[2019-06-18 11:08] LABS: MANUAL DIFFERENTIAL MANUAL DIFFERENTIAL (MANUAL DIFF)
[2019-06-18 13:45] LABS: Eosinophils % 1 % (0-3); Lymphocytes % 14 % (10-50); Monocytes % 7 % (2-9); Neutrophils % 78 % (42-76); Total Cells Counted 100
[2019-06-18 13:46] LABS: Hypochromasia 1+
[2019-06-18 13:47] LABS: Platelet Estimate Slight Increase
== END ==
PROVIDERS: Visit Provider Physical Medicine & Rehabilitation
DX: D64.9 Anemia, unspecified (principal)
CPT/HCPCS: 80053; 85007; 85014; 85018; 85025; 85048; 85049; 85651

== ENCOUNTER 2019-06-27 15:00 | Outpatient (CLI) | payer MEDICARE, OTHER, SELFPAY ==
[2019-06-27 15:25] VITALS: BP 141/76; PULSE 88; RESP 24; TEMP 36.5; O2SAT 98
[2019-06-27 15:40] VITALS: BP 151/70; PULSE 88; RESP 24; O2SAT 100
== END 2019-06-27 15:55 | disposition home or self-care (01) ==
LOC: INF 15:03
PROVIDERS: Visit Provider Family Medicine
DX: E83.52 Hypercalcemia (principal)
CPT/HCPCS: 96374; J3489

== ENCOUNTER 2019-07-06 15:12 | Inpatient (IN) | payer MEDICARE, OTHER, SELFPAY ==
[2019-07-06 15:15] VITALS: BP 174/79; PULSE 98; RESP 23; TEMP 37.5; O2SAT 90; BMI 21.2
--- NOTE | 2019-07-06 15:32 | XR_ITS ---
PROCEDURE: XR CHEST PORTABLE Patient Age:74Y CLINICAL HISTORY: SOA Severe dyspnea patient with lung cancer COMPARISON: XR CHEST PORTABLE from 04/22/2019 XR CHEST PORTABLE from 05/04/2019 CT ANGIO CHEST from 05/05/2019 XR CHEST PORTABLE from 06/02/2019 FINDINGS: AP portable upright CXR performed comparison is made to prior May and April 2019 CXR studies. As well as a CT chest from April This patient has multiple chronic changes LEFT CHEST. New left basilar infiltrate.. dense area consolidation is now seen the medial left lung retrocardiac region. This prominent infiltrate is clearly the most significant new finding. The airspace disease obscures the descending aorta and medial aspect left hemidiaphragm There is also additional density seen at the periphery of the left mid lung. Initially question patchy airspace disease but on further further review of prior studies this may reflect increased pleural fluid within the major fissure extending laterally. I would note that there is area of focal pleural thickening associated laterally, in the atelectasis from left lower lobe may inferiorly displaced the previously noted density at left midlung. COPD again noted with hyperexpansion, most evident at the left upper lung. Superior left lung field remains clear RIGHT CHEST abundant chronic changes on right appears similar to previous study Airspace disease and right pleural effusion yield stable density at right lung base The prominent right crystal is similar to previous studies if not incrementally more pronounced. Apical pleural density, scarring and retraction areas at the apex and right upper lung field appear stable. The heart is upper normal in size. Borderline cardiomegaly. Calcified aortic knob. Small bilateral pleural effusions likely present blunting CP angles IMPRESSION: 1. New prominent dense area consolidation right lung base, medial LLL-has developed since prior studies . 2. Density left mid lung may reflect additional minimal patchy infiltrate, but I suspect for the most part this density reflects increased fluid which extends along the major fissure laterally reflection-where there is focal pleural thickening/fluid noted 3.Abundant chronic findings at the Right Lung Appear Stable. . Stable consolidation and pleural fluid right lung base. . Stable scarring and densities at the right upper lung and apex 4 Enlarged right crystal similar to previous 06/02/2019 study Dictated by: Desmond Avelar MD 07/06/2019 16:47 Electronically signed by Desmond Avelar MD in [place] 07/06/2019 16:47
[2019-07-06 15:50] LABS: Basophils # 0.3 K/mm3 (0-0.2); Basophils % 0.8 % (0.1-2.0); Eosinophils # 0.1 K/mm3 (0.0-0.4); Eosinophils % 0.3 % (0.1-12.0); Hematocrit 29.1 % (37.0-47.0); Lymphocytes # 0.9 K/mm3 (0.7-4.5); Lymphocytes % 2.7 % (10-50); Mean Corpuscular Hemoglobin 28.4 pg (27.0-31.2); Mean Corpuscular Volume 91.7 fl (81-99); Mean Platelet Volume 8.3 fl (7.4-10.4); Monocytes % 3.3 % (1.7-9.3); Neutrophils % 92.9 % (37.0-80.0); Platelet Count 531 K/mm3 (142-424); Red Blood Count 3.17 M/mm3 (4.20-5.40); Red Cell Distribution Width 18.2 % (11.5-17.5); White Blood Count 31.2 K/mm3 (4.8-10.8)
[2019-07-06 15:58] LABS: MANUAL DIFFERENTIAL MANUAL DIFFERENTIAL (MANUAL DIFF)
[2019-07-06 16:01] LABS: Chloride 94 mmol/L (98-107); Sodium 136 mmol/L (136-145)
[2019-07-06 16:02] LABS: Potassium 4.6 mmoL/L (3.5-5.1); Strep Scrn Group A (Rapid) Negative (Negative)
[2019-07-06 16:04] LABS: Alanine Aminotransferase 14 U/L (12-78); Albumin Level 3.3 g/dl (3.5-5.0); Alkaline Phosphatase 74 U/L (38-126); Anion Gap 12.6 mEq/L (5-15); Aspartate Amino Transferase 22 U/L (14-36); Bilirubin,Total 0.3 mg/dl (0.2-1.3); Blood Urea Nitrogen 9 mg/dl (7-17); Carbon Dioxide 34 mmol/L (22.0-30.0); Creatinine Clearance Estimated 41 mL/min (50-200); Estimated Glomerular Filt Rate 120 ml/min (>60); GFR (African American) 145 ML/MIN (>60); Globulin 3.3 g/dL (1.3-3.2); Glucose 137 mg/dl (74-100); Lactic Acid 1.5 mmol/L (0.7-2.1); Total Protein,Serum 6.6 g/dl (6.3-8.2)
[2019-07-06 16:10] LABS: C-Reactive Protein 40.6 mg/L (0-4)
[2019-07-06 16:13] LABS: Acanthocytes 1+; Lymphocytes % 11 % (10-50); Monocytes % 3 % (2-9); Neutrophils % 86 % (42-76); Platelet Estimate Moderate Increase; Poikilocytosis 2+; Schistocytes 1+; Total Cells Counted 100
[2019-07-06 16:16] LABS: ABG Base Excess 4.2 mmol/L (-2.4-2.3); ABG HCO3 28.8 mmhg (22.0-26.0); ABG Oxygen Saturation 99 % (90-100); ABG PCO2 45.9 mmhg (35.0-45.0); ABG PH 7.42 mmol/L (7.35-7.45); ABG PO2 152.2 mmhg (80-100); ABG TCO2 30.2 mmhg (23-27)
[2019-07-06 16:18] LABS: Allen's Test Acceptable; Source Right Radial
--- NOTE | 2019-07-06 16:23 | CT_ITS ---
PROCEDURE: CT CHEST WO CON Patient Age:74Y CLINICAL INDICATION: LUNG CANCER. Dyspnea and leukocytosis. Lung cancer severe dyspnea COMPARISON: CT CHEST W CON from 03/22/2019 CT ANGIO CHEST from 05/05/2019 TECHNIQUE: No IV contrast utilized. Helical axial images obtained with sagittal and coronal reformats. All CT scans at the facility use one or more dose reduction, viz: automated exposure control, ma/kV adjustment per patient size (including targeted exams where dose is matched to indication, i.e. head), or iterative reconstruction technique. FINDINGS: LEFT CHEST.. Progression of the left pleural effusion. Progressive consolidation, progressive infiltrate volume loss throughout the LLL-mainly involving the posterior aspect the left lower lobe vs April 2019 CT chest. The there is additional fluid tracking along the lateral aspect of the major fissure and accounting for the area of pleural thickening at the lateral left chest.. Left upper lobe remains a a clear hyperexpanded emphysematous changes. There is actually been some improvement of minimal prior infiltrate along posterior aspect the left upper lobe since April . RIGHT CHEST overall findings with slight improvement in regression right chest since April However there does appear to be a persistent 3.7 cm cavitary area at the posterior RUL with air-fluid level again noted. A similar size appearance to April old conceivably could reflect an abscess that remains fairly stable less reactive changes about it. Riding of other cavitary lesions considered including infected bleb or chronic aspergilloma with air-fluid level briefly considered Is seen at the reactive changes and pneumonia anterior to this area are less pronounced on sagittal and axial images today. Slight improvement in this regard. Right lower lobe. The consolidation and airspace disease at along the posterior aspect right lower lobe has shown improvement since April continues see air bronchograms here I and persistent consolidation but overall improvement. Small right pleural effusion. The prominent hyperexpansion emphysematous changes seen at the anterior RLL. There are some focal soft tissue density at the right CP angle has shown slight progression and now measures 3.2 cm of previously 2 point 3 cm. Cannot exclude a metastatic lesion but 8 mm Is small 8 mm pleural based nodule pleural-based density axial image 52 has revealed itself but not seen previously but these of along with other features will require ongoing follow-up but There shift of mediastinum to the right due to the scarring at the right upper lung. The prominence of the right crystal appears unchanged and not well delineated due the lack of IV contrast but I see no significant additional adenopathy however. A collection of generous subcarinal lymph nodes appear stable but Extensive coronary artery calcification along with likely stents but no pericardial effusion. Upper abdomen. The left adrenal enlargement, nodule again noted no significant change in April is.. Nonspecific but fairly low-density on this noncontrast which this could reflect a nonfunctioning adenoma.. Shrunken left kidney. . Old compression fractures superior T4. There is now mild superior endplate compression at T6 IMPRESSION: 1. Background of COPD and prominent emphysematous changes. Progression of pleural fluid left lower lobe infiltrate on left. Slight overall improvement on right when compared to April LEFT CHEST Significant progressive consolidation left lower lobe-involves much of the LLL but most pronounced posteriorly. Increased pleural fluid throughout the posterior le
[2019-07-06 16:40] LABS: Erythrocyte Sedimentation Rate > 140 mm/hr (0-30)
--- NOTE | 2019-07-06 17:28 | HMH.EDSOB ---
ED Disposition Clinical Impression: Hypertension, Lung cancer, Pneumonia, Leukocytosis, Non-small cell carcinoma of left lung, stage 4, Dependence on continuous supplemental oxygen, COPD (chronic obstructive pulmonary disease), PAD (peripheral artery disease) Disposition: Admitted as Observation Condition on Discharge: Good Additional Instructions: Spoke to Dr. Street for admission for this patient. Referrals: Celestino Adams MD [Primary Care Provider] - - Critical Care Critical Care Time: No Attestation: On 07/06/19, the high probability of a clinically significant, sudden or life threatening deterioration of the following system(s) required my full and direct attention, intervention and personal management. The time I documented below is in addition to time spent performing reported procedures but includes the following listed in this critical care notation. Medical Decision Making - Medical Records Medical records reviewed: Yes: I reviewed the patient's medical records. - Koko Inquiry Pt receiving controlled substance: No Vital Signs: 07/06/19 15:15 Temperature 99.5 F Temperature Source Oral Pulse Rate [Right] 98 H Respiratory Rate 23 Blood Pressure [Right Arm] 174/79 H Blood Pressure Mean [Right Arm] 110 02 Sat by Pulse Oximetry 90 L Oxygen Delivery Method Nasal Cannula Oxygen Flow Rate (LPM) 5 - Lab Data Lab results reviewed: Yes: I reviewed the patient's lab results. Lab Results 07/06/19 15:35: WBC 31.2 H*, RBC 3.17 L, Hgb 9.0 L, Hct 29.1 L, MCV 91.7, MCH 28.4, MCHC 31.0 L, RDW 18.2 H, Plt Count 531 H, MPV 8.3, Neut % (Auto) 92.9 H, Lymph % (Auto) 2.7 L, [place] % (Auto) 3.3, Eos % (Auto) 0.3, Baso % (Auto) 0.8, Neut # (Auto) 29.0 H, Lymph # (Auto) 0.9, [place] # (Auto) 1.0, Eos # (Auto) 0.1, Baso # (Auto) 0.3 H, Total Counted 100, Neutrophils % (Manual) 86 H, Lymphocytes % (Manual) 11, Monocytes % (Manual) 3, Platelet Estimate Moderate increase, Poikilocytosis 2+, Acanthocytes (Spur) 1+, Schistocytes 1+, ESR > 140 H 07/06/19 15:35: Sodium 136, Potassium 4.6, Chloride 94 L, Carbon Dioxide 34 H, Anion Gap 12.6, BUN 9, Creatinine 0.50 L, Estimated Creat Clear 41, Estimated GFR 120, Est GFR ( Amer) 145, Glucose 137 H, Calcium 8.0 L, Total Bilirubin 0.3, AST 22, ALT 14, Alkaline Phosphatase 74, C-Reactive Protein 40.6 H, Total Protein 6.6, Albumin 3.3 L, Globulin 3.3 H, Albumin/Globulin Ratio 1.0 L 07/06/19 15:35: Lactate 1.5 07/06/19 15:35: Influenza Type A Ag Negative, Influenza Type B Ag Negative 07/06/19 15:35: Group A Strep Rapid Negative 07/06/19 16:10: Specimen Source Right radial, O2 % 40% nc, ABG pH 7.42, ABG pCO2 45.9 H, ABG pO2 152.2 H, ABG HCO3 28.8 H, ABG Total CO2 30.2 H, ABG O2 Saturation 99, ABG Base Excess 4.2 H, Melvin Test Acceptable Result diagrams: 07/06/19 15:35 07/06/19 15:35 Orders (Tests/Meds): ED MEDICATIONS Generic Name Dose Route Start Last Admin Trade Name Freq PRN Reason Stop Dose Admin Sodium Chloride 1,000 mls @ 999 mls/hr 07/06/19 15:45 Sod Chlor 0.9% 1000ml Bag IV 07/06/19 16:45 .Q1H1M LAURA Discontinued Medications Generic Name Dose Route Start Last Admin Trade Name Freq PRN Reason Stop Dose Admin Albuterol/Ipratropium 1 puff 07/06/19 15:34 07/06/19 15:40 Combivent Respimat 20mcg/100mcg Inhaler IH 07/06/19 15:35 2 mcg ONCE ONE Administration Miscellaneous 1 unit 07/06/19 15:34 07/06/19 15:40 Aerochamber/Optihaler MC 07/06/19 15:35 1 unit ONCE ONE Administration ORDERS Category Date Time Status CT chest wo con Stat Cat Scan 07/06/19 16:23 Taken Blood Culture Stat Micro 07/06/19 15:35 Received Strep Screen Confirmation Stat Micro 07/06/19 15:35 Received ABG [Arterial Blood Gas] Stat RT 07/06/19 15:33 Ordered - Radiology Data #1 Image(s): Chest Image Reviewed: Yes I reviewed the patient's radiology results Preliminary Findings: Abnormal (Patient has a metal L left lower lobe pneumonia. She also
[2019-07-06 17:46] VITALS: BMI 15.1
[2019-07-06 17:54] VITALS: BP 125/85; PULSE 98; RESP 23; TEMP 37.2; O2SAT 94
[2019-07-06 20:00] VITALS: BP 114/60; PULSE 80; RESP 16; TEMP 36.5; O2SAT 99
[2019-07-06 20:53] VITALS: PULSE 78
[2019-07-06 20:54] VITALS: PULSE 80
[2019-07-07] VITALS (12 sets, daily range): BP systolic 119–150; BP diastolic 57–81; PULSE 87–125; RESP 16–20; TEMP 36.7–37.4; O2SAT 90–100; BMI 15.5
--- NOTE | 2019-07-07 05:53 | PC.NURSE ---
A&OX3. 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 LUNGS NOTED WITH POSTERIOR SCATTERED FINE CRACKLES. TOLERATED 5LNC WELL. PT'S BASELINE IS WEARING 5-6LNC AT HOME. ABDOMEN FLAT, ACTIVE BOWEL SOUNDS, SOFT AND NONTENDER PER PALPATION. PULSES +2, CAP REFILL <3 SEC. ATIVAN ADMINISTERED ONCE THIS SHIFT PER MAR FOR FEELING UPSET. ON REASSESSMENT PT WAS NOTED RESTING IN BED WITH EYES CLOSED. USES WHEEL CHAIR AND ASSIST X1 WITH TRANSFERS TO BATHROOM. 2CM X 2CM ULCER NOTED ON COCCYX AREA, POLYNEM APPLIED, REMAINED CDI THIS SHIFT. ENCOURAGED TO TURN AND REPOSITION Q2H, BED MOBILITY IS INDEPENDENT. VSS. WILL CONTINUE TO MONITOR.
[2019-07-07 05:58] LABS: Basophils # 0.1 K/mm3 (0-0.2); Basophils % 0.4 % (0.1-2.0); Eosinophils % 0.1 % (0.1-12.0); Hemoglobin 8.2 g/dL (12.2-16.2); Lymphocytes # 0.6 K/mm3 (0.7-4.5); Lymphocytes % 2.3 % (10-50); Mean Corpuscular HGB Conc 30.4 g/dL (31.8-35.4); Mean Corpuscular Hemoglobin 27.9 pg (27.0-31.2); Mean Corpuscular Volume 91.8 fl (81-99); Monocytes # 0.3 K/mm3 (0.1-1.0); Monocytes % 0.9 % (1.7-9.3); Neutrophils # 26.6 K/mm3 (1.8-7.8); Neutrophils % 96.3 % (37.0-80.0); Platelet Count 460 K/mm3 (142-424); Red Blood Count 2.95 M/mm3 (4.20-5.40); Red Cell Distribution Width 18.1 % (11.5-17.5)
[2019-07-07 06:03] LABS: Hematocrit 27.1 % (37.0-47.0); White Blood Count 27.6 K/mm3 (4.8-10.8)
[2019-07-07 06:04] LABS: MANUAL DIFFERENTIAL MANUAL DIFFERENTIAL (MANUAL DIFF)
[2019-07-07 06:07] LABS: Chloride 98 mmol/L (98-107); Potassium 4.8 mmoL/L (3.5-5.1); Sodium 132 mmol/L (136-145)
[2019-07-07 06:09] LABS: Blood Urea Nitrogen 8 mg/dl (7-17); Creatinine Clearance Estimated 33 mL/min (50-200); Estimated Glomerular Filt Rate 155 ml/min (>60); GFR (African American) 188 ML/MIN (>60)
[2019-07-07 06:10] LABS: Alanine Aminotransferase 10 U/L (12-78); Alkaline Phosphatase 72 U/L (38-126); Anion Gap 4.8 mEq/L (5-15); Aspartate Amino Transferase 20 U/L (14-36); Bilirubin,Total 0.2 mg/dl (0.2-1.3); Calcium 7.5 mg/dl (8.4-10.2); Carbon Dioxide 34 mmol/L (22.0-30.0); Globulin 3.1 g/dL (1.3-3.2); Glucose 115 mg/dl (74-100); Total Protein,Serum 6.1 g/dl (6.3-8.2)
[2019-07-07 06:14] LABS: Lymphocytes % 5 % (10-50); Neutrophils % 88 % (42-76); Total Cells Counted 100
[2019-07-07 06:15] LABS: Platelet Estimate Slight Increase
[2019-07-07 06:16] LABS: Hypochromasia 3+
[2019-07-07 06:17] LABS: Anisocytosis 2+; Microcytosis 1+
--- NOTE | 2019-07-07 07:27 | HMH.HP ---
*Admission Date: 07/07/19 *Chief complaint: Shortness of breath *History of present illness: 74-year-old female with stage IV lung cancer presented to the emergency department with approximately 2 days of progressive dyspnea primarily with exertion. Patient is oxygen dependent at home and usually has her concentrator set at 5 L/min flow of oxygen. She had noticed over the previous 48 hours increasing shortness of breath with exertion. Patient is scheduled for thoracentesis at [facility] to be performed on July 13 and admits she was afraid that if there was something significant going on she would not be able to have her procedure therefore she sought treatment at the emergency department. Apparently plan was for thoracentesis and she will begin Keytruda here in the near future. Patient admits to shortness of breath but no fevers. Her cough is chronically productive of yellow sputum. She has had some chills. Other than her recent doctors appointments she has not been outside of her home and is following social distancing measures during the current coronavirus pandemic [facility] History I have reviewed the patient's past medical history: Yes Medical History: Reports:: Arrhythmia, Cancer (Lung cancer), Carotid Stenosis, Chronic Obstructive Pulmonary Disease (COPD), Coronary Artery Disease, Hyperlipidemia, Hypertension, Internal Pacemaker, Myocardial Infarction, Peripheral Artery Disease, Peripheral Vascular Disease Denies:: Diabetes Mellitus Type 1, Diabetes Mellitus Type 2, MRSA *Have you ever received a pneumonia vaccine?: Yes *Have you received a flu vaccine this season?: Yes Other Medical History: Reports: Anemia, Cataracts, Chemotherapy, Radiation Therapy Other Surgeries: Yes: Appendectomy, Cardiac Catheterization, Colonoscopy, Coronary Stent, , Dilation and Curettage, EGD, Pacemaker, Other (Cleaning of carotid artery) Amputation: No Fractures: No - *Social History Smoking Status: Former smoker Tobacco Type: cigarettes # Packs/Day (cigarettes): 1 #Yrs smoked (if former smoker): 50 Alcohol Intake: never Alcohol Intake Frequency:: holidays/special occasions only Substance Use Type: denies use *Occupational Status:: disabled Housing: house Household Members: spouse *Travel in the last 8 weeks: None Family Hx:: Anemia, Cancer, Heart Attack, Hyperlipidemia, Hypertension, Kidney Disease, Stroke Review of Systems - Constitutional Reports chills, Denies body ache(s), Denies fever(s), Denies headache(s), Denies night sweats, Denies weakness - *Cardiovascular Denies chest pain, Denies chest pain at rest - *Respiratory Reports cough, Reports shortness of breath, Denies change in phlegm color, Denies chest congestion, Denies shortness of breath with activity Meds Home Medications Medication Instructions Recorded Confirmed Type fluticasone propionate 250 1 inh INHALATION BID 05/21/18 07/06/19 History mcg/actuation blister powder for inhalation lisinopriL [Lisinopril 10mg Tab] 10 mg PO BID #60 tab 08/06/18 07/06/19 Rx Nystatin [Nystatin Susp 500,000 500,000 unit PO QID 02/16/19 07/06/19 History Units/5mL Udc] ALPRAZolam [Alprazolam 0.25mg 0.25 mg PO BIDP PRN 02/17/19 07/06/19 History Tab] Albuterol Sulfate [Proair Hfa 1 - 2 puff IH Q4HP PRN 02/17/19 07/06/19 History 90mcg/puff Inh] ondansetron HCL [Ondansetron 8mg 8 mg PO TIDP PRN 02/17/19 07/06/19 History Tablet] Clopidogrel Bisulfate [Plavix 75mg 75 mg PO DAILY 03/22/19 07/06/19 History Tab] Ipratropium/Albuterol Sulfate 3 ml IH QIDRT 03/22/19 07/06/19 History [Duoneb 3mL neb] Pantoprazole Sodium [Protonix 20mg 20 mg PO BID 03/22/19 07/06/19 History Tab] Sennosides/Docusate Sodium 1 tab PO HS 03/22/19 07/06/19 History [Senokot-S Tablet] Sertraline HCl [Zoloft] 50 mg PO DAILY 03/22/19 07/06/19 History guaiFENesin [Mucinex 600mg tablet] 600 mg PO BID 03/22/19 07/06/19 History Allergies Allergy/AdvReac Type S
--- NOTE | 2019-07-07 07:29 | P.CONPHA_ITS ---
[facility] Pharmacy VTE Monitoring - Patient Demographics Admission date: 07/07/19 Report Date: 07/07/19 Time: 07:29 Allergies/Adverse Reactions: Patient Allergies codeine [CODEINE] Allergy (Unknown, Verified 03/22/19 10:34) NAUSEA AND VOMITING ibuprofen [IBUPROFEN] Allergy (Unknown, Verified 03/22/19 10:34) I-HIVES meperidine [MEPERIDINE] Allergy (Unknown, Verified 03/22/19 10:34) INCREASED BLOOD PRESSURE Sulfa (Sulfonamide Antibiotics) [SULFA (SULFONAMIDE ANTIBIOTICS)] Allergy (Unknown, Verified 03/22/19 10:34) SKIN CRAWS adhesive tape Adverse Reaction (Intermediate, Verified 03/22/19 10:34) I-RASH Height: 1.68 m Weight: 43.687 kg Patient Problems: Current Active Problems Lung cancer (Chronic) Leukocytosis (Acute) Non-small cell carcinoma of left lung, stage 4 (Chronic) Hypertension (Acute) Pneumonia (Acute) Dependence on continuous supplemental oxygen (Chronic) COPD (chronic obstructive pulmonary disease) (Chronic) PAD (peripheral artery disease) (Chronic) - VTE Risk Labs: VTE Related Lab Results Hgb 8.2 g/dL (12.2-16.2) L 07/07/19 05:31 Hct 27.1 % (37.0-47.0) L 07/07/19 05:31 Plt Count 460 K/mm3 (142-424) H 07/07/19 05:31 BUN 8 mg/dl (7-17) 07/07/19 05:31 Creatinine 0.40 mg/dl (0.52-1.04) L 07/07/19 05:31 Estimated Creat Clear 33 mL/min (50-200) 07/07/19 05:31 Was VTE Risk Assessment Performed: Yes VTE Score: 7 VTE Risk Level: Moderate Risk Clinical Trial Participant: No - Prophylaxis VTE Prophylaxis Ordered?: Yes Types of VTE Prophylaxis: TEDS Knee High
--- NOTE | 2019-07-07 08:00 | XR_ITS ---
PROCEDURE: XR CHEST PORTABLE CLINICAL HISTORY: Pneumonia Follow-up pneumonia, shortness of breath COMPARISON: No exams were available for comparison FINDINGS: The cardiomediastinal silhouette and pulmonary vascularity are within normal limits. Bilateral pleural effusions with bilateral lower lobe pneumonia once again noted. The pleural effusion on the right appears slightly larger. Chronic changes are present in the right upper lobe with pleural parenchymal thickening. Small curvilinear metallic density overlies the left side of the heart and may be due to something upon the patient. IMPRESSION: Bilateral lower lobe pneumonia with effusions slightly worse on the right Dictated by: Melvin Roach MD 07/07/2019 08:40 Electronically signed by Melvin Roach MD in [place] 07/07/2019 08:40
--- NOTE | 2019-07-07 11:25 | HMH.PHAINT ---
MEDICATION RECONCILIATION COMPLETE. OBTAINED MEDICATION LIST FROM MD AND CROSS REFERENCED WITH WHAT WAS ENTERED. FOLLOWED UP WITH PATIENT TO CLARIFY A FEW ITEMS, HOWEVER PATIENT COULD NOT REMEMBER EXACTLY WHAT SHE WAS TAKING. SHE TOLD ME TO CALL HER , WHO INFORMED ME SHE HAD A LIST OF WHAT SHE WAS TAKING WITH HER. LOOKED FOR THAT LIST AND CAME ACROSS SEVERAL DIFFERENT PIECES OF PAPER WITH CONFLICTING DIRECTIONS REGARDING WHAT TO TAKE AND STOP. ADDITIONALLY, PATIENT HAS MEDICATIONS FROM [facility], [facility] AND HOSPICE. COMPLETED RECONCILIATION BASED ON THE BOTTLES PATIENT HAD IN ROOM AND PHARMACY FILL HISTORY. PATIENT STATED SHE ONLY TAKES ONE MEDICATION FOR BP, BUT HAD LISINOPRIL, METOPROLOL, AND AMLODIPINE BOTTLES IN HER ROOM.
--- NOTE | 2019-07-07 22:57 | PC.NURSE ---
IV REMOVED FROM L WRIST @ 2044. NEW IV TO L FOREARM INSERTED TO L FOREARM AT 2054. X1 TRY, 20G.
[2019-07-08] VITALS (18 sets, daily range): BP systolic 99–148; BP diastolic 49–77; PULSE 74–113; RESP 16–22; TEMP 36.6–37; O2SAT 91–96; BMI 15.5
--- NOTE | 2019-07-08 05:15 | PC.NURSE ---
A&OX4. PT TOLERATING 5LNC WELL. PT UP X1 ASSIST WITH WHEELCHAIR TO BATHROOM THIS SHIFT. PT HAS HAD NO C/O PAIN, OR NA/VO. PT STATES SHE IS VERY WEAK AND FEELS SOA WITH ACTIVITY. STAGE 2 PRESSURE SORE PRESENT TO UPPER BUTTOCK, PT DOES NOT WANT DRESSING APPLIED. PT HAS RESTED WELL T/O THIS SHIFT. PT REQUESTED ONE DOSE OF PRN ANXIETY MEDICATION AT BEGINNING OF SHIFT. PT TOLERATED NEW IV INSERTION WELL. NO OTHER COMPLAINTS THUS FAR, VSS WILL CONTINUE TO MONITOR.
[2019-07-08 06:41] LABS: Basophils # 0.1 K/mm3 (0-0.2); Basophils % 0.4 % (0.1-2.0); Eosinophils # 0.1 K/mm3 (0.0-0.4); Eosinophils % 0.3 % (0.1-12.0); Hemoglobin 8.3 g/dL (12.2-16.2); Lymphocytes # 1.4 K/mm3 (0.7-4.5); Lymphocytes % 4.6 % (10-50); Mean Corpuscular HGB Conc 29.8 g/dL (31.8-35.4); Mean Corpuscular Hemoglobin 28.4 pg (27.0-31.2); Mean Corpuscular Volume 95.2 fl (81-99); Mean Platelet Volume 8.5 fl (7.4-10.4); Monocytes # 1.1 K/mm3 (0.1-1.0); Monocytes % 3.8 % (1.7-9.3); Neutrophils # 27.2 K/mm3 (1.8-7.8); Neutrophils % 90.9 % (37.0-80.0); Platelet Count 476 K/mm3 (142-424); Red Blood Count 2.94 M/mm3 (4.20-5.40); Red Cell Distribution Width 18.4 % (11.5-17.5); White Blood Count 29.9 K/mm3 (4.8-10.8)
[2019-07-08 06:42] LABS: MANUAL DIFFERENTIAL MANUAL DIFFERENTIAL (MANUAL DIFF)
[2019-07-08 06:55] LABS: Chloride 99 mmol/L (98-107); Potassium 3.9 mmoL/L (3.5-5.1); Sodium 135 mmol/L (136-145)
[2019-07-08 06:57] LABS: Blood Urea Nitrogen 6 mg/dl (7-17); Creatinine Clearance Estimated 33 mL/min (50-200); Estimated Glomerular Filt Rate 120 ml/min (>60); GFR (African American) 145 ML/MIN (>60)
[2019-07-08 06:58] LABS: Alanine Aminotransferase 12 U/L (12-78); Albumin Level 2.8 g/dl (3.5-5.0); Alkaline Phosphatase 68 U/L (38-126); Anion Gap 4.9 mEq/L (5-15); Aspartate Amino Transferase 20 U/L (14-36); Calcium 7.4 mg/dl (8.4-10.2); Carbon Dioxide 35 mmol/L (22.0-30.0); Globulin 2.9 g/dL (1.3-3.2); Glucose 74 mg/dl (74-100); Lactate Dehydrogenase 248 U/L (313-618); Total Protein,Serum 5.7 g/dl (6.3-8.2)
[2019-07-08 06:59] LABS: Bilirubin,Total 0.1 mg/dl (0.2-1.3)
--- NOTE | 2019-07-08 07:04 | HMH.ACPN2 ---
Internal Medicine - PN: Subj *Date: 07/08/19 *Time: 07:04 Interval history: Patient has no new complaints this morning. She reports shortness of breath with mild exertion. Labs are pending this morning. Patient is scheduled for ultrasound-guided thoracentesis of the left chest today. Exam Vital signs and Labs for Last 24 Hours: Temp Pulse Resp BP Pulse Ox 98.1 F 102 H 16 148/77 H 91 L 07/08/19 04:00 07/08/19 06:14 07/08/19 04:00 07/08/19 04:00 07/08/19 06:14 Laboratory Results - last 24 hr 07/08/19 06:18: WBC 29.9 H*, RBC 2.94 L, Hgb 8.3 L, Hct 28.0 L, MCV 95.2, MCH 28.4, MCHC 29.8 L, RDW 18.4 H, Plt Count 476 H, MPV 8.5, Neut % (Auto) 90.9 H, Lymph % (Auto) 4.6 L, [place] % (Auto) 3.8, Eos % (Auto) 0.3, Baso % (Auto) 0.4, Neut # (Auto) 27.2 H, Lymph # (Auto) 1.4, [place] # (Auto) 1.1 H, Eos # (Auto) 0.1, Baso # (Auto) 0.1 07/08/19 06:18: Sodium 135 L, Potassium 3.9, Chloride 99, Carbon Dioxide 35 H, Anion Gap 4.9 L, BUN 6 L, Creatinine 0.50 L D, Estimated Creat Clear 33, Estimated GFR 120, Est GFR ( Amer) 145 D, Glucose 74, Calcium 7.4 L, Total Bilirubin 0.1 L, AST 20, ALT 12, Alkaline Phosphatase 68, Lactate Dehydrogenase 248 L, Total Protein 5.7 L, Albumin 2.8 L, Globulin 2.9, Albumin/Globulin Ratio 1.0 L I & O for Last 24 hours: Intake & Output 07/05/19 07/06/19 07/07/19 07/08/19 11:59 11:59 11:59 11:59 Intake Total 510 / 510 600 / 600 Output Total 300 / 300 200 / 200 Balance 210 / 210 400 / 400 Weight 96 lb 5 oz 96 lb 6 oz Microbiology Reports for the Last 24 Hours: Microbiology 07/07/19 14:15 Sputum - Expectorated Sputum Gram Stain - Final Narrative: Patient does not appear to be in any respiratory distress. She rests comfortably in bed supine with nasal cannula in place. Oropharynx is moist and clear. Lungs have distant breath sounds throughout with severely diminished breath sounds at the left base. There are some right basilar crackles Assessment and Plan (1) Pleural effusion, left Current visit: Yes Status: Acute Category: Medical Code(s): J90 - Pleural effusion, not elsewhere classified (2) Pneumonia Current visit: Yes Status: Suspected Category: Medical Code(s): J18.9 - Pneumonia, unspecified organism (3) COPD (chronic obstructive pulmonary disease) Current visit: Yes Status: Chronic Qualifiers: Category: Medical Code(s): J44.9 - Chronic obstructive pulmonary disease, unspecified (4) Dependence on continuous supplemental oxygen Current visit: Yes Status: Chronic Category: Medical Code(s): Z99.81 - Dependence on supplemental oxygen (5) Non-small cell carcinoma of left lung, stage 4 Current visit: Yes Status: Chronic Category: Medical Code(s): C34.92 - Malignant neoplasm of unspecified part of left bronchus or lung (6) PAD (peripheral artery disease) Current visit: Yes Status: Chronic Category: Medical Code(s): I73.9 - Peripheral vascular disease, unspecified (7) CAD (coronary artery disease) Current visit: No Status: Chronic Category: Medical Code(s): I25.10 - Atherosclerotic heart disease of [place] coronary artery without angina pectoris (8) Chronic anemia Current visit: No Status: Chronic Category: Medical Code(s): D64.9 - Anemia, unspecified (9) Chronic respiratory failure Current visit: No Status: Chronic Category: Medical Code(s): J96.10 - Chronic respiratory failure, unspecified whether with hypoxia or hypercapnia (10) Stage III chronic kidney disease Current visit: No Status: Chronic Category: Medical Code(s): N18.3 - Chronic kidney disease, stage 3 (moderate) - Assessment and plan all Dx Assessment and Plan for all problems:: 1. Ultrasound-guided thoracentesis today
--- NOTE | 2019-07-08 07:22 | PC.NURSE ---
PASSED ON TO DAYSHIFT FOR PT TO HAVE SOMETHING FOR BREAKFAST IF PROCEDURE ISN'T UNTIL LATER IN THE DAY
--- NOTE | 2019-07-08 08:00 | US_ITS ---
PROCEDURE: US THORACENTESIS CLINICAL INDICATION: left pleural effusion Left pleural effusion, history of lung cancer, trouble breathing, shortness of breath COMPARISON: No exams were available for comparison TECHNIQUE: Informed consent was obtain prior to procedure. Ultrasound was used to localize fluid collection in the left hemithorax. The area was marked in approximately the 11th interspace After appropriate Time out, under aseptic conditions and local anesthesia with 1% buffered lidocaine using sonographic guidance a 6 [place] E[place]-[id number]-[id number] catheter was advanced into the pleural effusion on the left. The catheter was advanced into the collection and immediate fluid was obtained. Fluid was sent to lab for analysis.. Approximately 1030 mL of serosanguineous fluid was drained. The patient tolerated the procedure well and left the radiology suite in stable condition. Post thoracentesis chest x-ray showed no evidence pneumothorax. FINDINGS: Left-sided pleural effusion IMPRESSION: Successful sonographic guided thoracentesis without complication. Dictated by: Melvin Roach MD 07/08/2019 18:07 Electronically signed by Melvin Roach MD in [place] 07/08/2019 18:07
[2019-07-08 09:53] LABS: Eosinophils % 1 % (0-3); Lymphocytes % 7 % (10-50); Monocytes % 3 % (2-9); Neutrophils % 89 % (42-76); Platelet Estimate Slight Increase; Total Cells Counted 100
[2019-07-08 09:54] LABS: Hypochromasia 1+
[2019-07-08 13:16] LABS: RBC,Body Fluid < 10 cells/uL (< 10 X 10^3); Source, Body Fld. Thoracentesis Fluid; TNC,Body Fluid 216 cells/uL (< 1000)
[2019-07-08 13:17] LABS: Appearance,Body Fld. Slightly hazy; Volume,Body Fld. 10 mL
--- NOTE | 2019-07-08 15:00 | XR_ITS ---
PROCEDURE: XR CHEST PORTABLE CLINICAL HISTORY: 4 HR POST THORCENTESIS, ON EXPIRATION COMPARISON: XR CHEST PORTABLE from 07/06/2019 CT CHEST WO CON from 07/06/2019 XR CHEST PORTABLE from 07/07/2019 XR CHEST AP from 07/08/2019 FINDINGS: Consolidation/atelectatic changes are once again noted in the left lower lobe similar to the previous exam. No evidence of pneumothorax. Cavitary changes in the right upper lobe are present as before there remains infiltrate with effusion in the right lung base. IMPRESSION: Overall no significant change. No evidence of pneumothorax Dictated by: Melvin Roach MD 07/08/2019 15:39 Electronically signed by Melvin Roach MD in [place] 07/08/2019 15:39
[2019-07-08 15:27] LABS: Mononuclear WBCs,Body Fluid 51 %; Polynuclear WBC,Body Fluid 49 %
--- NOTE | 2019-07-08 16:02 | PC.NURSE ---
PT IS RESTING IN BED. NO COMPLAINTS OF DISCOMFORT. PT HAD A DIFFICULT MORNING BUT STATES SHE IS FEELING BETTER THIS AFTERNOON AND SOA HAS IMPROVED. PT WAS ANXIOUS BEFORE HER THORACENTISIS AND ASKED IF SHE COULD GET A XANAX. VSS SINCE ARRIVING BACK TO THE FLOOR. PT HAS A VERY POOR APPETITE BUT IS DRINKING FAIR. PT AMBULATED TO THE BATHROOM WITH 1 ASSIST. WILL CONTINUE TO MONITOR.
[2019-07-09] VITALS: BP 96/53; PULSE 78; RESP 16; TEMP 36.8; O2SAT 98
--- NOTE | 2019-07-09 03:11 | PC.NURSE ---
Late entry: Pt c/o painful IV ~20 min after initiating Azithromycin IV infusion. IV med stopped and IV assessed. Pt reports site is real sore and throbbing pain. IV site is very tender, no edema noted proximal to IV insertion site. Although slight edema noted to insertions site itself. IV removed and dressing applied. This RN contacted on-call Pharmacist, Kirby Martinez, to verify if any necessary treatment would be required for infiltrated Azithromycin. Pharmacist reports no treatment required, med is not a vesicant. Treatment order received for warm compress to site q4-prn. Warm compress applied to site, pt reports it is easing up just a little bit . Pt is now refusing new IV placement. Pt educated on reason for IV ABX order. Pt states, Dr. Adams does not even think I have pneumonia . Pt asked this RN, what would you do? , and this RN replied, This is your medial care and the decision is up to you. It is in your right to refuse any treatment; however, I encourage you to let me try at least 1 time for a new IV so that you can continue to receive the ordered medication by Dr. Adams . Pt continues to refuse new IV placement. Dr. Murphy is on-call for Dr. Adams and he was informed of the above information. gave new orders for PO antiemetic, Zofran & Phenergan. Pt is A&Ox4 and ambulates with staff SBAx1 and tolerates well. Pt c/o nausea, medicated per MAY. Pt c/o pain 1x to infiltration site on LFA, warm compress applied 1x and gave pt good relief. Pt continues to refuse compression stockings. No edema noted peripherally. Scattered rhonchi, diminished bases, with very faint crackles on right base noted during lung auscultation. Pt continues on her home O2 regime of 5L per NC with o2 sats 93-98%. Pt denies any SOB as she was experiencing prior to the thoracentesis. Pt has reported several times t/o shift, I just want to go home , I just want to sleep . VSS, call light within reach, will continue to monitor pt.
[2019-07-09 04:00] VITALS: BP 119/63; PULSE 90; RESP 16; TEMP 36.6; O2SAT 98; BMI 14.8
[2019-07-09 05:51] VITALS: PULSE 98; PULSE 99; O2SAT 90
--- NOTE | 2019-07-09 07:32 | HMH.DCSUM ---
General - General Admission date:: 07/06/19 Discharge date: 07/09/19 HPI HPI: 74-year-old female with stage IV lung cancer presented to the emergency department with approximately 2 days of progressive dyspnea primarily with exertion. Patient is oxygen dependent at home and usually has her concentrator set at 5 L/min flow of oxygen. She had noticed over the previous 48 hours increasing shortness of breath with exertion. Patient is scheduled for thoracentesis at [facility] to be performed on July 13 and admits she was afraid that if there was something significant going on she would not be able to have her procedure therefore she sought treatment at the emergency department. Apparently plan was for thoracentesis and she will begin Keytruda here in the near future. Patient admits to shortness of breath but no fevers. Her cough is chronically productive of yellow sputum. She has had some chills. Other than her recent doctors appointments she has not been outside of her home and is following social distancing measures during the current coronavirus pandemic Hospital Course Hospital Course: Patient was admitted and placed on Rocephin and azithromycin to treat community-acquired pneumonia. Other than elevated white blood cell count patient did not have fevers, chills, significant change in her baseline cough. Sputum was collected for culture and at the time of this dictation is unavailable. Patient's white count remained elevated during the hospitalization and unchanged despite use of antibiotics. Patient even had antibiotics changed to cefepime from ceftriaxone. On admission patient had informed staff she was scheduled for left sided thoracentesis this coming July 10 that had been arranged by her oncologist. Patient's dyspnea prompted the ER visit and we decided to proceed with ultrasound-guided left thoracentesis. Patient underwent this procedure on July 07 and had 1 L of fluid removed. Fluid was slightly hazy. Cytology and culture have been ordered. After thoracentesis patient felt a significant improvement in her shortness of breath. On the morning of the patient continued to notice improvement in her dyspnea. Decision was made to discharge patient home with oral Levaquin. She will follow-up with her oncologist as scheduled. Objective Vital signs: Temp Pulse Resp BP Pulse Ox 97.8 F 99 H 16 119/63 90 L 07/09/19 04:00 07/09/19 05:51 07/09/19 04:00 07/09/19 04:00 07/09/19 05:51 Narrative: Patient is resting comfortably in bed. She seems in better spirits this morning. Lung exam reveals improved aeration of the left lung base with dry crackles. Right lung also has dry crackles. Results Labs on day of discharge: Labs from last 24 hours 07/08/19 07/08/19 10:30 06:18 Total Counted 100 Neutrophils % (Manual) 89 H Lymphocytes % (Manual) 7 L Monocytes % (Manual) 3 Eosinophils % (Manual) 1 Platelet Estimate Slight increase Hypochromasia 1+ Fluid Source Thoracentesis fluid Fluid Volume 10 Fluid Appearance Slightly hazy Fluid RBC (Auto) < 10 Fld Tot Nucleated Cell 216 Fld Polynuclear WBCs % 49 Fld Mononuclear WBCs % 51 Preliminary micro results at discharge 07/06/19 15:35 Blood Culture - Preliminary Blood NO GROWTH AFTER 48 HOURS 07/06/19 15:35 Blood Culture - Preliminary Blood NO GROWTH AFTER 48 HOURS 07/07/19 14:15 Sputum Culture - Preliminary Sputum - Expectorated Sputum DS: Diagnosis - Discharge Diagnosis (1) Pleural effusion, left Status: Resolved (2) Pneumonia Status: Suspected (3) COPD (chronic obstructive pulmonary disease) Status: Chronic (4) Dependence on continuous supplemental oxygen Status: Chronic (5) Non-small cell carcinoma of left lung, stage 4 Status: Chronic (6) PAD (peripheral artery disease) Status: Chronic (7) CAD (coronary artery disease) Status: Chroni
[2019-07-09 07:54] VITALS: BP 116/55; PULSE 94; RESP 20; TEMP 36.5; O2SAT 96
--- NOTE | 2019-07-09 08:45 | HMH.PHAINT ---
DISCHARGE COUNSELING COMPLETE. SPOKE WITH PATIENT ABOUT THE ADDITION OF SHORT-COURSE LEVAQUIN. PATIENT ASKED HOW MUCH AND IF IT WOULD BE DELIVERED TO ROOM. I TOLD HER I WASN'T SURE OF THE OCONNOR AND THAT IT WAS BEING FILLED DOWNSTAIRS AND SHOULD BE READY BY THE TIME SHE LEAVES. PATIENT ENDORSED NO FURTHER QUESTIONS.
[2019-07-09 10:52] LABS: Albumin, Body Fluid 1.4 g/dL (Not Estab.); Glucose, Body Fluid 10 mg/dL (.); LD, Body Fluid 720 IU/L (.); Protein, Body Fluid 2.5 g/dL (.)
== END 2019-07-09 12:21 | disposition home or self-care (01) | DRG 186 ==
LOC: ER 17:35 → 2ND 20:49
PROVIDERS: Admitting Provider Internal Medicine Adolescent Medicine; Emergency Provider Family Medicine; PCP Family Medicine; Visit Provider Family Medicine
DX: J90 Pleural effusion, not elsewhere classified (principal); J18.9 Pneumonia, unspecified organism; C34.92 Malignant neoplasm of unspecified part of left bronchus or lung; D64.9 Anemia, unspecified; Z95.0 Presence of cardiac pacemaker; Z95.5 Presence of coronary angioplasty implant and graft; I12.9 Hypertensive chronic kidney disease with stage 1 through stage 4 chronic kidney disease, or unspecified chronic kidney disease; N18.3 Chronic kidney disease, stage 3 (moderate); I25.10 Atherosclerotic heart disease of native coronary artery without angina pectoris; Z87.891 Personal history of nicotine dependence; Z88.8 Allergy status to other drugs, medicaments and biological substances; Z88.5 Allergy status to narcotic agent; Z88.2 Allergy status to sulfonamides; Z79.899 Other long term (current) drug therapy; Z99.81 Dependence on supplemental oxygen
CPT/HCPCS: 32555; 36415; 71045; 71250; 80053; 82042; 82803; 82945; 83605; 83615; 84155; 85007; 85025; 85651; 86140; 87040; 87070; 87077; 87186; 87205; 87275; 87276; 87430; 89051; 94640; 94760; 94761; 96367; 96374; 96375; 99284; J0456; J2405

== ENCOUNTER 2019-07-17 19:06 | Inpatient (IN) | payer MEDICARE, OTHER, SELFPAY ==
[2019-07-17 19:24] VITALS: BP 152/86; PULSE 110; RESP 18; O2SAT 97; BMI 18.3
--- NOTE | 2019-07-17 19:33 | XR_ITS ---
PROCEDURE: XR CHEST PORTABLE CLINICAL HISTORY: SOB History of lung cancer COMPARISON: CT CHEST WO CON from 07/06/2019 XR CHEST PORTABLE from 07/07/2019 XR CHEST PORTABLE from 07/08/2019 XR CHEST AP from 07/08/2019 FINDINGS: Normal heart size. Cavitation is once again noted in the right upper lobe. Consolidation is present in the left mid and lower lung zone appears somewhat worse compared to the previous study. Right lower lobe consolidation with effusion also noted. No acute bony abnormalities. IMPRESSION: Worsening left mid lower lung pneumonia with persistent right lower lobe pneumonia with effusion and cavitation in the right upper lobe Dictated by: Melvin Roach MD 07/18/2019 05:46 Electronically signed by Melvin Roach MD in [place] 07/18/2019 05:46
--- NOTE | 2019-07-17 19:48 | HMH.EDSOB ---
ED Disposition Condition on Discharge: Good - Critical Care Critical Care Time: No <Kenneth Gaviria - Last Filed: 07/17/19 20:03> <Mateus Lemus - Last Filed: 07/17/19 21:14> Clinical Impression: Shortness of breath, Non-small cell carcinoma of left lung, stage 4, SIRS (systemic inflammatory response syndrome), HCAP (healthcare-associated pneumonia) Disposition: Admitted as Observation Attestation: On 07/17/19, the high probability of a clinically significant, sudden or life threatening deterioration of the following system(s) required my full and direct attention, intervention and personal management. The time I documented below is in addition to time spent performing reported procedures but includes the following listed in this critical care notation. Medical Decision Making - Koko Inquiry Pt receiving controlled substance: No - Lab Data Result diagrams: 07/17/19 19:41 07/17/19 19:36 <Kenneth Gaviria - Last Filed: 07/17/19 20:03> - Medical Records Medical records reviewed: Yes: I reviewed the patient's medical records. - Lab Data Lab results reviewed: Yes: I reviewed the patient's lab results. Result diagrams: 07/17/19 19:41 07/17/19 19:36 - Radiology Data #1 Image(s): Chest Image Reviewed: Yes I reviewed the patient's radiology image Preliminary Findings: Abnormal (inc changes lt side) - ECG Data Tracing #1 Normal Sinus Rhythm: Yes Ischemic changes: non-specific ST-T wave changes - Physician Consults Physician Consulted: juhi Reason -: Admission <Mateus Lemus - Last Filed: 07/17/19 21:14> Vital Signs: 07/17/19 19:24 07/17/19 20:01 Pulse Rate [Right Brachial] 110 H 89 Respiratory Rate 18 18 Blood Pressure [Right Arm] 152/86 H 147/75 H Blood Pressure Mean [Right Arm] 108 99 Blood Pressure Source [Right Arm] Automatic Cuff Automatic Cuff Blood Pressure Position [Right Arm] Sitting Sitting 02 Sat by Pulse Oximetry 97 98 Oxygen Delivery Method Nasal Cannula Nasal Cannula Oxygen Flow Rate (LPM) 4 4 - Lab Data Lab Results 07/17/19 19:36: Sodium 129 L, Potassium 4.2, Chloride 90 L, Carbon Dioxide 36 H, Anion Gap 7.2, BUN 9, Creatinine 0.50 L, Estimated Creat Clear 34, Estimated GFR 120, Est GFR ( Amer) 145, Glucose 92, Calcium 9.8, Total Bilirubin 0.2, AST 19, ALT 11 L, Alkaline Phosphatase 79, Total Protein 5.9 L, Albumin 2.8 L, Globulin 3.1, Albumin/Globulin Ratio 0.9 L 07/17/19 19:41: WBC 22.3 H*, RBC 3.09 L, Hgb 8.6 L, Hct 28.4 L, MCV 91.7, MCH 27.8, MCHC 30.4 L, RDW 17.8 H, Plt Count 467 H, MPV 7.5, Neut % (Auto) 91.2 H, Lymph % (Auto) 4.6 L, [place] % (Auto) 2.5, Eos % (Auto) 0.9, Baso % (Auto) 0.7, Neut # (Auto) 20.3 H, Lymph # (Auto) 1.0, [place] # (Auto) 0.6, Eos # (Auto) 0.2, Baso # (Auto) 0.2, Total Counted 100, Neutrophils % (Manual) 87 H, Lymphocytes % (Manual) 8 L, Monocytes % (Manual) 5, Platelet Estimate Slight increase, Hypochromasia 1+ 07/17/19 19:41: Lactate 1.6 Orders (Tests/Meds): ED MEDICATIONS Generic Name Dose Route Start Last Admin Trade Name Freq PRN Reason Stop Dose Admin Levofloxacin/Dextrose 750 mg in 150 mls @ 100 mls/hr 07/17/19 21:00 Levofloxacin 750mg/150ml Premix IV 07/31/19 20:59 Q48H [facility] ORDERS Category Date Time Status XR chest portable Stat Exams 07/17/19 19:33 Taken Blood Culture Stat Micro 07/17/19 19:36 Received Medical Decision Narrative: pt with sob and has known pneumonia and lung cancer (Mateus Lemus) Resp/SOB HPI - General Mode of Arrival: Wheelchair Source of Information: Patient Limitations: No Limitations Description of Symptoms (Recalled from ER Triage Doc. by RN): Patient reports she took a nap and woke up around 1700 and felt like she couldnt breath. Patient reports she has lung cancer and just had a thoracentesis done last week but thinks that may be the issue again tonight. Patient reports her said it may come down to putting in a port so they could drain at home.
[2019-07-17 19:51] LABS: Basophils # 0.2 K/mm3 (0-0.2); Basophils % 0.7 % (0.1-2.0); Eosinophils # 0.2 K/mm3 (0.0-0.4); Eosinophils % 0.9 % (0.1-12.0); Hematocrit 28.4 % (37.0-47.0); Hemoglobin 8.6 g/dL (12.2-16.2); Lymphocytes % 4.6 % (10-50); Mean Corpuscular HGB Conc 30.4 g/dL (31.8-35.4); Mean Corpuscular Hemoglobin 27.8 pg (27.0-31.2); Mean Corpuscular Volume 91.7 fl (81-99); Mean Platelet Volume 7.5 fl (7.4-10.4); Monocytes # 0.6 K/mm3 (0.1-1.0); Monocytes % 2.5 % (1.7-9.3); Neutrophils # 20.3 K/mm3 (1.8-7.8); Neutrophils % 91.2 % (37.0-80.0); Platelet Count 467 K/mm3 (142-424); Red Blood Count 3.09 M/mm3 (4.20-5.40); Red Cell Distribution Width 17.8 % (11.5-17.5); White Blood Count 22.3 K/mm3 (4.8-10.8)
[2019-07-17 19:53] LABS: MANUAL DIFFERENTIAL MANUAL DIFFERENTIAL (MANUAL DIFF)
[2019-07-17 19:55] LABS: Chloride 90 mmol/L (98-107); Potassium 4.2 mmoL/L (3.5-5.1); Sodium 129 mmol/L (136-145)
[2019-07-17 19:58] LABS: Alanine Aminotransferase 11 U/L (12-78); Albumin Level 2.8 g/dl (3.5-5.0); Albumin/Globulin Ratio 0.9 (1.1-1.8); Alkaline Phosphatase 79 U/L (38-126); Aspartate Amino Transferase 19 U/L (14-36); Bilirubin,Total 0.2 mg/dl (0.2-1.3); Blood Urea Nitrogen 9 mg/dl (7-17); Calcium 9.8 mg/dl (8.4-10.2); Carbon Dioxide 36 mmol/L (22.0-30.0); Creatinine Clearance Estimated 34 mL/min (50-200); Estimated Glomerular Filt Rate 120 ml/min (>60); GFR (African American) 145 ML/MIN (>60); Globulin 3.1 g/dL (1.3-3.2); Glucose 92 mg/dl (74-100); Total Protein,Serum 5.9 g/dl (6.3-8.2)
[2019-07-17 19:59] LABS: Anion Gap 7.2 mEq/L (5-15)
[2019-07-17 20:01] VITALS: BP 147/75; PULSE 89; RESP 18; O2SAT 98
[2019-07-17 20:12] LABS: Lactic Acid 1.6 mmol/L (0.7-2.1)
[2019-07-17 20:27] LABS: Lymphocytes % 8 % (10-50); Monocytes % 5 % (2-9); Neutrophils % 87 % (42-76); Platelet Estimate Slight Increase; Total Cells Counted 100
[2019-07-17 20:28] LABS: Hypochromasia 1+
--- NOTE | 2019-07-17 20:54 | PC.NURSE ---
paged pharmacy to call
--- NOTE | 2019-07-17 20:55 | PC.NURSE ---
pharmacy returned call
--- NOTE | 2019-07-17 20:56 | ECG_ITS ---
APPROVED REPORT Exam: Resting ECG HR:86 bpm ECG Measurements Heart Rate 86 AXES KS 114 P 78 QRSd 78 QRS 17 QT 342 T 57 QTc 409 <Conclusion> Sinus rhythm with premature supraventricular complexes Otherwise normal ECG Electronically signed by : Celestino Murphy, 07/21/2019 21:05:17
[2019-07-17 21:22] VITALS: BP 166/89; PULSE 95; RESP 18; O2SAT 100
--- NOTE | 2019-07-17 21:39 | PC.NURSE ---
PT ARRIVED TO FLOOR VIA STRETCHER FROM ED 2137
[2019-07-17 21:46] LABS: Troponin I < 0.01 ng/ml (0.00-0.034)
[2019-07-17 21:55] VITALS: BP 156/82; PULSE 90; PULSE 91; RESP 22; TEMP 36.6; O2SAT 96; BMI 16.0
[2019-07-17 22:17] VITALS: BP 166/89; PULSE 114; RESP 18; TEMP 36.6; O2SAT 100
[2019-07-17 23:46] VITALS: BP 139/65; PULSE 100; RESP 18; TEMP 36.5; O2SAT 95
[2019-07-18] VITALS (15 sets, daily range): BP systolic 107–147; BP diastolic 50–78; PULSE 82–114; RESP 16–22; TEMP 36.6–36.9; O2SAT 87–100; BMI 16.2
--- NOTE | 2019-07-18 00:19 | PC.NURSE ---
PER JOO AWAD, AFTER FIRST TROPONIN NEGATIVE, PT NEEDS NO MORE TROPONINS ORDERED, THEREFORE DOES NOT NEED TELE. ER STAFF ALSO CONTACTED PHARMACY ON GENT DOSING. MODE SCHROEDER CONTACTED THIS NURSE.
--- NOTE | 2019-07-18 03:35 | PC.NURSE ---
0400 Room Air O2 status not taken per nurses order- Willie SRNA
[2019-07-18 03:44] LABS: Gentamicin,Random 9.3 ug/ml
--- NOTE | 2019-07-18 05:02 | PC.NURSE ---
A&OX4. PT TOLERATING 4LNC THIS SHIFT. PT UP TO BATHROOM X1 ASSIST WITH WALKER. PT STATES SHE BECOMES SOA EASILY. PT HAS HAD NO C/O PAIN THIS SHIFT. PT RECEIVED PRN ZOFRAN AND XANAX FOR NA AND SLEEP. PT HAS BEEN RESTING IN BED MAJORITY OF SHIFT. PT HAS HAD A GOOD APPETITE THIS SHIFT. PT HAS SMALL STAGE 2 BED SORE ON BOTTOM, REFUSES TO HAVE BANDAGE ON IT. PT TURNING HERSELF T/O SHIFT. VSS WILL CONTINUE TO MONITOR.
[2019-07-18 06:30] LABS: Basophils # 0.1 K/mm3 (0-0.2); Basophils % 0.5 % (0.1-2.0); Eosinophils # 0.3 K/mm3 (0.0-0.4); Eosinophils % 1.4 % (0.1-12.0); Hematocrit 25.7 % (37.0-47.0); Hemoglobin 8.1 g/dL (12.2-16.2); Lymphocytes # 1.1 K/mm3 (0.7-4.5); Lymphocytes % 4.8 % (10-50); Mean Corpuscular HGB Conc 31.6 g/dL (31.8-35.4); Mean Corpuscular Hemoglobin 28.3 pg (27.0-31.2); Mean Corpuscular Volume 89.5 fl (81-99); Mean Platelet Volume 7.2 fl (7.4-10.4); Monocytes # 0.6 K/mm3 (0.1-1.0); Monocytes % 2.5 % (1.7-9.3); Neutrophils # 20.1 K/mm3 (1.8-7.8); Neutrophils % 90.7 % (37.0-80.0); Platelet Count 405 K/mm3 (142-424); Red Blood Count 2.87 M/mm3 (4.20-5.40); Red Cell Distribution Width 17.7 % (11.5-17.5); White Blood Count 22.1 K/mm3 (4.8-10.8)
[2019-07-18 06:35] LABS: MANUAL DIFFERENTIAL MANUAL DIFFERENTIAL (MANUAL DIFF)
[2019-07-18 06:43] LABS: Chloride 91 mmol/L (98-107); Potassium 4.2 mmoL/L (3.5-5.1); Sodium 128 mmol/L (136-145)
[2019-07-18 06:46] LABS: Anion Gap 5.2 mEq/L (5-15); Blood Urea Nitrogen 9 mg/dl (7-17); Calcium 9.7 mg/dl (8.4-10.2); Carbon Dioxide 36 mmol/L (22.0-30.0); Creatinine Clearance Estimated 33 mL/min (50-200); Estimated Glomerular Filt Rate 155 ml/min (>60); GFR (African American) 188 ML/MIN (>60); Glucose 84 mg/dl (74-100); Magnesium 1.5 mg/dl (1.6-2.3)
--- NOTE | 2019-07-18 07:25 | HMH.HP ---
*Admission Date: 07/17/19 *Chief complaint: Shortness of breath *History of present illness: 74-year-old female with metastatic non-small cell carcinoma of the lung under the care of Dr. Fermin Monae presented to the emergency department with recurrence of shortness of breath. Patient was at this facility for a brief hospitalization a week ago for the same complaint. She underwent left-sided thoracentesis at that time with improvement in her dyspnea. X-rays and CT scan at that time were also suggestive of pneumonia and patient sputum culture ultimately grew Pseudomonas with intermediate resistance to Levaquin and sensitivities to aminoglycosides. Patient's dyspnea had improved significantly after thoracentesis and she was discharged home. On July 10 patient received her first treatment with Keytruda under the supervision of Dr. Monae. She reports 3 to 4 days ago she began to feel increasing shortness of breath similar to how she felt prior to her thoracentesis. Ultimately she came to the emergency department last night. Patient's x-ray showed what appeared to be worsening left lower lobe infiltrate. Patient was admitted for observation with administration of Levaquin and gentamicin. This morning the patient reports that she still feels short of breath. She did not have to increase her oxygen use at home and she remains on 4 L here. She denies fevers or chills. Her cough is loose but minimally productive. [facility] History I have reviewed the patient's past medical history: Yes Medical History: Reports:: Arrhythmia, Cancer (Lung cancer), Carotid Stenosis, Chronic Obstructive Pulmonary Disease (COPD), Coronary Artery Disease, Hyperlipidemia, Hypertension, Internal Pacemaker, Myocardial Infarction, Peripheral Artery Disease, Peripheral Vascular Disease Denies:: Diabetes Mellitus Type 1, Diabetes Mellitus Type 2, MRSA *Have you ever received a pneumonia vaccine?: Yes *Have you received a flu vaccine this season?: Yes Other Medical History: Reports: Anemia, Cataracts, Chemotherapy, Radiation Therapy Other Surgeries: Yes: Appendectomy, Cardiac Catheterization, Colonoscopy, Coronary Stent, , Dilation and Curettage, EGD, Pacemaker, Other (Cleaning of carotid artery) Amputation: No Fractures: No - *Social History Educational Level: Attended College Smoking Status: Former smoker Tobacco Type: cigarettes # Packs/Day (cigarettes): 1 #Yrs smoked (if former smoker): 50 Alcohol Intake: never Alcohol Intake Frequency:: holidays/special occasions only Substance Use Type: denies use *Occupational Status:: retired Housing: house Household Members: spouse *Travel in the last 8 weeks: None Family Hx:: Heart Attack, Stroke Review of Systems - Review of Systems Review of systems:: pertinent systems reviewed and negative unless documented below Meds Home Medications Medication Instructions Recorded Confirmed Type ALPRAZolam [Alprazolam 0.25mg 0.25 mg PO QIDP PRN 02/17/19 07/17/19 History Tab] Clopidogrel Bisulfate [Plavix 75mg 75 mg PO QODHS 03/22/19 07/17/19 History Tab] Metoprolol Tartrate [Lopressor 25 mg PO TID 07/07/19 07/17/19 History 25mg tablet] Mirtazapine [Remeron] 15 mg PO HS 07/07/19 07/17/19 History lisinopriL [Lisinopril 20mg Tab] 10 mg PO BID 07/07/19 07/17/19 History Prochlorperazine Maleate 10 mg PO DAILY 07/17/19 07/17/19 History Allergies Allergy/AdvReac Type Severity Reaction Status Date / Time codeine [CODEINE] Allergy Unknown NAUSEA AND Verified 07/17/19 19:34 VOMITING ibuprofen [IBUPROFEN] Allergy Unknown I-HIVES Verified 07/17/19 19:34 meperidine [MEPERIDINE] Allergy Unknown INCREASED Verified 07/17/19 19:34 BLOOD PRESSURE Sulfa (Sulfonamide Allergy Unknown SKIN CRAWS Verified 07/17/19 19:34 Antibiotics) [SULFA (SULFONAMIDE ANTIBIOTICS)] adhesive tape AdvReac Intermediate I-RASH Verified 07/17/19 19:34 Exam Vital signs and Labs for Last 24 Hours: Te
--- NOTE | 2019-07-18 07:49 | HMH.PHAVTE ---
[facility] Pharmacy VTE Monitoring - Patient Demographics Admission date: 07/18/19 Report Date: 07/18/19 Time: 07:50 Allergies/Adverse Reactions: Patient Allergies codeine [CODEINE] Allergy (Unknown, Verified 07/17/19 19:34) NAUSEA AND VOMITING ibuprofen [IBUPROFEN] Allergy (Unknown, Verified 07/17/19 19:34) I-HIVES meperidine [MEPERIDINE] Allergy (Unknown, Verified 07/17/19 19:34) INCREASED BLOOD PRESSURE Sulfa (Sulfonamide Antibiotics) [SULFA (SULFONAMIDE ANTIBIOTICS)] Allergy (Unknown, Verified 07/17/19 19:34) SKIN CRAWS adhesive tape Adverse Reaction (Intermediate, Verified 07/17/19 19:34) I-RASH Height: 1.63 m Weight: 43.233 kg Patient Problems: Current Active Problems Non-small cell carcinoma of left lung, stage 4 (Chronic) Shortness of breath (Acute) SIRS (systemic inflammatory response syndrome) (Acute) HCAP (healthcare-associated pneumonia) (Acute) - VTE Risk Labs: VTE Related Lab Results Hgb 8.1 g/dL (12.2-16.2) L 07/18/19 06:18 Hct 25.7 % (37.0-47.0) L 07/18/19 06:18 Plt Count 405 K/mm3 (142-424) 07/18/19 06:18 BUN 9 mg/dl (7-17) 07/18/19 06:18 Creatinine 0.40 mg/dl (0.52-1.04) L 07/18/19 06:18 Estimated Creat Clear 33 mL/min (50-200) 07/18/19 06:18 Was VTE Risk Assessment Performed: Yes VTE Score: 8 VTE Risk Level: Moderate Risk Clinical Trial Participant: No - Prophylaxis VTE Prophylaxis Ordered?: Yes Types of VTE Prophylaxis: TEDS Knee High
--- NOTE | 2019-07-18 08:19 | HMH.PHACONS ---
- Pharmacy Consult Date: 07/18/19 Time: 08:19 Referring provider: DR. LBUM Reason for Consult:: GENTAMICIN DOSING Allergies and ADEs:: Allergies Allergy/AdvReac Type Severity Reaction Status Date / Time codeine [CODEINE] Allergy Unknown NAUSEA AND Verified 07/17/19 19:34 VOMITING ibuprofen [IBUPROFEN] Allergy Unknown I-HIVES Verified 07/17/19 19:34 meperidine [MEPERIDINE] Allergy Unknown INCREASED Verified 07/17/19 19:34 BLOOD PRESSURE Sulfa (Sulfonamide Allergy Unknown SKIN CRAWS Verified 07/17/19 19:34 Antibiotics) [SULFA (SULFONAMIDE ANTIBIOTICS)] adhesive tape AdvReac Intermediate I-RASH Verified 07/17/19 19:34 Home Medications:: Home Medications Medication Instructions Recorded Confirmed Type ALPRAZolam [Alprazolam 0.25mg 0.25 mg PO QIDP PRN 02/17/19 07/17/19 History Tab] Clopidogrel Bisulfate [Plavix 75mg 75 mg PO QODHS 03/22/19 07/17/19 History Tab] Metoprolol Tartrate [Lopressor 25 mg PO TID 07/07/19 07/17/19 History 25mg tablet] Mirtazapine [Remeron] 15 mg PO HS 07/07/19 07/17/19 History lisinopriL [Lisinopril 20mg Tab] 10 mg PO BID 07/07/19 07/17/19 History Prochlorperazine Maleate 10 mg PO TIDP PRN 07/17/19 07/18/19 History Pantoprazole Sodium [Protonix 40mg 40 mg PO BID 07/18/19 07/18/19 History tablet] dexAMETHasone [Decadron] 4 mg PO DAILY 07/18/19 07/18/19 History Height: 1.63 m Weight: 43.233 kg Laboratory Results:: Laboratory Results - last 24 hr 07/17/19 19:36: Sodium 129 L, Potassium 4.2, Chloride 90 L, Carbon Dioxide 36 H, Anion Gap 7.2, BUN 9, Creatinine 0.50 L, Estimated Creat Clear 34, Estimated GFR 120, Est GFR ( Amer) 145, Glucose 92, Calcium 9.8, Total Bilirubin 0.2, AST 19, ALT 11 L, Alkaline Phosphatase 79, Total Protein 5.9 L, Albumin 2.8 L, Globulin 3.1, Albumin/Globulin Ratio 0.9 L 07/17/19 19:41: WBC 22.3 H*, RBC 3.09 L, Hgb 8.6 L, Hct 28.4 L, MCV 91.7, MCH 27.8, MCHC 30.4 L, RDW 17.8 H, Plt Count 467 H, MPV 7.5, Neut % (Auto) 91.2 H, Lymph % (Auto) 4.6 L, [place] % (Auto) 2.5, Eos % (Auto) 0.9, Baso % (Auto) 0.7, Neut # (Auto) 20.3 H, Lymph # (Auto) 1.0, [place] # (Auto) 0.6, Eos # (Auto) 0.2, Baso # (Auto) 0.2, Total Counted 100, Neutrophils % (Manual) 87 H, Lymphocytes % (Manual) 8 L, Monocytes % (Manual) 5, Platelet Estimate Slight increase, Hypochromasia 1+ 07/17/19 19:41: Lactate 1.6 07/17/19 19:41: Troponin I < 0.01 07/18/19 03:25: Random Gentamicin 9.3 07/18/19 06:18: WBC 22.1 H*, RBC 2.87 L, Hgb 8.1 L, Hct 25.7 L, MCV 89.5, MCH 28.3, MCHC 31.6 L, RDW 17.7 H, Plt Count 405, MPV 7.2 L, Neut % (Auto) 90.7 H, Lymph % (Auto) 4.8 L, [place] % (Auto) 2.5, Eos % (Auto) 1.4, Baso % (Auto) 0.5, Neut # (Auto) 20.1 H, Lymph # (Auto) 1.1, [place] # (Auto) 0.6, Eos # (Auto) 0.3, Baso # (Auto) 0.1 07/18/19 06:18: Sodium 128 L, Potassium 4.2, Chloride 91 L, Carbon Dioxide 36 H, Anion Gap 5.2, BUN 9, Creatinine 0.40 L, Estimated Creat Clear 33, Estimated GFR 155, Est GFR ( Amer) 188 D, Glucose 84, Calcium 9.7, Magnesium 1.5 L 07/18/19 07:50: Crossmatch (AHG) See Detail Medical History: Reports:: Arrhythmia, Cancer (Lung cancer), Carotid Stenosis, Chronic Obstructive Pulmonary Disease (COPD), Coronary Artery Disease, Hyperlipidemia, Hypertension, Internal Pacemaker, Myocardial Infarction, Peripheral Artery Disease, Peripheral Vascular Disease Denies:: Diabetes Mellitus Type 1, Diabetes Mellitus Type 2, MRSA Assessment and Plan (1) Pneumonia Current visit: No Status: Acute Qualifiers: Pneumonia type: due to unspecified organism Laterality: right Lung location: unspecified part of lung Qualified Code(s): J18.9 - Pneumonia, unspecified organism Category: Medical Code(s): J18.9 - Pneumonia, unspecified organism (2) Non-small cell carcinoma of left lung, stage 4 Current visit: Yes Status: Chronic Category: Medical Code(s): C34.92 - Malignant neoplasm of unspecified part of left bronchus or lung (3) Chronic ane
--- NOTE | 2019-07-18 10:46 | PC.NURSE ---
pt given saline neb at this time. pt has cup at bedside and will call when she coughs.
[2019-07-18 11:06] LABS: Hypochromasia 1+; Lymphocytes % 4 % (10-50); Monocytes % 3 % (2-9); Neutrophils % 93 % (42-76); Total Cells Counted 100
[2019-07-18 11:07] LABS: Platelet Estimate Slight Decrease
[2019-07-18 12:11] LABS: Gentamicin,Random 2.3 ug/ml
--- NOTE | 2019-07-18 12:52 | HMH.PHACONS ---
- Pharmacy Consult Date: 07/18/19 Time: 12:52 Referring provider: DR. BLUM Reason for Consult:: GENTAMICIN LEVELS Allergies and ADEs:: Allergies Allergy/AdvReac Type Severity Reaction Status Date / Time codeine [CODEINE] Allergy Unknown NAUSEA AND Verified 07/17/19 19:34 VOMITING ibuprofen [IBUPROFEN] Allergy Unknown I-HIVES Verified 07/17/19 19:34 meperidine [MEPERIDINE] Allergy Unknown INCREASED Verified 07/17/19 19:34 BLOOD PRESSURE Sulfa (Sulfonamide Allergy Unknown SKIN CRAWS Verified 07/17/19 19:34 Antibiotics) [SULFA (SULFONAMIDE ANTIBIOTICS)] adhesive tape AdvReac Intermediate I-RASH Verified 07/17/19 19:34 Home Medications:: Home Medications Medication Instructions Recorded Confirmed Type ALPRAZolam [Alprazolam 0.25mg 0.25 mg PO QIDP PRN 02/17/19 07/17/19 History Tab] Clopidogrel Bisulfate [Plavix 75mg 75 mg PO QODHS 03/22/19 07/17/19 History Tab] Metoprolol Tartrate [Lopressor 25 mg PO TID 07/07/19 07/17/19 History 25mg tablet] Mirtazapine [Remeron] 15 mg PO HS 07/07/19 07/17/19 History lisinopriL [Lisinopril 20mg Tab] 10 mg PO BID 07/07/19 07/17/19 History Prochlorperazine Maleate 10 mg PO TIDP PRN 07/17/19 07/18/19 History Fluticasone Propionate [Flovent 250 mcg IH BID 07/18/19 07/18/19 History Diskus] Pantoprazole Sodium [Protonix 40mg 40 mg PO BID 07/18/19 07/18/19 History tablet] dexAMETHasone [Decadron] 4 mg PO DAILY 07/18/19 07/18/19 History Height: 1.63 m Weight: 43.233 kg Laboratory Results:: Laboratory Results - last 24 hr 07/17/19 19:36: Sodium 129 L, Potassium 4.2, Chloride 90 L, Carbon Dioxide 36 H, Anion Gap 7.2, BUN 9, Creatinine 0.50 L, Estimated Creat Clear 34, Estimated GFR 120, Est GFR ( Amer) 145, Glucose 92, Calcium 9.8, Total Bilirubin 0.2, AST 19, ALT 11 L, Alkaline Phosphatase 79, Total Protein 5.9 L, Albumin 2.8 L, Globulin 3.1, Albumin/Globulin Ratio 0.9 L 07/17/19 19:41: WBC 22.3 H*, RBC 3.09 L, Hgb 8.6 L, Hct 28.4 L, MCV 91.7, MCH 27.8, MCHC 30.4 L, RDW 17.8 H, Plt Count 467 H, MPV 7.5, Neut % (Auto) 91.2 H, Lymph % (Auto) 4.6 L, [place] % (Auto) 2.5, Eos % (Auto) 0.9, Baso % (Auto) 0.7, Neut # (Auto) 20.3 H, Lymph # (Auto) 1.0, [place] # (Auto) 0.6, Eos # (Auto) 0.2, Baso # (Auto) 0.2, Total Counted 100, Neutrophils % (Manual) 87 H, Lymphocytes % (Manual) 8 L, Monocytes % (Manual) 5, Platelet Estimate Slight increase, Hypochromasia 1+ 07/17/19 19:41: Lactate 1.6 07/17/19 19:41: Troponin I < 0.01 07/18/19 03:25: Random Gentamicin 9.3 07/18/19 06:18: WBC 22.1 H*, RBC 2.87 L, Hgb 8.1 L, Hct 25.7 L, MCV 89.5, MCH 28.3, MCHC 31.6 L, RDW 17.7 H, Plt Count 405, MPV 7.2 L, Neut % (Auto) 90.7 H, Lymph % (Auto) 4.8 L, [place] % (Auto) 2.5, Eos % (Auto) 1.4, Baso % (Auto) 0.5, Neut # (Auto) 20.1 H, Lymph # (Auto) 1.1, [place] # (Auto) 0.6, Eos # (Auto) 0.3, Baso # (Auto) 0.1, Total Counted 100, Neutrophils % (Manual) 93 H, Lymphocytes % (Manual) 4 L, Monocytes % (Manual) 3, Platelet Estimate Slight decrease, Hypochromasia 1+ 07/18/19 06:18: Sodium 128 L, Potassium 4.2, Chloride 91 L, Carbon Dioxide 36 H, Anion Gap 5.2, BUN 9, Creatinine 0.40 L, Estimated Creat Clear 33, Estimated GFR 155, Est GFR ( Amer) 188 D, Glucose 84, Calcium 9.7, Magnesium 1.5 L 07/18/19 07:50: Blood Type A Positive, Antibody Screen Negative, Crossmatch (AHG) See Detail 07/18/19 11:45: Random Gentamicin 2.3 Medical History: Reports:: Arrhythmia, Cancer (Lung cancer), Carotid Stenosis, Chronic Obstructive Pulmonary Disease (COPD), Coronary Artery Disease, Hyperlipidemia, Hypertension, Internal Pacemaker, Myocardial Infarction, Peripheral Artery Disease, Peripheral Vascular Disease Denies:: Diabetes Mellitus Type 1, Diabetes Mellitus Type 2, MRSA Assessment and Plan (1) Pneumonia Current visit: No Status: Acute Qualifiers: Pneumonia type: due to unspecified organism Laterality: right Lung location: unspecified part of lung Qualified Code(s): J18.9
[2019-07-18 15:11] LABS: Hemoglobin 9.9 g/dL (12.2-16.2)
--- NOTE | 2019-07-18 17:56 | PC.NURSE ---
PT IS RESTING IN BED. TOLERATED BLOOD TRANSFUSION THIS SHIFT. O2 SATURATION HAS STAYED IN THE MID 90'S T/O THE SHIFT ON 5 L O2 NC HOWEVER PT STILL COMPLAINS THAT SHE IS VERY SOA. LUNG SOUNDS HAVE SCATTERED CRACKLES TO THE RT LUNG QIU. BOWEL SOUNDS NORMAL. PT HAS BEEN GETTING UP TO THE BSC WITH 1 ASSIST. SMALL STAGE 2 NOTED TO THE COCCYX. ENCOURAGE PT TO TURN AND REPOSITION. WILL CONTINUE TO MONITOR.
[2019-07-19] VITALS (8 sets, daily range): BP systolic 103–137; BP diastolic 52–68; PULSE 80–105; RESP 17–19; TEMP 36.4–36.9; O2SAT 90–95; BMI 16.2
--- NOTE | 2019-07-19 05:00 | PC.NURSE ---
Pt has accidently removed her O2 during sleep, pt o2 sat was found to be in the 70's. NC was quickly reapplied but pt's O2 was slow to recover. Pt O2 was increased to 5L, after several min o2 sat increased and maintained at 95%. Pt c/o of feeling a little dizzy, pt was assisted by x2 staff from BSC to bed. Pt tolerated poor d/t the dizziness. Diminished with fine crackles to bilat bases , rhonchi to r anterior on lung auscultation. ABD is flat, non-tender, with active BS noted. Pt reports nausea at the begining of the shift, medicated per MAY and no further c/o of nausea. No edema noted. A few bruises noted t/o arms. Patent IV to LAC that is saline locked. VSS at this time, call light within reach, will continue to monitor pt.
[2019-07-19 07:24] LABS: Basophils # 0.2 K/mm3 (0-0.2); Basophils % 1.2 % (0.1-2.0); Eosinophils # 0.2 K/mm3 (0.0-0.4); Hematocrit 37.2 % (37.0-47.0); Lymphocytes # 1.6 K/mm3 (0.7-4.5); Mean Corpuscular Hemoglobin 28.8 pg (27.0-31.2); Mean Corpuscular Volume 92.8 fl (81-99); Monocytes # 0.6 K/mm3 (0.1-1.0); Monocytes % 2.8 % (1.7-9.3); Neutrophils # 17.4 K/mm3 (1.8-7.8); Neutrophils % 86.9 % (37.0-80.0); Platelet Count 466 K/mm3 (142-424); Red Blood Count 4.01 M/mm3 (4.20-5.40); White Blood Count 20.1 K/mm3 (4.8-10.8)
[2019-07-19 07:39] LABS: Hemoglobin 11.5 g/dL (12.2-16.2)
[2019-07-19 07:40] LABS: MANUAL DIFFERENTIAL MANUAL DIFFERENTIAL (MANUAL DIFF)
--- NOTE | 2019-07-19 07:56 | HMH.ACPN2 ---
Internal Medicine - PN: Subj *Date: 07/19/19 *Time: 07:56 Interval history: Patient had an episode overnight where her oxygen became dislodged and she was found by staff with O2 sats in the 70s. She recovered with reapplication of oxygen. Patient downplays the episode this morning and reports that there was not any significant change in her shortness of breath during that time. She feels like she slept better. The tramadol she received for pain for her pressure ulcer on her backside was beneficial. She feels like she slept well. She admits she feels a little more energetic today. She also feels like she may be breathing a little bit easier. She is producing sputum. Patient had a unit of packed red blood cells yesterday but yesterday evening did not feel like that had improved any of her dyspnea Exam Vital signs and Labs for Last 24 Hours: Temp Pulse Resp BP Pulse Ox 97.6 F 99 H 19 118/65 95 07/19/19 04:00 07/19/19 04:00 07/19/19 04:00 07/19/19 04:00 07/19/19 04:00 Laboratory Results - last 24 hr 07/18/19 06:18: Total Counted 100, Neutrophils % (Manual) 93 H, Lymphocytes % (Manual) 4 L, Monocytes % (Manual) 3, Platelet Estimate Slight decrease, Hypochromasia 1+ 07/18/19 07:50: Blood Type A Positive, Antibody Screen Negative, Crossmatch (AHG) See Detail 07/18/19 11:45: Random Gentamicin 2.3 07/18/19 14:45: Hgb 9.9 L D, Hct 31.0 L 07/19/19 06:30: WBC 20.1 H*, RBC 4.01 L D, Hgb 11.5 L D, Hct 37.2, MCV 92.8, MCH 28.8, MCHC 31.0 L, RDW 17.0, Plt Count 466 H, MPV 8.0, Neut % (Auto) 86.9 H, Lymph % (Auto) 8.0 L, [place] % (Auto) 2.8, Eos % (Auto) 1.0, Baso % (Auto) 1.2, Neut # (Auto) 17.4 H, Lymph # (Auto) 1.6, [place] # (Auto) 0.6, Eos # (Auto) 0.2, Baso # (Auto) 0.2 I & O for Last 24 hours: Intake & Output 07/16/19 07/17/19 07/18/19 07/19/19 11:59 11:59 11:59 11:59 Intake Total 657 / 657 1360 / 1360 Output Total 1250 / 1250 Balance 657 / 657 110 / 110 Weight 95 lb 5 oz 95 lb 4.893 oz Microbiology Reports for the Last 24 Hours: Microbiology 07/17/19 17:30 Sputum - Expectorated Sputum Gram Stain - Final 07/17/19 17:30 Sputum - Expectorated Sputum Sputum Culture - Preliminary Narrative: Patient looks comfortable. Lungs have bilateral rhonchi although more prominent in the left anterior and left lateral mid chest this morning. There is no wheezing. Assessment and Plan (1) Pneumonia Current visit: No Status: Acute Qualifiers: Pneumonia type: due to unspecified organism Laterality: right Lung location: unspecified part of lung Qualified Code(s): J18.9 - Pneumonia, unspecified organism Category: Medical Code(s): J18.9 - Pneumonia, unspecified organism (2) Non-small cell carcinoma of left lung, stage 4 Current visit: Yes Status: Chronic Category: Medical Code(s): C34.92 - Malignant neoplasm of unspecified part of left bronchus or lung (3) Chronic anemia Current visit: No Status: Chronic Category: Medical Code(s): D64.9 - Anemia, unspecified (4) Low body mass index (BMI) Current visit: No Status: Acute Category: Medical (5) CAD (coronary artery disease) Current visit: No Status: Chronic Category: Medical Code(s): I25.10 - Atherosclerotic heart disease of [place] coronary artery without angina pectoris (6) COPD (chronic obstructive pulmonary disease) Current visit: No Status: Chronic Qualifiers: Category: Medical Code(s): J44.9 - Chronic obstructive pulmonary disease, unspecified (7) Chronic respiratory failure Current visit: No Status: Chronic Category: Medical Code(s): J96.10 - Chronic respiratory failure, unspecified whether with hypoxia or hypercapnia (8) Dependence on continuous supplemental oxygen Current visit: No Status: Chronic Category: Medical Code(s): Z99.81 - Dependence on supplemental oxygen (9) 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
[2019-07-19 08:18] LABS: Lymphocytes % 14 % (10-50); Monocytes % 2 % (2-9); Neutrophils % 84 % (42-76); Platelet Estimate Slight Increase; RBC Morphology Normal; Total Cells Counted 100
--- NOTE | 2019-07-19 18:14 | PC.NURSE ---
Pt has slept the majority of this shift and reports that she must have been really tired . No complaints of pain or discomfort this shift. 20 G IV located in the LT AC patent and flushed with saline. Pt has been encouraged to turn/reposition as much as possible due to the stage 2 pressure ulcer on her coccyx. The ulcer remains undressed per pt preference. O2 administered via NC @ 5 LPM. VSS. Call light within reach. Will continue to monitor.
[2019-07-20] VITALS (8 sets, daily range): BP systolic 86–130; BP diastolic 48–62; PULSE 78–104; RESP 18–20; TEMP 36.3–36.8; O2SAT 90–100; BMI 16.2
[2019-07-20 00:11] LABS: Gentamicin,Random 3.6 ug/ml
--- NOTE | 2019-07-20 06:33 | PC.NURSE ---
Pt is A&Ox4 and has ambulated OOB 3x this shift [place] [facility] [place] tolerated fair d/t SOA w/ exertion and weakness. Pt c/o pain to pressure area/low back 1x this shift, medicated per MAY. Pt reported that tramadol is helping to reliever her pain. ABD is flat, soft, and non-tender. Pt has denied any N/V/D. Pt had 1 small BM near the beginning of shift. Rhonchi noted anteriorly and diminished bases on lung auscultation. Weak, productive cough noted intermittently. Pt continues on 5L per NC with O2 sats 92-97% t/o shift. Pt slept t/o most of this shift. Pt reports she feels so tired and asks is it the pain medicine making me feel this way? . Pt educated on medications. No edema noted. HR slightly elevated at the beginning of shift and in the 80's during the remainder. BP has been slightly lower with most recent being 99/48 (map 65). Call light within reach, will continue to monitor.
[2019-07-20 06:47] LABS: Basophils # 0.3 K/mm3 (0-0.2); Basophils % 1.5 % (0.1-2.0); Eosinophils # 0.3 K/mm3 (0.0-0.4); Eosinophils % 1.4 % (0.1-12.0); Hematocrit 31.9 % (37.0-47.0); Lymphocytes # 1.5 K/mm3 (0.7-4.5); Lymphocytes % 8.4 % (10-50); Mean Corpuscular HGB Conc 30.8 g/dL (31.8-35.4); Mean Corpuscular Hemoglobin 28.6 pg (27.0-31.2); Mean Corpuscular Volume 92.8 fl (81-99); Mean Platelet Volume 8.5 fl (7.4-10.4); Monocytes # 0.5 K/mm3 (0.1-1.0); Monocytes % 2.9 % (1.7-9.3); Neutrophils # 15.3 K/mm3 (1.8-7.8); Neutrophils % 85.6 % (37.0-80.0); Platelet Count 362 K/mm3 (142-424); Red Blood Count 3.44 M/mm3 (4.20-5.40); Red Cell Distribution Width 16.9 % (11.5-17.5); White Blood Count 17.9 K/mm3 (4.8-10.8)
[2019-07-20 06:51] LABS: Hemoglobin 9.8 g/dL (12.2-16.2)
[2019-07-20 06:52] LABS: MANUAL DIFFERENTIAL MANUAL DIFFERENTIAL (MANUAL DIFF)
[2019-07-20 07:01] LABS: Anisocytosis 1+; Hypochromasia 1+; Lymphocytes % 5 % (10-50); Neutrophils % 81 % (42-76); Platelet Estimate Normal; Total Cells Counted 100; Toxic Granulation 1+
--- NOTE | 2019-07-20 08:32 | HMH.ACPN2 ---
Internal Medicine - PN: Subj *Date: 07/20/19 *Time: 08:32 Interval history: Patient reports drowsiness along with nausea this morning. Nursing staff is also raise concern about the patient's memory as she is seemed confused about date and reason for hospitalization at times. Patient this morning only complains of sleeping excessively. This is confirmed by nursing staff that reports patient slept most of the day yesterday and slept soundly through the night. The only change in medications has been use of tramadol to control pain from a decubitus ulcer on her backside. Exam Vital signs and Labs for Last 24 Hours: Temp Pulse Resp BP Pulse Ox 98.2 F 104 H 20 130/62 90 L 07/20/19 08:00 07/20/19 08:00 07/20/19 08:00 07/20/19 08:00 07/20/19 08:00 Laboratory Results - last 24 hr 07/19/19 23:30: Random Gentamicin 3.6 07/20/19 06:00: WBC 17.9 H, RBC 3.44 L, Hgb 9.8 L D, Hct 31.9 L, MCV 92.8, MCH 28.6, MCHC 30.8 L, RDW 16.9, Plt Count 362, MPV 8.5, Neut % (Auto) 85.6 H, Lymph % (Auto) 8.4 L, [place] % (Auto) 2.9, Eos % (Auto) 1.4, Baso % (Auto) 1.5, Neut # (Auto) 15.3 H, Lymph # (Auto) 1.5, [place] # (Auto) 0.5, Eos # (Auto) 0.3, Baso # (Auto) 0.3 H, Total Counted 100, Neutrophils % (Manual) 81 H, Band Neutrophils % 14.0 H, Lymphocytes % (Manual) 5 L, Toxic Granulation 1+, Platelet Estimate Normal, Hypochromasia 1+, Anisocytosis 1+ I & O for Last 24 hours: Intake & Output 07/17/19 07/18/19 07/19/19 07/20/19 11:59 11:59 11:59 11:59 Intake Total 657 / 657 1480 / 1480 570 / 570 Output Total 1250 / 1250 801 / 801 Balance 657 / 657 230 / 230 -231 / -231 Weight 95 lb 5 oz 95 lb 4.893 oz 95 lb 3 oz Microbiology Reports for the Last 24 Hours: Microbiology 07/17/19 17:30 Sputum - Expectorated Sputum Gram Stain - Final 07/17/19 17:30 Sputum - Expectorated Sputum Sputum Culture - Final Normal Respiratory Raisa 07/17/19 19:36 Blood Blood Culture - Preliminary NO GROWTH AFTER 48 HOURS 07/17/19 19:41 Blood Blood Culture - Preliminary NO GROWTH AFTER 48 HOURS Narrative: Patient appears comfortable. Lungs have some distant rhonchi anteriorly in both lungs. Posterior rhonchi that were present yesterday have now been replaced by diminished breath sounds in the left mid to lower lung. Heart has a regular rate and rhythm. Lower extremities have no edema Assessment and Plan (1) Pneumonia Current visit: No Status: Acute Qualifiers: Pneumonia type: due to unspecified organism Laterality: right Lung location: unspecified part of lung Qualified Code(s): J18.9 - Pneumonia, unspecified organism Category: Medical Code(s): J18.9 - Pneumonia, unspecified organism (2) Non-small cell carcinoma of left lung, stage 4 Current visit: Yes Status: Chronic Category: Medical Code(s): C34.92 - Malignant neoplasm of unspecified part of left bronchus or lung (3) Chronic anemia Current visit: No Status: Chronic Category: Medical Code(s): D64.9 - Anemia, unspecified (4) Low body mass index (BMI) Current visit: No Status: Acute Category: Medical (5) CAD (coronary artery disease) Current visit: No Status: Chronic Category: Medical Code(s): I25.10 - Atherosclerotic heart disease of [place] coronary artery without angina pectoris (6) COPD (chronic obstructive pulmonary disease) Current visit: No Status: Chronic Qualifiers: Category: Medical Code(s): J44.9 - Chronic obstructive pulmonary disease, unspecified (7) Chronic respiratory failure Current visit: No Status: Chronic Category: Medical Code(s): J96.10 - Chronic respiratory failure, unspecified whether with hypoxia or hypercapnia (8) Dependence on continuous supplemental oxygen Current visit: No Status: Chronic Category: Medical Code(s): Z99.81 - Dependence on supplemental oxygen (9) Pulmonary cachexi
--- NOTE | 2019-07-20 08:34 | XR_ITS ---
PROCEDURE: XR CHEST 2V CLINICAL HISTORY: pneumonia progress study Follow-up pneumonia COMPARISON: CT CHEST WO CON from 07/06/2019 XR CHEST PORTABLE from 07/08/2019 XR CHEST AP from 07/08/2019 XR CHEST PORTABLE from 07/17/2019 FINDINGS: The cardiomediastinal silhouette and pulmonary vascularity are within normal limits. Bilateral pneumonia once again noted in the left mid and lower lobe and right lower lobe which appears slightly worse. Consolidation is now present in the right midlung. There are bilateral pleural effusions. No change cavitating lesion right upper lobe. IMPRESSION: Worsening bilateral pneumonia with effusions Dictated by: Melvin Roach MD 07/20/2019 10:23 Electronically signed by Melvin Roach MD in [place] 07/20/2019 10:23
--- NOTE | 2019-07-20 10:08 | HMH.PHACONS ---
- Pharmacy Consult Date: 07/20/19 Time: 10:09 Referring provider: DR. BLUM Reason for Consult:: GENTAMICIN LEVEL Allergies and ADEs:: Allergies Allergy/AdvReac Type Severity Reaction Status Date / Time codeine [CODEINE] Allergy Unknown NAUSEA AND Verified 07/17/19 19:34 VOMITING ibuprofen [IBUPROFEN] Allergy Unknown I-HIVES Verified 07/17/19 19:34 meperidine [MEPERIDINE] Allergy Unknown INCREASED Verified 07/17/19 19:34 BLOOD PRESSURE Sulfa (Sulfonamide Allergy Unknown SKIN CRAWS Verified 07/17/19 19:34 Antibiotics) [SULFA (SULFONAMIDE ANTIBIOTICS)] adhesive tape AdvReac Intermediate I-RASH Verified 07/17/19 19:34 Home Medications:: Home Medications Medication Instructions Recorded Confirmed Type ALPRAZolam [Alprazolam 0.25mg 0.25 mg PO QIDP PRN 02/17/19 07/17/19 History Tab] Clopidogrel Bisulfate [Plavix 75mg 75 mg PO QODHS 03/22/19 07/17/19 History Tab] Metoprolol Tartrate [Lopressor 25 mg PO TID 07/07/19 07/17/19 History 25mg tablet] Mirtazapine [Remeron] 15 mg PO HS 07/07/19 07/17/19 History lisinopriL [Lisinopril 20mg Tab] 10 mg PO BID 07/07/19 07/17/19 History Prochlorperazine Maleate 10 mg PO TIDP PRN 07/17/19 07/18/19 History Fluticasone Propionate [Flovent 250 mcg IH BID 07/18/19 07/18/19 History Diskus] Pantoprazole Sodium [Protonix 40mg 40 mg PO BID 07/18/19 07/18/19 History tablet] dexAMETHasone [Decadron] 4 mg PO DAILY 07/18/19 07/18/19 History Height: 1.63 m Weight: 43.176 kg Laboratory Results:: Laboratory Results - last 24 hr 07/19/19 23:30: Random Gentamicin 3.6 07/20/19 06:00: WBC 17.9 H, RBC 3.44 L, Hgb 9.8 L D, Hct 31.9 L, MCV 92.8, MCH 28.6, MCHC 30.8 L, RDW 16.9, Plt Count 362, MPV 8.5, Neut % (Auto) 85.6 H, Lymph % (Auto) 8.4 L, [place] % (Auto) 2.9, Eos % (Auto) 1.4, Baso % (Auto) 1.5, Neut # (Auto) 15.3 H, Lymph # (Auto) 1.5, [place] # (Auto) 0.5, Eos # (Auto) 0.3, Baso # (Auto) 0.3 H, Total Counted 100, Neutrophils % (Manual) 81 H, Band Neutrophils % 14.0 H, Lymphocytes % (Manual) 5 L, Toxic Granulation 1+, Platelet Estimate Normal, Hypochromasia 1+, Anisocytosis 1+ Medical History: Reports:: Arrhythmia, Cancer (Lung cancer), Carotid Stenosis, Chronic Obstructive Pulmonary Disease (COPD), Coronary Artery Disease, Hyperlipidemia, Hypertension, Internal Pacemaker, Myocardial Infarction, Peripheral Artery Disease, Peripheral Vascular Disease Denies:: Diabetes Mellitus Type 1, Diabetes Mellitus Type 2, MRSA Assessment and Plan (1) Pneumonia Current visit: No Status: Acute Qualifiers: Pneumonia type: due to unspecified organism Laterality: right Lung location: unspecified part of lung Qualified Code(s): J18.9 - Pneumonia, unspecified organism Category: Medical Code(s): J18.9 - Pneumonia, unspecified organism (2) Non-small cell carcinoma of left lung, stage 4 Current visit: Yes Status: Chronic Category: Medical Code(s): C34.92 - Malignant neoplasm of unspecified part of left bronchus or lung (3) Chronic anemia Current visit: No Status: Chronic Category: Medical Code(s): D64.9 - Anemia, unspecified (4) Low body mass index (BMI) Current visit: No Status: Acute Category: Medical (5) CAD (coronary artery disease) Current visit: No Status: Chronic Category: Medical Code(s): I25.10 - Atherosclerotic heart disease of [place] coronary artery without angina pectoris (6) COPD (chronic obstructive pulmonary disease) Current visit: No Status: Chronic Qualifiers: Category: Medical Code(s): J44.9 - Chronic obstructive pulmonary disease, unspecified (7) Chronic respiratory failure Current visit: No Status: Chronic Category: Medical Code(s): J96.10 - Chronic respiratory failure, unspecified whether with hypoxia or hypercapnia (8) Dependence on continuous supplemental oxygen Current visit: No Status: Chronic Category: Medical Code(s): Z99.81 - Dependence on sup
--- NOTE | 2019-07-20 16:52 | PC.NURSE ---
Pt has slept off and on throughout this shift with no complaints of pain or discomfort. Low B/P noted at [address] Adams contacted. Telephone order received for 1000 ML of NS @ 100 ML/HR. B/P at 1600 improved. Pt has been encouraged to turn/reposition as much as possible due to the stage 2 pressure ulcer on her coccyx. Pt has been cooperative with turning/repositioning and is currently using a personal pressure relief pillow brought from home. The ulcer remains undressed per pt preference. O2 administered via NC @ 5 LPM. Call light within reach. Will continue to monitor.
[2019-07-21] VITALS (7 sets, daily range): BP systolic 90–149; BP diastolic 49–67; PULSE 76–101; RESP 16–20; TEMP 36.6–37.1; O2SAT 90–100; BMI 16.2
--- NOTE | 2019-07-21 05:23 | PC.NURSE ---
Pt slept in short intervals this shift. She has tolerated 5LNC when at rest but becomes very SOA w/ exertion. Using bedisde commode w/ 1 assist and voiding clear, yellow urine. No BM this shift. No complaints reported other than SOA w/ getting up to bedside commode. Pt is repositioning independently as well as using pressure relief device. BP stable. A&O x4 throughout shift.
[2019-07-21 05:49] LABS: Basophils # 0.1 K/mm3 (0-0.2); Basophils % 0.7 % (0.1-2.0); Eosinophils # 0.2 K/mm3 (0.0-0.4); Eosinophils % 1.2 % (0.1-12.0); Hematocrit 34.8 % (37.0-47.0); Hemoglobin 10.7 g/dL (12.2-16.2); Lymphocytes # 1.1 K/mm3 (0.7-4.5); Lymphocytes % 6.5 % (10-50); Mean Corpuscular HGB Conc 30.7 g/dL (31.8-35.4); Mean Corpuscular Hemoglobin 28.9 pg (27.0-31.2); Mean Platelet Volume 7.4 fl (7.4-10.4); Monocytes # 0.4 K/mm3 (0.1-1.0); Monocytes % 2.3 % (1.7-9.3); Neutrophils # 14.6 K/mm3 (1.8-7.8); Neutrophils % 89.4 % (37.0-80.0); Platelet Count 325 K/mm3 (142-424); Red Cell Distribution Width 16.6 % (11.5-17.5); White Blood Count 16.4 K/mm3 (4.8-10.8)
[2019-07-21 05:53] LABS: Anion Gap 4.5 mEq/L (5-15); Blood Urea Nitrogen 12 mg/dl (7-17); Calcium 9.9 mg/dl (8.4-10.2); Carbon Dioxide 38 mmol/L (22.0-30.0); Chloride 93 mmol/L (98-107); Creatinine Clearance Estimated 33 mL/min (50-200); Estimated Glomerular Filt Rate 155 ml/min (>60); GFR (African American) 188 ML/MIN (>60); Glucose 92 mg/dl (74-100); MANUAL DIFFERENTIAL MANUAL DIFFERENTIAL (MANUAL DIFF); Potassium 4.5 mmoL/L (3.5-5.1); Sodium 131 mmol/L (136-145)
[2019-07-21 06:03] LABS: Lymphocytes % 4 % (10-50); Monocytes % 1 % (2-9); Neutrophils % 88 % (42-76); Total Cells Counted 100
[2019-07-21 06:04] LABS: Hypochromasia 2+; Platelet Estimate Normal; Rouleaux 1+
--- NOTE | 2019-07-21 07:15 | HMH.ACPN2 ---
Internal Medicine - PN: Subj *Date: 07/21/19 *Time: 07:15 Interval history: Patient continues to complain of feeling short of breath. She is getting short of breath with minimal exertion. She reports feeling short of breath while talking with me this morning. She also reports that her cough is quite productive. Chest x-ray yesterday showed worsening bilateral infiltrates and small pleural effusions. Patient continues to complain of nausea but at the same time she is very hungry Exam Vital signs and Labs for Last 24 Hours: Temp Pulse Resp BP Pulse Ox 97.9 F 98 H 20 127/55 L 91 L 07/21/19 04:00 07/21/19 04:00 07/21/19 04:00 07/21/19 04:00 07/21/19 04:00 Laboratory Results - last 24 hr 07/21/19 05:30: Sodium 131 L, Potassium 4.5, Chloride 93 L, Carbon Dioxide 38 H, Anion Gap 4.5 L, BUN 12 D, Creatinine 0.40 L, Estimated Creat Clear 33, Estimated GFR 155, Est GFR ( Amer) 188, Glucose 92, Calcium 9.9 07/21/19 05:30: WBC 16.4 H, RBC 3.70 L, Hgb 10.7 L, Hct 34.8 L, MCV 94.0, MCH 28.9, MCHC 30.7 L, RDW 16.6, Plt Count 325, MPV 7.4, Neut % (Auto) 89.4 H, Lymph % (Auto) 6.5 L, [place] % (Auto) 2.3, Eos % (Auto) 1.2, Baso % (Auto) 0.7, Neut # (Auto) 14.6 H, Lymph # (Auto) 1.1, [place] # (Auto) 0.4, Eos # (Auto) 0.2, Baso # (Auto) 0.1, Total Counted 100, Neutrophils % (Manual) 88 H, Band Neutrophils % 7.0, Lymphocytes % (Manual) 4 L, Monocytes % (Manual) 1 L, Platelet Estimate Normal, Hypochromasia 2+, [place] 1+ I & O for Last 24 hours: Intake & Output 07/18/19 07/19/19 07/20/19 07/21/19 11:59 11:59 11:59 11:59 Intake Total 657 / 657 1480 / 1480 690 / 690 1495 / 1495 Output Total 1250 / 1250 801 / 801 975 / 975 Balance 657 / 657 230 / 230 -111 / -111 520 / 520 Weight 95 lb 5 oz 95 lb 4.893 oz 95 lb 3 oz 95 lb 0.308 oz Microbiology Reports for the Last 24 Hours: Microbiology 07/17/19 17:30 Sputum - Expectorated Sputum Gram Stain - Final 07/17/19 17:30 Sputum - Expectorated Sputum Sputum Culture - Final Normal Respiratory Raisa Narrative: When I entered the room patient was asleep and showed no signs of increased work of breathing. With conversation patient shows minimal if any increased work of breathing. Lungs have less rhonchi than prior examinations with diminished breath sounds at the bases. Heart has a regular rate and rhythm. Lower extremities have no edema Assessment and Plan (1) Pneumonia Current visit: No Status: Acute Qualifiers: Pneumonia type: due to unspecified organism Laterality: right Lung location: unspecified part of lung Qualified Code(s): J18.9 - Pneumonia, unspecified organism Category: Medical Code(s): J18.9 - Pneumonia, unspecified organism (2) Non-small cell carcinoma of left lung, stage 4 Current visit: Yes Status: Chronic Category: Medical Code(s): C34.92 - Malignant neoplasm of unspecified part of left bronchus or lung (3) Chronic anemia Current visit: No Status: Chronic Category: Medical Code(s): D64.9 - Anemia, unspecified (4) Low body mass index (BMI) Current visit: No Status: Acute Category: Medical (5) CAD (coronary artery disease) Current visit: No Status: Chronic Category: Medical Code(s): I25.10 - Atherosclerotic heart disease of [place] coronary artery without angina pectoris (6) COPD (chronic obstructive pulmonary disease) Current visit: No Status: Chronic Qualifiers: Category: Medical Code(s): J44.9 - Chronic obstructive pulmonary disease, unspecified (7) Chronic respiratory failure Current visit: No Status: Chronic Category: Medical Code(s): J96.10 - Chronic respiratory failure, unspecified whether with hypoxia or hypercapnia (8) Dependence on continuous supplemental oxygen Current visit: No Status: Chronic Category: Medical Code(s): Z99.81 - Dependence on supplemental oxygen (9) 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
--- NOTE | 2019-07-21 14:25 | DIET.NUTRFU ---
Pt to start antiemetics with meals, hopefully this will improve her nausea and intakes. Fatigue, nausea, and SOB all affecting intakes in addition to early satiety and low appetite which is pts baseline dt cancer. Dietary is providing protein supplements with every meal, PRN additional supplements encouraged.
--- NOTE | 2019-07-21 17:38 | PC.NURSE ---
Have increased 02 to 6 L NC for comfort per Dr. Adams, did also verify this with danella RT. Dr. Adams did also order tramadol per may. Pt states she is having mod L Lung pain and is anxious with effort of breathing increased with exertion and talking. Will cont to mx this shift. VSS at this time. CB in reach
--- NOTE | 2019-07-21 19:18 | PC.NURSE ---
report given to cassia
--- NOTE | 2019-07-21 20:08 | PC.NURSE ---
Pt resting in bed asleep at this time. Have given report on pt to Criss Cronin RN
[2019-07-22] VITALS: BP 116/56; PULSE 79; RESP 19; TEMP 36.5; O2SAT 99
--- NOTE | 2019-07-22 01:20 | PC.NURSE ---
WEANED PT TO 5LNC AT THIS TIME. DENIES SOA. RESTING IN BED WITH EYES OPEN WATCHING TV. O2 SATS NOTED AT 100% ON 6LNC. WILL CONTINUE TO MONITOR.
--- NOTE | 2019-07-22 03:53 | PC.NURSE ---
A&O X4. PT RESTED WELL WITH EYES CLOSED T/O SHIFT. TOLERATED 6 LNC WELL WITH NO C/O SOA. PT DOES GET WINDED WITH TALKING TO THIS RN. WAS ABLE TO WEAN O2 TO 5LNC THUS FAR. PT TOLERATING 5LNC WELL WITH NO C/O SOA. BILATERAL ANTERIOR LUNGS NOTED WITH RHONCHI T/O UPON AUSCULTATION. ENCOURAGED USE OF INCENTIVE SPIROMETER. C/O PAIN IN HER LOWER CHEST REGION STATING HER LUNGS JUST HURT WITH A DULL PAIN. PT RATES PAIN 8/10 BUT REMAINS LYING IN BED WITH ARMS ABOVE HER HEAD WATCHING TV. NO DISTRESS NOTED. ADMINISTERED TRAMADOL X2 PER MAR, PER PT REQUEST THUS FAR. UPON REASSESSMENT PT DENIES HAVING ANY PAIN. REMAINS WEAK WITH AMB TO AND FROM [facility] WITH STAFF ASSIST. REFUSED TEDS. VSS. REMAINS SAFE WITH BED ALARM ON AND FUNCTIONING. CALL LIGHT WITHIN REACH. WILL CONTINUE TO MONITOR.
[2019-07-22 04:00] VITALS: BP 130/56; PULSE 91; RESP 20; TEMP 36.5; O2SAT 96
--- NOTE | 2019-07-22 04:31 | PC.NURSE ---
PT'S O2 SATS ON 5LNC NOTED AT 86% AT THIS TIME. NO RESPIRATORY DISTRESS NOTED. DENIES SOA. INCREASED O2 TO 6LNC. O2 SATS NOW NOTED AT 93%. WILL CONTINUE TO MONITOR.
[2019-07-22 05:00] VITALS: BMI 16.2
[2019-07-22 06:27] LABS: Basophils # 0.1 K/mm3 (0-0.2); Basophils % 0.8 % (0.1-2.0); Eosinophils # 0.2 K/mm3 (0.0-0.4); Eosinophils % 1.2 % (0.1-12.0); Hematocrit 35.5 % (37.0-47.0); Hemoglobin 10.6 g/dL (12.2-16.2); Lymphocytes # 1.1 K/mm3 (0.7-4.5); Lymphocytes % 6.6 % (10-50); Mean Corpuscular Hemoglobin 28.4 pg (27.0-31.2); Mean Corpuscular Volume 94.8 fl (81-99); Mean Platelet Volume 8.1 fl (7.4-10.4); Monocytes # 0.4 K/mm3 (0.1-1.0); Monocytes % 2.3 % (1.7-9.3); Neutrophils # 14.5 K/mm3 (1.8-7.8); Neutrophils % 89.1 % (37.0-80.0); Platelet Count 402 K/mm3 (142-424); Red Blood Count 3.74 M/mm3 (4.20-5.40); Red Cell Distribution Width 16.5 % (11.5-17.5); White Blood Count 16.3 K/mm3 (4.8-10.8)
[2019-07-22 06:33] LABS: MANUAL DIFFERENTIAL MANUAL DIFFERENTIAL (MANUAL DIFF)
--- NOTE | 2019-07-22 07:35 | HMH.ACPN2 ---
Internal Medicine - PN: Subj *Date: 07/22/19 *Time: 07:35 Interval history: Patient reports feeling worse this morning. She is agreeable to hospice consultation. She feels like her dyspnea has worsened. Despite the fact that O2 sats remained nearly the same and oxygen was increased for comfort patient continues to report shortness of breath Exam Vital signs and Labs for Last 24 Hours: Temp Pulse Resp BP Pulse Ox 97.7 F 91 H 20 130/56 L 96 07/22/19 04:00 07/22/19 04:00 07/22/19 04:00 07/22/19 04:00 07/22/19 04:00 Laboratory Results - last 24 hr 07/18/19 07:50: Crossmatch (AHG) See Detail 07/22/19 05:35: WBC 16.3 H, RBC 3.74 L, Hgb 10.6 L, Hct 35.5 L, MCV 94.8, MCH 28.4, MCHC 30.0 L, RDW 16.5, Plt Count 402, MPV 8.1, Neut % (Auto) 89.1 H, Lymph % (Auto) 6.6 L, [place] % (Auto) 2.3, Eos % (Auto) 1.2, Baso % (Auto) 0.8, Neut # (Auto) 14.5 H, Lymph # (Auto) 1.1, [place] # (Auto) 0.4, Eos # (Auto) 0.2, Baso # (Auto) 0.1 I & O for Last 24 hours: Intake & Output 07/19/19 07/20/19 07/21/19 07/22/19 11:59 11:59 11:59 11:59 Intake Total 1480 / 1480 840 / 840 1615 / 1615 270 / 270 Output Total 1250 / 1250 801 / 801 975 / 975 150 / 150 Balance 230 / 230 39 / 39 640 / 640 120 / 120 Weight 95 lb 4.893 oz 95 lb 3 oz 95 lb 0.308 oz 95 lb 8 oz Narrative: Patient is laying in bed with arms up behind her head. She shows a very subtle increase in work of breathing. Lung exam reveals rales in the right anterior lung and right base. Left lung sounds clear this today. Heart has a regular rate and rhythm. Abdomen is thin and soft. Extremities have no edema. Assessment and Plan (1) Pneumonia Current visit: No Status: Acute Qualifiers: Pneumonia type: due to unspecified organism Laterality: right Lung location: unspecified part of lung Qualified Code(s): J18.9 - Pneumonia, unspecified organism Category: Medical Code(s): J18.9 - Pneumonia, unspecified organism (2) Non-small cell carcinoma of left lung, stage 4 Current visit: Yes Status: Chronic Category: Medical Code(s): C34.92 - Malignant neoplasm of unspecified part of left bronchus or lung (3) Chronic anemia Current visit: No Status: Chronic Category: Medical Code(s): D64.9 - Anemia, unspecified (4) Low body mass index (BMI) Current visit: No Status: Acute Category: Medical (5) CAD (coronary artery disease) Current visit: No Status: Chronic Category: Medical Code(s): I25.10 - Atherosclerotic heart disease of [place] coronary artery without angina pectoris (6) COPD (chronic obstructive pulmonary disease) Current visit: No Status: Chronic Qualifiers: Category: Medical Code(s): J44.9 - Chronic obstructive pulmonary disease, unspecified (7) Chronic respiratory failure Current visit: No Status: Chronic Category: Medical Code(s): J96.10 - Chronic respiratory failure, unspecified whether with hypoxia or hypercapnia (8) Dependence on continuous supplemental oxygen Current visit: No Status: Chronic Category: Medical Code(s): Z99.81 - Dependence on supplemental oxygen (9) 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: Chronic Category: Medical Code(s): J44.9 - Chronic obstructive pulmonary disease, unspecified; R64 - Cachexia (10) Stage III chronic kidney disease Current visit: No Status: Chronic Category: Medical Code(s): N18.3 - Chronic kidney disease, stage 3 (moderate) (11) Hyponatremia Current visit: No Status: Resolved Category: Medical Code(s): E87.1 - Hypo-osmolality and hyponatremia (12) Nausea Current visit: No Status: Resolved Category: Medical Code(s): R11.0 - Nausea - Assessment and plan all Dx Assessment and Plan for all problems:: Hospice consultation today.
--- NOTE | 2019-07-22 07:45 | HMH.ACPN ---
Internal Medicine - PN: Subj *Date: 07/22/19 *Time: 07:45 Exam Vital signs and Labs for Last 24 Hours: Temp Pulse Resp BP Pulse Ox 97.7 F 91 H 20 130/56 L 96 07/22/19 04:00 07/22/19 04:00 07/22/19 04:00 07/22/19 04:00 07/22/19 04:00 Laboratory Results - last 24 hr 07/18/19 07:50: Crossmatch (AHG) See Detail 07/22/19 05:35: WBC 16.3 H, RBC 3.74 L, Hgb 10.6 L, Hct 35.5 L, MCV 94.8, MCH 28.4, MCHC 30.0 L, RDW 16.5, Plt Count 402, MPV 8.1, Neut % (Auto) 89.1 H, Lymph % (Auto) 6.6 L, [place] % (Auto) 2.3, Eos % (Auto) 1.2, Baso % (Auto) 0.8, Neut # (Auto) 14.5 H, Lymph # (Auto) 1.1, [place] # (Auto) 0.4, Eos # (Auto) 0.2, Baso # (Auto) 0.1 I & O for Last 24 hours: Intake & Output 07/19/19 07/20/19 07/21/19 07/22/19 23:59 23:59 23:59 23:59 Intake Total 790 / 790 986 / 1765 1019 / 1019 150 / 150 Output Total 1051 / 1051 775 / 775 350 / 350 Balance -261 / -261 211 / 990 669 / 669 150 / 150 Weight 43.23 kg 43.176 kg 43.1 kg 43.318 kg Assessment and Plan (1) Pneumonia Current visit: No Status: Acute Qualifiers: Pneumonia type: due to unspecified organism Laterality: right Lung location: unspecified part of lung Qualified Code(s): J18.9 - Pneumonia, unspecified organism Category: Medical Code(s): J18.9 - Pneumonia, unspecified organism (2) Non-small cell carcinoma of left lung, stage 4 Current visit: Yes Status: Chronic Category: Medical Code(s): C34.92 - Malignant neoplasm of unspecified part of left bronchus or lung (3) Chronic anemia Current visit: No Status: Chronic Category: Medical Code(s): D64.9 - Anemia, unspecified (4) Low body mass index (BMI) Current visit: No Status: Acute Category: Medical (5) CAD (coronary artery disease) Current visit: No Status: Chronic Category: Medical Code(s): I25.10 - Atherosclerotic heart disease of [place] coronary artery without angina pectoris (6) COPD (chronic obstructive pulmonary disease) Current visit: No Status: Chronic Qualifiers: Category: Medical Code(s): J44.9 - Chronic obstructive pulmonary disease, unspecified (7) Chronic respiratory failure Current visit: No Status: Chronic Category: Medical Code(s): J96.10 - Chronic respiratory failure, unspecified whether with hypoxia or hypercapnia (8) Dependence on continuous supplemental oxygen Current visit: No Status: Chronic Category: Medical Code(s): Z99.81 - Dependence on supplemental oxygen (9) 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: Chronic Category: Medical Code(s): J44.9 - Chronic obstructive pulmonary disease, unspecified; R64 - Cachexia (10) Stage III chronic kidney disease Current visit: No Status: Chronic Category: Medical Code(s): N18.3 - Chronic kidney disease, stage 3 (moderate) (11) Hyponatremia Current visit: No Status: Resolved Category: Medical Code(s): E87.1 - Hypo-osmolality and hyponatremia (12) Nausea Current visit: No Status: Resolved Category: Medical Code(s): R11.0 - Nausea The patient's infection will respond to the chosen ABx?: Yes Is the patient receiving the right drug, dose, and route?: Yes Could a more targeted ABx be ordered?: No
--- NOTE | 2019-07-22 07:49 | SW/DCPLANNER ---
RECEIVED REQUEST FOR A HOSPICE CONSULT ON THIS PATIENT: SPOKE WITH DR BLUM THIS MORNING AND HE STATED HE WOULD LIKE FOR HOSPICE TO COME AND SEE PATIENT HERE AT THE HOSPITAL AND GET HER READY FOR A DISCHARGE LATER IN THE AFTERNOON... I HAVE SENT REFERRAL AND TEXTED THE NURSE SO SHE WILL BE PREPARED TO COME TO VISIT.. WILL SET UP ANY EQUIPMENT PATIENT MAY NEED PRIOR TO HER DISCHARGING TO HOME...
[2019-07-22 08:00] VITALS: BP 120/69; PULSE 93; RESP 20; TEMP 36.4; O2SAT 96
[2019-07-22 09:19] LABS: Lymphocytes % 4 % (10-50); Monocytes % 1 % (2-9); Neutrophils % 95 % (42-76); Platelet Estimate Normal; RBC Morphology Normal; Total Cells Counted 100
--- NOTE | 2019-07-22 17:47 | HMH.DCSUM ---
General - General Admission date:: 07/17/19 Discharge date: 07/22/19 HPI HPI: 74-year-old female with metastatic non-small cell carcinoma of the lung under the care of Dr. Fermin Monae presented to the emergency department with recurrence of shortness of breath. Patient was at this facility for a brief hospitalization a week ago for the same complaint. She underwent left-sided thoracentesis at that time with improvement in her dyspnea. X-rays and CT scan at that time were also suggestive of pneumonia and patient sputum culture ultimately grew Pseudomonas with intermediate resistance to Levaquin and sensitivities to aminoglycosides. Patient's dyspnea had improved significantly after thoracentesis and she was discharged home. On July 10 patient received her first treatment with Keytruda under the supervision of Dr. Monae. She reports 3 to 4 days ago she began to feel increasing shortness of breath similar to how she felt prior to her thoracentesis. Ultimately she came to the emergency department last night. Patient's x-ray showed what appeared to be worsening left lower lobe infiltrate. Patient was admitted for observation with administration of Levaquin and gentamicin. This morning the patient reports that she still feels short of breath. She did not have to increase her oxygen use at home and she remains on 4 L here. She denies fevers or chills. Her cough is loose but minimally productive. Hospital Course Hospital Course: Patient was admitted and placed on IV antibiotics. CBCs were ordered daily. Despite maintaining adequate O2 sats with supplemental oxygen via the nasal cannula patient persistently describes shortness of breath. Patient's oxygen flow rate was increased as needed primarily to provide comfort or potentially reduce anxiety but this did not alleviate any of the patient's dyspnea. O2 sats remained in the 90s the majority of admission except for a brief period when patient's oxygen accidentally came off during sleep and occasionally with exertion. Patient's white blood cell count trended down. Patient's clinical exam began with rales in the left mid and lower lung that improved during hospitalization. Rales that were in the right lung persisted. Despite improvement in rales, improvement in white blood cell count patient continued to complain of shortness of breath. Chest x-ray showed worsening of the left lower lobe infiltrate as well as right lower lobe infiltrate. As patient's dyspnea worsened she ultimately requested comfort measures and consultation with hospice. On July 21 hospice was consulted. Patient was discharged home with family. Hospice will follow patient and follow-up in my office is not required Objective Vital signs: Temp Pulse Resp BP Pulse Ox 97.5 F L 93 H 20 120/69 96 07/22/19 08:00 07/22/19 08:00 07/22/19 08:00 07/22/19 08:00 07/22/19 08:00 Results Labs on day of discharge: Labs from last 24 hours 07/22/19 05:35 WBC 16.3 H RBC 3.74 L Hgb 10.6 L Hct 35.5 L MCV 94.8 MCH 28.4 MCHC 30.0 L RDW 16.5 Plt Count 402 MPV 8.1 Neut % (Auto) 89.1 H Lymph % (Auto) 6.6 L [place] % (Auto) 2.3 Eos % (Auto) 1.2 Baso % (Auto) 0.8 Neut # (Auto) 14.5 H Lymph # (Auto) 1.1 [place] # (Auto) 0.4 Eos # (Auto) 0.2 Baso # (Auto) 0.1 Total Counted 100 Neutrophils % (Manual) 95 H Lymphocytes % (Manual) 4 L Monocytes % (Manual) 1 L Platelet Estimate Normal RBC Morphology Normal Preliminary micro results at discharge 07/17/19 19:36 Blood Culture - Preliminary Blood NO GROWTH AFTER 48 HOURS 07/17/19 19:41 Blood Culture - Preliminary Blood NO GROWTH AFTER 48 HOURS DS: Diagnosis - Discharge Diagnosis (1) Pneumonia Status: Acute (2) Non-small cell carcinoma of left lung, stage 4 Status: Chronic (3) Chronic anemia Status: Chronic (4) Low body mass index (BMI) Status: Acute (5) CAD (coronary artery disease)
== END 2019-07-22 15:05 | disposition hospice, home (50) | DRG 194 ==
LOC: ER 20:04 → 2ND 21:14
PROVIDERS: Emergency Medicine; Admitting Provider Family Medicine; Emergency Provider Family Medicine; PCP Family Medicine; Visit Provider Family Medicine
DX: J18.9 Pneumonia, unspecified organism (principal); J96.10 Chronic respiratory failure, unspecified whether with hypoxia or hypercapnia; C34.92 Malignant neoplasm of unspecified part of left bronchus or lung; E87.1 Hypo-osmolality and hyponatremia; I12.9 Hypertensive chronic kidney disease with stage 1 through stage 4 chronic kidney disease, or unspecified chronic kidney disease; N18.3 Chronic kidney disease, stage 3 (moderate); I25.10 Atherosclerotic heart disease of native coronary artery without angina pectoris; Z95.0 Presence of cardiac pacemaker; Z95.5 Presence of coronary angioplasty implant and graft; Z87.891 Personal history of nicotine dependence; Z88.8 Allergy status to other drugs, medicaments and biological substances; Z88.5 Allergy status to narcotic agent; Z88.2 Allergy status to sulfonamides; Z79.899 Other long term (current) drug therapy; Z99.81 Dependence on supplemental oxygen; Z87.01 Personal history of pneumonia (recurrent)
CPT/HCPCS: 36415; 71045; 71046; 80048; 80053; 80170; 83605; 83735; 84484; 85007; 85014; 85018; 85025; 86850; 87040; 87070; 87205; 93005; 94761; 96365; 99281; 99285; J1956; J2405; P9016